=== PATIENT | female | born 1955 | race Caucasian/White ===

== ENCOUNTER 2025-07-14 22:08 | Emergency (ER) | payer MEDICARE, SELFPAY ==
--- OUTSIDE RECORDS SUMMARY | 2025-07-09 07:50 | XMS_ITS | Encounter Summary ---
Author Organization [facility] Address [address] [place] [phone] Phone Care Team Providers Care Oven Loader Name Role Phone Hali Carlin Primary Care Provider [phone] Prashant Gaspar DO Unavailable Sharon Hunter FABRIC COATING SUPERVISOR Unavailable Marilee Kaminski DEPALLETIZER OPERATOR Unavailable Encounter Details Date Type Department Care Team (Latest Contact Info) Description 07/09/2025 7:50 AM EDT - 07/09/2025 11:59 PM EDT Hospital Encounter [facility] [address] [place] [address] Prashant Gaspar, DO [address] [place] [address] [email or web address] Discharge Disposition: Home or Self Care Social History Tobacco Use Types Packs/Day Years Used Date Smoking Tobacco: Former Cigarettes Q uit: 2004 Smokeless Tobacco: Former Alcohol Use Standard Drinks/Week Comments Never 0 (1 standard drink = 0.6 oz pur e alcohol) Education Answer Date Recorded Are you interested in more education? Not on rafael e 04/23/2023 Are you concerned about learning? Not on file 04/23/2023 No 04/23/2023 No 04/23/2023 Food Answer Date Recorded Within the past 6 months we worried whether our food would run out before we got money to buy more. Never True 07/05/2025 Within the past 6 months the food we bought just didn't last and we didn't have enough money to get more. Never True Residential Stability Answer Date Recor ded What is your housing situation today? I have allan vines 07/05/2025 How many times have you move d in the past 12 months? Zero (I did not move) 07/05/2025 Paying for Meds Answer Date Recorded Do you have trouble paying for medicines? No 07/05/2025 Paying Utility Bills Answer Date Record ed Do you have trouble paying your heating or elect ricity bill? No 07/05/2025 Transportation Answer Date Recorded Has the lack of transportati on kept you from medical appointments or from getting medications? No 07/05/2025 Digital Access Answer Date Recorded No 07/05/2025 Yes 07/05/2025 Do you have reliable internet access at home? Ye s 07/05/2025 Do you have a device (e.g., phone, tablet, computer) with a working camera? Yes 07/05/2025 Intimate Partner Violence Answer Date R ecorded Are you denied basic needs s uch as food, clothing, or medical care? No 07/05/2025 In the past 12 months have y ou been in a relationship with a person who hurts, threatens, or tries to control you? No 07/05/2025 Are you denied basic needs s uch as food, clothing, or medical care? No 07/05/2025 In the past 12 months have y ou been in a relationship with a person who hurts, threatens, or tries to control you? No 07/05/2025 Comments Unknown Sex and Gender Information Value Date Recorded Sex Assigned at Female 04/23/2023 3:07 PM EDT Legal Sex Female 9:58 PM EDT Gender Identity Female 04/23/2023 3:07 PM EDT Sexual Orientation Straight 07/22/2023 4: 20 PM EDT documented as of this encounter Medications at Time of Discharge amitriptyline (ELAVIL) 25 MG tablet Take 2 tablets (50 mg total) by mouth nightly at bedtime for 14 days, THEN 1 tablet (25 mg total) nightly at bedtime for 14 days. 42 tablet 06/20/2025 aspirin 81 MG EC tablet Take 81 mg by mouth daily. gabapentin (NEURONTIN) 300 MG capsule Take 600 mg by mouth nightly at bedtime. 03/25/2023 lisinopril (PRINIVIL,ZESTRIL) 10 MG tablet Take 10 mg by mouth daily. 03/25/2023 ondansetron (ZOFRAN-ODT) 4 MG disintegrating tablet (To-Go) Take 1-2 tablet(s) by mouth every 8 hours as needed for nausea/vomitin g 6 tablet 05/31/2025 oxyCODONE 5 MG immediate release tablet Take 1 tablet (5 mg total) by mouth every 6 (six) hours as needed for pain (specific location in comments). Partial fill OK. 42 tablet 05/25/2025 vitamins with ferrous fumarate- folic acid 28 mg iron- 800 mcg Tab Take 1 tablet by mouth daily. 30 tablet 2 06/20/2025 prochlorperazine (COMPAZINE) 10 MG tablet Take 1 tablet (10 mg total) by mouth every 6 (six) hours as needed (chemotherapy induced nausea and/or vomiting). 30 tablet 2 06/21/2025 SYNTHROID 75 mcg tablet Take 75 mcg by mouth every morning. 03/25/2023 thiamine (VITAMIN B-1) 100 mg Tab tablet Take 1 tablet (100 mg total) by mouth daily. 30 tablet 06/21/2025 lidocaine (LIDODERM) 5 % Place 1 patch onto the skin daily for 5 days. Remove & Discard patch within 12 hours or as directed by 5 patch 07/05/2025 nitrofurantoin (MACROBID) 100 MG capsule Take 1 capsule (100 mg total) by mouth 2 (two) times a day for 5 days. 10 capsule 07/05/2025 5 documented as of this encounter Plan of Treatment Upcoming Encounters Date Type Department Care Team (Latest Contact Info) Description 07/20/2025 Procedure Pass [facility] Cardiovascular And Interventional Radiology [address] [place] [address] 07/20/2025 1:00 PM EDT Hospital Encounter [facility] Cardiovascular And Interventional Radiology [address] [place] [address] Galen Contreras MD [address] [place] [address] [email or web address] 07/20/2025 1:00 PM EDT - 07/20/2025 2:25 PM EDT Surgery [facility] Cardiovascular And Interventional Radiology [address] [place] [address] Galen Contreras MD [address] [place] [address] [email or web address] PORT A CATH INSERTION (IR) 07/31/2025 7:40 AM EDT Appointment [facility] [address] [place] [address] Prashant Gaspar, DO [address] [place] [phone] [email or web address] 07/31/2025 8:30 AM EDT Office Visit [facility] at [address] [address] Marilee Kaminski FNP [address] [place] [address] [email or web address] 07/31/2025 9:20 AM EDT Infusion [facility] at [address] [address] Prashant Gaspar, DO [address] [place] [address] [email or web address] Kaushal Feliz, RICHARDSON [address] [place] [address] [email or web address] 08/01/2025 2:40 PM EDT Infusion [facility] at [address] [address] Prashant Gaspar, DO [address] [place] [address] [email or web address] Celine Peralta, RICHARDSON [address] [place] [address] [email or web address] 08/02/2025 2:40 PM EDT Infusion [facility] at [address] [address] Prashant Gaspar, DO [address] [place] [address] [email or web address] Kimberly Nunes RN [address] [place] [phone] [email or web address] 08/03/2025 4:00 PM EDT Infusion [facility] at [address] [address] Prashant Gaspar, [address] [address] [email or web address] Salima Harris RN [address] [place] [phone] 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 documented in this encounter Results * (ABNORMAL) CBC and differential (07/09/2025 11:59 AM EDT) WBC 16.55(H) 4.00 - 11.00 K/uL [facility] RBC 3.52(L) 4.00 - 5.20 M/uL [facility] HGB 10.5(L) 12.0 - 16.0 g/dL [facility] HCT 32.8(L) 36.0 - 46.0 % [facility] PLT 521(H) 150 - 450 K/uL [facility] MCV 93.2 80.0 - 100.0 fL [facility] MCH 29.8 27.0 - 31.0 pg [facility] MCHC 32.0 32.0 - 36.0 g/dL [facility] RDW 15.9(H) 11.5 - 14.5 % [facility] MPV 10.5 8.4 - 12.0 fL [facility] NRBC 0.20(H) 0.00 /100 WBCs [facility] ABSOLUTE NRBC 0.03(H) 0.00 K/uL [facility] DIFF METHOD Manual [facility] TOTAL CELLS COUNTED 100 [facility] NEUTS 74.0 48.0 - 76.0 % [facility] LYMPHS 10.0(L) 18.0 - 41.0 % [facility] MONOS 2.0(L) 4.0 - 11.0 % [facility] MYELOS 14.0(H) 0 % [facility] ABSOLUTE NEUTS 12.25(H) 1.92 - 7.60 K/uL [facility] ABSOLUTE LYMPHS 1.66 0.72 - 4.10 K/uL [facility] ABSOLUTE MONOS 0.33 0.16 - 1.10 K/uL [facility] ABSOLUTE MYELOS 2.32 K/uL [facility] TOXIC GRANULATION PRESENT(A) None [facility] Blood 07/09/2025 11:5 9 AM EDT 07/09/2025 12:17 PM EDT us Prashant Gaspar DO LAB BLOOD ORDERABLES Final Result [facility] [address] [place] [address] * (ABNORMAL) Comprehensive metabolic panel (07/09/2025 11:59 AM EDT) SODIUM 142 133 - 146 mmol/L [facility] POTASSIUM 3.4 3.3 - 5.1 mmol/L [facility] CHLORIDE 105 96 - 108 mmol/L [facility] CO2 26 21 - 35 mmol/L [facility] BUN 11 6 - 19 mg/dL [facility] CREATININE 1.00 0.5 - 1.5 mg/dL [facility] GLUCOSE 125(H) 70 - 99 mg/dL [facility] ALBUMIN 3.3(L) 3.9 - 4.8 g/dL [facility] TOTAL PROTEIN 7.4 6.5 - 8.0 g/dL [facility] CALCIUM 9.1 8.4 - 10.3 mg/dL [facility] ALKALINE PHOSPHATASE 595(H) 39 - 117 U/L [facility] TOTAL BILIRUBIN 0.4 0.0 - 1.2 mg/dL [facility] AST 74(H) 0 - 37 U/L [facility] ALT 36 0 - 40 U/L [facility] GLOBULIN 4.1 1 - 4.8 g/dL [facility] EGFR 60 >59 mL/min/1.7 3m2 [facility] Comment:Estimated glomerular filtration rate calculated using the CKD-EPI refit equation. 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 Nurse Practitioner Medical Oncology 06/26/25 Marilee Kaminski FNP [address] [place] [address] [email or web address] Nurse Practitioner Medical Oncology 06/28/25 documented as of this encounter Additional Source Comments The information contained in this document represents components of the legal health record. It is not the complete legal health record.[facility]
--- NOTE | 2025-07-14 | ECG_ITS ---
Test Reason : CHEST PAIN Blood Pressure : */* mmHG Vent. Rate : 80 BPM Atrial Rate : 80 BPM P-R Int : 136 ms QRS Dur : 94 ms QT Int : 384 ms P-R-T Axes : 66 5 27 degrees QTcB Int : 442 ms Normal sinus rhythm Possible Inferior infarct , age undetermined Abnormal ECG No previous ECGs available Referred By: Generic ED Physician Electronically Signed By: VICTORINO HERNANDEZ MD
--- NOTE | ~2025-07-14 | XR_ITS ---
CLINICAL HISTORY: pain 3 view right ankle Comparison: None provided Findings: No acute fractures. Ankle mortise intact. Bones appear demineralized. No ankle effusion. Moderate ankle soft tissue swelling. No radiopaque foreign body. IMPRESSION: 1. No acute fracture. This document has been electronically signed by: Lucila Harris MD on 07/14/2025 22:58:30
--- NOTE | ~2025-07-14 | CT_ITS ---
CLINICAL HISTORY: activa CA, elevated d-dimer(372), CP CT angiography chest with contrast. 3D Postprocessing. Comparison: None provided Findings: There is no pulmonary embolism. Heart size is within normal limits. There is no pericardial effusion. There is coronary artery calcification. Thoracic aorta is normal in diameter without dissection. There are no enlarged lymph nodes. There is mucus plugging within a subsegmental left lower lobe bronchus with associated subsegmental atelectasis. There is minimal bilateral dependent atelectasis. There is no consolidation or effusion. There are mild inferior endplate compression fractures of T3 and T12. There is a faintly visible fracture line in the inferior endplate of T12. There is no retropulsion. Alignment of the thoracic spine is normal. There is no suspicious lytic or sclerotic lesion. Limited images of the upper abdomen demonstrate numerous hypodense lesions throughout the liver. IMPRESSION: 1. No pulmonary embolism. 2. Mild T12 compression fracture which may be acute or subacute. Age-indeterminate mild T3 compression fracture. Comparison with prior imaging would be helpful. 3. Numerous hypodense lesions throughout the liver suggestive of metastases. Correlate with oncologic history and prior imaging. This document has been electronically signed by: Franco Watts MD on 07/15/2025 04:07:40
--- NOTE | ~2025-07-14 | XR_ITS ---
CLINICAL HISTORY: pain 3 view right foot Comparison: None provided Findings: No fractures or dislocations. Bones appear demineralized. Mild degenerative changes of the 1st metatarsophalangeal joint. No ankle effusion. No radiopaque foreign body. IMPRESSION: 1. No acute fracture. This document has been electronically signed by: Lucila Harris MD on 07/14/2025 22:58:21
[2025-07-14 22:15] VITALS: BP 163/80; PULSE 91; RESP 18; TEMP 36.1; O2SAT 96; BMI 24.4
--- OUTSIDE RECORDS SUMMARY | 2025-07-14 23:03 | XMS_ITS | Encounter Summary ---
Author Organization [facility] Address [address] [place] [phone] Phone Care Team Providers Care Equipment Superintendent Name Role Phone Hali Carlin Primary Care Provider [phone]- [phone] Prashant Gaspar DO Unavailable [phone] Sharon Hunter COAT OPERATOR Unavailable [phone] Marilee Kaminski SENIOR SQL DATABASE DEVELOPER Unavailable [phone] Encounter Details Date Type Department Care Team (Late st Contact Info) Description 06/24/2025 Procedure Pass [facility], Ct Scan - [facility] [address] [place] [address] Social History Tobacco Use Types Packs/Day Years Used Date Smoking Tobacco: Former Cigarettes Q uit: 2003 Smokeless Tobacco: Former Alcohol Use Standard Drinks/Week [...] got money to buy more. Never True 06/25/2025 Within the past 6 months the food we bought just didn't last and we didn't have enough money to get more. Never True Residential Stability Answer Date Recor ded What is your housing situation today? I have allan sing 06/25/2025 How many times have you move d in the past 12 months? Zero (I did not move) 06/25/2025 Paying for Meds Answer Date Recorded Do you have trouble paying for medicines? No 06/25/2025 Paying Utility Bills Answer Date Record ed Do you have trouble paying your heating or elect ricity bill? No 06/25/2025 Transportation Answer Date Recorded Has the lack of transportati on kept you from medical appointments or from getting medications? No 06/25/2025 Digital Access Answer Date Recorded No 06/25/2025 Yes 06/25/2025 Do you have reliable internet access at home? Ye s 06/25/2025 Do you have a device (e.g., phone, tablet, computer) with a working camera? Yes 06/25/2025 Intimate Partner Violence Answer Date R ecorded Are you denied basic needs s uch as food, clothing, or medical care? No 06/24/2025 In the past 12 months have y ou been in a relationship with a person who hurts, threatens, or tries to control you? No 06/24/2025 Are you denied basic needs s uch as food, clothing, or medical care? No 06/24/2025 In the past 12 months have y ou been in a relationship with a person who hurts, threatens, or tries to control you? No 06/24/2025 Comments Unknown Sex and Gender Information Value Date Recorded Sex Assigned at Female 04/23/2023 3:07 PM EDT Legal Sex Female 9:58 PM EDT Gender Identity Female 04/23/2023 3:07 PM EDT Sexual Orientation Straight 07/22/2023 4: 20 PM EDT documented as of this encounter Functional Status * Calculated C-SSRS Risk Score (Lifetime/Recent) Answer Date of Assessment Author No Risk Indicated 06/24/2025 9:32 PM EDT Helen Stauffer RN * [place] Suicide Severity Rating Scale (Screener/Recent Self-Report) Question Answer Date of Assessment Author 1. Wish to be (Past 1 Month) No 06/24/2025 9:32 PM EDT Helen Stauffer RN 2. Non-Specific Active Suici raymond Thoughts (Past 1 Month) No 06/24/2025 9:32 PM EDT Patrick Stauffer RN 6. Suicidal Behavior (Lifetime) No 9:32 PM EDT Helen Stauffer RN documented as of this encounter Plan of Treatment Upcoming Encounters Date Type Department Care Team (Latest Contact Info) Description 07/20/2025 Procedure Pass [facility] Cardiovascular And Interventional Radiology [address] [place] [address] 07/20/2025 1:00 PM EDT Hospital Encounter [facility] Cardiovascular And Interventional Radiology [address] [place] [address] Galen Contreras MD [address] [place] [address] [email or web address] 07/20/2025 1:00 PM EDT - 07/20/2025 2:25 PM EDT Surgery [facility] Cardiovascular And Interventional Radiology [address] [place] [address] Galen Contreras MD [address] [place] [address] [email or web address] PORT A CATH INSERTION (IR) 07/31/2025 7:40 AM EDT Appointment [facility] Laboratory [address] [place] [address] Prashant Gaspar, DO [address] [place] [address] [email or web address] 07/31/2025 8:30 AM EDT Office Visit [facility] at [address] [address] Marilee Kaminski FNP [address] [place] [address] 07/31/2025 9:20 AM EDT Infusion [facility] [place] at [address] [address] Prashant Gaspar, DO [address] [place] [address] [email or web address] Kaushal Feliz RN [address] [place] [address] [email or web address] 08/01/2025 2:40 PM EDT Infusion [facility] at [address] [address] Prashant Gaspar, [address] [address] [email or web address] Celine Peralta RN [address] [place] [phone] [email or web address] 08/02/2025 2:40 PM EDT Infusion [facility] at [address] [address] Prashant Gaspar [address] [address] [email or web address] Kimberly Nunes RN [address] [place] [address] [email or web address] 08/03/2025 4:00 PM EDT Infusion [facility] at [address] [address] Prashant Gaspar DO [address] [place] [address] [email or web address] Salima Harris RN [address] [place] [address] [email or web address] documented as of this encounter Visit Diagnoses Not on filedocumented in this encounter Care Teams Equipment Superintendent Relationship Specialty Start Date End Date Hali Carlin PA [address] [place] [phone] PCP - General Physician Forest Law And Policy Professor 05/03/25 Prashant Gaspar DO [address] [place] [address] [email or web address] Primary Oncologist Hematology and Oncology 06/01/25 Sharon Hunter NP [address] [place] [phone] Nurse Practitioner Medical Oncology 06/26/25 Marilee Kaminski FNP [address] [place] [address] Nurse Practitioner Medical Oncology 06/28/25 documented as of this encounter Additional Source Comments The information contained in this document represents components of the legal health record. It is not the complete legal health record.[facility]
--- OUTSIDE RECORDS SUMMARY | 2025-07-14 23:03 | XMS_ITS | Encounter Summary ---
Author Organization [facility] Address [address] [place] [address] [place] [address] Phone Care Team Providers Care Unleavened Dough Mixer Name Role Phone Celine Farley MD Primary Care Provider Unavailable Hali Carlin Primary Care Provider [phone] Prashant Gaspar DO Unavailable [phone] Sharon Hunter PLANT CARE WORKER Unavailable Marilee KaminskiP Unavailable Encounter Details Date Type Department Care Team (Late st Contact Info) Description 04/23/2023 Procedure Pass [facility], Ct Scan - [facility] [address] [place] [address] Social History Tobacco Use Types Packs/Day Years Used Date Smoking Tobacco: Never Assessed Education Answer Date Recorded Are you interested in more education? Not on rafael e 04/23/2023 Are you concerned about learning? Not on file 04/23/2023 No 04/23/2023 No 04/23/2023 Digital Access Answer Date Recorded No 04/23/2023 No 04/23/2023 Reliable internet access at home? Not on file 04/23/2023 Device with a working camera? Not on file Intimate Partner Violence Answer Date R ecorded Are you denied basic needs s uch as food, clothing, or medical care? No 04/23/2023 In the past 12 months have y ou been in a relationship with a person who hurts, threatens, or tries to control you? No 04/23/2023 Are you denied basic needs s uch as food, clothing, or medical care? No 04/23/2023 In the past 12 months have y ou been in a relationship with a person who hurts, threatens, or tries to control you? No 04/23/2023 Comments Unknown Sex and Gender Information Value Date Recorded Sex Assigned at Female 04/23/2023 3:07 PM EDT Legal Sex Female 9:58 PM EDT Gender Identity Female 04/23/2023 3:07 PM EDT Sexual Orientation Straight 07/22/2023 4: 20 PM EDT documented as of this encounter Functional Status * Calculated C-SSRS Risk Score (Lifetime/Recent) Answer Date of Assessment Author No Risk Indicated 04/26/2023 8:34 AM EDT Celena Hinton RN * Semmes Suicide Severity Rating Scale (Screener/Recent Self-Report) Question Answer Date of Assessment Author 1. Wish to be (Past 1 Month) No 023 8:34 AM EDT Celena Hinton RN 2. Non-Specific Active Suici raymond Thoughts (Past 1 Month) No 04/26/2023 8:34 AM EDT Sherine Hinton RN 6. Suicidal Behavior (Lifetime) No 8:34 AM EDT Celena Hinton RN documented as of this encounter Plan of Treatment Upcoming Encounters Date Type Department Care Team (Latest Contact Info) Description 07/20/2025 Procedure Pass [facility] Cardiovascular And Interventional Radiology [address] [place] [address] 07/20/2025 1:00 PM EDT Hospital Encounter [facility] Cardiovascular And Interventional Radiology [address] [place] [address] Galen Contreras MD [address] [place] [address] [email or web address] 07/20/2025 1:00 PM EDT - 07/20/2025 2:25 PM EDT Surgery [facility] Cardiovascular And Interventional Radiology [address] [place] [address] Galen Contreras MD [address] [place] [address] [email or web address] PORT A CATH INSERTION (IR) 07/31/2025 7:40 AM EDT Appointment [facility] Laboratory [address] [place] [address] Prashant Gaspar, DO [address] [place] [address] [email or web address] 07/31/2025 8:30 AM EDT Office Visit [facility] at [address] [address] Marilee Kaminski FNP [address] [place] [address] [email or web address] 07/31/2025 9:20 AM EDT Infusion [facility] at [address] [address] Prashant Gaspar, DO [address] [place] [address] [email or web address] Kaushal Feliz, RICHARDSON [address] [place] [address] [email or web address] 08/01/2025 2:40 PM EDT Infusion [facility] at [address] [address] Prashant Gaspar, DO [address] [place] [address] [email or web address]@[email or web address] Celine Peralta, RICHARDSON [address] [place] [address] [email or web address] 08/02/2025 2:40 PM EDT Infusion [facility] at [address] [address] Prashant Gaspar DO [address] [place] [address] [email or web address]@[email or web address] Kimberly Nunes, RICHARDSON [address] [place] [address] [email or web address] 08/03/2025 4:00 PM EDT Infusion [facility] at [address] [address] Prashant Gaspar DO [address] [place] [address] [email or web address]@[email or web address] Salima Harris RN [address] [place] [address] [email or web address] documented as of this encounter Visit Diagnoses Not on filedocumented in this encounter Additional Health Concerns Infection Onset Date Last Indicated Resolved Time CoV-Risk Comment:Per note documentation 04/24/2023 04/24/2023 10:25 AM EDT CoV-Risk 05/31/2025 05/31/2025 06/11/2025 1:21 AM EDT documented as of this encounter Care Teams Unleavened Dough Mixer Relationship Specialty Start Date End Date Celine Farley MD PCP - General 07/20/17 05/02/25 Hali Carlin PA [address] [place] [phone] PCP - General Physician Sales Support Coordinator 05/03/25 Prashant Gaspar DO [address] [place] [address] [email or web address] Primary Oncologist Hematology and Oncology 06/01/25 Sharon Hunter NP [address] [place] [address] [email or web address] Nurse Practitioner Medical Oncology 06/26/25 Marilee Kaminski FNP [address] [place] [address] [email or web address] Nurse Practitioner Medical Oncology 06/28/25 documented as of this encounter Additional Source Comments The information contained in this document represents components of the legal health record. It is not the complete legal health record.[facility]
--- OUTSIDE RECORDS SUMMARY | 2025-07-14 23:04 | XMS_ITS | Encounter Summary ---
Author Organization [facility] Address [address] [place] [address] Phone Care Team Providers Care Ferryboat Operator Helper Name Role Phone Hali Carlin Primary Care Provider [phone]- [phone] Prashant Gaspar DO Unavailable [phone] Sharon Hunter CHEMICAL PROJECT ENGINEER Unavailable [phone] Marilee Kaminski PORCELAIN ENAMEL LABORER Unavailable [phone] Encounter Details Date Type Department Care Team (Late st Contact Info) Description 06/24/2025 Procedure Pass [facility], Ct Scan - [facility] [address] [place] [address] Social History Tobacco Use Types Packs/Day Years [...] 9:32 PM EDT Helen Stauffer RN * Alexander Suicide Severity Rating Scale (Screener/Recent Self-Report) Question [...] (Latest Contact Info) Description 07/20/2025 Procedure Pass [facility] Cardiovascular And Interventional Radiology [address] [place] [address] 07/20/2025 1:00 PM EDT Hospital Encounter [facility] Cardiovascular And Interventional Radiology [address] [place] [address] Galen Contreras MD [address] [place] [address] [email or web address] 07/20/2025 1:00 PM EDT - 07/20/2025 2:25 PM EDT Surgery [facility] Cardiovascular And Interventional Radiology [address] [place] [address] Galen Contreras MD [address] [place] [address] [email or web address] PORT A CATH INSERTION (IR) 07/31/2025 7:40 AM EDT Appointment [facility] Laboratory [address] [place] [address] Prashant Gaspar, DO [address] [place] [address] [email or web address] 07/31/2025 8:30 AM EDT Office Visit [facility] at [address] [address] Marilee Kaminski FNP [address] [place] [address] 07/31/2025 9:[address] [facility] at [address] [address] Prashant Gaspar, DO [address] [place] [address] [email or web address] [email or web address] Kaushal Feliz RN [address] [place] [address] [email or web address] 08/01/2025 2:40 PM EDT Infusion [facility] at [address] [address] Prashant Gaspar, [address] [address] [email or web address] Celine Peralta RN [address] [place] [address] [email or web address] 08/02/2025 2:40 PM EDT Infusion [facility] at [address] [address] Prashant Gaspar [address] [address] [email or web address] Kimberly Nunes RN [address] [place] [address] [email or web address] 08/03/2025 4:00 PM EDT Infusion [facility] at [address] [address] Prashant Gaspar DO [address] [place] [address] [email or web address]@[email or web address] Salima Harris RN [address] [place] [address] [email or web address] documented as of this encounter Visit Diagnoses Not on filedocumented in this encounter Care Teams Ferryboat Operator Helper Relationship Specialty Start Date End Date Hali Carlin PA [address] [place] [phone] PCP - General Physician Steeping Press Tender 05/03/25 Prashant Gaspar DO [address] [place] [address] [email or web address] Primary Oncologist Hematology and Oncology 06/01/25 Sharon Hunter NP [address] [place] [address] Nurse Practitioner Medical Oncology 06/26/25 Marilee Kaminski FNP [address] [place] [address] Nurse Practitioner Medical Oncology 06/28/25 documented as of this encounter Additional Source Comments The information contained in this document represents components of the legal health record. It is not the complete legal health record.[facility]
--- OUTSIDE RECORDS SUMMARY | 2025-07-14 23:04 | XMS_ITS | Encounter Summary ---
Author Organization [facility] Address [address] [place] [address] [place] [address] Phone Care Team Providers Care Rubber Compounder Formulator Name Role Phone Hali Carlin Primary Care Provider [phone] Prashant Gaspar DO Unavailable Sharon Hunter PROGRAM DIRECTOR Unavailable Marilee Kaminski GLASS BULB MACHINE ADJUSTER Unavailable Encounter Details Date Type Department Care Team (Late st Contact Info) Description 06/20/2025 Telephone [facility] at [address] [address] Prashant Gaspar DO [address] [place] [address] [email or web address] Social History Tobacco Use Types Packs/Day Years [...] got money to buy more. Never True 06/14/2025 Within the past 6 months the food we bought just didn't last and we didn't have enough money to get more. Never True Residential Stability Answer Date Recor ded What is your housing situation today? I have allan vines 06/14/2025 How many times have you move d in the past 12 months? Zero (I did not move) 06/14/2025 Paying for Meds Answer Date Recorded Do you have trouble paying for medicines? No 06/14/2025 Paying Utility Bills Answer Date Record ed Do you have trouble paying your heating or elect ricity bill? No 06/14/2025 Transportation Answer Date Recorded Has the lack of transportati on kept you from medical appointments or from getting medications? No 06/14/2025 Digital Access Answer Date Recorded No 06/14/2025 Yes 06/14/2025 Do you have reliable internet access at home? Ye s 06/14/2025 Do you have a device (e.g., phone, tablet, computer) with a working camera? Yes 06/14/2025 Intimate Partner Violence Answer Date R ecorded [...] PM EDT documented as of this encounter Plan of Treatment Upcoming Encounters Date Type Department Care Team (Latest Contact Info) Description 07/20/2025 Procedure Pass [facility] Cardiovascular And Interventional Radiology [address] [place] [address] 07/20/2025 1:00 PM EDT Hospital Encounter [facility] [address] [place] [address] Galen Contreras MD [address] [place] [address] [email or web address] 07/20/2025 1:00 PM EDT - 07/20/2025 2:25 PM EDT Surgery [facility] Cardiovascular And Interventional Radiology [address] [place] [address] Galen Contreras MD [address] [place] [address] [email or web address] PORT A CATH INSERTION (IR) 07/31/2025 7:40 AM EDT Appointment [facility] Laboratory [address] [place] [address] Prashant Gaspar, DO [address] [place] [address] [email or web address] 07/31/2025 8:30 AM EDT Office Visit [facility] at [address] [address] Marilee Kaminski FNP [address] [place] [address] [email or web address] 07/31/2025 9:20 AM EDT Infusion [facility] at [address] [address] Prashant Gaspar, DO [address] [place] [address] [email or web address] Kaushal Feliz, RICHARDSON [address] [place] [address] [email or web address] 08/01/2025 2:40 PM EDT Infusion [facility] at [address] [address] Prashant Gaspar, DO [address] [place] [address] [email or web address] Celine Peralta, RICHARDSON [address] [place] [address] [email or web address] g 08/02/2025 2:40 PM EDT Infusion [facility] at [address] [address] Prashant Gaspar, DO [address] [place] [address] [email or web address] Kimberly Nunes RN [address] [place] [address] [email or web address] 08/03/2025 4:00 PM EDT Infusion [facility] at [address] [address] Prashant Gaspar DO [address] [place] [address] [email or web address] Salima Harris RN [address] [place] [address] [email or web address] documented as of this encounter Visit Diagnoses Not on filedocumented in this encounter Care Teams Rubber Compounder Formulator Relationship Specialty Start Date End Date Hali Carlin PA [address] [place] [phone] PCP - General Physician Wine Pasteurizer 05/03/25 Prashant Gaspar DO [address] [place] [address] [email or web address] Primary Oncologist Hematology and Oncology 06/01/25 Sharon Hunter, EVA [address] [place] [address] [email or web address] Nurse Practitioner Medical Oncology 06/26/25 Marilee Kaminski FNP [address] [place] [address] [email or web address] Nurse Practitioner Medical Oncology 06/28/25 documented as of this encounter Additional Source Comments The information contained in this document represents components of the legal health record. It is not the complete legal health record.[facility]
--- OUTSIDE RECORDS SUMMARY | 2025-07-14 23:04 | XMS_ITS | Encounter Summary ---
Author Organization [facility] Address [address] [place] [address] Phone Care Team Providers Care Cake Former Name Role Phone Hali Carlin Primary Care Provider [phone] Prashant Gaspar DO Unavailable [phone] Sharon Hunter CASH APPLICATIONS COORDINATOR Unavailable [phone] Marilee Kaminski RN SPINE Unavailable Encounter Details Date Type Department Care Team (Late st Contact Info) Description 07/09/2025 Telephone [facility] at [facility] [address] [place] [address] Sharon Hunter, EVA [address] [place] [address] [email or web address] Social History Tobacco Use Types Packs/Day Years [...] your housing situation today? I have allan jasmyn 07/05/2025 How many times have you move [...] PM EDT documented as of this encounter Progress Notes * Akua Gibson RN - 07/09/2025 11:42 AM EDT Called and lmom for carey Martines appts for today/this week for treatment Asked that she call us back to make sure she is ok and to work on a new schedule Called Yonny, they are out front the [place] entrance coming into office. Unaware of clerance appt added in for today * Sharon Hunter NP - 07/09/2025 10:33 AM EDT Bobbi did not come in for her visit this AM. Can someone please call and reschedule her? Thank you! documented in this encounter Plan of Treatment Upcoming Encounters Date Type Department Care Team (Latest Contact Info) Description 07/20/2025 Procedure Pass [facility] Cardiovascular And Interventional Radiology [address] [place] [address] 07/20/2025 1:00 PM EDT Hospital Encounter [facility] Cardiovascular And Interventional Radiology [address] [place] [address] Galen Contreras MD [address] [place] [address] [email or web address] 07/20/2025 1:00 PM EDT - 07/20/2025 2:25 PM EDT Surgery [facility] Cardiovascular And Interventional Radiology [address] [place] [address] Galen Contreras MD [address] [place] [address] [email or web address] PORT A CATH INSERTION (IR) 07/31/2025 7:40 AM EDT Appointment [facility] Laboratory [address] [place] [address] Prashant Gaspar DO [address] [place] [address] [email or web address] 07/31/2025 8:30 AM EDT Office [facility] [address] [place] [address] Marilee Kaminski FNP [address] [place] [address] [email or web address] 07/31/2025 9:20 AM EDT Infusion [facility] at [address] [address] Prashant Gaspar, DO [address] [place] [address] [email or web address] Kaushal Feliz RN [address] [place] [address] [email or web address] 08/01/2025 2:40 PM EDT Infusion [facility] at [address] [address] Prashant Gaspar, DO [address] [place] [address] [email or web address] Celine Peralta RN [address] [place] [address] [email or web address] 08/02/2025 2:40 PM EDT Infusion [facility] at [address] [address] Prashant Gaspar, DO [address] [place] [address] [email or web address] Kimberly Nunes, RICHARDSON [address] [place] [address] 08/03/2025 4:[address] [facility] at [address] [address] Prashant Gaspar, DO [address] [place] [address] [email or web address] Salima Harris, RN [address] [place] [address] [email or web address] documented as of this encounter Visit Diagnoses Not on filedocumented in this encounter Care Teams Cake Former Relationship Specialty Start Date End Date Hali Carlin PA [address] [place] [phone] PCP - General Physician Plastering Supervisor 05/03/25 Prashant Gaspar DO [address] [place] [address] [email or web address] Primary Oncologist Hematology and Oncology 06/01/25 Sharon Hunter NP [address] [place] [address] [email or web address] Nurse Practitioner Medical Oncology 06/26/25 Marilee Kaminski FNP [address] [place] [address] [email or web address] Nurse Practitioner Medical Oncology 06/28/25 documented as of this encounter Additional Source Comments The information contained in this document represents components of the legal health record. It is not the complete legal health record.[facility]
--- OUTSIDE RECORDS SUMMARY | 2025-07-14 23:04 | XMS_ITS | Encounter Summary ---
Author Organization [facility] Address [address] [place] [address] [place] [address] Phone Care Team Providers Care Hand Wrapper Operator Name Role Phone Hali Carlin Primary Care Provider [phone] Prashant Gaspar DO Unavailable Sharon Hunter OUTREACH SPECIALIST Unavailable [phone] Marilee Kaminski SALES AND CATERING COORDINATOR Unavailable Encounter Details Date Type Department Care Team (Late st Contact Info) Description 07/06/2025 Orders Only [facility] [place] [facility] [address] [place] [address] Sharon Hunter, EVA [address] [place] [address] [email or web address] Social History Tobacco Use Types Packs/Day Years [...] Pass [facility] [address] [place] [address] 07/20/2025 1:00 PM EDT Hospital Encounter [facility] [address] [place] [address] Galen Contreras MD [address] [place] [address] [email or web address] 07/20/2025 1:00 PM EDT - 07/20/2025 2:25 PM EDT Surgery [facility] Cardi[facility] And Interventional Radiology [address] [place] [address] Galen Contreras MD [address] [place] [address] [email or web address] PORT A CATH INSERTION (IR) 07/31/2025 7:40 AM EDT Appointment [facility] [address] [place] [address] Prashant Gaspar, DO [address] [place] [address] [email or web address] 07/31/2025 8:30 AM EDT Office Visit [facility] at [address] [address] Marilee Kaminski FNP [address] [place] [address] [email or web address] 07/31/2025 9:20 AM EDT Infusion [facility] at [address] [address] Prashant Gaspar, DO [address] [place] [address] [email or web address] Kaushal Feliz, RICHARDSON [address] [place] [address] [email or web address] 08/01/2025 2:40 PM EDT Infusion [facility] at [address] [address] Prashant Gaspar, DO [address] [place] [address] [email or web address] Celine Peralta, RICHARDSON [address] [place] [address] [email or web address] 08/02/2025 2:40 PM EDT Infusion [facility] at [address] [address] Prashant Gaspar, [address] [place] [address] [email or web address] Kimberly Nunes RN [address] [place] [address] [email or web address] 08/03/2025 4:00 PM EDT Infusion [facility] at [address] [address] Prashant Gaspar DO [address] [place] [address] [email or web address] Salima Harris RN [address] [place] [address] [email or web address] documented as of this encounter Visit Diagnoses Not on filedocumented in this encounter Care Teams Hand Wrapper Operator Relationship Specialty Start Date End Date Hali Carlin PA [address] [place] [phone] PCP - General Physician Steam Trap Man 05/03/25 Prashant Gaspar DO [address] [place] [address] [email or web address] Primary Oncologist Hematology and Oncology 06/01/25 Sharon Hunter, EVA [address] [place] [address] [email or web address] Nurse Practitioner Medical Oncology 06/26/25 Marilee Kaminski FNP [address] [place] [address] [email or web address] Nurse Practitioner Medical Oncology 06/28/25 documented as of this encounter Additional Source Comments The information contained in this document represents components of the legal health record. It is not the complete legal health record.[facility]
--- OUTSIDE RECORDS SUMMARY | 2025-07-14 23:04 | XMS_ITS | Encounter Summary ---
Author Organization [facility] Address [address] [place] [address] Phone Care Team Providers Care General Teller Name Role Phone Hali Carlin Primary Care Provider [phone] Prashant Gaspar DO Unavailable [phone] Sharon Hunter PHYSICIAN OFFICE NURSE Unavailable Marilee Kaminski GARDEN WORKER Unavailable [phone] Encounter Details Date Type Department Care Team (Late st Contact Info) Description 05/25/2025 Procedure Pass [place] Admitting Dept - Virtual Department [address] [place] [address] Social History Tobacco Use Types Packs/Day Years [...] got money to buy more. Never True 05/03/2025 Within the past 6 months the food we bought just didn't last and we didn't have enough money to get more. Never True Residential Stability Answer Date Recor ded What is your housing situation today? I have allan sing 05/03/2025 How many times have you move d in the past 12 months? Zero (I did not move) 05/03/2025 Paying for Meds Answer Date Recorded Do you have trouble paying for medicines? No 05/03/2025 Paying Utility Bills Answer Date Record ed Do you have trouble paying your heating or elect ricity bill? No 05/03/2025 Transportation Answer Date Recorded Has the lack of transportati on kept you from medical appointments or from getting medications? No 05/03/2025 Digital Access Answer Date Recorded No 05/03/2025 Yes 05/03/2025 Do you have reliable internet access at home? Ye s 05/03/2025 Do you have a device (e.g., phone, tablet, computer) with a working camera? Yes 05/03/2025 Intimate Partner Violence Answer Date R ecorded Are you denied basic needs s uch as food, clothing, or medical care? No 05/03/2025 In the past 12 months have y ou been in a relationship with a person who hurts, threatens, or tries to control you? No 05/03/2025 Are you denied basic needs s uch as food, clothing, or medical care? No 05/03/2025 In the past 12 months have y ou been in a relationship with a person who hurts, threatens, or tries to control you? No 05/03/2025 Comments Unknown Sex and Gender Information Value [...] Procedure [facility] [address] [place] [address] 07/20/2025 1:00 PM EDT Hospital Encounter [facility] [address] [place] [address] Galen Contreras MD 30 [place] [address] [email or web address] 07/20/2025 1:00 PM EDT - 07/20/2025 2:25 PM EDT Surgery [facility] Cardiovascular And Interventional Radiology [address] [place] [address] Galen Contreras MD [address] [place] [address] [email or web address] PORT A CATH INSERTION (IR) 07/31/2025 7:40 AM EDT Appointment [facility] [address] [place] [address] Prashant Gaspar, DO [address] [place] [address] [email or web address] 07/31/2025 8:30 AM EDT Office Visit [facility] at [address] [address] Marilee Kaminski FNP [address] [place] [address] 07/31/2025 9:20 AM EDT Infusion [facility] at [address] [address] Prashant Gaspar, DO [address] [place] [address] [email or web address] Kaushal Feliz RN [address] [place] [address] [email or web address] 08/01/2025 2:40 PM EDT Infusion [facility] at [address] [address] Prashant Gaspar, DO [address] [place] [address] [email or web address] Celine Peralta RN [address] [place] [address] [email or web address] 08/02/2025 2:40 PM EDT Infusion [facility] at [address] [address] Prashant Gaspar DO [address] [place] [address] [email or web address] Kimberly Nunes, RICHARDSON [address] [place] [address] [email or web address] 08/03/2025 4:00 PM EDT Infusion [facility] at [address] [address] Prashant Gaspar DO [address] [place] [address] [email or web address] Salima Harris RN [address] [place] [address] [email or web address] documented as of this encounter Visit Diagnoses Not on filedocumented in this encounter Additional Health Concerns Infection Onset Date Last Indicated Resolved Time CoV-Risk 05/31/2025 05/31/2025 06/11/2025 1:21 AM EDT documented as of this encounter Care Teams General Teller Relationship Specialty Start Date End Date Hali Carlin PA [address] [place] [phone] PCP - General Physician District Captain 05/03/25 Prashant Gaspar DO [address] [place] [address] [email or web address] Primary Oncologist Hematology and Oncology 06/01/25 Sharon Hunter NP [address] [place] [address] [email or web address] Nurse Practitioner Medical Oncology 06/26/25 Marilee Kaminski FNP [address] [place] [address] [email or web address] Nurse Practitioner Medical Oncology 06/28/25 documented as of this encounter Additional Source Comments The information contained in this document represents components of the legal health record. It is not the complete legal health record.[facility]
--- OUTSIDE RECORDS SUMMARY | 2025-07-14 23:04 | XMS_ITS | Encounter Summary ---
Author Organization [facility] Address [address] [place] [address] [place] [address] Phone Care Team Providers Care Stranner Name Role Phone Hali Carlin Primary Care Provider [phone] Prashant Gaspar DO Unavailable Sharon Hunter FIRE CONTROL OFFICER Unavailable Marilee Kaminski VP LEGAL AFFAIRS Unavailable Encounter Details Date Type Department Care Team (Late st Contact Info) Description 07/09/2025 Telephone [facility] at [address] [address] Prashant Gaspar DO [address] [place] [address] [email or web address] Social History Tobacco Use Types Packs/Day Years [...] as of this encounter Progress Notes * Linda Parra - 07/13/2025 11:57 AM EDT Pt called and confirmed upcoming appts * Celine Vigil RN - 07/10/2025 9:58 AM EDT Attempted to reach Bobbi to check in as she missed her appointment this morning received answering machine. Reached out to her life partner Dale. Informed Bobbi was in the room with her. Informed that Bobbi did not want to speak to me or anybody. Informed by Dale it is a hour commute for her toget here and they have other responsibilities in the morning and that they need afternoon appointments. Informed by Dale she was not happy about the way she was treated when she had her blood draw as no one explained anything to her and that she is upset. Informed him I will reach out to management and he said she doesn't want to talk to anyone. * Marilee Kaminski FNP - 07/10/2025 9:37 AM EDT Patient was a no show for rescheduled PTT and treatment this morning. RN team - can we please check in and see if she is OK. Scheduling. Can we please re-schedule for early next week. 3 day treat. BN - SALVADOR * Briseida Becerril - 07/09/2025 12:29 PM EDT Pt showed for her 750 lab 9 am PTT and 10 am day 1 treatment at 12 pm I confirmed w/phleb and CC (scheduled to see her at 9) that they would still see the pt I r/s treatment (EC day 1) to 8 am tomorrow, (day 2, 3 and Fulphila also adjusted) I went out and spoke w/pt who states she can not come prior to 12 and am apts are impossible. I explained to her that with the type of treatment she is on Day 1 has to be in the morning and theother 2 days need to be in the afternoon Pt stated at this time 'maybe it isnt worth it' I told her she would need to speak w/BN about any change in treatment but that at this time its what I can do for her. Pt is upset by the fact she needs to come in 'early' Pt agreed to have labs drawn I let the pt know the APC would be squeezing her in once the labs resulted (in about an hour) I was notified by EP (front end developer javascript html css) that the pt had left and not said if she would be back. documented in this encounter Plan of Treatment Upcoming Encounters Date Type Department Care Team (Latest Contact Info) Description 07/20/2025 Procedure Pass [facility] Cardiovascular And Interventional Radiology [address] [place] [address] 07/20/2025 1:00 PM EDT Hospital Encounter [facility] Cardiovascular And Interventional Radiology [address] [place] [address] Galen Contreras MD [address] [place] [address] [email or web address] 07/20/2025 1:00 PM EDT - 07/20/2025 2:25 PM EDT Surgery [facility] Cardiovascular And Interventional Radiology [address] [place] [address] Galen Contreras MD [address] [place] [address] [email or web address] PORT A CATH INSERTION (IR) 07/31/2025 7:40 AM EDT Appointment [facility] Laboratory [address] [place] [address] Prashant Gaspar, [address] [place] [address] [email or web address] 07/31/2025 8:30 AM EDT Office Visit [facility] [place] [address] [place] [address] Marilee Kaminski FNP [address] [place] [address] 07/31/2025 9:20 AM EDT Infusion [facility] at [address] [address] Prashant Gaspar, DO [address] [place] [address] [email or web address] Kaushal Feliz RN [address] [place] [address] [email or web address] 08/01/2025 2:40 PM EDT Infusion [facility] at [address] [address] Prashant Gaspar, [address] [address] [email or web address] Celine Peralta RN [address] [place] [address] [email or web address] 08/02/2025 2:40 PM EDT Infusion [facility] at [address] [address] Prashant Gaspar, DO [address] [place] [address] [email or web address] Kimberly Nunes RN [address] [place] [address] 08/03/2025 4:00 PM EDT Infusion [facility] at [address] [address] Prashant Gaspar, DO [address] [place] [address] [email or web address] Salima Harris RN [address] [place] [address] documented as of this encounter Visit Diagnoses Not on filedocumented in this encounter Care Teams Stranner Relationship Specialty Start Date End Date Hali Carlin PA [address] [place] [phone] PCP - General Physician Solid Waste Landfill Technician 05/03/25 Prashant Gaspar DO [address] [place] [address] [email or web address] Primary Oncologist Hematology and Oncology 06/01/25 Sharon Hunter NP [address] [place] [address] [email or web address] Nurse Practitioner Medical Oncology 06/26/25 Marilee Kaminski FNP [address] [place] [address] [email or web address] Nurse Practitioner Medical Oncology 06/28/25 documented as of this encounter Additional Source Comments The information contained in this document represents components of the legal health record. It is not the complete legal health record.[facility]
--- OUTSIDE RECORDS SUMMARY | 2025-07-14 23:04 | XMS_ITS | Encounter Summary ---
Author Organization 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 Name Role Phone Hali Carlin Primary Care Provider [phone] Prashant Gaspar DO Unavailable Sharon Hunter FISHERIES TECHNICAL OFFICER Unavailable [phone] Marilee Kaminski DIAGNOSTIC RADIOLOGIST Unavailable Encounter Details Date Type Department Care Team (Late st Contact Info) Description 06/27/2025 Orders Only [facility] [address] [facility] 2nd Floor [place], [place] [id number] Claudia Andrews [address] [place] [address] [email or web address] Need for hepatitis B screening test; 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 I have allan vines 06/25/2025 How many times have you move [...] Procedure Pass [facility] [address] [place] [phone] 07/20/2025 1:00 PM EDT Hospital Encounter [facility] [address] [place] [address] Galen Contreras MD [address] [place] [address] [email or web address] 07/20/2025 1:00 PM EDT - 07/20/2025 2:25 PM EDT Surgery [facility] Cardiovascular And Interventional Radiology [address] [place] [address] Galen Contreras MD [address] [place] [address] [email or web address] PORT A CATH INSERTION (IR) 07/31/2025 7:40 AM EDT Appointment [facility] [address] [place] [address] Prashant Gaspar, DO [address] [place] [address] [email or web address] 07/31/2025 8:30 AM EDT Office Visit [facility] at [address] [address] Marilee Kaminski FNP [address] [place] [address] [email or web address] 07/31/2025 9:20 AM EDT Infusion [facility] at [address] [address] Prashant Gaspar, DO [address] [place] [address] [email or web address] Kaushal Feliz, RICHARDSON [address] [place] [address] [email or web address] 08/01/2025 2:40 PM EDT Infusion [facility] at [address] [address] Prashant Gaspar, DO [address] [place] [address] [email or web address] Celine Peralta, RICHARDSON [address] [place] [address] [email or web address] 08/02/2025 2:40 PM EDT Infusion [facility] at [address] [address] Prashant Gaspar, DO [address] [place] [address] [email or web address] Kimberly Nunes RN [address] [place] [phone] 08/03/2025 4:00 PM EDT Infusion [facility] at [address] [address] Prashant Gaspar, [address] [address] [email or web address] Salima Harris RN [address] [place] [phone] documented as of this encounter Procedures Procedure Name Priority Date/Time Associated Diagnosis Comments COMPREHENSIVE METABOLIC PANEL Routine 06/27/2025 1:33 PM EDT Need for hepatitis B screening test 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 HEPATITIS B CORE ANTIBODY, TOTAL Routine 06/27/2025 1:33 PM EDT Need for hepatitis B screening test HEPATITIS B SURFACE ANTIGEN Routine 06/27/2025 1:33 PM EDT Need for hepatitis B screening test CBC AND DIFFERENTIAL Routine 06/27/2025 1:33 PM EDT Need for hepatitis B screening test 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 URIC ACID Routine 06/27/2025 1:33 PM EDT Need for hepatitis B screening test 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 documented in this encounter Results * (ABNORMAL) CBC and differential (06/27/2025 1:33 PM EDT) WBC 1.63(L) 4.00 - 11.00 K/uL [facility] RBC 4.13 4.00 - 5.20 M/uL [facility] HGB 12.4 12.0 - 16.0 g/dL [facility] HCT 37.6 36.0 - 46.0 % [facility] PLT 207 150 - 450 K/uL [facility] MCV 91.0 80.0 - 100.0 fL [facility] MCH 30.0 27.0 - 31.0 pg [facility] MCHC 33.0 32.0 - 36.0 g/dL [facility] RDW 15.9(H) 11.5 - 14.5 % [facility] MPV 10.3 8.4 - 12.0 fL [facility] NRBC 0.00 0.00 /100 WBCs [facility] ABSOLUTE NRBC 0.00 0.00 K/uL [facility] DIFF METHOD Auto [facility] NEUTS 41.2(L) 48.0 - 76.0 % [facility] Comment: Toxic granulation present Dohle Bodies Present LYMPHS 48.5(H) 18.0 - 41.0 % [facility] Comment: Rare Atypical Lymphs MONOS 6.1 4.0 - 11.0 % [facility] EOS 1.2 0.0 - 5.0 % [facility] BASOS 1.8(H) 0.0 - 1.5 % [facility] Granulocytes, immature (%) 1.2(H) 0.0 - 0.9 % [facility] ABSOLUTE NEUTS 0.67(L) 1.92 - 7.60 K/uL [facility] ABSOLUTE LYMPHS 0.79 0.72 - 4.10 K/uL [facility] ABSOLUTE MONOS 0.10(L) 0.16 - 1.10 K/uL [facility] ABSOLUTE EOS 0.02 0.00 - 0.50 K/uL [facility] ABSOLUTE BASOS 0.03 0.00 - 0.15 K/uL [facility] Granulocytes, immature 0.02 0.00 - 0.09 K/uL [facility] Blood 06/27/2025 1:33 PM EDT 06/27/2025 1:47 PM EDT us Prashant Gaspar DO LAB BLOOD ORDERABLES Edited Result - Final [facility] [address] [place] [address] * (ABNORMAL) Comprehensive metabolic panel (06/27/2025 1:33 PM EDT) SODIUM 137 133 - 146 mmol/L [facility] POTASSIUM 3.9 3.3 - 5.1 mmol/L [facility] CHLORIDE 103 96 - 108 mmol/L [facility] CO2 21 21 - 35 mmol/L [facility] BUN 14 6 - 19 mg/dL [facility] CREATININE 0.70 0.5 - 1.5 mg/dL [facility] GLUCOSE 110(H) 70 - 99 mg/dL [facility] ALBUMIN 3.2(L) 3.9 - 4.8 g/dL [facility] TOTAL PROTEIN 7.5 6.5 - 8.0 g/dL [facility] CALCIUM 9.0 8.4 - 10.3 mg/dL [facility] ALKALINE PHOSPHATASE 686(H) 39 - 117 U/L [facility] TOTAL BILIRUBIN 0.7 0.0 - 1.2 mg/dL [facility] AST 147(H) 0 - 37 U/L [facility] ALT 55(H) 0 - 40 U/L [facility] GLOBULIN 4.3 1 - 4.8 g/dL [facility] EGFR 92 >59 mL/min/1.7 3m2 [facility] Comment:Estimated glomerular filtration rate calculated using the CKD-EPI refit equation. ANION GAP 17 10 - 20 mmol/L [facility] Blood 06/27/2025 1:33 PM EDT 06/27/2025 1:47 PM EDT us Prashant Meyers Chasity DO LAB BLOOD ORDERABLES Final Result Performing Organization Address City/[facility]/ZIP Co de Phone Number [address] [address] * Hepatitis B core antibody, total (06/27/2025 1:33 PM EDT) HEP B CORE AB, TOT NON-REACTI VE NON-REACTI VE [facility] Blood 06/27/2025 1:33 PM EDT 06/27/2025 1:47 PM EDT us Prashant Meyers Chasity DO LAB BLOOD ORDERABLES Final Result Performing Organization Address [facility] Co de Phone Number [address] [address] * Hepatitis B surface antigen (06/27/2025 1:33 PM EDT) HBV SURFACE ANTIGEN NON-REACTI VE NON-REACTI VE [facility] Blood 06/27/2025 1:33 PM EDT 06/27/2025 1:47 PM EDT us Prashant Meyers Chasity DO LAB BLOOD ORDERABLES Final Result Performing Organization Address City/[facility]/ZIP Co de Phone Number [address] [address] * Uric acid (06/27/2025 1:33 PM EDT) URIC ACID 5.3 2.4 - 7.0 mg/dL [facility] Blood 06/27/2025 1:33 PM EDT 06/27/2025 1:47 PM EDT us Prashant Gaspar DO LAB BLOOD ORDERABLES Final Result Performing Organization Address City/[facility]/ZIP Co de Phone Number [address] [phone] documented in this encounter Visit Diagnoses Diagnosis Need for hepatitis B screening test 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 Need for hepatitis B screening test 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 Need for hepatitis B screening test 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 documented in this encounter Care Teams 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 Machine 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 Relationship Specialty Start Date End Date Hali Carlin PA [address] [place] [phone] PCP - General Physician Gauge Operator 05/03/25 Prashant Gaspar DO [address] [place] [address] [email or web address] Primary Oncologist Hematology and Oncology 06/01/25 Sharon Hunter NP [address] [place] [address] [email or web address] Nurse Practitioner Medical Oncology 06/26/25 Marilee Kaminski FNP [address] [place] [address] [email or web address] Nurse Practitioner Medical Oncology 06/28/25 documented as of this encounter Additional Source Comments The information contained in this document represents components of the legal health record. It is not the complete legal health record.[facility]
--- OUTSIDE RECORDS SUMMARY | 2025-07-14 23:04 | XMS_ITS | Clinical Summary ---
Author Organization [facility] Address [address] [facility] [address] [place] [id number] Phone Care Team Providers Care Keg Varnisher Name Role Phone Hali Carlin Primary Care Provider [phone] Prashant Gaspar DO Unavailable Sharon Hunter HAND SUTURE WINDER Unavailable Marilee Kaminski TECHNOLOGY ADMINISTRATOR Unavailable [phone] Allergies Active Allergy Reactions Criticality Noted Date Comments Adhesive 05/17/2025 Latex 05/17/2025 Medications gabapentin (NEURONTIN) 300 MG capsule Take 600 mg by mouth nightly at bedtime. 03/25/20 Active SYNTHROID 75 mcg tablet Take 75 mcg by mouth every morning. 03/25/20 23 Active lisinopril (PRINIVIL,ZESTRIL ) 10 MG tablet Take 10 mg by mouth daily. 03/25/20 Active aspirin 81 MG EC tablet Take 81 mg by mouth daily. Active oxyCODONE 5 MG immediate release tablet Take 1 tablet (5 mg total) by mouth every 6 (six) hours as needed for pain (specific location in comments). Partial fill OK. 42 tablet 05/25/20 25 Active ondansetron (ZOFRAN-ODT) 4 MG disintegrating tablet (To-Go) Take 1-2 tablet(s) by mouth every 8 hours as needed for nausea/vomi ting 6 tablet 05/31/20 25 Active amitriptyline (ELAVIL) 25 MG tablet Take 2 tablets (50 mg total) by mouth nightly at bedtime for 14 days, THEN 1 tablet (25 mg total) nightly at bedtime for 14 days. 42 tablet 06/20/20 Active vitamins with ferrous fumarate- folic acid 28 mg iron- 800 mcg Tab Take 1 tablet by mouth daily. 30 tablet 2 06/20/20 Active thiamine (VITAMIN B-1) 100 mg Tab tablet Take 1 tablet (100 mg total) by mouth daily. 30 tablet 06/21/20 Active prochlorperazine (COMPAZINE) 10 MG tablet Take 1 tablet (10 mg total) by mouth every 6 (six) hours as needed (chemothera py induced nausea and/or vomiting). 30 tablet 2 06/21/20 Active amitriptyline (ELAVIL) 50 MG tablet Take 100 mg by mouth nightly at bedtime. 04/17/20 Discontinued atorvastatin (LIPITOR) 40 MG tablet Take 40 mg by mouth nightly at bedtime. 03/25/20 Discontinued(S top Taking at Discharge) hydroCHLOROthiazi de (MICROZIDE) 12.5 mg capsule Take 12.5 mg by mouth daily. 03/25/20 Discontinued(S top Taking at Discharge) nitrofurantoin (MACROBID) 100 MG capsule Take 1 capsule (100 mg total) by mouth 2 (two) times a day for 5 days. 10 capsule 07/05/20 lidocaine (LIDODERM) 5 % Place 1 patch onto the skin daily for 5 days. Remove & Discard patch within 12 hours or as directed by 5 patch 07/05/20 Active Problems Problem Noted Date Diagnosed Date Encounter for antineoplastic chemotherapy 2024 Metabolic encephalopathy 06/15/2025 Assessment & Plan (06/19/2025 7:39 PM EDT): Confusion noted on 06/15. Patient is aware of this and thinks it is related to the ativan she was given before her MRI earlier today. MRI without cva. Sx somewhat better but remains, forgetful and has difficulty with maintaining coherent conversation. I think this is chronic and there is a dementia component. -cont rx for DEYSI -delirium precautions -ambulate, maintain day/night cycle -geriatrics consulted and suspect underlying dementia, possibly vascular dementia. Ordered labs for reversible causes of cognitive impairment. Assessment & Plan (06/18/2025 6:42 PM EDT): Confusion noted on 06/15. Patient is aware of this and thinks it is related to the ativan she was given before her MRI earlier today. MRI without cva. Sx somewhat better but remains, forgetful and has difficulty with maintaining coherent conversation. I think this is chronic and there is a dementia component. -cont rx for DEYSI -delirium precautions -ambulate, maintain day/night cycle -geriatrics consulted and suspect underlying dementia, possibly vascular dementia. Ordered labs for reversible causes of cognitive impairment. Assessment & Plan (06/17/2025 12:49 PM EDT): Confusion noted on 06/15. Patient is aware of this and thinks it is related to the ativan she was given before her MRI earlier today. MRI without cva. Sx somewhat better but remains, forgetful and has difficulty with maintaining coherent conversation. I think this is chronic and there is a dementia component. -cont rx for DEYSI -delirium precautions -ambulate, maintain day/night cycle -geriatrics consult Assessment & Plan (06/16/2025 3:27 PM EDT): Subtle confusion noted on 06/15. Patient is aware of this and thinks it is related to the ativan she was given before her MRI earlier today. MRI without cva. Sx slowly clearing/some delirium noted -cont rx for DEYSI -delirium precautions -ambulate, maintain day/night cycle Assessment & Plan (06/15/2025 10:09 PM EDT): Subtle confusion noted on 06/15. Patient is aware of this and thinks it is related to the ativan she was given before her MRI earlier today. MRI without cva. Does have DEYSI, perhaps some dehydration and metabolic disarray. Will treat with IVF, correct electrolytes and monitor for now. 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 Initial CT (05/31/2025) to have left hilar neil mass, intrathoracic and multistation lymphadenopathy, innumerable hepatic lesions, and sacral osseous lesions. On hematology-oncology follow-up 06/14, patient was significantly hypotensive and transferred to ED. Repeat CT showed stable disease burden. 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 Oncology recommends initiation of inpatient chemotherapy, started 06/19. Plan for PET scan 06/21 Will need port placement, outpatient oncology follow-up -nutrition consult Assessment & Plan (06/18/2025 6:42 PM EDT): Patient with recent bronchoscopy and biopsy confirming cancer. Initial CT (05/31/2025) to have left hilar neil mass, intrathoracic and multistation lymphadenopathy, innumerable hepatic lesions, and sacral osseous lesions. On hematology-oncology follow-up 06/14, patient was significantly hypotensive and transferred to ED. Repeat CT showed stable disease burden. 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 Oncology recommends outpatient chemotherapy initiation once hemodynamics improve; will need to be able to maintain nutrition as well. -nutrition consult Assessment & Plan (06/17/2025 12:49 PM EDT): Patient with recent bronchoscopy and biopsy confirming cancer. Initial CT (05/31/2025) to have left hilar neil mass, intrathoracic and multistation lymphadenopathy, innumerable hepatic lesions, and sacral osseous lesions. On hematology-oncology follow-up 06/14, patient was significantly hypotensive and transferred to ED. Repeat CT showed stable disease burden. 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 Oncology recommends outpatient chemotherapy initiation once hemodynamics improve; will need to be able to maintain nutrition as well. -nutrition consult Assessment & Plan (06/16/2025 3:27 PM EDT): Patient with recent bronchoscopy and biopsy confirming cancer. Initial CT (05/31/2025) to have left hilar neil mass, intrathoracic and multistation lymphadenopathy, innumerable hepatic lesions, and sacral osseous lesions. On hematology-oncology follow-up 06/14, patient was significantly hypotensive and transferred to ED. Repeat CT showed stable disease burden. 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 Oncology recommends outpatient chemotherapy initiation once hemodynamics improve. Assessment & Plan (06/15/2025 10:09 PM EDT): Patient with recent bronchoscopy and biopsy confirming cancer. Initial CT (05/31/2025) to have left hilar neil mass, intrathoracic and multistation lymphadenopathy, innumerable hepatic lesions, and sacral osseous lesions. On hematology-oncology follow-up 06/14, patient was significantly hypotensive and transferred to ED. Repeat CT showed stable disease burden. 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 Oncology recommends outpatient chemotherapy initiation once hemodynamics improve. Assessment & Plan (06/14/2025 8:55 PM EDT): - Recently diagnosed with bronchoscopy and biopsy per pulmonology -CT scan of the chest abdomen pelvis was performed Initially on 05/31/2025 which revealed left hilar neil mass with intrathoracic lymphadenopathy, innumerable hepatic lesions, multistation lymphadenopathy as well as osseous lesions in the sacrum. Was following up with Dr. Gaspar today at hematology oncology for further recommendations, found to be significantly hypotensive thus transferred to the ED. - Repeat CT imaging today revealed essentially similar disease, patient did have MRI of the brain ordered which was currently pending Plan: MRI of the brain with and without contrast ordered and pending MR angiogram of the brain ordered to evaluate for small aneurysm seen on the [facility] CT scan of the head Oncology consulted recs appreciated After speaking with oncology, patient would likely require chemotherapy initiation as an outpatient pending improvement in hemodynamics. DEYSI (acute kidney injury) 06/14/2025 Assessment & Plan (06/20/2025 12:33 PM EDT): Assessment & Plan (06/19/2025 7:39 PM EDT): Presented with DEYSI CT without obstructive process in kidney or bladder. Improving with IVF suggestive of prerenal etiology. Suspect poor oral intake at home; continues to report diminished appetite - renal fxn back to baseline - monitor for adequate oral intake Assessment & Plan (06/18/2025 6:42 PM EDT): Presented with DEYSI CT without obstructive process in kidney or bladder. Improving with IVF suggestive of prerenal etiology. Suspect poor oral intake at home; continues to report diminished appetite - renal fxn back to baseline - monitor for adequate oral intake Assessment & Plan (06/17/2025 12:49 PM EDT): Presented with DEYSI CT without obstructive process in kidney or bladder. Improving with IVF suggestive of prerenal etiology. Suspect poor oral intake at home; continues to report diminished appetite - renal fxn back to baseline - stop IVF - monitor for adequate oral intake Assessment & Plan (06/16/2025 3:27 PM EDT): Presented with DEYSI CT without obstructive process in kidney or bladder. Improving with IVF suggestive of prerenal etiology. - continue IVF Assessment & Plan (06/15/2025 10:09 PM EDT): Presented with DEYSI. CT without obstructive process in kidney or bladder. Improved with IVF suggestive of prerenal etiology. - continue IVF Assessment & Plan (06/15/2025 8:57 AM EDT): Assessment & Plan (06/14/2025 8:55 PM EDT): -Unclear etiology at this time, extensive CT imaging did not reveal obstructive uropathy at this time. Estimated Creatinine Clearance: 15 mL/min (A) (based on SCr of 2.9 mg/dL (H)). -Patient is states she had poor p.o. intake, possible consideration for dehydration Plan: Check urinalysis, urine creatinine, urine sodium IVF hydration administered in the ED Recheck BMP Consider nephrology consultation Bladder scan Hold nephrotoxic medications including hydrochlorothiazide and lisinopril Renally dose medications Ataxia 06/14/2025 Assessment & Plan (06/19/2025 7:39 PM EDT): Patient described lightheadedness and difficulty walking. Admitting provider found ataxia on exam and ordered MRI brain to r/o metastases, no lesions suspicious for cancer were identified. 06/15 patient ambulated well with PT, coordination testing reveals heel to cole was inaccurate but appeared to be more due to cognition. - continue to monitor exam Assessment & Plan (06/18/2025 6:42 PM EDT): Patient described lightheadedness and difficulty walking. Admitting provider found ataxia on exam and ordered MRI brain to r/o metastases, no lesions suspicious for cancer were identified. 06/15 patient ambulated well with PT, coordination testing reveals heel to cole was inaccurate but appeared to be more due to cognition. - continue to monitor exam Assessment & Plan (06/17/2025 12:49 PM EDT): Patient described lightheadedness and difficulty walking. Admitting provider found ataxia on exam and ordered MRI brain to r/o metastases, no lesions suspicious for cancer were identified. 06/15 patient ambulated well with PT, coordination testing reveals heel to cole was inaccurate but appeared to be more due to cognition. - continue to monitor exam Assessment & Plan (06/16/2025 3:27 PM EDT): Patient describes lightheadedness and difficulty walking. Admitting provider found ataxia on exam and ordered MRI brain to r/o metastases, no lesions suspicious for cancer were identified. 06/15 patient ambulated well with PT, coordination testing reveals heel to cole was inaccurate but appeared to be more due to cognition. - continue to monitor exam Assessment & Plan (06/15/2025 10:09 PM EDT): Patient describes lightheadedness and difficulty walking. Admitting provider found ataxia on exam and ordered MRI brain to r/o metastases, no lesions suspicious for cancer were identified. 06/15 patient ambulated well with PT, coordination testing reveals heel to cole was inaccurate but appeared to be more due to cognition. - continue to monitor exam Assessment & Plan (06/14/2025 8:55 PM EDT): - Patient has had no symptoms of ataxia, with intermittent dizziness and lightheadedness, this has been ongoing for the last couple weeks, and was suspected secondary to possible intra cranial metastasis from small cell lung cancer. -Has ataxia on exam, no numbness or weakness noted in the upper or lower extremities bilaterally Plan: MRI of the brain with and without contrast ordered and pending Can consider neurology consultation pending findings however this would likely indicate metastatic disease, and thus further recommendations per oncology. Neurochecks every 4 hours Hilar mass 05/16/2025 Assessment & Plan (05/16/2025 2:07 PM EDT): Presented to the ED on 05/03/2025 with symptoms of intermittent shortness of breath and left-sided chest pain, likely pleuritic in nature, worse when laying flat. Found on CTPA chest to have a left hilar soft tissue mass with narrowing and obliteration of the left lower lobe bronchi, small left pleural effusion, and multiple hypodense hepatic lesions concerning for metastatic malignancy. The mass involves the adjacent esophagus without proximal esophageal dilatation. Mediastinal and hilar lymphadenopathy is present. Imaging findings are concerning for metastatic malignancy, likely originating in the chest, possibly lung primary. Differential includes infection, but this would appear much less likely given clinical presentation, nontoxic appearance, significant smoking history, and imaging findings. Further diagnostic testing required to confirm malignancy and determine origin. - Order PET-CT (urgent) - Schedule bronchoscopy with endobronchial ultrasound (EBUS) for diagnostic tissue sampling--can occur prior to PET-CT completion - Hold aspirin 5 days prior to bronchoscopy (will tentatively schedule for 05/25/2025) - Anticipate future coordination with oncology for referral upon confirmation of malignancy Pleural effusion, left 05/16/2025 Assessment & Plan (05/16/2025 2:11 PM EDT): Small left pleural effusion noted on imaging, possibly malignant in this context, or related to inflammation from the hilar mass. Would not perform diagnostic thoracentesis at this time, as it would be unlikely to produce sufficient diagnostic material if the effusion were to be malignant. Could certainly refer to IR for diagnostic/therapeutic thoracentesis in the future if the effusion were to increase in size and/or result in worsened symptoms. Hepatic lesion 05/16/2025 Former smoker 05/16/2025 Assessment & Plan (05/16/2025 2:13 PM EDT): Former smoker, started as a teenager and smoked on average 1.5 packs/day, quit in her early 50s (nearly 20 years prior to initial pulmonary presentation). Pleuritic chest pain 05/16/2025 Diarrhea 04/25/2023 Assessment & Plan (04/25/2023 10:28 AM EDT): Continues. C. Diff negative. Ceftriaxone and azithromycin likely would have been adequate, but giving flagyl for a few days as well. Severe sepsis 04/23/2023 Assessment & Plan (04/25/2023 10:27 AM EDT): Resolved. Met septic criteria with tachycardia, tachypnea and leukocytosis. Severe sepsis in the setting of acute encephalopathy. Possibly also some liver dysfunction and renal dysfunction, but we do not have baseline LFTs/creatinine. Source appears to be aspiration pneumonia. RUQ US not consistent with gall bladder or biliary disease. We will give IV ceftriaxone and azithromycin. Inflammatory markers quite elevated. Will continue to follow blood cultures. Acute encephalopathy 04/23/2023 Assessment & Plan (04/25/2023 10:28 AM EDT): Seems to be improving. I suspect septic encephalopathy, but her behaviors are not particularly indicative of hyperactive or hypoactive delirium. LP was not performed. She almost has a pseudobulbar affect with exaggerated laughing. Unknown if she has any underlying psychiatric diagnoses that may be complicating issues. Has listed her friend/partner, Brandon Orantes, as her emergency contact, but there is no official healthcare proxy. Essential hypertension 04/23/2023 Assessment & Plan (04/23/2023 9:33 PM EDT): We will hold hydrochlorothiazide and lisinopril in the setting of elevated serum creatinine. Elevated serum creatinine 04/23/2023 Assessment & Plan (04/24/2023 11:18 AM EDT): Improving. Unknown if this is acute or chronic. We will monitor as we give IV fluids. We will hold diuretics and MARYAM inhibitor. We will avoid nephrotoxic medications. Transaminitis 04/23/2023 Assessment & Plan (06/19/2025 7:39 PM EDT): Alk phos significant elevated to 900 and, AST elevated 233, ALT 62, albumin 3.0, likely secondary to metastatic disease from small cell lung cancer with innumerable hepatic metastases as well as bony metastasis No evidence of obstructive hepatopathy at this time, T. bili 0.6 Labs stable Assessment & Plan (06/18/2025 6:42 PM EDT): Alk phos significant elevated to 900 and, AST elevated 233, ALT 62, albumin 3.0, likely secondary to metastatic disease from small cell lung cancer with innumerable hepatic metastases as well as bony metastasis No evidence of obstructive hepatopathy at this time, T. bili 0.6 Labs stable Assessment & Plan (06/17/2025 12:49 PM EDT): Alk phos significant elevated to 900 and, AST elevated 233, ALT 62, albumin 3.0, likely secondary to metastatic disease from small cell lung cancer with innumerable hepatic metastases as well as bony metastasis No evidence of obstructive hepatopathy at this time, T. bili 0.6 Labs stable Assessment & Plan (06/16/2025 3:27 PM EDT): Alk phos significant elevated to 900 and, AST elevated 233, ALT 62, albumin 3.0, likely secondary to metastatic disease from small cell lung cancer with innumerable hepatic metastases as well as bony metastasis No evidence of obstructive hepatopathy at this time, T. bili 0.6 Assessment & Plan (06/15/2025 10:09 PM EDT): Alk phos significant elevated to 900 and, AST elevated 233, ALT 62, albumin 3.0, likely secondary to metastatic disease from small cell lung cancer with innumerable hepatic metastases as well as bony metastasis No evidence of obstructive hepatopathy at this time, T. bili 0.6 Continue IVF and supportive care Assessment & Plan (06/14/2025 8:55 PM EDT): - Alk phos significant elevated to 900 and, AST elevated 233, ALT 62, albumin 3.0, likely secondary to metastatic disease from small cell lung cancer with innumerable hepatic metastases as well as bony metastasis -No evidence of obstructive hepatopathy at this time, T. bili 0.6 Plan: Check INR Continue monitoring with LFTs Assessment & Plan (04/24/2023 11:19 AM EDT): Mildly elevated with AST >ALT, but oBbbi is partner states that she does not drink alcohol. Alk phos resolved, RUQ US normal. LFT abnormalities may be secondary to severe sepsis. We will follow transaminase levels and avoid nephrotoxic medications. Hyponatremia 04/23/2023 Assessment & Plan (04/25/2023 10:27 AM EDT): Resolved. Possible ADH response from nausea versus hypovolemic hyponatremia due to 5 days of nausea and vomiting. Aspiration pneumonia of left lower lobe 04/23/20 Assessment & Plan (04/23/2023 9:36 PM EDT): Given IV ceftriaxone and azithromycin in the emergency department. This will be continued. I suspect that this is due to vomiting and not related to dysphagia. Encounters Date Type Department Care Team Description 07/09/2025 7:50 AM EDT - 07/09/2025 11:59 PM EDT Hospital Encounter [facility] [address] [place] [id number] Prashant Gaspar, DO Discharge Disposition: Home or Self Care 07/09/2025 Telephone [facility] at [address] [address] Prashant Gaspar, 07/09/2025 Telephone [facility] at [address] [address] Sharon Hunter, EVA 07/06/2025 Telephone [facility] at [address] [address] Ruby Donnelly RN meds from ED 07/06/2025 Telephone [facility] at [address] [address] Prashant Gaspar W, DO 07/06/2025 Orders Only [facility] at [address] [address] Sharon Hunter, EVA 07/05/2025 7:03 PM EDT - 07/05/2025 11:41 PM EDT Emergency [facility] [address] [place] [phone] Jonathan Hayes MD Discharge Disposition: Home or Self Care 07/05/2025 Procedure Pass [facility] Scan [address] [address] 07/05/2025 Procedure Pass [address] [address] 07/05/2025 Procedure Pass [address] [address] 07/05/2025 Telephone [facility] at [address] [address] Ruby Donnelly, RICHARDSON PORT placement 06/28/2025 10:30 AM EDT Office Visit [facility] at [address] [address] Sharon Hunter, EVA 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); Encounter for antineoplastic chemotherapy 06/27/2025 Orders Only [facility] [address] [place] [id number] Claudia Andrews Need for hepatitis B screening test; 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 06/27/2025 Orders Only [facility] at [address] [address] Sharon Hunter, EVA 06/26/2025 Telephone [facility] at [address] [address] Marilee Kaminski FNP 06/26/2025 Telephone [facility] [address] [place] [address] Garfield Lindo RN Post Discharge Follow Up Call 06/24/2025 11:32 PM EDT - 06/25/2025 12:10 PM EDT Emergency [facility] [address] [place] [id number] Tung Dietrich, Kaushal Kaminski MD Discharge Disposition: Home or Self Care 06/24/2025 [address] [facility] [address] [address] 06/24/2025 Procedure Pass [address] [address] 06/22/2025 4:00 PM EDT Infusion [facility] at [address] [address] Prashant Gaspar, Kimberly Menjivar RN 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) 06/21/2025 2:00 PM EDT Infusion [facility] at [address] [address] Prashant Gaspar, Kaushal Ferris, RICHARDSON 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) 06/21/2025 Orders Only [facility] at [address] [address] Marilee Kaminski FNP 06/20/2025 Telephone [facility] at [address] [address] Prashant Gaspar DO 06/20/2025 Telephone [facility] at [address] [address] Brandy Escobar, RICHARDSON 06/19/2025 Orders Only [facility] at [address] [address] Kaushal Feliz, RICHARDSON 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) 06/18/2025 Orders Only [facility] at [address] [address] Rashad Fox MBBS 06/15/2025 Orders Only [facility] [address] [place] [id number] Homehealth, Marco A Ibrahim MD 06/14/2025 1:20 PM EDT - 06/20/2025 5:45 PM EDT Hospital Encounter [facility] [address] [place] [id number] Pedro Pablo Moulton DO Griffith, Andrew Thomas Liao, MD Miskovsky, Glenn E, MD Russo, Margaret A, MD Altman, Evan K DO, MPH Kaitlynn Whalen DO, MPH Discharge Disposition: Home-Health Care [facility] [place] 06/14/2025 1:00 PM EDT Office Visit [facility] at [address] [address] Prashant Gaspar DO Need for hepatitis B screening test (Primary Dx); 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 06/14/2025 Procedure Pass [facility] [address] [place] [phone] 06/14/2025 Procedure Pass [address] [address] 06/14/2025 Procedure Pass [address] [address] 06/14/2025 Procedure Pass [facility] Scan [address] [address] 06/14/2025 Procedure Pass [facility] Scan [address] [address] 06/14/2025 Procedure Pass [facility] Ct Scan [address] [address] 06/14/2025 Telephone [facility] at [address] [address] Meli Deal 06/14/2025 Telephone [facility] [address] [place] [address] Mervin Lloyd MD Post Surgery Issues 06/13/2025 Telephone [facility] [address] [place] [address] Meredith Malhotra Opioid update form 06/01/2025 Telephone [facility] at [address] [address] Prashant Gaspar W, BN NEW MEDICAL ONCOLOGY APt 05/31/2025 12:27 AM EDT - 05/31/2025 5:33 AM EDT Emergency [facility] [address] [place] [phone] Ron Lara MD, DPSHORTYL Tung Dietrich, Discharge Disposition: Home or Self Care 05/31/2025 Telephone [facility] [address] [place] [address] Mervin Lloyd MD 05/31/2025 Procedure Pass [facility], Ct Scan - [address] [address] 05/31/2025 Procedure [facility] Ct Scan - [address] [address] 05/28/2025 Telephone [facility] [address] [place] [address] Mervin Lloyd MD 05/25/2025 1:00 PM EDT - 05/25/2025 3:13 PM EDT Surgery OR Admitting Dept - Virtual Department [address] [place] [address] Mervin Lloyd MD ENDOBRONCHIAL ULTRASOUND 05/25/2025 12:57 PM EDT Anesthesia Event OR Admitting Dept - Virtual Department [address] [place] [address] Shira Fox MD Gleason Darnobid, Jessica, MD 05/25/2025 11:17 AM EDT - 05/25/2025 5:15 PM EDT Hospital Encounter OR Admitting Dept - Virtual Department [address] [place] [phone] Mervin Lloyd MD Discharge Disposition: Home or Self Care 05/25/2025 Telephone [facility] [address] [place] [address] Mervin Lloyd MD 05/25/2025 Orders Only [facility] [address] [place] [address] Mervin Lloyd MD Hilar mass (Primary Dx); Hepatic lesion; Pleural effusion, left 05/25/2025 Procedure Pass OR Admitting Dept - Virtual Department [address] [place] [phone] 05/24/2025 8:00 AM EDT Pre-Admission Testing Pre Procedure Evaluation [address] [place] [address] Mervin Lloyd MD 05/23/2025 Telephone [facility] [address] [place] [address] Mervin Lloyd MD Outgoing fax-- [facility] PET/CT packet 05/16/2025 1:00 PM EDT Office Visit [facility] [address] [place] [address] Mervin Lloyd MD Hilar mass (Primary Dx); Pleural effusion, left; Hepatic lesion; Pleuritic chest pain; Former smoker 05/07/2025 Transcribe Orders [facility] [address] [place] [address] Hali Carlin PA 05/03/2025 7:34 PM EDT - 05/03/2025 11:30 PM EDT Emergency [facility] [address] [place] [address] Jonathan Hayes MD Discharge Disposition: Home or Self Care 05/03/2025 Procedure Pass [facility], Ct Scan - [address] [address] from Last 3 Months Immunizations Immunization Administration Dates Next Due INFLUENZA, SPLIT VIRUS, TRIVALENT PF 06/14/2013 INFLUENZA, SPLIT VIRUS, TRIV ALENT W/ PRESERVATIVE IM 07/13/2014,07/20/2012,06/26/2010,09/12 Influenza High-Dose Quadriva lent Preservative Free IM 07/08/2023,08/22/2021 Influenza High-Dose Trivalen t Preservative Free IM 06/20/2025(Deferred: Patient Refused),12/26/2024,06/20/2019, 018 Influenza Quadrivalent Prese rvative Free IM 06/11/2017,07/01/2016 Influenza Recombinant Martha valent Preservative Free IM 07/09/2020 Influenza Trivalent Adjuvant ed Preservative free IM 08/24/2024 Influenza, Unspecified Formulation 07/07,07/25/2008,08/09/2007,08/25,07/07/2004,07/17/2003,08/17/2002 ,10/13/2001 Novel [id number], Injectable 10/17/2009 Pneumococcal conjugate PCV13 10/10/2018 Pneumococcal polysaccharide PPSV23 08/14/2021,,08/25/2005 RSV Vaccine (monovalent, adjuvanted) 11/10/2023 Td (adult),2 Lf Tetanus Toxo id, PF, Adsorbed 06/11/2017 Tdap 02/23/2007 Zoster live 03/24/2011 Zoster recombinant 01/11/2021,10/30/2020 Social History Tobacco Use Types Packs/Day Years Used Date Smoking Tobacco: Former Cigarettes Q uit: 2003 Smokeless Tobacco: Former Tobacco Cessation:Counseling Given: Not Answered Alcohol Use Standard Drinks/Week Comments Never 0 [...] housing situation today? I have allan sing 07/05/2025 How many times have you move [...] Orientation Straight 07/22/2023 4: 20 PM EDT Last Filed Vital Signs Vital Sign Reading Time Taken Comments Blood Pressure 140/82 07/05/2025 11:00 PM EDT Pulse 78 07/05/2025 11:00 PM EDT Temperature 36.7 C (98.1 F) 07/05/2025 9:36 PM EDT Respiratory Rate 11 07/05/2025 11:00 PM EDT Oxygen Saturation 100% 07/05/2025 11:00 PM EDT Inhaled Oxygen Concentration - - Weight 60.3 kg (133 lb) 07/05/2025 7:17 PM EDT Height 152.4 cm (5') 07/05/2025 7:17 PM EDT Body Mass Index 25.97 07/05/2025 7:17 PM EDT Plan of Treatment Upcoming Encounters Date Type Department Care Team (Latest Contact Info) Description 07/20/2025 Procedure Pass [facility] Cardiovascular And Interventional Radiology [address] [place] [address] 07/20/2025 1:00 PM EDT Hospital Encounter [facility] Cardiovascular And Interventional Radiology [address] [place] [address] Galen Contreras MD [address] [place] [phone] [email or web address] 07/20/2025 1:00 PM EDT - 07/20/2025 2:25 PM EDT Surgery [facility] Cardiovascular And Interventional Radiology [address] [place] [address] Galen Contreras MD [address] [place] [phone] [email or web address] PORT A CATH INSERTION (IR) 07/31/2025 7:40 AM EDT Appointment [facility] Laboratory [address] [place] [phone] Prashant Gaspar DO [address] [place] [address] [email or web address] [email or web address] 07/31/2025 8:30 AM EDT Office Visit [facility] at [facility] [address] [place] [address] Marilee Kaminski FNP [address] [place] [phone] [email or web address] 07/31/2025 9:20 AM EDT Infusion [facility] at [address] [address] Prashant Gaspar, DO [address] [place] [phone] [email or web address] Kaushal Feliz RN [address] [place] [phone] [email or web address] 08/01/2025 2:40 PM EDT Infusion [facility] at [address] [address] Prashant Gaspar, DO [address] [place] [phone] [email or web address] Celine Peralta RN [address] [place] [phone] [email or web address] 08/02/2025 2:40 PM EDT Infusion [facility] at [address] [address] Prashant Gaspar, DO [address] [place] [phone] [email or web address] Kimberly Nunes, [email or web address] [address] [place] [phone] 08/03/2025 4:00 PM EDT Infusion [facility] at [address] [address] Prashant Gaspar, DO [address] [place] [phone] [email or web address] [email or web address].[facility] Salima Harris, RN [address] [place] [address] [email or web address] Health Maintenance Due Date Last Done Comments LIPID PANEL 1953 DEPRESSION SCREENING 1965 HEPATITIS C SCREENING 1971 HEPATITIS A VACCINES (1 of 2 - Risk 2-dose series) 1972 MAMMOGRAM 1993 COLOGUARD 1998 COLONOSCOPY 1998 COLORECTAL CANCER SCREENING 1998 FIT TEST 1998 FOBT 1998 SIGMOIDOSCOPY 1998 VIRTUAL COLONOSCOPY 1998 OSTEOPOROSIS SCREENING INITIAL (ONE-TIME) 2018 TSH LEVEL 04/23/2024 04/23/2023 INFLUENZA VACCINE (#1) 2025 , 08/24/2024, 07/08/2023, Additional history exists COVID-19 VACCINE ( season) 2025 12/26/2024, 08/24/2024, 01/22/2024, Additional history exists BLOOD PRESSURE 12/26/2025 06/28/2025 SMOKING Hx and SMOKELESS TOBACCO SCREENING 07/05/2026 07/05/2025 CREATININE LEVEL 07/09/2026 07/09/2025, 11/2024, 06/27/2025, Additional history exists POTASSIUM LEVEL 07/09/2026 07/09/2025, 11/2024, 06/27/2025, Additional history exists Adult Td,Tdap Booster 06/11/2027 06/11/2017, 007 ZOSTER VACCINES Completed 01/11/2021, 10/05, 03/24/2011 PNEUMOCOCCAL VACCINES (50+ years) Completed 08/14/2021, 07/23/2020, 10/10/2018, Additional history exists RSV VACCINE Completed 11/10/2023 HIB VACCINES Aged Out No longer eligi ble based on patient's age to complete this topic MENINGOCOCCAL VACCINES (ACWY) Aged Out No longer eligible based on patient's age to complete this topic MENINGOCOCCAL VACCINES (B) Aged Out N o longer eligible based on patient's age to complete this topic Medical Devices Not on file Procedures Procedure Name Priority Date/Time Associated Diagnosis Comments CBC AND DIFFERENTIAL Routine 07/09/2025 11:59 AM EDT Need for hepatitis B screening test 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 COMPREHENSIVE METABOLIC PANEL Routine 07/09/2025 11:59 AM EDT Need for hepatitis B screening test 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 URINE SEDIMENT STAT 07/05/2025 10:19 PM EDT TOXICOLOGY SCREEN, URINE STAT 07/05/2025 10:19 PM EDT URINALYSIS W/REFLEX URINE CULTURE STAT 07/05/2025 10:19 PM EDT URINE CULTURE Routine 07/05/2025 10:19 PM EDT ECG 12-LEAD STAT 07/05/2025 10:05 PM EDT XR CHEST PA AND LATERAL 2 VIEWS Routine 07/05/2025 9:00 PM EDT SALICYLATES STAT 07/05/2025 7:40 PM EDT ACETAMINOPHEN LEVEL STAT 07/05/2025 7 :40 PM EDT ETHANOL, BLOOD STAT 07/05/2025 7:40 PM EDT MAGNESIUM STAT 07/05/2025 7:40 PM EDT LFTS (HEPATIC PANEL) STAT 07/05/2025 7:40 PM EDT BASIC METABOLIC PANEL STAT 07/05/2025 7:40 PM EDT CBC AND DIFFERENTIAL STAT 07/05/2025 7:[address] LUMBAR SPINE WITHOUT CONTRAST Routine 07/05/2025 7:[address] CERVICAL SPINE WITHOUT CONTRAST Routine 07/05/2025 7:[address] HEAD WITHOUT CONTRAST Routine 07/05/2025 7:05 PM EDT CBC AND DIFFERENTIAL Routine 06/27/2025 1:33 PM EDT Need for hepatitis B screening test 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 COMPREHENSIVE METABOLIC PANEL Routine 06/27/2025 1:33 PM [...] EDT Need for hepatitis B screening test CT ABDOMEN/PELVIS WITH CONTRAST Routine 06/25/2025 2:[address] CHEST PULMONARY ANGIOGRAM (ACUTE) Routine 06/25/2025 2:14 AM EDT TROPONIN STAT 06/24/2025 10:50 PM EDT LFTS (HEPATIC PANEL) Routine 06/24/2025 9:59 PM EDT TROPONIN STAT 06/24/2025 9:59 PM EDT NT-PROBNP STAT 06/24/2025 9:59 PM EDT BASIC METABOLIC PANEL STAT 06/24/2025 9:59 PM EDT CBC AND DIFFERENTIAL STAT 06/24/2025 9:59 PM EDT XR CHEST PA AND LATERAL 2 VIEWS STAT 06/24/2025 9:56 PM EDT ECG 12-LEAD STAT 06/24/2025 9:38 PM EDT URIC ACID Routine 06/20/2025 6:41 AM EDT COMPREHENSIVE METABOLIC PANEL Routine 06/20/2025 6:41 AM EDT MAGNESIUM Routine 06/20/2025 6:41 AM EDT PHOSPHORUS Routine 06/20/2025 6:41 AM EDT CBC AND DIFFERENTIAL Routine 06/20/2025 6:41 AM EDT URIC ACID STAT 06/19/2025 9:17 AM EDT COMPREHENSIVE METABOLIC PANEL STAT 06/19/2025 9:17 AM EDT CBC AND DIFFERENTIAL STAT 06/19/2025 9:17 AM EDT HEPATITIS B SURFACE ANTIBODY Routine 06/19/2025 6:06 AM EDT HOMOCYSTEINE Routine 06/19/2025 6:06 AM EDT METHYLMALONIC ACID, SERUM Routine 06/19/2025 6:06 AM EDT VITAMIN B12 Routine 06/19/2025 6:06 AM EDT SYPHILIS ANTIBODY SCREEN ASSAY Routine 06/19/2025 6:06 AM EDT HEPATITIS B CORE ANTIBODY, TOTAL Routine 06/19/2025 6:06 AM EDT HEPATITIS B SURFACE ANTIGEN Routine 06/19/2025 6:06 AM EDT POCT GLUCOSE Routine 06/18/2025 4:29 PM EDT URIC ACID STAT 06/18/2025 9:47 AM EDT PHOSPHORUS STAT 06/18/2025 9:47 AM EDT MAGNESIUM STAT 06/18/2025 9:47 AM EDT COMPREHENSIVE METABOLIC PANEL STAT 06/18/2025 9:47 AM EDT CBC AND DIFFERENTIAL STAT 06/18/2025 9:47 AM EDT CBC AND DIFFERENTIAL Routine 06/17/2025 10:23 AM EDT MAGNESIUM Routine 06/17/2025 5:28 AM EDT BASIC METABOLIC PANEL Routine 06/17/2025 5:28 AM EDT URIC ACID Routine 06/16/2025 7:19 AM EDT PHOSPHORUS Routine 06/16/2025 7:19 AM EDT MAGNESIUM Routine 06/16/2025 7:19 AM EDT COMPREHENSIVE METABOLIC PANEL Routine 06/16/2025 7:19 AM EDT CBC AND DIFFERENTIAL Routine 06/16/2025 7:19 AM EDT TTE COMPREHENSIVE Routine 06/15/2025 9:2 8 AM EDT Chest pain, unspecified type URIC ACID Routine 06/15/2025 5:47 AM EDT PT-INR Routine 06/15/2025 5:47 AM EDT COMPREHENSIVE METABOLIC PANEL Routine 06/15/2025 5:47 AM EDT CBC AND DIFFERENTIAL Routine 06/15/2025 5:47 AM EDT PHOSPHORUS Routine 06/15/2025 5:47 AM EDT MAGNESIUM Routine 06/15/2025 5:47 AM EDT TROPONIN STAT 06/15/2025 3:09 AM EDT TROPONIN STAT 06/15/2025 12:39 AM EDT MRI BRAIN WITHOUT CONTRAST Routine 06/14/2025 11:54 PM EDT MRA HEAD WITHOUT CONTRAST Routine 06/14/2025 11:53 PM EDT ECG 12-LEAD STAT 06/14/2025 9:53 PM EDT LACTIC ACID (LACTATE) Routine 06/14/2025 9:44 PM EDT BASIC METABOLIC PANEL Routine 06/14/2025 9:44 PM EDT PROCALCITONIN STAT 06/14/2025 9:44 PM EDT LAB ADD ON Routine 06/14/2025 9:44 PM EDT URINE SEDIMENT STAT 06/14/2025 9:14 PM EDT URINALYSIS W/REFLEX URINE CULTURE STAT 06/14/2025 9:14 PM EDT SODIUM, RANDOM URINE STAT 06/14/2025 9:14 PM EDT CREATININE (RANDOM URINE) STAT 06/14/2025 9:14 PM EDT URINE CULTURE Routine 06/14/2025 9:14 PM EDT LACTIC ACID (LACTATE) STAT 06/14/2025 5:[address] ANGIO ABDOMEN/PELVIS WITH AND WITHOUT CONTRAST Routine 06/14/2025 3:[address] ANGIO CHEST WITH AND WITHOUT CONTRAST Routine 06/14/2025 3:[address] HEAD WITHOUT CONTRAST Routine 06/14/2025 3:05 PM EDT TROPONIN Routine 06/14/2025 2:29 PM EDT NT-PROBNP Routine 06/14/2025 2:29 PM EDT LACTIC ACID (LACTATE) STAT 06/14/2025 2:29 PM EDT D-DIMER STAT 06/14/2025 2:29 PM EDT LIPASE STAT 06/14/2025 2:29 PM EDT LFTS (HEPATIC PANEL) STAT 06/14/2025 2:29 PM EDT BASIC METABOLIC PANEL STAT 06/14/2025 2:29 PM EDT CBC AND DIFFERENTIAL STAT 06/14/2025 2:29 PM EDT BLOOD CULTURE, ROUTINE STAT 5 2:29 PM EDT BLOOD CULTURE, ROUTINE STAT 2:29 PM EDT TROPONIN STAT 05/31/2025 2:[address] ABDOMEN/PELVIS WITH CONTRAST Routine 05/31/2025 1:[address] CHEST PULMONARY ANGIOGRAM (ACUTE) Routine 05/31/2025 1:53 AM EDT POCT GLUCOSE Routine 05/31/2025 1:15 AM EDT ECG 12-LEAD STAT 05/31/2025 1:06 AM EDT NT-PROBNP STAT 05/31/2025 1:06 AM EDT TROPONIN STAT 05/31/2025 1:06 AM EDT LIPASE STAT 05/31/2025 1:06 AM EDT MAGNESIUM STAT 05/31/2025 1:06 AM EDT LFTS (HEPATIC PANEL) STAT 05/31/2025 1:06 AM EDT BASIC METABOLIC PANEL STAT 05/31/2025 1:06 AM EDT CBC AND DIFFERENTIAL STAT 05/31/2025 1:06 AM EDT COVID PANDEMIC RESPIRATORY VIRAL ORDER (PRO) STAT 05/31/2025 12:57 AM EDT XR CHEST PA AND LATERAL 2 VIEWS Routine 05/30/2025 10:54 PM EDT BRONCH LAVAGE DIFFERENTIAL Routine 05/25/2025 4:02 PM EDT FUNGAL CULTURE Routine 05/25/2025 4:02 PM EDT MYCOBACTERIAL CULTURE/SMEAR Routine 05/25/2025 4:02 PM EDT RESPIRATORY CULTURE/SMEAR Routine 05/25/2025 4:02 PM EDT AIRWAY PLACEMENT Routine 05/25/2025 1:07 PM EDT ENDOBRONCHIAL ULTRASOUND 05/25/2025 12:59 PM EDT lung disease NON-GAS ENGINE 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 ENGINEER CYTOLOGY, NON CSF, NON URINE Routine 05/25/2025 12:[address] CHEST PULMONARY ANGIOGRAM (ACUTE) Routine 05/03/2025 8:59 PM EDT TROPONIN STAT 05/03/2025 7:02 PM EDT TROPONIN STAT 05/03/2025 5:49 PM EDT BASIC METABOLIC PANEL STAT 05/03/2025 5:49 PM EDT CBC AND DIFFERENTIAL STAT 05/03/2025 5:49 PM EDT ECG 12-LEAD STAT 05/03/2025 5:12 PM EDT TSH WITH REFLEX STAT 04/23/2023 6:19 PM EDT from Last 3 Months or Most Recently Relevant to Health Maintenance Results * (ABNORMAL) Comprehensive metabolic panel (07/09/2025 11:59 AM EDT) Only the most recent of7 resultswithin the time period is included. SODIUM 142 133 - 146 mmol/L [facility] POTASSIUM 3.4 3.3 - 5.1 mmol/L [facility] CHLORIDE 105 96 - 108 mmol/L [facility] CO2 26 21 - 35 mmol/L [facility] BUN 11 6 - 19 mg/dL [facility] CREATININE 1.00 0.5 - 1.5 mg/dL [facility] GLUCOSE 125(H) 70 - 99 mg/dL [facility] ALBUMIN 3.3(L) 3.9 - 4.8 g/dL [facility] TOTAL PROTEIN 7.4 6.5 - 8.0 g/dL [facility] CALCIUM 9.1 8.4 - 10.3 mg/dL [facility] ALKALINE PHOSPHATASE 595(H) 39 - 117 U/L [facility] TOTAL BILIRUBIN 0.4 0.0 - 1.2 mg/dL [facility] AST 74(H) 0 - 37 U/L [facility] ALT 36 0 - 40 U/L [facility] GLOBULIN 4.1 1 - 4.8 g/dL [facility] EGFR 60 >59 mL/min/1.7 3m2 [facility] Comment:Estimated glomerular filtration rate calculated using the CKD-EPI refit equation. ANION GAP 14 10 - 20 mmol/L [facility] Blood 07/09/2025 11:5 9 AM EDT 07/09/2025 12:17 PM EDT us Prashant Meyers Chsaity DO LAB BLOOD ORDERABLES Final Result [facility] [address] [place] [address] * (ABNORMAL) CBC and differential (07/09/2025 11:59 AM EDT) Only the most recent of13 resultswithin the time period is included. WBC 16.55(H) 4.00 - 11.00 K/uL [facility] RBC 3.52(L) 4.00 - 5.20 M/uL [facility] HGB 10.5(L) 12.0 - 16.0 g/dL [facility] HCT 32.8(L) 36.0 - 46.0 % [facility] PLT 521(H) 150 - 450 K/uL [facility] MCV 93.2 80.0 - 100.0 fL [facility] MCH 29.8 27.0 - 31.0 pg [facility] MCHC 32.0 32.0 - 36.0 g/dL [facility] RDW 15.9(H) 11.5 - 14.5 % [facility] MPV 10.5 8.4 - 12.0 fL [facility] NRBC 0.20(H) 0.00 /100 WBCs [facility] ABSOLUTE NRBC 0.03(H) 0.00 K/uL [facility] DIFF METHOD Manual [facility] TOTAL CELLS COUNTED 100 [facility] NEUTS 74.0 48.0 - 76.0 % [facility] LYMPHS 10.0(L) 18.0 - 41.0 % [facility] MONOS 2.0(L) 4.0 - 11.0 % [facility] MYELOS 14.0(H) 0 % [facility] ABSOLUTE NEUTS 12.25(H) 1.92 - 7.60 K/uL [facility] ABSOLUTE LYMPHS 1.66 0.72 - 4.10 K/uL [facility] ABSOLUTE MONOS 0.33 0.16 - 1.10 K/uL [facility] ABSOLUTE MYELOS 2.32 K/uL [facility] TOXIC GRANULATION PRESENT(A) None [facility] Blood 07/09/2025 11:5 9 AM EDT 07/09/2025 12:17 PM EDT us Cerda W Chasity DO LAB BLOOD ORDERABLES Final Result Performing Organization Address [facility]/ZIP Co de Phone Number [address] [address] * (ABNORMAL) Urinalysis w/reflex Urine Culture (07/05/2025 10:19 PM EDT) Only the most recent of2 resultswithin the time period is included. COLOR Yellow Yellow [facility] CLARITY Clear [facility] GLUCOSE Negative Negative [facility] BILI 1+(A) Negative [facility] KETONES Trace(A) Negative [facility] SPECIFIC GRAVITY 1.025 1.005 - 1.030 [facility] BLOOD Negative Negative [facility] PH 6.0 5.0 - 8.0 [facility] Protein-UA 1+(A) Negative [facility] NITRITE Positive(A) Negative [facility] Leukocyte esterase, ur Negative Negative [facility] Urine (Urine) 07/05/2025 10: 19 PM EDT 07/05/2025 10:25 PM EDT us Jonathan Hayes MD URINE ORDERABLES Final Re sult Performing Organization Address City/[facility]/ZIP Co de Phone Number [address] [address] * (ABNORMAL) Urine Culture (07/05/2025 10:19 PM EDT) Only the most recent of2 resultswithin the time period is included. Special Requests None Reflexed from [id number] 07/05/2025 10:45 PM EDT [facility] Urine Culture >100,000 colony forming units per mL COAGULASE NEGATIVE STAPHYLOCOCCU S(A) 07/07/2025 12:15 PM EDT [facility] Urine 07/05/2025 10:1 9 PM EDT 07/05/2025 10:25 PM EDT Jonathan Hayes MD MICROBIOLOGY - GENERAL OR DERABLES Final Result Performing Organization Address City/[facility]/ZIP Co de Phone Number [address] [address] * (ABNORMAL) Urine sediment (07/05/2025 10:19 PM EDT) Only the most recent of2 resultswithin the time period is included. WBC 11-20(A) NONE SEEN /hpf [facility] RBC 0-2(A) NONE SEEN /hpf [facility] URINE EPITHELIAL 11-20(A) NONE SEEN [facility] MUCUS 3+(A) NONE SEEN /hpf [facility] BACTERIA Trace(A) NONE SEEN /hpf [facility] CRYSTALS 1+ [facility] Comment: Calcium Oxalate 2+ AMORPHOUS CAST 3-5 [facility] Comment: GRANULAR CAST 6-10 HYALINE CAST 07/05/2025 10:1 9 PM EDT 07/05/2025 10:25 PM EDT Jonathan Hayes MD URINE ORDERABLES Final Re sult Performing Organization Address City/[facility]/ZIP Co de Phone Number [address] [address] * (ABNORMAL) Toxicology screen, urine (07/05/2025 10:19 PM EDT) URINE CANNABINOIDS NONE DETECTED NONE DETECTED [facility] Comment:Cutoff: 50 ng/mL URINE COCAINE METAB NONE DETECTED NONE DETECTED [facility] Comment:Cutoff: 300 ng/mL URINE AMPHETAMINES NONE DETECTED NONE DETECTED [facility] Comment:Cutoff: 1000 ng/mL URINE METHADONE NONE DETECTED NONE DETECTED [facility] Comment:Cutoff: 300 ng/mL URINE OPIATES NONE DETECTED NONE DETECTED [facility] Comment:Cutoff: 300 ng/mL URINE PHENCYCLIDINE NONE DETECTED NONE DETECTED [facility] Comment:Cutoff: 25 ng/mL URINE OXYCODONE Positive(A) NONE DETECTED [facility] Comment:Cutoff: 300 ng/mL URINE BARBITURATES NONE DETECTED NONE DETECTED [facility] Comment:Cutoff: 200 ng/mL URINE BENZODIAZEPINE NONE DETECTED NONE DETECTED [facility] Comment:Cutoff: 200 ng/mL URINE BUPRENORPHINE NONE DETECTED NONE DETECTED [facility] Comment:Cutoff: 5 ng/mL Fentanyl, urine NONE DETECTED NONE DETECTED [facility] Comment: Cutoff: 5 ng/mL INTERPRETATION FOR TOXICOLOGY PANEL: These results are unconfirmed and should be used for Medical Treatment purposes only. Urine (Urine) 07/05/2025 10: 19 PM EDT 07/05/2025 10:25 PM EDT Jonathan Hayes MD URINE ORDERABLES Final Re sult [address] [address] * ECG 12-LEAD (07/05/2025 10:05 PM EDT) Only the most recent of5 resultswithin the time period is included. Ventricular Rate EKG/MIN 82 BPM [facility] Atrial Rate 82 BPM [facility] DC Interval 100 ms [facility] QRS Duration 82 ms [facility] QT Interval 384 ms [facility] QTC Interval 448 ms [facility] P [place] -20 degrees [facility] R Wave [place] 4 degrees [facility] T Wave [place] -44 degrees [facility] 07/05/2025 10:0 5 PM EDT 07/06/2025 9:37 AM EDT Narrative [facility] - 07/06/2025 9:37 AM EDT Sinus rhythm with short DC Possible Inferior infarct (cited on or before 03-May-2025) Abnormal ECG When compared with ECG of 24-Jun-2025 21:38, Nonspecific T wave abnormality now evident in Anterolateral leads Confirmed by Eric Tillman ([id number]) on 07/06/2025 9:37:44 AM Jonathan Hayes MD ECG ORDERABLES Final Res ult [facility] * XR CHEST PA AND LATERAL 2 VIEWS (07/05/2025 9:00 PM EDT) Anatomical Region Laterality Modality Chest Computed Radiogr aphy 07/05/2025 9:36 PM EDT Impressions 07/05/2025 10:19 PM EDT No acute abnormality. ATTESTATION: Hieu Harrison as teaching physician, have reviewed the images for this case and if necessary edited the report originally created by Kirill Muhammad. Narrative 07/05/2025 10:19 PM EDT XR CHEST PA AND LATERAL 2 VIEWS Referring clinician's provided indication for this examination in [facility]: Trauma; r/o sternal fracture COMPARISON: XR CHEST PA AND LATERAL 2 VIEWS FINDINGS: Devices/Tubes/Lines: None. Lungs: No focal consolidation or pulmonary edema. Pleura: No pleural effusion or pneumothorax. Heart/Mediastinum: Unchanged in appearance. Bones/Soft Tissues: No significant abnormality. Procedure Note Hieu Sykes MBBS - 07/05/2025 XR CHEST PA AND LATERAL 2 VIEWS Referring clinician's provided indication for this [facility] [place]:Trauma; r/o sternal fracture COMPARISON: XR CHEST PA AND LATERAL 2 VIEWS FINDINGS: Devices/Tubes/Lines: None. Lungs: No focal consolidation or pulmonary edema. Pleura: No pleural effusion or pneumothorax. Heart/Mediastinum: Unchanged in appearance. Bones/Soft Tissues: No significant abnormality. IMPRESSION: No acute abnormality. ATTESTATION: Hieu Harrison as teaching physician, have reviewed theimages for this case and if necessary edited the report originally createdby Kirill Muhammad. Jonathna Hayes MD IMG XR CHEST Final Res ult * Ethanol, blood (07/05/2025 7:40 PM EDT) ETHANOL <10 <10 mg/dL [facility] Blood 07/05/2025 7:40 PM EDT 07/05/2025 7:51 PM EDT Jonathan Hayes MD LAB BLOOD ORDERABLES Marina l Result Performing Organization Address City/[facility]/ZIP Co de Phone Number [address] [address] * (ABNORMAL) LFTs (hepatic panel) (07/05/2025 7:40 PM EDT) Only the most recent of4 resultswithin the time period is included. ALKALINE PHOSPHATASE 619(H) 39 - 117 U/L [facility] TOTAL BILIRUBIN 0.5 0.0 - 1.2 mg/dL [facility] DIRECT BILIRUBIN 0.2 0.0 - 0.2 mg/dL [facility] Bilirubin (Indirect) 0.3 0 - 1.5 mg/dL [facility] AST 95(H) 0 - 37 U/L [facility] ALT 46(H) 0 - 40 U/L [facility] TOTAL PROTEIN 7.8 6.5 - 8.0 g/dL [facility] ALBUMIN 3.3(L) 3.9 - 4.8 g/dL [facility] GLOBULIN 4.5 1 - 4.8 g/dL [facility] A/G Ratio 0.73(L) 1.00 - 4.80 RATIO [facility] Blood 07/05/2025 7:40 PM EDT 07/05/2025 7:51 PM EDT Jonathan Hayes MD LAB BLOOD ORDERABLES Marina l Result Performing Organization Address City/[facility]/ZIP Co de Phone Number [address] [address] * (ABNORMAL) Magnesium (07/05/2025 7:40 PM EDT) Only the most recent of7 resultswithin the time period is included. MAGNESIUM 1.5(L) 1.6 - 2.6 mg/dL [facility] Blood 07/05/2025 7:40 PM EDT 07/05/2025 7:51 PM EDT us Jonathan Hayes MD LAB BLOOD ORDERABLES Marina l Result Performing Organization Address City/[facility]/ZIP Co de Phone Number [address] [address] * (ABNORMAL) Acetaminophen level (07/05/2025 7:40 PM EDT) ACETAMINOPHEN <5.0(L) 15.0 - 30.0 ug/mL [facility] Blood 07/05/2025 7:40 PM EDT 07/05/2025 7:51 PM EDT Result Dannie Hayes MD LAB BLOOD ORDERABLES Marina l Result Performing Organization Address [facility] Co de Phone Number [address] [address] * (ABNORMAL) Salicylates (07/05/2025 7:40 PM EDT) SALICYLATES 0.5(L) 2.8 - 19.9 mg/dL [facility] Blood 07/05/2025 7:40 PM EDT 07/05/2025 7:51 PM EDT us Jonathan Hayes MD LAB BLOOD ORDERABLES Marina l Result Performing Organization Address [facility] Co de Phone Number [address] [address] * (ABNORMAL) Basic metabolic panel (07/05/2025 7:40 PM EDT) Only the most recent of7 resultswithin the time period is included. SODIUM 143 133 - 146 mmol/L [facility] CHLORIDE 105 96 - 108 mmol/L [facility] POTASSIUM 3.8 3.3 - 5.1 mmol/L [facility] CO2 22 21 - 35 mmol/L [facility] BUN 14 6 - 19 mg/dL [facility] CREATININE 1.20 0.5 - 1.5 mg/dL [facility] GLUCOSE 100(H) 70 - 99 mg/dL [facility] CALCIUM 9.4 8.4 - 10.3 mg/dL [facility] EGFR 48(L) >59 mL/min/1.7 3m2 [facility] Comment:Estimated glomerular filtration rate calculated using the CKD-EPI refit equation. ANION GAP 20 10 - 20 mmol/L [facility] Blood 07/05/2025 7:40 PM EDT 07/05/2025 7:51 PM EDT us Jonathan Hayes MD LAB BLOOD ORDERABLES Marina l Result Performing Organization Address City/State/[facility] Co de Phone Number [address] [address] * CT LUMBAR SPINE WITHOUT CONTRAST (07/05/2025 7:05 PM EDT) Anatomical Region Laterality Modality L-spine Computed Tomogra phy 07/05/2025 7:31 PM EDT Impressions 07/05/2025 7:41 PM EDT 1. No acute fracture or traumatic malalignment of the lumbar spine. 2. Similar 2.9 cm lytic lesion in the right sacral ala with extension into the neural foramen. 3. Partially imaged hepatic metastases. Narrative 07/05/2025 7:[address] LUMBAR SPINE WITHOUT CONTRAST Referring clinician's provided indication for this examination in Epic: * Low back pain, increased fracture risk; syncope and fall TECHNIQUE: Multidetector-row CT of the lumbar spine was performed without intravenous contrast using tailored dose modulation techniques. Images were reconstructed in the axial, coronal, and sagittal planes. COMPARISON: None FINDINGS: LUMBAR SPINE: Alignment and Vertebrae: No traumatic malalignment. Postsurgical changes at L5- S1 level with osseous fusion. No acute fracture. Sclerosis of the S2 vertebral body, which may represent healed insufficiency fractures. Similar 2.9 cm lytic lesion in the right sacral ala with extension into the neural foramen. Discs and Endplates: Multilevel degenerative changes. Soft Tissue: No prevertebral soft tissue thickening. Other Findings: Partially imaged multiple hypodense lesions in the liver. Diffuse atherosclerotic calcifications of the abdominal aorta. Procedure Note RafiaTaylor andres MBBS - 07/05/2025 CT LUMBAR SPINE WITHOUT CONTRAST Referring clinician's provided indication for this examination in Epic: *Low back pain, increased fracture risk; syncope and fall TECHNIQUE: Multidetector-row CT of the lumbar spine was performed withoutintravenous contrast using tailored dose modulation techniques. Imageswere reconstructed in the axial, coronal, and sagittal planes. COMPARISON: None FINDINGS: LUMBAR SPINE: Alignment and Vertebrae: No traumatic malalignment. Postsurgical changesat L5-S1 level with osseous fusion. No acute fracture. Sclerosis of the [id number] body, which may represent healed insufficiency fractures.Similar 2.9 cm lytic lesion in the right sacral ala with extension intothe neural foramen. Discs and Endplates: Multilevel degenerative changes. Soft Tissue: No prevertebral soft tissue thickening. Other Findings: Partially imaged multiple hypodense lesions in the liver.Diffuse atherosclerotic calcifications of the abdominal aorta. IMPRESSION: 1. No acute fracture or traumatic malalignment of the lumbar spine. 2. Similar 2.9 cm lytic lesion in the right sacral ala with extensioninto the neural foramen. 3. Partially imaged hepatic metastases. Jonathan Hayes MD IMG CT XSPECIALTY ORDERAB LES Final Result * CT CERVICAL SPINE WITHOUT CONTRAST (07/05/2025 7:05 PM EDT) Anatomical Region Laterality Modality C-spine Computed Tomogra phy 07/05/2025 7:25 PM EDT Impressions 07/05/2025 7:58 PM EDT 1. No acute intracranial findings. 2. No acute fracture or traumatic malalignment of the cervical spine. 3. 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 ATTESTATION: Hieu Harrison as teaching physician, have reviewed the images for this case and if necessary edited the report originally created by Kirill Muhammad. Narrative 07/05/2025 7:[address] HEAD WITHOUT CONTRAST, CT CERVICAL SPINE WITHOUT CONTRAST Referring clinician's provided indication for this examination in [facility] [place]: * Head trauma, minor (Age >= 65y); syncope and fall TECHNIQUE: CTs of the head and cervical spine were performed without intravenous contrast using tailored dose modulation techniques. Images were reconstructed in the axial, coronal, and sagittal planes. COMPARISON: CT HEAD WITHOUT CONTRAST FINDINGS: HEAD: Brain Parenchyma: No midline shift, mass effect, parenchymal hemorrhage, or evidence of acute territorial infarct. Hypodensities in the periventricular white matter, likely a manifestation of chronic small vessel disease. Ventricular System and Extra-Axial Spaces: No extra-axial fluid collections. Basal cisterns are patent. No hydrocephalus. Stable 6 mm saccular aneurysm at the right MCA bifurcation better characterized prior MRI angiogram of the brain. Osseous and Extracranial Structures: No calvarial fracture or significant soft tissue hematoma. No significant paranasal sinus disease. No orbital abnormality. CERVICAL SPINE: Alignment and Vertebrae: No traumatic malalignment. Vertebral bodies and posterior elements are intact. Discs and Endplates: Multilevel degenerative changes. Ill-defined lytic lesions involving the C6 vertebrae possibly metastasis. Similar mild compression deformity of T3 vertebra. Other Findings: Trace biapical centrilobular paraseptal emphysema. Procedure Note Hieu Sykes MBBS - 07/05/2025 CT HEAD WITHOUT CONTRAST, CT CERVICAL SPINE WITHOUT CONTRAST Referring clinician's provided indication for this examination in [facility] [place]: *Head trauma, minor (Age >= 65y); syncope and fall TECHNIQUE: CTs of the head and cervical spine were performed withoutintravenous contrast using tailored dose modulation techniques. Imageswere reconstructed in the axial, coronal, and sagittal planes. COMPARISON: CT HEAD WITHOUT CONTRAST FINDINGS: HEAD: Brain Parenchyma: No midline shift, mass effect, parenchymal hemorrhage,or evidence of acute territorial infarct. Hypodensities in theperiventricular white matter, likely a manifestation of chronic smallvessel disease. Ventricular System and Extra-Axial Spaces: No extra-axial fluidcollections. Basal cisterns are patent. No hydrocephalus. Stable 6 mmsaccular aneurysm at the right MCA bifurcation better characterized priorMRI angiogram of the brain. Osseous and Extracranial Structures: No calvarial fracture or significantsoft tissue hematoma. No significant paranasal sinus disease. No orbitalabnormality. CERVICAL SPINE: Alignment and Vertebrae: No traumatic malalignment. Vertebral bodies andposterior elements are intact. Discs and Endplates: Multilevel degenerative changes. Ill-defined lyticlesions involving the C6 vertebrae possibly metastasis. Similar mildcompression deformity of T3 vertebra. Other Findings: Trace biapical centrilobular paraseptal emphysema. IMPRESSION: 1. No acute intracranial findings. 2. No acute fracture or traumatic malalignment of the cervical spine. 3. 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 ATTESTATION: Hieu Harrison as teaching physician, have reviewed theimages for this case and if necessary edited the report originally createdby Kirill Muhammad. Jonathan Hayes MD IMG CT XSPECIALTY ORDERAB LES Final Result * CT HEAD WITHOUT CONTRAST (07/05/2025 7:05 PM EDT) Anatomical Region Laterality Modality Head Computed Tomogra phy 07/05/2025 7:25 PM EDT Impressions 07/05/2025 7:58 PM EDT 1. No acute intracranial findings. 2. No acute fracture or traumatic malalignment of the cervical spine. 3. 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 ATTESTATION: Hieu Harrison as teaching physician, have reviewed the images for this case and if necessary edited the report originally created by Kirill Muhammad. Narrative 07/05/2025 7:[address] HEAD WITHOUT CONTRAST, CT CERVICAL SPINE WITHOUT CONTRAST Referring clinician's provided indication for this examination in Epic: * Head trauma, minor (Age >= 65y); syncope and fall TECHNIQUE: CTs of the head and cervical spine were performed without intravenous contrast using tailored dose modulation techniques. Images were reconstructed in the axial, coronal, and sagittal planes. COMPARISON: CT HEAD WITHOUT CONTRAST FINDINGS: HEAD: Brain Parenchyma: No midline shift, mass effect, parenchymal hemorrhage, or evidence of acute territorial infarct. Hypodensities in the periventricular white matter, likely a manifestation of chronic small vessel disease. Ventricular System and Extra-Axial Spaces: No extra-axial fluid collections. Basal cisterns are patent. No hydrocephalus. Stable 6 mm saccular aneurysm at the right MCA bifurcation better characterized prior MRI angiogram of the brain. Osseous and Extracranial Structures: No calvarial fracture or significant soft tissue hematoma. No significant paranasal sinus disease. No orbital abnormality. CERVICAL SPINE: Alignment and Vertebrae: No traumatic malalignment. Vertebral bodies and posterior elements are intact. Discs and Endplates: Multilevel degenerative changes. Ill-defined lytic lesions involving the C6 vertebrae possibly metastasis. Similar mild compression deformity of T3 vertebra. Other Findings: Trace biapical centrilobular paraseptal emphysema. Procedure Note Hieu Sykes MBBS - 07/05/2025 CT HEAD WITHOUT CONTRAST, CT CERVICAL SPINE WITHOUT CONTRAST Referring clinician's provided indication for this examination in Epic: *Head trauma, minor (Age >= 65y); syncope and fall TECHNIQUE: CTs of the head and cervical spine were performed withoutintravenous contrast using tailored dose modulation techniques. Imageswere reconstructed in the axial, coronal, and sagittal planes. COMPARISON: CT HEAD WITHOUT CONTRAST FINDINGS: HEAD: Brain Parenchyma: No midline shift, mass effect, parenchymal hemorrhage,or evidence of acute territorial infarct. Hypodensities in theperiventricular white matter, likely a manifestation of chronic smallvessel disease. Ventricular System and Extra-Axial Spaces: No extra-axial fluidcollections. Basal cisterns are patent. No hydrocephalus. Stable 6 mmsaccular aneurysm at the right MCA bifurcation better characterized priorMRI angiogram of the brain. Osseous and Extracranial Structures: No calvarial fracture or significantsoft tissue hematoma. No significant paranasal sinus disease. No orbitalabnormality. CERVICAL SPINE: Alignment and Vertebrae: No traumatic malalignment. Vertebral bodies andposterior elements are intact. Discs and Endplates: Multilevel degenerative changes. Ill-defined lyticlesions involving the C6 vertebrae possibly metastasis. Similar mildcompression deformity of T3 vertebra. Other Findings: Trace biapical centrilobular paraseptal emphysema. IMPRESSION: 1. No acute intracranial findings. 2. No acute fracture or traumatic malalignment of the cervical spine. 3. 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 ATTESTATION: I, Hieu Sykes as teaching physician, have reviewed theimages for this case and if necessary edited the report originally createdby Kirill Muhammad. us Jonathan Hayes MD IMG CT HEAD/NECK Final Re sult * Hepatitis B core antibody, total (06/27/2025 1:33 PM EDT) Only the most recent of2 resultswithin the time period is included. HEP B CORE AB, TOT NON-REACTI VE NON-REACTI VE [facility] Blood 06/27/2025 1:33 PM EDT 06/27/2025 1:47 PM EDT us Prashant Gaspar DO LAB BLOOD ORDERABLES Final Result Performing Organization Address [facility] Co de Phone Number [address] [address] * Hepatitis B surface antigen (06/27/2025 1:33 PM EDT) Only the most recent of2 resultswithin the time period is included. HBV SURFACE ANTIGEN NON-REACTI VE NON-REACTI VE [facility] Blood 06/27/2025 1:33 PM EDT 06/27/2025 1:47 PM EDT us Prashant Gaspar DO LAB BLOOD ORDERABLES Final Result Performing Organization Address [facility]/ZIP Co de Phone Number [address] [address] * Uric acid (06/27/2025 1:33 PM EDT) Only the most recent of6 resultswithin the time period is included. URIC ACID 5.3 2.4 - 7.0 mg/dL [facility] Blood 06/27/2025 1:33 PM EDT 06/27/2025 1:47 PM EDT us Cerda W Chasity DO LAB BLOOD ORDERABLES Final Result [facility] [address] [place] [address] * CT ABDOMEN/PELVIS WITH CONTRAST (06/25/2025 2:21 AM EDT) Anatomical Region Laterality Modality Abdomen, Pelvis Computed Tomogra phy 06/25/2025 3:21 AM EDT Impressions 06/25/2025 4:05 AM EDT 1. No pulmonary embolism. 2. Similar infiltrative left hilar mass with encasement of the left lower lobe bronchus and associated postobstructive left lower lobe atelectasis/consolidation. 3. No acute abdominopelvic abnormality. 4. Similar diffuse hepatic metastases, upper abdominal lymphadenopathy and lytic sacral lesion. ATTESTATION: I, Calixto Tyson as teaching physician, have reviewed the images for this case and if necessary edited the report originally created by Mike Britton. Narrative 06/25/2025 4:[address] CHEST PULMONARY ANGIOGRAM (ACUTE), CT ABDOMEN/PELVIS WITH CONTRAST Referring clinician's provided indication for this examination in Epic: * PE suspected, high prob TECHNIQUE: * Multidetector-row CT pulmonary angiography was performed after administration of intravenous contrast. 3D angiographic postprocessing techniques were acquired in the form of axial maximum intensity projection images (MIPS). * Multidetector-row CT of the abdomen and pelvis was performed with intravenous contrast using tailored dose modulation techniques. Images were reconstructed in the axial, coronal, and sagittal planes. COMPARISON: CT ANGIO CHEST WITH AND WITHOUT CONTRAST FINDINGS: CHEST: Pulmonary Angiogram: No filling defect. Devices/Tubes/Lines: None. Lungs: Similar infiltrative left hilar mass measuring up to 2.6 cm (4:42) with encasement/narrowing of the left lower lobe bronchus with associated postobstructive left lower lobe atelectasis/consolidation. Pleura: No pleural effusion or pneumothorax. Mediastinum: Coronary artery calcifications. Aortic atherosclerotic calcifications. Similar mass effect on the esophagus possibly posterior mediastinal lymph neil mass (4:39). Lymph Nodes: Similar subcarinal neil mass measuring up to 2.0 x 5.4 cm (4:43) and paratracheal lymph node measuring 1.1 cm in short axis (4:34 is present. Chest Wall: No chest wall mass. Bones: Similar bilateral rib lytic lesions. Multilevel degenerative changes of the spine. ABDOMEN / PELVIS: Liver: Similar diffuse hepatic metastases. Biliary: Normal gallbladder. No biliary ductal dilatation. Spleen: No splenomegaly. Pancreas: No peripancreatic fluid or stranding. Adrenal Glands: No nodule. Kidneys/Ureters: Similar scattered subcentimeter hypodensities, too small to characterize. No hydronephrosis. Bowel: No bowel wall thickening or distention.Normal appendix. Peritoneum/Retroperitoneum: No pneumoperitoneum or ascites. Lymph Nodes: Similar periportal lymph node measuring 1.3 cm in short axis (3:133) and gastrohepatic lymph node measuring 1.1 cm in the short axis (3:67). Pelvic Organs/Bladder: Normal. Vessels: Aortic atherosclerosis. No aortic aneurysm. Bones/Soft Tissues: Similar lytic sacral lesion measuring 2.9 cm (3:269). Multilevel degenerative changes of the visualized spine. Procedure Note Calixto Tyson MD - 06/25/2025 CT CHEST PULMONARY ANGIOGRAM (ACUTE), CT ABDOMEN/PELVIS WITH CONTRAST Referring clinician's provided indication for this examination in Epic: *PE suspected, high prob TECHNIQUE: * Multidetector-row CT pulmonary angiography was performed afteradministration of intravenous contrast. 3D angiographic postprocessingtechniques were acquired in the form of axial maximum intensity projectionimages (MIPS). * Multidetector-row CT of the abdomen and pelvis was performed withintravenous contrast using tailored dose modulation techniques. Imageswere reconstructed in the axial, coronal, and sagittal planes. COMPARISON: CT ANGIO CHEST WITH AND WITHOUT CONTRAST FINDINGS: CHEST: Pulmonary Angiogram: No filling defect. Devices/Tubes/Lines: None. Lungs: Similar infiltrative left hilar mass measuring up to 2.6 cm (4:42)with encasement/narrowing of the left lower lobe bronchus with associatedpostobstructive left lower lobe atelectasis/consolidation. Pleura: No pleural effusion or pneumothorax. Mediastinum: Coronary artery calcifications. Aortic atheroscleroticcalcifications. Similar mass effect on the esophagus possibly posteriormediastinal lymph neil mass (4:39). Lymph Nodes: Similar subcarinal neil mass measuring up to 2.0 x 5.4 cm(4:43) and paratracheal lymph node measuring 1.1 cm in short axis (4:34 ispresent. Chest Wall: No chest wall mass. Bones: Similar bilateral rib lytic lesions. Multilevel degenerativechanges of the spine. ABDOMEN / PELVIS: Liver: Similar diffuse hepatic metastases. Biliary: Normal gallbladder. No biliary ductal dilatation. Spleen: No splenomegaly. Pancreas: No peripancreatic fluid or stranding. Adrenal Glands: No nodule. Kidneys/Ureters: Similar scattered subcentimeter hypodensities, too smallto characterize. No hydronephrosis. Bowel: No bowel wall thickening or distention.Normal appendix. Peritoneum/Retroperitoneum: No pneumoperitoneum or ascites. Lymph Nodes: Similar periportal lymph node measuring 1.3 cm in short axis(3:133) and gastrohepatic lymph node measuring 1.1 cm in the short axis(3:67). Pelvic Organs/Bladder: Normal. Vessels: Aortic atherosclerosis. No aortic aneurysm. Bones/Soft Tissues: Similar lytic sacral lesion measuring 2.9 cm (3:269).Multilevel degenerative changes of the visualized spine. IMPRESSION: 1. No pulmonary embolism. 2. Similar infiltrative left hilar mass with encasement of the left lowerlobe bronchus and associated postobstructive left lower lobeatelectasis/consolidation. 3. No acute abdominopelvic abnormality. 4. Similar diffuse hepatic metastases, upper abdominal lymphadenopathyand lytic sacral lesion. ATTESTATION: I, Calixto Tyson as teaching physician, have reviewed theimages for this case and if necessary edited the report originally createdby Mike Britton. us Tung Dietrich DO IMG CT ABD/PELVIS Final Resul t * CT CHEST PULMONARY ANGIOGRAM (ACUTE) (06/25/2025 2:14 AM EDT) Anatomical Region Laterality Modality Chest, Thoracic Vasculature Comp uted Tomography 06/25/2025 3:21 AM EDT Impressions 06/25/2025 4:05 AM EDT 1. No pulmonary embolism. 2. Similar infiltrative left hilar mass with encasement of the left lower lobe bronchus and associated postobstructive left lower lobe atelectasis/consolidation. 3. No acute abdominopelvic abnormality. 4. Similar diffuse hepatic metastases, upper abdominal lymphadenopathy and lytic sacral lesion. ATTESTATION: I, Calixto Tyson as teaching physician, have reviewed the images for this case and if necessary edited the report originally created by Mike Britton. Narrative 06/25/2025 4:[address] CHEST PULMONARY ANGIOGRAM (ACUTE), CT ABDOMEN/PELVIS WITH CONTRAST Referring clinician's provided indication for this examination in Epic: * PE suspected, high prob TECHNIQUE: * Multidetector-row CT pulmonary angiography was performed after administration of intravenous contrast. 3D angiographic postprocessing techniques were acquired in the form of axial maximum intensity projection images (MIPS). * Multidetector-row CT of the abdomen and pelvis was performed with intravenous contrast using tailored dose modulation techniques. Images were reconstructed in the axial, coronal, and sagittal planes. COMPARISON: CT ANGIO CHEST WITH AND WITHOUT CONTRAST FINDINGS: CHEST: Pulmonary Angiogram: No filling defect. Devices/Tubes/Lines: None. Lungs: Similar infiltrative left hilar mass measuring up to 2.6 cm (4:42) with encasement/narrowing of the left lower lobe bronchus with associated postobstructive left lower lobe atelectasis/consolidation. Pleura: No pleural effusion or pneumothorax. Mediastinum: Coronary artery calcifications. Aortic atherosclerotic calcifications. Similar mass effect on the esophagus possibly posterior mediastinal lymph neil mass (4:39). Lymph Nodes: Similar subcarinal neil mass measuring up to 2.0 x 5.4 cm (4:43) and paratracheal lymph node measuring 1.1 cm in short axis (4:34 is present. Chest Wall: No chest wall mass. Bones: Similar bilateral rib lytic lesions. Multilevel degenerative changes of the spine. ABDOMEN / PELVIS: Liver: Similar diffuse hepatic metastases. Biliary: Normal gallbladder. No biliary ductal dilatation. Spleen: No splenomegaly. Pancreas: No peripancreatic fluid or stranding. Adrenal Glands: No nodule. Kidneys/Ureters: Similar scattered subcentimeter hypodensities, too small to characterize. No hydronephrosis. Bowel: No bowel wall thickening or distention.Normal appendix. Peritoneum/Retroperitoneum: No pneumoperitoneum or ascites. Lymph Nodes: Similar periportal lymph node measuring 1.3 cm in short axis (3:133) and gastrohepatic lymph node measuring 1.1 cm in the short axis (3:67). Pelvic Organs/Bladder: Normal. Vessels: Aortic atherosclerosis. No aortic aneurysm. Bones/Soft Tissues: Similar lytic sacral lesion measuring 2.9 cm (3:269). Multilevel degenerative changes of the visualized spine. Procedure Note Calixto Tyson MD - 06/25/2025 CT CHEST PULMONARY ANGIOGRAM (ACUTE), CT ABDOMEN/PELVIS WITH CONTRAST Referring clinician's provided indication for this examination in Epic: *PE suspected, high prob TECHNIQUE: * Multidetector-row CT pulmonary angiography was performed afteradministration of intravenous contrast. 3D angiographic postprocessingtechniques were acquired in the form of axial maximum intensity projectionimages (MIPS). * Multidetector-row CT of the abdomen and pelvis was performed withintravenous contrast using tailored dose modulation techniques. Imageswere reconstructed in the axial, coronal, and sagittal planes. COMPARISON: CT ANGIO CHEST WITH AND WITHOUT CONTRAST FINDINGS: CHEST: Pulmonary Angiogram: No filling defect. Devices/Tubes/Lines: None. Lungs: Similar infiltrative left hilar mass measuring up to 2.6 cm (4:42)with encasement/narrowing of the left lower lobe bronchus with associatedpostobstructive left lower lobe atelectasis/consolidation. Pleura: No pleural effusion or pneumothorax. Mediastinum: Coronary artery calcifications. Aortic atheroscleroticcalcifications. Similar mass effect on the esophagus possibly posteriormediastinal lymph neil mass (4:39). Lymph Nodes: Similar subcarinal neil mass measuring up to 2.0 x 5.4 cm(4:43) and paratracheal lymph node measuring 1.1 cm in short axis (4:34 ispresent. Chest Wall: No chest wall mass. Bones: Similar bilateral rib lytic lesions. Multilevel degenerativechanges of the spine. ABDOMEN / PELVIS: Liver: Similar diffuse hepatic metastases. Biliary: Normal gallbladder. No biliary ductal dilatation. Spleen: No splenomegaly. Pancreas: No peripancreatic fluid or stranding. Adrenal Glands: No nodule. Kidneys/Ureters: Similar scattered subcentimeter hypodensities, too smallto characterize. No hydronephrosis. Bowel: No bowel wall thickening or distention.Normal appendix. Peritoneum/Retroperitoneum: No pneumoperitoneum or ascites. Lymph Nodes: Similar periportal lymph node measuring 1.3 cm in short axis(3:133) and gastrohepatic lymph node measuring 1.1 cm in the short axis(3:67). Pelvic Organs/Bladder: Normal. Vessels: Aortic atherosclerosis. No aortic aneurysm. Bones/Soft Tissues: Similar lytic sacral lesion measuring 2.9 cm (3:269).Multilevel degenerative changes of the visualized spine. IMPRESSION: 1. No pulmonary embolism. 2. Similar infiltrative left hilar mass with encasement of the left lowerlobe bronchus and associated postobstructive left lower lobeatelectasis/consolidation. 3. No acute abdominopelvic abnormality. 4. Similar diffuse hepatic metastases, upper abdominal lymphadenopathyand lytic sacral lesion. ATTESTATION: I, Calixto Tyson as teaching physician, have reviewed theimages for this case and if necessary edited the report originally createdby Mike Britton. us Tung Dietrich DO IMG CT CHEST Final Result * (ABNORMAL) Troponin (06/24/2025 10:50 PM EDT) Only the most recent of9 resultswithin the time period is included. Troponin-T, HS Gen5 11(H) 0 - 9 ng/L [facility] Blood 06/24/2025 10:5 0 PM EDT 06/24/2025 11:32 PM EDT us Darshan Copeland MD LAB BLOOD ORDERABLES Final Resu lt Performing Organization Address City/[facility]/ZIP Co de Phone Number [address] [address] * (ABNORMAL) NT-proBNP (06/24/2025 9:59 PM EDT) Only the most recent of3 resultswithin the time period is included. NT-PROBNP 1,976(H) 0 - 450 pg/mL [facility] Blood 06/24/2025 9:59 PM EDT 06/24/2025 10:07 PM EDT us Darshan Copeland MD LAB BLOOD ORDERABLES Final Resu lt Performing Organization Address [facility] Co de Phone Number [address] [address] * XR CHEST PA AND LATERAL 2 VIEWS (06/24/2025 9:56 PM EDT) Anatomical Region Laterality Modality Chest Computed Radiogr aphy 06/24/2025 11:1 5 PM EDT Impressions 06/24/2025 11:17 PM EDT 1. Bibasilar hazy opacities, greater on the left, likely related to atelectasis/aspiration in the absence of respiratory infectious symptoms. 2. Left hilar mass better delineated on prior CT. Narrative 06/24/2025 11:17 PM EDT XR CHEST PA AND LATERAL 2 VIEWS Referring clinician's provided indication for this examination in Epic: Dyspnea (Shortness of Breath) COMPARISON: CTA chest from June 14, 2025. Chest x-ray from May 30, 2025. FINDINGS: Devices/Tubes/Lines: None. Lungs: Bibasilar hazy opacities, greater on the left. Left hilar mass better delineated on prior CT. No overt pulmonary edema. Pleura: No pleural effusion or pneumothorax. Heart/Mediastinum: Unchanged in appearance. Bones/Soft Tissues: Degenerative changes of the thoracic spine. Procedure Note Edward Banegas MD - 06/24/2025 XR CHEST PA AND LATERAL 2 VIEWS Referring clinician's provided indication for this examination in [facility]:Dyspnea (Shortness of Breath) COMPARISON: CTA chest from June 14, 2025. Chest x-ray from May. FINDINGS: Devices/Tubes/Lines: None. Lungs: Bibasilar hazy opacities, greater on the left. Left hilar massbetter delineated on prior CT. No overt pulmonary edema. Pleura: No pleural effusion or pneumothorax. Heart/Mediastinum: Unchanged in appearance. Bones/Soft Tissues: Degenerative changes of the thoracic spine. IMPRESSION: 1. Bibasilar hazy opacities, greater on the left, likely related toatelectasis/aspiration in the absence of respiratory infectioussymptoms. 2. Left hilar mass better delineated on prior CT. Darshan Copeland MD IMG XR CHEST Final Result * Phosphorus (06/20/2025 6:41 AM EDT) Only the most recent of4 resultswithin the time period is included. PHOSPHORUS 3.6 2.7 - 4.5 mg/dL [facility] Blood 06/20/2025 6:41 AM EDT 06/20/2025 7:18 AM EDT Kaitlynn Whalen DO, MPH LAB BLOOD ORDER ABRAM Final Result [facility] [address] [place] [address] * Methylmalonic acid, serum (06/19/2025 6:06 AM EDT) METHYLMALONIC ACID 0.25 <=0.40 nmol/mL [facility] DPT OF LAB MED AND PAT+ Comment: (NOTE) ADDITIONAL INFORMATION This test was developed and its performance characteristics determined by [facility] in a manner consistent with CLIA requirements. This test has not been cleared or approved by the U.S. Food and Drug Administration. Blood 06/19/2025 6:06 AM EDT 06/19/2025 6:28 AM EDT Kaitlynn Whalen DO, MPH LAB BLOOD ORDER ABRAM Final Result [facility] DPT OF LAB MED AND PAT+ [address] [place] [address] * Syphilis antibody screen (06/19/2025 6:06 AM EDT) [facility] RPR NON-REACTIV E NON-REACTI [facility] Blood 06/19/2025 6:06 AM EDT 06/19/2025 6:28 AM EDT Kaitlynn Whalen DO, MPH LAB BLOOD ORDER ABRAM Final Result Performing Organization Address [facility] Co de Phone Number [address] [address] * Hepatitis B surface antibody (06/19/2025 6:06 AM EDT) [facility] HBV SURFACE ANTIBODY NON-REACTI [facility] Comment: Unvaccinated: Non Reactive Vaccinated: Reactive 06/19/2025 6:06 AM EDT 06/19/2025 6:28 AM EDT Kaitlynn Whalen DO MPH LAB BLOOD ORDER ABRAM Final Result Performing Organization Address [facility] Co de Phone Number [address] [address] * (ABNORMAL) Homocysteine (06/19/2025 6:06 AM EDT) [facility] HOMOCYSTEINE, TOTAL 25.7(H) 0 - 14.2 umol/L [facility] Blood 06/19/2025 6:06 AM EDT 06/19/2025 6:28 AM EDT us Kaitlynn Whalen DO MPH LAB BLOOD ORDER ABRAM Final Result [address] [address] * Vitamin B12 (06/19/2025 6:06 AM EDT) Pathologist [facility] VITAMIN B12 1,138 232 - 1,245 pg/mL [facility] Blood 06/19/2025 6:06 AM EDT 06/19/2025 6:28 AM EDT us Kaitlynn Whalen DO, MPH LAB BLOOD ORDER ABRAM Final Result Performing Organization Address [facility] Co de Phone Number [address] [address] * POCT Glucose (06/18/2025 4:29 PM EDT) Only the most recent of2 resultswithin the time period is included. Pathologist [facility] Glucose, POCT 94 70 - 100 mg/dL [facility] 06/18/2025 4:29 PM EDT 06/18/2025 4:32 PM EDT us Kaitlynn Whaeln DO MPH POINT OF CARE T EST ORDERABLES Final Result Performing Organization Address [facility] Co de Phone Number [address] [address] * TTE COMPREHENSIVE (06/15/2025 9:28 AM EDT) Body Surface Area 1.63 m2 Height 152 cm Weight 66 kg Systolic BP 103 mmHg Diastolic BP 65 mmHg Left Atrium Dimension Anterior-Posterior 36 15 - 40 mm Aortic Valve Mean Gradient 3 mmHg Aortic Valve Time Velocity Integral 175.0 mm Aortic Valve Peak Velocity 1.3 m/s Aortic Valve Peak Gradient 7 mmHg Aortic Sinus Diameter 28 <40 mm Ascending Aorta Diameter 27 <36 mm Inferior Vena Cava Diameter 13 <21 mm Interventricular Septum Thickness 12 6 - 11 mm Left Ventricle Internal Diameter End Diastole 39 37 - 52 mm Left Ventricle Internal Diameter End Systole 26 <35 mm Left Ventricular Outflow Tract Diameter 19.0 mm LVOT VTI REST 159.0 mm Left Ventricular Outflow Tract Velocity 1.0 m/s Left Ventricular Outflow Tract Gradient at Rest 4 mmHg Left Ventricular Posterior Wall Thickness 10 6 - 11 mm Left Ventricle Ea Lateral Wave Speed 10.3 cm/s Mitral Valve Deceleration Time 246 ms Ejection Fraction 63 50 - 75 Percent Left Ventricle A Wave Speed 98.1 cm/s Left Ventricle E Wave Speed 83.6 cm/s Right Ventricle Basal Diameter 30 25 - 41 mm Tricuspid Valve Peak Velocity 2.7 m/s Raw LV EF% 56 % MV E/E' Tissue Velocity Lateral 8.12 Relative Wall Thickness 0.51 0.22 - 0.42 Left Ventricle indexed to BSA 85.9 g/m2 MV E/A ratio 0.9 Aortic Valve Prosthetic Peak Gradient 7 mmHg Aortic Valve Prosthetic Mean Gradient 3 mmHg Aortic Valve Sinus Index by BSA 17 mm/m2 Aorta Sinus Index by Height 1.84 cm/m Aorta Sinus CSA index by Height 4.05 cm2/m Ascending Aorta Index 17 mm/m2 Asc Aorta CSA Index by Height 3.76 cm2/m Right Ventricle to Right Atrium Pressure Gradient 29 mmHg Right Ventricle Peak Systolic Pressure (Assuming RAP 10) 39 mmHg [facility] CV ECHO TV RVSP (ASSUMING RAP OF 5) 34 mmHg RVSP (Exclusive of RAP) 29 mmHg [facility] CV AV DIMENSIONLESS INDEX (PEAK) - STRESS ECHO DOBUT - REST 0.77 Ascending Aorta Index 17 mm Aortic Sinus Index 17 mm Ascending Aorta Diameter 17 mm Aortic Valve Sinus Index 1 17 19 - 27 mm AO ASC DIAM BSA INDEX 16.56 Right Ventricle Peak Systolic Pressure 32 mmHg Right Ventricle TAPSE 16 >=17 mm Right Ventricle Pulse Doppler S Wave 17.8 >=9.5 cm/s Right Atrium Area 8 cm2 Right Atrium Area index 5 cm2/m2 Right Atrium Pressure Estimated 3 mmHg Anatomical Region Laterality Modality Heart Ultrasound Narrative 06/15/2025 10:57 AM EDT Images from the original result were not included. Mild LVH with normal LV systolic function EF 60 to 65%. Normal PA pressure estimation. Normal RV size and function. Normal left atrial size. Normal diastolic function for age. Left Ventricle The left ventricle is normal in size. There is discrete upper septal hypertrophy. There is normal left ventricular systolic function. The LV ejection fraction is 63%. LV diastolic function appears within normal limits for age. Right Ventricle The right ventricle is normal in size. The RV basal dimension is 30 mm. There is normal right ventricular systolic function. TAPSE is 16 mm. RV S' wave is 17.8 cm/s. Left Atrium The left atrium is normal in size. The left atrial anterior-posterior dimension is 36 mm. There are normal flow patterns in the pulmonary vein. Right Atrium The right atrium is normal in size. The right atrial area is 8 cm2. The IVC is normal in size with normal inspiratory collapse. The IVC diameter is 13 mm. Mitral Valve The mitral valve appears normal. There is no mitral stenosis. There is trace mitral regurgitation. Tricuspid Valve The tricuspid valve appears normal. There is no tricuspid stenosis. There is trace tricuspid regurgitation. The RV systolic pressure was calculated at 32 mmHg (using TR peak velocity of 2.7 m/s and assuming an RA pressure of 3 mmHg). Aortic Valve The aortic valve is tricuspid. There is mild leaflet thickening. There is no aortic stenosis. There is no aortic regurgitation. Pulmonic Valve The pulmonic valve appears normal. There is no pulmonic stenosis. There is trace pulmonic regurgitation. Pericardium There is no pericardial effusion. General Findings Technically adequate echocardiogram. Technique(s) used in the evaluation: Color flow Doppler and Spectral Doppler. The predominant rhythm during the study was sinus. Comparison Findings Compared to prior TTE, IAS/IVS The interatrial septum appears normal. Tavares Deluna DO CV ECHO ORDERABLES Final Resul t * PT-INR (06/15/2025 5:47 AM EDT) PT 12.0 10.2 - 12.9 sec [facility] INR 1.0 0.9 - 1.1 [facility] Comment:Therapeutic range fo r oral Vitamin K antagonists: 2.0-3.5 Blood 06/15/2025 5:47 AM EDT 06/15/2025 6:13 AM EDT us Tavares Deluna DO LAB BLOOD ORDERABLES Final Res ult [address] [address] * MRI BRAIN WITHOUT CONTRAST (06/14/2025 11:54 PM EDT) Anatomical Region Laterality Modality Head Magnetic Resonan ce 06/15/2025 3:15 AM EDT Impressions 06/15/2025 7:31 AM EDT 1. No evidence of acute infarct, intracranial hemorrhage, or mass lesion. 2. 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 Attenuated flow signal within the M2 branches distal to the aneurysm, probably artifactual. 3. No proximal large vessel occlusion. ATTESTATION: I, Anthony Mckeon as teaching physician, have reviewed the images for this case and if necessary edited the report originally created by Dr. Donovan Lujan MD. Narrative 06/15/2025 7:31 AM EDT MRI BRAIN WITHOUT CONTRAST, MRI ANGIO BRAIN WITHOUT CONTRAST Referring clinician's provided indication for this examination in Epic: * Mental status change, unknown cause TECHNIQUE: MRI BRAIN WITHOUT CONTRAST, MRI ANGIO BRAIN WITHOUT CONTRAST Multi-sequence, multi-planar MRI of the brain was performed without intravenous contrast. MRA of the head was performed utilizing [id number] technique (no gadolinium). Maximal intensity projection 3D angiographic reformatted images were performed. COMPARISON: CT HEAD WITHOUT CONTRAST 15:03:29.000 FINDINGS: Brain Parenchyma: No evidence of acute infarct, mass or hemorrhage. There are scattered foci of T2 hyperintensity in the periventricular and subcortical white matter, likely a manifestation of chronic small vessel disease. T2/FLAIR hyperintense focus in the left centrum semiovale with corresponding mildly elevated signal on both DWI and ADC, compatible with T2 shine-through. Ventricular System and Extra-Axial Spaces: The ventricles and cortical sulci are prominent, as commonly seen in patients of this age. No evidence of midline shift or hydrocephalus. Partially empty sella. Extracranial Structures: Expected arterial flow signal is observed at the skull base. MRA HEAD: Anterior Circulation: Laterally-directed saccular aneurysm at the right MCA bifurcation measuring up to 6 x 7 x 8 mm (AP x TRV x CC), with a multilobulated contour. Motion degradation somewhat limits evaluation. There is attenuated flow signal within the middle cerebral artery M2 branches distal to the aneurysm, possibly artifactual. Otherwise normal flow within the intracranial internal carotid arteries, anterior cerebral arteries and the middle cerebral arteries. No proximal occlusion. No arteriovenous malformation. Posterior Circulation: Normal flow within the intracranial vertebral arteries, basilar artery and posterior cerebral arteries. No severe stenosis, occlusion, aneurysm or arteriovenous malformation. Procedure Note Anthony Mckeon MD - 06/15/2025 MRI BRAIN WITHOUT CONTRAST, MRI ANGIO BRAIN WITHOUT CONTRAST Referring clinician's provided indication for this examination in Epic: *Mental status change, unknown cause TECHNIQUE: MRI BRAIN WITHOUT CONTRAST, MRI ANGIO BRAIN WITHOUT CONTRAST Multi-sequence, multi-planar MRI of the brain was performed withoutintravenous contrast. MRA of the head was performed utilizing [id number] technique (Apcerainium). Maximal intensity projection 3D angiographic reformattedimages were performed. COMPARISON: CT HEAD WITHOUT CONTRAST 15:03:29.000 FINDINGS: Brain Parenchyma: No evidence of acute infarct, mass or hemorrhage. Thereare scattered foci of T2 hyperintensity in the periventricular andsubcortical white matter, likely a manifestation of chronic small vesseldisease. T2/FLAIR hyperintense focus in the left centrum semiovale withcorresponding mildly elevated signal on both DWI and ADC, compatible withT2 shine-through. Ventricular System and Extra-Axial Spaces: The ventricles and corticalsulci are prominent, as commonly seen in patients of this age. No evidenceof midline shift or hydrocephalus. Partially empty sella. Extracranial Structures: Expected arterial flow signal is observed at theskull base. MRA HEAD: Anterior Circulation: Laterally-directed saccular aneurysm at the rightMCA bifurcation measuring up to 6 x 7 x 8 mm (AP x TRV x CC), with amultilobulated contour. Motion degradation somewhat limits evaluation.There is attenuated flow signal within the middle cerebral artery [id number] distal to the aneurysm, possibly artifactual. Otherwise normalflow within the intracranial internal carotid arteries, anterior cerebralarteries and the middle cerebral arteries. No proximal occlusion. Noarteriovenous malformation. Posterior Circulation: Normal flow within the intracranial vertebralarteries, basilar artery and posterior cerebral arteries. No severestenosis, occlusion, aneurysm or arteriovenous malformation. IMPRESSION: 1. No evidence of acute infarct, intracranial hemorrhage, or masslesion. 2. 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 3. No proximal large vessel occlusion. ATTESTATION: Anthony Harrison as teaching physician, have reviewed theimages for this case and if necessary edited the report originally createdby Dr. Donovan Lujan MD. us Tavares Deluna DO IMG MR HEAD/NECK Final Result * MRA HEAD WITHOUT CONTRAST (06/14/2025 11:53 PM EDT) Anatomical Region Laterality Modality Head Magnetic Resonan ce 06/15/2025 3:15 AM EDT Impressions 06/15/2025 7:31 AM EDT 1. No evidence of acute infarct, intracranial hemorrhage, or mass lesion. 2. 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 Attenuated flow signal within the M2 branches distal to the aneurysm, probably artifactual. 3. No proximal large vessel occlusion. ATTESTATION: Anthony Harrison as teaching physician, have reviewed the images for this case and if necessary edited the report originally created by Dr. Donovan Lujan MD. Narrative 06/15/2025 7:31 AM EDT MRI BRAIN WITHOUT CONTRAST, MRI ANGIO BRAIN WITHOUT CONTRAST Referring clinician's provided indication for this examination in Epic: * Mental status change, unknown cause TECHNIQUE: MRI BRAIN WITHOUT CONTRAST, MRI ANGIO BRAIN WITHOUT CONTRAST Multi-sequence, multi-planar MRI of the brain was performed without intravenous contrast. MRA of the head was performed utilizing [id number] technique (no gadolinium). Maximal intensity projection 3D angiographic reformatted images were performed. COMPARISON: CT HEAD WITHOUT CONTRAST 15:03:29.000 FINDINGS: Brain Parenchyma: No evidence of acute infarct, mass or hemorrhage. There are scattered foci of T2 hyperintensity in the periventricular and subcortical white matter, likely a manifestation of chronic small vessel disease. T2/FLAIR hyperintense focus in the left centrum semiovale with corresponding mildly elevated signal on both DWI and ADC, compatible with T2 shine-through. Ventricular System and Extra-Axial Spaces: The ventricles and cortical sulci are prominent, as commonly seen in patients of this age. No evidence of midline shift or hydrocephalus. Partially empty sella. Extracranial Structures: Expected arterial flow signal is observed at the skull base. MRA HEAD: Anterior Circulation: Laterally-directed saccular aneurysm at the right MCA bifurcation measuring up to 6 x 7 x 8 mm (AP x TRV x CC), with a multilobulated contour. Motion degradation somewhat limits evaluation. There is attenuated flow signal within the middle cerebral artery M2 branches distal to the aneurysm, possibly artifactual. Otherwise normal flow within the intracranial internal carotid arteries, anterior cerebral arteries and the middle cerebral arteries. No proximal occlusion. No arteriovenous malformation. Posterior Circulation: Normal flow within the intracranial vertebral arteries, basilar artery and posterior cerebral arteries. No severe stenosis, occlusion, aneurysm or arteriovenous malformation. Procedure Note Anthony Mckeon MD - 06/15/2025 MRI BRAIN WITHOUT CONTRAST, MRI ANGIO BRAIN WITHOUT CONTRAST Referring clinician's provided indication for this examination in [facility]: *Mental status change, unknown cause TECHNIQUE: MRI BRAIN WITHOUT CONTRAST, MRI ANGIO BRAIN WITHOUT CONTRAST Multi-sequence, multi-planar MRI of the brain was performed withoutintravenous contrast. MRA of the head was performed utilizing [id number] technique (nogadolinium). Maximal intensity projection 3D angiographic reformattedimages were performed. COMPARISON: CT HEAD WITHOUT CONTRAST 15:03:29.000 FINDINGS: Brain Parenchyma: No evidence of acute infarct, mass or hemorrhage. Thereare scattered foci of T2 hyperintensity in the periventricular andsubcortical white matter, likely a manifestation of chronic small vesseldisease. T2/FLAIR hyperintense focus in the left centrum semiovale withcorresponding mildly elevated signal on both DWI and ADC, compatible withT2 shine-through. Ventricular System and Extra-Axial Spaces: The ventricles and corticalsulci are prominent, as commonly seen in patients of this age. No evidenceof midline shift or hydrocephalus. Partially empty sella. Extracranial Structures: Expected arterial flow signal is observed at theskull base. MRA HEAD: Anterior Circulation: Laterally-directed saccular aneurysm at the rightMCA bifurcation measuring up to 6 x 7 x 8 mm (AP x TRV x CC), with amultilobulated contour. Motion degradation somewhat limits evaluation.There is attenuated flow signal within the middle cerebral artery [id number] distal to the aneurysm, possibly artifactual. Otherwise normalflow within the intracranial internal carotid arteries, anterior cerebralarteries and the middle cerebral arteries. No proximal occlusion. Noarteriovenous malformation. Posterior Circulation: Normal flow within the intracranial vertebralarteries, basilar artery and posterior cerebral arteries. No severestenosis, occlusion, aneurysm or arteriovenous malformation. IMPRESSION: 1. No evidence of acute infarct, intracranial hemorrhage, or masslesion. 2. 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 3. No proximal large vessel occlusion. ATTESTATION: I, Anthony Mckeon as teaching physician, have reviewed theimages for this case and if necessary edited the report originally createdby Dr. Donovan Lujan MD. Tavares Deluna DO [facility] [place] MR HEAD/NECK Final Result * (ABNORMAL) Procalcitonin (06/14/2025 9:44 PM EDT) Procalcitonin 1.72(H) 0.00 - 0.25 ng/mL [facility] Comment: <=0.25 ng/mL: Bacterial pneumonia is unlikely. <0.5 ng/mL: Low likelihood of systemic bacterial infection / sepsis. Localized infection is possible. 0.5-2.0 ng/mL: Systemic bacterial infection / sepsis is possible, but other conditions can induce PCT levels in this range as well (e.g., pancreatitis,severe trauma, circulatory shock, surgery, [place], inhalation injury.) >2.0 ng/mL: Systemic bacterial infection / sepsis is likely. Additional information can be found in the [facility] Procalcitonin Guidelines, available at [email or web address] Blood 06/14/2025 9:44 PM EDT 06/14/2025 9:47 PM EDT us Tavares Grachev DO LAB BLOOD ORDERABLES Final Res ult [address] [address] * Lab Add On: Troponin (06/14/2025 9:44 PM EDT) TEST REQUESTED TROPONIN [facility] Comments (Chemistry) Add on order being processed. Floor or provider will be notified if testing cannot be performed [facility] 06/14/2025 9:44 PM EDT 06/14/2025 9:47 PM EDT us Tavares Grachev DO LAB BLOOD ORDERABLES Final Res ult Performing Organization Address [facility]/ZIP Co de Phone Number [address] [address] * Lactate (06/14/2025 9:44 PM EDT) Only the most recent of3 resultswithin the time period is included. LACTATE 2.09 0.50 - 2.20 mmol/L [facility] Blood 06/14/2025 9:44 PM EDT 06/14/2025 9:47 PM EDT us Tavares Grachev DO LAB BLOOD ORDERABLES Final Res ult Performing Organization Address [facility]/ZIP Co de Phone Number [address] [address] * Sodium, random urine (06/14/2025 9:14 PM EDT) URINE SODIUM 58 mmol/L [facility] Urine (Urine) 06/14/2025 9:1 4 PM EDT 06/14/2025 10:06 PM EDT us Tavares Grachev DO URINE ORDERABLES Final Result [address] [address] * Creatinine, random urine (06/14/2025 9:14 PM EDT) URINE CREATININE 109 mg/dL [facility] Urine (Urine) 06/14/2025 9:1 4 PM EDT 06/14/2025 10:06 PM EDT Tavares Deluna DO URINE ORDERABLES Final Result Performing Organization Address [facility] Co de Phone Number [address] [address] * CT ANGIO ABDOMEN/PELVIS WITH AND WITHOUT CONTRAST (06/14/2025 3:05 PM EDT) Anatomical Region Laterality Modality Abdomen, Abdominal Vasculature C omputed Tomography 06/14/2025 3:53 PM EDT Impressions 06/14/2025 5:05 PM EDT 1. No aortic dissection. 2. No substantial change in the infiltrative left hilar mass, multistation thoracic and upper abdominal lymphadenopathy, hepatic metastases, and right sacral osseous metastasis. ATTESTATION: I, Hernan Joshi as teaching physician, have reviewed the images for this case and if necessary edited the report originally created by Kait Lozano. 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 Multidetector-row CTA of the chest was performed before and after administration of intravenous contrast using tailored dose modulation techniques. Images were reconstructed in the axial, coronal, and sagittal planes, including angiographic image post-processing. 2. Multidetector-row CTA of the abdomen and pelvis was performed with intravenous contrast using tailored dose modulation techniques. Images were reconstructed in the axial, coronal, and sagittal planes, including angiographic image post- processing. COMPARISON: CT CHEST PULMONARY ANGIOGRAM (ACUTE) ; CT CHEST WITH CONTRAST ; CT ABDOMEN/PELVIS WITH CONTRAST FINDINGS: VASCULAR: Aorta: There is no aortic dissection, aneurysm, intramural hematoma, or occlusion. Diffuse mixed aortoiliac atherosclerosis with involvement of the branches. Contrast Extravasation: None. Pulmonary Arteries: Well opacified without pulmonary embolus. Branch Arteries: Common origin of the brachiocephalic trunk and left common carotid artery, anatomic variant. No high-grade stenosis , occlusion, or dissection involving the arch vessel origins. The celiac axis, SMA and HOLLY are patent. Renal arteries are patent bilaterally. Aorto-iliac system is patent without significant stenosis bilaterally. NON-VASCULAR: CHEST: Devices/Tubes/Lines: None. Lungs: Similar ill-defined infiltrative left hilar mass measuring 2.6 x 2.6 cm (8:274), with encasement and narrowing of the left lower lobe bronchus with obliteration of the multiple distal bronchi and similar postobstructive left lower lobe atelectasis. Medially the left hilar mass is inseparable from the subcarinal neil mass. Upper lobe predominant mild centrilobular emphysema. Mild bibasilar atelectasis. No new focal consolidation. Central airways are patent. Pleura: No pleural effusion or pneumothorax. Mediastinum: Heart normal in size. No pericardial effusion. Moderate amount of coronary calcifications. The esophagus is encased by posterior mediastinal lymph neil mass (8: 264). Lymph Nodes: No substantial change in the multistation thoracic lymphadenopathy including mediastinal and hilar nodes premium representative examples with short axis measurement includes 1.2 cm left paratracheal node (9:34), and 2.3 cm subcarinal node (9:46). Chest Wall: No chest wall mass. Bones/Soft Tissues: Subacute/chronic fracture of the lateral right sixth rib (8:255), and left lateral fourth rib (8:160). Multilevel degenerative changes of the spine. ABDOMEN/PELVIS: Liver: No substantial change in the bilobar hepatic metastases premium representative examples includes 3.4 x 2.9 cm segment 3 metastasis. Biliary: No radiodense gallstones. No biliary ductal dilatation. Spleen: No splenomegaly or focal lesions. Pancreas: No masses or ductal dilatation. Adrenal Glands: No nodules. Kidneys/Ureters: Unchanged few scattered subcentimeter hypodensities, too small to fully characterize.No solid masses, stones, or hydronephrosis. Bowel: Normal appendix. Scattered colonic diverticulosis without definite diverticulitis. No bowel wall thickening or dilatation. Peritoneum/Retroperitoneum: No masses, pneumoperitoneum, or fluid. Lymph Nodes: Redemonstration of enlarged upper abdominal lymph nodes.The gastrohepatic lymph node measures 1.2 cm, previously measured 1.1 cm. The periportal/portocaval lymph node measures 1.7 cm, previously measured 1.5 cm. Pelvic Organs/Bladder: Under distended urinary bladder. Retroflexed uterus. No mass. Bones/Soft Tissues: No substantial change in the lytic destructive lesion of the right sacrum measuring up to 2.8 cm (5:816). Multilevel degenerative changes of the visualized spine. Solid osseous fusion of the L5-S1. Procedure Note Hernan Joshi MBBS - 06/14/2025 CT ANGIO CHEST WITH AND WITHOUT CONTRAST, CT ANGIO ABDOMEN/PELVIS WITH ANDWITHOUT CONTRAST Referring clinician's provided indication for this examination in Epic: *Chest pain or back pain, aortic dissection suspected; chest pain radiatingto back and abdomen, hypotensive Review of the Electronic Medical Record reveals an additional history of:metastatic small cell carcinoma TECHNIQUE: 1. Multidetector-row CTA of the chest was performed before and afteradministration of intravenous contrast using tailored dose modulationtechniques. Images were reconstructed in the axial, coronal, and sagittalplanes, including angiographic image post-processing. 2. Multidetector-row CTA of the abdomen and pelvis was performed withintravenous contrast using tailored dose modulation techniques. Imageswere reconstructed in the axial, coronal, and sagittal planes, includingangiographic image post- processing. COMPARISON: CT CHEST PULMONARY ANGIOGRAM (ACUTE) ; CT CHESTWITH CONTRAST ; CT ABDOMEN/PELVIS WITH CONTRAST FINDINGS: VASCULAR: Aorta: There is no aortic dissection, aneurysm, intramural hematoma, orocclusion. Diffuse mixed aortoiliac atherosclerosis with involvement ofthe branches. Contrast Extravasation: None. Pulmonary Arteries: Well opacified without pulmonary embolus. Branch Arteries: Common origin of the brachiocephalic trunk and leftcommon carotid artery, anatomic variant. No high-grade stenosis ,occlusion, or dissection involving the arch vessel origins. The celiacaxis, SMA and HOLLY are patent. Renal arteries are patent bilaterally.Aorto-iliac system is patent without significant stenosis bilaterally. NON-VASCULAR: CHEST: Devices/Tubes/Lines: None. Lungs: Similar ill-defined infiltrative left hilar mass measuring 2.6 x2.6 cm (8:274), with encasement and narrowing of the left lower lobebronchus with obliteration of the multiple distal bronchi and similarpostobstructive left lower lobe atelectasis. Medially the left hilar massis inseparable from the subcarinal neil mass. Upper lobe predominant mildcentrilobular emphysema. Mild bibasilar atelectasis. No new focalconsolidation. Central airways are patent. Pleura: No pleural effusion or pneumothorax. Mediastinum: Heart normal in size. No pericardial effusion. Moderateamount of coronary calcifications. The esophagus is encased by posteriormediastinal lymph neil mass (8: 264). Lymph Nodes: No substantial change in the multistation thoraciclymphadenopathy including mediastinal and hilar nodes representativeexamples with short axis measurement includes 1.2 cm left paratrachealnode (9:34), and 2.3 cm subcarinal node (9:46). Chest Wall: No chest wall mass. Bones/Soft Tissues: Subacute/chronic fracture of the lateral right sixthrib (8:255), and left lateral fourth rib (8:160). Multilevel degenerativechanges of the spine. ABDOMEN/PELVIS: Liver: No substantial change in the bilobar hepatic metastasesrepresentative examples includes 3.4 x 2.9 cm segment 3 metastasis. Biliary: No radiodense gallstones. No biliary ductal dilatation. Spleen: No splenomegaly or focal lesions. Pancreas: No masses or ductal dilatation. Adrenal Glands: No nodules. Kidneys/Ureters: Unchanged few scattered subcentimeter hypodensities, toosmall to fully characterize.No solid masses, stones, or hydronephrosis. Bowel: Normal appendix. Scattered colonic diverticulosis without definitediverticulitis. No bowel wall thickening or dilatation. Peritoneum/Retroperitoneum: No masses, pneumoperitoneum, or fluid. Lymph Nodes: Redemonstration of enlarged upper abdominal lymph nodes.Thegastrohepatic lymph node measures 1.2 cm, previously measured 1.1 cm. Theperiportal/portocaval lymph node measures 1.7 cm, previously measured 1.5cm. Pelvic Organs/Bladder: Under distended urinary bladder. Retroflexeduterus. No mass. Bones/Soft Tissues: No substantial change in the lytic destructive lesionof the right sacrum measuring up to 2.8 cm (5:816). Multileveldegenerative changes of the visualized spine. Solid osseous fusion of theL5-S1. IMPRESSION: 1. No aortic dissection. 2. No substantial change in the infiltrative left hilar mass,multistation thoracic and upper abdominal lymphadenopathy, hepaticmetastases, and right sacral osseous metastasis. ATTESTATION: Hernan Harrison as teaching physician, have reviewed theimages for this case and if necessary edited the report originally createdby Kait Lozano. us Pedro Pablo Moulton DO IMG CT ABD/PELVIS Final Result * CT ANGIO CHEST WITH AND WITHOUT CONTRAST (06/14/2025 3:05 PM EDT) Anatomical Region Laterality Modality Chest, Thoracic Vasculature Comp uted Tomography 06/14/2025 3:53 PM EDT Impressions 06/14/2025 5:05 PM EDT 1. No aortic dissection. 2. No substantial change in the infiltrative left hilar mass, multistation thoracic and upper abdominal lymphadenopathy, hepatic metastases, and right sacral osseous metastasis. ATTESTATION: Hernan Harrison as teaching physician, have reviewed the images for this case and if necessary edited the report originally created by Kait Lozano. 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 Multidetector-row CTA of the chest was performed before and after administration of intravenous contrast using tailored dose modulation techniques. Images were reconstructed in the axial, coronal, and sagittal planes, including angiographic image post-processing. 2. Multidetector-row CTA of the abdomen and pelvis was performed with intravenous contrast using tailored dose modulation techniques. Images were reconstructed in the axial, coronal, and sagittal planes, including angiographic image post- processing. COMPARISON: CT CHEST PULMONARY ANGIOGRAM (ACUTE) ; CT CHEST WITH CONTRAST ; CT ABDOMEN/PELVIS WITH CONTRAST FINDINGS: VASCULAR: Aorta: There is no aortic dissection, aneurysm, intramural hematoma, or occlusion. Diffuse mixed aortoiliac atherosclerosis with involvement of the branches. Contrast Extravasation: None. Pulmonary Arteries: Well opacified without pulmonary embolus. Branch Arteries: Common origin of the brachiocephalic trunk and left common carotid artery, anatomic variant. No high-grade stenosis , occlusion, or dissection involving the arch vessel origins. The celiac axis, SMA and HOLLY are patent. Renal arteries are patent bilaterally. Aorto-iliac system is patent without significant stenosis bilaterally. NON-VASCULAR: CHEST: Devices/Tubes/Lines: None. Lungs: Similar ill-defined infiltrative left hilar mass measuring 2.6 x 2.6 cm (8:274), with encasement and narrowing of the left lower lobe bronchus with obliteration of the multiple distal bronchi and similar postobstructive left lower lobe atelectasis. Medially the left hilar mass is inseparable from the subcarinal neil mass. Upper lobe predominant mild centrilobular emphysema. Mild bibasilar atelectasis. No new focal consolidation. Central airways are patent. Pleura: No pleural effusion or pneumothorax. Mediastinum: Heart normal in size. No pericardial effusion. Moderate amount of coronary calcifications. The esophagus is encased by posterior mediastinal lymph neil mass (8: 264). Lymph Nodes: No substantial change in the multistation thoracic lymphadenopathy including mediastinal and hilar nodes premium representative examples with short axis measurement includes 1.2 cm left paratracheal node (9:34), and 2.3 cm subcarinal node (9:46). Chest Wall: No chest wall mass. Bones/Soft Tissues: Subacute/chronic fracture of the lateral right sixth rib (8:255), and left lateral fourth rib (8:160). Multilevel degenerative changes of the spine. ABDOMEN/PELVIS: Liver: No substantial change in the bilobar hepatic metastases premium representative examples includes 3.4 x 2.9 cm segment 3 metastasis. Biliary: No radiodense gallstones. No biliary ductal dilatation. Spleen: No splenomegaly or focal lesions. Pancreas: No masses or ductal dilatation. Adrenal Glands: No nodules. Kidneys/Ureters: Unchanged few scattered subcentimeter hypodensities, too small to fully characterize.No solid masses, stones, or hydronephrosis. Bowel: Normal appendix. Scattered colonic diverticulosis without definite diverticulitis. No bowel wall thickening or dilatation. Peritoneum/Retroperitoneum: No masses, pneumoperitoneum, or fluid. Lymph Nodes: Redemonstration of enlarged upper abdominal lymph nodes.The gastrohepatic lymph node measures 1.2 cm, previously measured 1.1 cm. The periportal/portocaval lymph node measures 1.7 cm, previously measured 1.5 cm. Pelvic Organs/Bladder: Under distended urinary bladder. Retroflexed uterus. No mass. Bones/Soft Tissues: No substantial change in the lytic destructive lesion of the right sacrum measuring up to 2.8 cm (5:816). Multilevel degenerative changes of the visualized spine. Solid osseous fusion of the L5-S1. Procedure Note Hernan Joshi, TERRELL - 06/14/2025 CT ANGIO CHEST WITH AND WITHOUT CONTRAST, CT ANGIO ABDOMEN/PELVIS WITH ANDWITHOUT CONTRAST Referring clinician's provided indication for this examination in Epic: *Chest pain or back pain, aortic dissection suspected; chest pain radiatingto back and abdomen, hypotensive Review of the Electronic Medical Record reveals an additional history of:metastatic small cell carcinoma TECHNIQUE: 1. Multidetector-row CTA of the chest was performed before and afteradministration of intravenous contrast using tailored dose modulationtechniques. Images were reconstructed in the axial, coronal, and sagittalplanes, including angiographic image post-processing. 2. Multidetector-row CTA of the abdomen and pelvis was performed withintravenous contrast using tailored dose modulation techniques. Imageswere reconstructed in the axial, coronal, and sagittal planes, includingangiographic image post- processing. COMPARISON: CT CHEST PULMONARY ANGIOGRAM (ACUTE) ; CT CHESTWITH CONTRAST ; CT ABDOMEN/PELVIS WITH CONTRAST FINDINGS: VASCULAR: Aorta: There is no aortic dissection, aneurysm, intramural hematoma, orocclusion. Diffuse mixed aortoiliac atherosclerosis with involvement ofthe branches. Contrast Extravasation: None. Pulmonary Arteries: Well opacified without pulmonary embolus. Branch Arteries: Common origin of the brachiocephalic trunk and leftcommon carotid artery, anatomic variant. No high-grade stenosis ,occlusion, or dissection involving the arch vessel origins. The celiacaxis, SMA and HOLLY are patent. Renal arteries are patent bilaterally.Aorto-iliac system is patent without significant stenosis bilaterally. NON-VASCULAR: CHEST: Devices/Tubes/Lines: None. Lungs: Similar ill-defined infiltrative left hilar mass measuring 2.6 x2.6 cm (8:274), with encasement and narrowing of the left lower lobebronchus with obliteration of the multiple distal bronchi and similarpostobstructive left lower lobe atelectasis. Medially the left hilar massis inseparable from the subcarinal neil mass. Upper lobe predominant mildcentrilobular emphysema. Mild bibasilar atelectasis. No new focalconsolidation. Central airways are patent. Pleura: No pleural effusion or pneumothorax. Mediastinum: Heart normal in size. No pericardial effusion. Moderateamount of coronary calcifications. The esophagus is encased by posteriormediastinal lymph neil mass (8: 264). Lymph Nodes: No substantial change in the multistation thoraciclymphadenopathy including mediastinal and hilar nodes representativeexamples with short axis measurement includes 1.2 cm left paratrachealnode (9:34), and 2.3 cm subcarinal node (9:46). Chest Wall: No chest wall mass. Bones/Soft Tissues: Subacute/chronic fracture of the lateral right sixthrib (8:255), and left lateral fourth rib (8:160). Multilevel degenerativechanges of the spine. ABDOMEN/PELVIS: Liver: No substantial change in the bilobar hepatic metastasesrepresentative examples includes 3.4 x 2.9 cm segment 3 metastasis. Biliary: No radiodense gallstones. No biliary ductal dilatation. Spleen: No splenomegaly or focal lesions. Pancreas: No masses or ductal dilatation. Adrenal Glands: No nodules. Kidneys/Ureters: Unchanged few scattered subcentimeter hypodensities, toosmall to fully characterize.No solid masses, stones, or hydronephrosis. Bowel: Normal appendix. Scattered colonic diverticulosis without definitediverticulitis. No bowel wall thickening or dilatation. Peritoneum/Retroperitoneum: No masses, pneumoperitoneum, or fluid. Lymph Nodes: Redemonstration of enlarged upper abdominal lymph nodes.Thegastrohepatic lymph node measures 1.2 cm, previously measured 1.1 cm. Theperiportal/portocaval lymph node measures 1.7 cm, previously measured 1.5cm. Pelvic Organs/Bladder: Under distended urinary bladder. Retroflexeduterus. No mass. Bones/Soft Tissues: No substantial change in the lytic destructive lesionof the right sacrum measuring up to 2.8 cm (5:816). Multileveldegenerative changes of the visualized spine. Solid osseous fusion of theL5-S1. IMPRESSION: 1. No aortic dissection. 2. No substantial change in the infiltrative left hilar mass,multistation thoracic and upper abdominal lymphadenopathy, hepaticmetastases, and right sacral osseous metastasis. ATTESTATION: Hernan Harrison as teaching physician, have reviewed theimages for this case and if necessary edited the report originally createdby Kait Lozano. Pedro Pablo Villanueva Caffyn DO IMG CT CHEST Final Result * CT HEAD WITHOUT CONTRAST (06/14/2025 3:05 PM EDT) Anatomical Region Laterality Modality Head Computed Tomogra phy 06/14/2025 3:52 PM EDT Impressions 06/14/2025 4:02 PM EDT 1. No acute intracranial findings. 2. Suspicion for a 6 mm right MCA bifurcation aneurysm. Follow-up MR angiogram or CT angiogram is recommended for further assessment. Narrative 06/14/2025 4:[address] HEAD WITHOUT CONTRAST Referring clinician's provided indication for this examination in [facility]: * Headache, chronic, new features or increased frequency; new LYN, balance changes, + mets CA TECHNIQUE: CT of the head was performed without intravenous contrast using tailored dose modulation techniques. Images were reconstructed in the axial, coronal, and sagittal planes. COMPARISON: CT head April 23, 2023 FINDINGS: Brain Parenchyma: No midline shift, mass effect, parenchymal hemorrhage, or evidence of acute territorial infarct. Hypodensities in the periventricular white matter, likely a manifestation of chronic small vessel disease. Ventricular System and Extra-Axial Spaces: There is a 6 mm focus of attenuation near the right MCA bifurcation possibly an aneurysm. No extra-axial fluid collections. Basal cisterns are patent. No hydrocephalus. Osseous and Extracranial Structures: No calvarial fracture or significant soft tissue hematoma. No significant paranasal sinus disease. No orbital abnormality. Procedure Note João Shi DO - 06/14/2025 CT HEAD WITHOUT CONTRAST Referring clinician's provided indication for this examination in [facility]: *Headache, chronic, new features or increased frequency; new LYN, balancechanges, + mets CA TECHNIQUE: CT of the head was performed without intravenous contrast usingtailored dose modulation techniques. Images were reconstructed in theaxial, coronal, and sagittal planes. COMPARISON: CT head April 23, 2023 FINDINGS: Brain Parenchyma: No midline shift, mass effect, parenchymal hemorrhage,or evidence of acute territorial infarct. Hypodensities in theperiventricular white matter, likely a manifestation of chronic smallvessel disease. Ventricular System and Extra-Axial Spaces: There is a 6 mm focus ofattenuation near the right MCA bifurcation possibly an aneurysm. Noextra-axial fluid collections. Basal cisterns are patent. Nohydrocephalus. Osseous and Extracranial Structures: No calvarial fracture or significantsoft tissue hematoma. No significant paranasal sinus disease. No orbitalabnormality. IMPRESSION: 1. No acute intracranial findings. 2. Suspicion for a 6 mm right MCA bifurcation aneurysm. Follow-up MRangiogram or CT angiogram is recommended for further assessment. Pedro Pablo Antony Saige DO IMG CT HEAD/NECK Final Result * Blood Culture, Routine (06/14/2025 2:29 PM EDT) Only the most recent of2 resultswithin the time period is included. Special Requests None 06/14/2025 1:51 PM EDT [facility] BLOOD CULTURE NO GROWTH 5 DAYS 06/19/2025 3:11 PM EDT [facility] Blood (Blood) 06/14/2025 2:2 9 PM EDT 06/14/2025 2:57 PM EDT Pedro Pablo Saige DO MICROBIOLOGY - GENERAL ORDERABL ES Final Result Performing Organization Address [facility] Co de Phone Number [address] [address] * (ABNORMAL) D-dimer (06/14/2025 2:29 PM EDT) [facility] D-DIMER 1,469(H) <500 ng/mL FEU [facility] Comment:In patients with low to moderate pre-test probability scores for VTE (PE or DVT), a D-Dimer cut-off less than 500 ng/mL (FEU) has a negative predictive value (NPV) of 97 to 100%. Blood 06/14/2025 2:29 PM EDT 06/14/2025 2:56 PM EDT Pedro Pablomaggi Moulton DO LAB BLOOD ORDERABLES Final Resu lt Performing Organization Address City/[facility]/ZIP Co de Phone Number [address] [address] * Lipase (06/14/2025 2:29 PM EDT) Only the most recent of2 resultswithin the time period is included. Pathologist [facility] LIPASE 30 16 - 63 U/L [facility] Blood 06/14/2025 2:29 PM EDT 06/14/2025 2:56 PM EDT us Pedro Pablo Villanueva Caffyn DO LAB BLOOD ORDERABLES Final Resu lt [facility] [address] [place] [address] * CT ABDOMEN/PELVIS WITH CONTRAST (05/31/2025 1:54 AM EDT) Anatomical Region Laterality Modality Abdomen, Pelvis Computed Tomogra phy 05/31/2025 4:27 AM EDT Impressions 05/31/2025 4:47 AM EDT 1. No pulmonary embolism. 2. Similar ill-defined left hilar neil mass, with marginally increased intrathoracic lymphadenopathy. 3. Innumerable hepatic lesions, multistation lymphadenopathy and osseous lesions, likely metastatic. Narrative 05/31/2025 4:[address] CHEST PULMONARY ANGIOGRAM (ACUTE), CT ABDOMEN/PELVIS WITH CONTRAST Referring clinician's provided indication for this examination in Epic: * PE suspected, high prob; LLQ abdominal pain TECHNIQUE: * Multidetector-row CT pulmonary angiography was performed after administration of intravenous contrast. 3D angiographic postprocessing techniques were acquired in the form of axial maximum intensity projection images (MIPS). * Multidetector-row CT of the abdomen and pelvis was performed with intravenous contrast using tailored dose modulation techniques. Images were reconstructed in the axial, coronal, and sagittal planes. COMPARISON: CT CHEST PULMONARY ANGIOGRAM (ACUTE) FINDINGS: CHEST: Pulmonary Angiogram: There is adequate opacification of the pulmonary arteries. There is no filling defect to suggest pulmonary embolism. The main pulmonary artery is normal in caliber. Devices/Tubes/Lines: None. Lungs: The central airways are clear. Postobstructive subsegmental left lower lobe atelectasis. Similar narrowing of left lower lobe bronchus with obliteration of multiple distal bronchi. Pleura: No pneumothorax, or pleural effusion. Mediastinum: Similar ill-defined left hilar neil mass, poorly delineated from the mid esophagus, with associated mass-effect on regional bronchi mild attenuation of the pulmonary vasculature.. No pericardial effusion. Severe amount of coronary calcifications. No pneumomediastinum or fluid collection. Lymph Nodes: Marginally increased increased mediastinal and hilar lymphadenopathy such as a 12 mm paratracheal node (6; 219) 13 mm subcarinal node (6; 255).. Chest Wall and Thoracic Spine: No destructive osseus lesion. No chest wall mass. ABDOMEN / PELVIS: Liver: Innumerable hypoattenuating lesions throughout the liver, reference lesion in the left hepatic lobe measures 3.1 x 2.3 cm (4; 260. - Biliary: No biliary ductal dilatation. Noninflamed gallbladder. Spleen: No splenomegaly or focal lesion. Pancreas: No main ductal dilatation or peripancreatic inflammation. Adrenal Glands: No mass. Kidneys and Collecting System: No suspicious lesion. No hydroureteronephrosis or nephrolithiasis. - Bowel: No abnormal bowel dilatation or inflamed segments. Noninflamed appendix. Colonic diverticulosis. Peritoneum/Retroperitoneum: No extraluminal air. Trace pelvic free fluid. Lymph Nodes: Multistation upper abdominal lymphadenopathy including a 11 mm gastrohepatic node (4; 148) and 15 mm portacaval node (4; 258). Pelvic Organs: No mass. Vessels: Atherosclerosis. No abdominal aortic aneurysm. Bones and Abdominal Wall: 2.6 cm lytic lesion within the right sacrum and subtle and millimeters lesion within the proximal right femur (900; 48). Status post L4-L5 interbody fusion. Multilevel degenerative changes of the spine. Procedure Note João Sheppard, DO - 05/31/2025 CT CHEST PULMONARY ANGIOGRAM (ACUTE), CT ABDOMEN/PELVIS WITH CONTRAST Referring clinician's provided indication for this examination in Epic: *PE suspected, high prob; LLQ abdominal pain TECHNIQUE: * Multidetector-row CT pulmonary angiography was performed afteradministration of intravenous contrast. 3D angiographic postprocessingtechniques were acquired in the form of axial maximum intensity projectionimages (MIPS). * Multidetector-row CT of the abdomen and pelvis was performed withintravenous contrast using tailored dose modulation techniques. Imageswere reconstructed in the axial, coronal, and sagittal planes. COMPARISON: CT CHEST PULMONARY ANGIOGRAM (ACUTE) FINDINGS: CHEST: Pulmonary Angiogram: There is adequate opacification of the pulmonaryarteries. There is no filling defect to suggest pulmonary embolism. Themain pulmonary artery is normal in caliber. Devices/Tubes/Lines: None. Lungs: The central airways are clear. Postobstructive subsegmental leftlower lobe atelectasis. Similar narrowing of left lower lobe bronchus withobliteration of multiple distal bronchi. Pleura: No pneumothorax, or pleural effusion. Mediastinum: Similar ill-defined left hilar neil mass, poorly delineatedfrom the mid esophagus, with associated mass-effect on regional bronchimild attenuation of the pulmonary vasculature.. No pericardial effusion.Severe amount of coronary calcifications. No pneumomediastinum or fluidcollection. Lymph Nodes: Marginally increased increased mediastinal and hilarlymphadenopathy such as a 12 mm paratracheal node (6; 219) 13 mmsubcarinal node (6; 255).. Chest Wall and Thoracic Spine: No destructive osseus lesion. No chest wallmass. ABDOMEN / PELVIS: Liver: Innumerable hypoattenuating lesions throughout the liver, referencelesion in the left hepatic lobe measures 3.1 x 2.3 cm (4; 260. - Biliary: No biliary ductal dilatation. Noninflamed gallbladder. Spleen: No splenomegaly or focal lesion. Pancreas: No main ductal dilatation or peripancreatic inflammation. Adrenal Glands: No mass. Kidneys and Collecting System: No suspicious lesion. Nohydroureteronephrosis or nephrolithiasis. - Bowel: No abnormal bowel dilatation or inflamed segments. Noninflamedappendix. Colonic diverticulosis. Peritoneum/Retroperitoneum: No extraluminal air. Trace pelvic free fluid. Lymph Nodes: Multistation upper abdominal lymphadenopathy including a 11mm gastrohepatic node (4; 148) and 15 mm portacaval node (4; 258). Pelvic Organs: No mass. Vessels: Atherosclerosis. No abdominal aortic aneurysm. Bones and Abdominal Wall: 2.6 cm lytic lesion within the right sacrum andsubtle and millimeters lesion within the proximal right femur (900; 48).Status post L4-L5 interbody fusion. Multilevel degenerative changes of thespine. IMPRESSION: 1. No pulmonary embolism. 2. Similar ill-defined left hilar neil mass, with marginally increasedintrathoracic lymphadenopathy. 3. Innumerable hepatic lesions, multistation lymphadenopathy and osseouslesions, likely metastatic. us Ron Lara MD, DPHIL IMG CT ABD/PELVIS Final Result * CT CHEST PULMONARY ANGIOGRAM (ACUTE) (05/31/2025 1:53 AM EDT) Anatomical Region Laterality Modality Chest, Thoracic Vasculature Comp uted Tomography 05/31/2025 4:27 AM EDT Impressions 05/31/2025 4:47 AM EDT 1. No pulmonary embolism. 2. Similar ill-defined left hilar neil mass, with marginally increased intrathoracic lymphadenopathy. 3. Innumerable hepatic lesions, multistation lymphadenopathy and osseous lesions, likely metastatic. Narrative 05/31/2025 4:[address] CHEST PULMONARY ANGIOGRAM (ACUTE), CT ABDOMEN/PELVIS WITH CONTRAST Referring clinician's provided indication for this examination in Epic: * PE suspected, high prob; LLQ abdominal pain TECHNIQUE: * Multidetector-row CT pulmonary angiography was performed after administration of intravenous contrast. 3D angiographic postprocessing techniques were acquired in the form of axial maximum intensity projection images (MIPS). * Multidetector-row CT of the abdomen and pelvis was performed with intravenous contrast using tailored dose modulation techniques. Images were reconstructed in the axial, coronal, and sagittal planes. COMPARISON: CT CHEST PULMONARY ANGIOGRAM (ACUTE) FINDINGS: CHEST: Pulmonary Angiogram: There is adequate opacification of the pulmonary arteries. There is no filling defect to suggest pulmonary embolism. The main pulmonary artery is normal in caliber. Devices/Tubes/Lines: None. Lungs: The central airways are clear. Postobstructive subsegmental left lower lobe atelectasis. Similar narrowing of left lower lobe bronchus with obliteration of multiple distal bronchi. Pleura: No pneumothorax, or pleural effusion. Mediastinum: Similar ill-defined left hilar neil mass, poorly delineated from the mid esophagus, with associated mass-effect on regional bronchi mild attenuation of the pulmonary vasculature.. No pericardial effusion. Severe amount of coronary calcifications. No pneumomediastinum or fluid collection. Lymph Nodes: Marginally increased increased mediastinal and hilar lymphadenopathy such as a 12 mm paratracheal node (6; 219) 13 mm subcarinal node (6; 255).. Chest Wall and Thoracic Spine: No destructive osseus lesion. No chest wall mass. ABDOMEN / PELVIS: Liver: Innumerable hypoattenuating lesions throughout the liver, reference lesion in the left hepatic lobe measures 3.1 x 2.3 cm (4; 260. - Biliary: No biliary ductal dilatation. Noninflamed gallbladder. Spleen: No splenomegaly or focal lesion. Pancreas: No main ductal dilatation or peripancreatic inflammation. Adrenal Glands: No mass. Kidneys and Collecting System: No suspicious lesion. No hydroureteronephrosis or nephrolithiasis. - Bowel: No abnormal bowel dilatation or inflamed segments. Noninflamed appendix. Colonic diverticulosis. Peritoneum/Retroperitoneum: No extraluminal air. Trace pelvic free fluid. Lymph Nodes: Multistation upper abdominal lymphadenopathy including a 11 mm gastrohepatic node (4; 148) and 15 mm portacaval node (4; 258). Pelvic Organs: No mass. Vessels: Atherosclerosis. No abdominal aortic aneurysm. Bones and Abdominal Wall: 2.6 cm lytic lesion within the right sacrum and subtle and millimeters lesion within the proximal right femur (900; 48). Status post L4-L5 interbody fusion. Multilevel degenerative changes of the spine. Procedure Note João Sheppard, DO - 05/31/2025 CT CHEST PULMONARY ANGIOGRAM (ACUTE), CT ABDOMEN/PELVIS WITH CONTRAST Referring clinician's provided indication for this examination in Epic: *PE suspected, high prob; LLQ abdominal pain TECHNIQUE: * Multidetector-row CT pulmonary angiography was performed afteradministration of intravenous contrast. 3D angiographic postprocessingtechniques were acquired in the form of axial maximum intensity projectionimages (MIPS). * Multidetector-row CT of the abdomen and pelvis was performed withintravenous contrast using tailored dose modulation techniques. Imageswere reconstructed in the axial, coronal, and sagittal planes. COMPARISON: CT CHEST PULMONARY ANGIOGRAM (ACUTE) FINDINGS: CHEST: Pulmonary Angiogram: There is adequate opacification of the pulmonaryarteries. There is no filling defect to suggest pulmonary embolism. Themain pulmonary artery is normal in caliber. Devices/Tubes/Lines: None. Lungs: The central airways are clear. Postobstructive subsegmental leftlower lobe atelectasis. Similar narrowing of left lower lobe bronchus withobliteration of multiple distal bronchi. Pleura: No pneumothorax, or pleural effusion. Mediastinum: Similar ill-defined left hilar neil mass, poorly delineatedfrom the mid esophagus, with associated mass-effect on regional bronchimild attenuation of the pulmonary vasculature.. No pericardial effusion.Severe amount of coronary calcifications. No pneumomediastinum or fluidcollection. Lymph Nodes: Marginally increased increased mediastinal and hilarlymphadenopathy such as a 12 mm paratracheal node (6; 219) 13 mmsubcarinal node (6; 255).. Chest Wall and Thoracic Spine: No destructive osseus lesion. No chest wallmass. ABDOMEN / PELVIS: Liver: Innumerable hypoattenuating lesions throughout the liver, referencelesion in the left hepatic lobe measures 3.1 x 2.3 cm (4; 260. - Biliary: No biliary ductal dilatation. Noninflamed gallbladder. Spleen: No splenomegaly or focal lesion. Pancreas: No main ductal dilatation or peripancreatic inflammation. Adrenal Glands: No mass. Kidneys and Collecting System: No suspicious lesion. Nohydroureteronephrosis or nephrolithiasis. - Bowel: No abnormal bowel dilatation or inflamed segments. Noninflamedappendix. Colonic diverticulosis. Peritoneum/Retroperitoneum: No extraluminal air. Trace pelvic free fluid. Lymph Nodes: Multistation upper abdominal lymphadenopathy including a 11mm gastrohepatic node (4; 148) and 15 mm portacaval node (4; 258). Pelvic Organs: No mass. Vessels: Atherosclerosis. No abdominal aortic aneurysm. Bones and Abdominal Wall: 2.6 cm lytic lesion within the right sacrum andsubtle and millimeters lesion within the proximal right femur (900; 48).Status post L4-L5 interbody fusion. Multilevel degenerative changes of thespine. IMPRESSION: 1. No pulmonary embolism. 2. Similar ill-defined left hilar neil mass, with marginally increasedintrathoracic lymphadenopathy. 3. Innumerable hepatic lesions, multistation lymphadenopathy and osseouslesions, likely metastatic. Ron Lara MD, DPHIL IMG CT CHEST F inal Result * COVID Pandemic Respiratory Viral Order (PRO) (05/31/2025 12:57 AM EDT) Test Ordered Rapid COVID has been ordered [facility] Specimen Source/Description NASAL [facility] SARS-CoV 2 (COVID-19) PCR Not Detected Not Detected [facility] Comment: SARS-CoV-2 not detected Negative results do not preclude SARS-CoV-2 infection and should not be used as the sole basis for patient management decisions. Negative results must be combined with clinical observations, patient history, and epidemiological information. Other (Nasopharyngeal swab) 05/31/2025 12:57 AM EDT 05/31/2025 1:18 AM EDT us Ron Lara MD, DPHIL BODY FLUIDS AND S TOOLS ORDERABLES Final Result [facility] [address] [place] [address] * XR CHEST PA AND LATERAL 2 VIEWS (05/30/2025 10:54 PM EDT) Anatomical Region Laterality Modality Chest Computed Radiogr aphy 05/31/2025 1:45 AM EDT Impressions 05/31/2025 1:59 AM EDT 1. Small left pleural effusion. 2. Left hilar mass as described on recent CT. ATTESTATION: I, João Sheppard as teaching physician, have reviewed the images for this case and if necessary edited the report originally created by Nicky Rooney. Narrative 05/31/2025 1:59 AM EDT XR CHEST PA AND LATERAL 2 VIEWS Referring clinician's provided indication for this examination in [facility]: Dyspnea (Shortness of Breath) COMPARISON: CT CHEST PULMONARY ANGIOGRAM (ACUTE) FINDINGS: Devices/Tubes/Lines: None. Lungs: Left basilar atelectasis. No pulmonary edema. Left hilar mass as described on recent CT. Pleura: Small left pleural effusion. Heart/Mediastinum: Normal heart size. Bones/Soft Tissues: Degenerative changes of the thoracic spine. Levoscoliosis. Procedure Note João Sheppard, DO - 08/28/2025 XR CHEST PA AND LATERAL 2 VIEWS Referring clinician's provided indication for this examination in Epic:Dyspnea (Shortness of Breath) COMPARISON: CT CHEST PULMONARY ANGIOGRAM (ACUTE) FINDINGS: Devices/Tubes/Lines: None. Lungs: Left basilar atelectasis. No pulmonary edema. Left hilar mass asdescribed on recent CT. Pleura: Small left pleural effusion. Heart/Mediastinum: Normal heart size. Bones/Soft Tissues: Degenerative changes of the thoracic spine.Levoscoliosis. IMPRESSION: 1. Small left pleural effusion. 2. Left hilar mass as described on recent CT. ATTESTATION: I, João Sheppard as teaching physician, have reviewed theimages for this case and if necessary edited the report originally createdby Nicky Rooney. us Tung Dietrich DO IMG XR CHEST Final Result * (ABNORMAL) Bronch Lavage Differential (05/25/2025 4:02 PM EDT) PATH REVIEW FINAL [facility] Comment: The other cells are alveolar macrophages and bronchial cells. Reviewed by Mickey Whitmore MD FLUID LYMPHS 11(H) 0 % [facility] FLUID OTHER CELLS 89(H) 0 % [facility] Other (Bronchial alveolar lavage) 05/25/2025 4:02 PM EDT 05/25/2025 5:12 PM EDT us Mervin Lloyd MD BODY FLUIDS AND STOOLS ORDERABLES Final Result [facility] [address] [place] [address] * Respiratory Culture/Gram Stain (05/25/2025 4:02 PM EDT) Special Requests None 05/25/2025 4:02 PM EDT [facility] GRAM STAIN Rare WBC'S , NO ORGANISMS SEEN 2025 12:18 PM EDT [facility] Respiratory Cult/Smear NO GROWTH 48HRS 05/27/2025 9:36 AM EDT [facility] Other (Bronchial alveolar lavage) 05/25/2025 4:02 PM EDT 05/25/2025 5:12 PM EDT Comment:LLL BAL Mervin Lloyd MD MICROBIOLOGY - GENERAL ORDERABLES Final Result Performing Organization Address [facility] Co de Phone Number [address] [address] * Fungal culture (05/25/2025 4:02 PM EDT) Special Requests None 05/25/2025 4:02 PM EDT [facility] GRAM STAIN No Yeast or Fungal elements seen 05/27/2025 11:28 AM EDT [facility] Fungal Culture Only NO FUNGUS OR YEAST ISOLATED AFTER 27 DAYS 06/22/2025 11:17 AM EDT [facility] Other (Bronchial alveolar lavage) 05/25/2025 4:02 PM EDT 05/25/2025 5:12 PM EDT Comment:LLL BAL Mervin Lloyd MD MICROBIOLOGY - GENERAL ORDERABLES Final Result Performing Organization Address [facility] de Phone Number [address] [address] * ANES ETT DOUBLE LUMEN - AIRWAY LDA (05/25/2025 1:07 PM EDT) Narrative Shira Fox MD - 05/25/2025 1:07 PM EDT Shira Fox MD 05/25/2025 1:19 PM Airway Placement Procedure Note: Procedure performed by: anesthesiologist Anesthesiologist: Shira Fox MD Airway procedure initiated at:05/25/2025 1:07 PM and ended at. Mask Ventilation: Quality: easy Airway Placement: Technique: LMA LMA Insertion: LMA size: 5 LMA placement attempts: 1. Outcomes: Evidence of dental injury? no Complications observed? no us Shira Fox MD DC ANESTHESIA Final Result * Non-Blood Donor Unit Assistant Cytology (05/25/2025 12:00 AM EDT) Report [address] [address] [employer] Drill Operator: Mickey Whitmore MD Non Blood Donor Unit Assistant Cytology Report FINAL DIAGNOSIS A. LYMPH NODE 10R, EBUS GUIDED FINE NEEDLE ASPIRATION: SPECIMEN ADEQUACY: Satisfactory for evaluation. INTERPRETATION: NO MALIGNANT CELLS IDENTIFIED. DIAGNOSIS: Benign lymphoid material. B. LYMPH NODE 4R, EBUS GUIDED FINE NEEDLE ASPIRATION: SPECIMEN ADEQUACY: Satisfactory for evaluation. INTERPRETATION: NO MALIGNANT CELLS IDENTIFIED. DIAGNOSIS: Benign lymphoid material. C. LYMPH NODE 7, EBUS GUIDED FINE NEEDLE ASPIRATION: SPECIMEN ADEQUACY: Satisfactory for evaluation. INTERPRETATION: MALIGNANT. DIAGNOSIS: Small cell carcinoma. D. LYMPH NODE 4L, EBUS GUIDED FINE NEEDLE ASPIRATION: SPECIMEN ADEQUACY: Satisfactory for evaluation. INTERPRETATION: MALIGNANT. DIAGNOSIS: Small cell carcinoma. E. LYMPH NODE 10L, EBUS GUIDED FINE NEEDLE ASPIRATION: SPECIMEN ADEQUACY: Satisfactory for evaluation. INTERPRETATION: MALIGNANT. DIAGNOSIS: Small cell carcinoma. F. LYMPH NODE 11L, EBUS GUIDED FINE NEEDLE ASPIRATION: SPECIMEN ADEQUACY: Satisfactory for evaluation. INTERPRETATION: MALIGNANT. DIAGNOSIS: Small cell carcinoma. G. LUNG, LEFT HILAR MASS, EBUS GUIDED FINE NEEDLE ASPIRATION: SPECIMEN ADEQUACY: Satisfactory for evaluation. INTERPRETATION: MALIGNANT. DIAGNOSIS: Small cell carcinoma. H. LUNG, LEFT LOWER LOBE, BRONCHOALVEOLAR LAVAGE: SPECIMEN ADEQUACY: Unsatisfactory for evaluation. Specimen not processed or examined, see comment. INTERPRETATION: Specimen QNS after microbiology processed order. I. LUNG, LEFT LOWER LOBE, BRONCHIAL BRUSH: SPECIMEN ADEQUACY: Satisfactory for evaluation. INTERPRETATION: NO MALIGNANT CELLS IDENTIFIED. DIAGNOSIS: Bronchial columnar cells. Note: Immunostains on part C show that the malignant cells are positive for cytokeratin, focally for chromogranin and are negative for synaptophysin and p-63. They have a very high proliferation index as demonstrated by Ki-67 stain. Flow cytometry (see addendum) shows a non hematopoietic CD56 positive population of cells, contributing to the above diagnosis. Electronically Signed Out By: MD Nicky Bhakta CT([facility]) By his/her signature above, the pathologist listed as making the Final Diagnosis certifies that he/she has personally reviewed this case and confirmed or corrected the diagnosis. PROCEDURES/ADDENDA Rapid Interpretation Ordered Date: 05/28/2025 Specimen Adequacy Evaluation A. LYMPH NODE 10R, EBUS GUIDED FINE NEEDLE ASPIRATION: Pass 1: Into CytoLyt. Pass 2: Rare bronchial cells. Pass 3: Blood. B. LYMPH NODE 4R, EBUS GUIDED FINE NEEDLE ASPIRATION: Pass 1: Into CytoLyt. Pass 2: Into CytoLyt. Pass 3: Blood. C. LYMPH NODE 7, EBUS GUIDED FINE NEEDLE ASPIRATION: Pass 1: Blood. Pass 2: Into CytoLyt. Pass 3: Into CytoLyt. Pass 4: Discohesive cells present. Pass 5: Blood. Pass 6: Into RPMI. Pass 7: Into CytoLyt. D. LYMPH NODE 4L, EBUS GUIDED FINE NEEDLE ASPIRATION: Pass 1: Blood. Pass 2: Blood. ADDENDUM Ordered Date: 05/28/2025 FLOW CYTOMETRY PERFORMED AT [facility] [place], CASE# [id number] LYMPH NODE, #7 (cell suspension): - Presence of a non-hematopoietic population (7% of cells) without immunophenotypic evidence of a lymphoproliferative disorder, see Comment and Phenotype. Comment The [id number] cells show variable expression of CD56. Recommend correlation with morphologic examination of tissue sections. Phenotype Based on light scatter characteristics and 7AAD negativity approximately 77% of the total cells in the specimen are viable. Of the viable cells approximately 7% are negative for CD45 and all other hematopoietic markers tested. The are variable for CD56. Approximately 12% are T-cells and 1% are B-cells. The B-cells are polyclonal with no atypical antigen expression. The T-cells express all saunders-T-cell antigens tested with CD4 > CD8 (ratio = 3.5:1). Approximately 79% of the cells express CD13/CD33, consistent with myeloid/monocytic cells. Morphology pollution control engineer slides were not available for microscopic review at time of case sign out. Gross Description A Station 7 is received fresh in RPMI media and consists of soft tissue measuring 0.1 x 0.1 x 0.1 cm. Reviewing Pathologist João Wong M.D. [phone] Viability & Abnormal Cells Viability 77 % Abnormal Cells See above Cell Distribution Total Gated Cells 77 % Small Cells 46 % Large Cells 31 % The above estimated percentages are based on the scattergram of Forward Light Scatter (FSC) vs Viability Dye 7-AAD. B-Lymphoid Associated sKappa B cells+ sLambda B cells+ CD10 Subset B cells+ CD19 B cells+ CD20 B cells+ CD22 B cells+ CD23 B cells+ T-Lymphoid Associated CD2 T cells+ CD3 T cells+ CD4 T cells+ CD5 T cells+ CD7 T cells+ CD8 T cells+ CD56 T cells+ Miscellaneous Markers CD13+CD33 Myeloid+ CD38 Myeloid/Plasma cells/Activated cells+ CD45 Leukocytes+ CD71 Proliferative cells/Activated Cells+ CD11c Myeloid/B-cell subset+ Electronically Signed by João Wong M.D. Reported Date 2025 CLINICAL HISTORY Patient presents with left hilar mass. SPECIMEN SOURCE A: LYMPH NODE 10R, EBUS GUIDED FINE NEEDLE ASPIRATION B: LYMPH NODE 4R, EBUS GUIDED FINE NEEDLE ASPIRATION C: LYMPH NODE 7, EBUS GUIDED FINE NEEDLE ASPIRATION D: LYMPH NODE 4L, EBUS GUIDED FINE NEEDLE ASPIRATION E: LYMPH NODE 10L, EBUS GUIDED FINE NEEDLE ASPIRATION F: LYMPH NODE 11L, EBUS GUIDED FINE NEEDLE ASPIRATION G: LUNG, LEFT HILAR MASS, EBUS GUIDED FINE NEEDLE ASPIRATION H: LUNG, LEFT LOWER LOBE, BRONCHOALVEOLAR LAVAGE I: LUNG, LEFT LOWER LOBE, BRONCHIAL BRUSH GROSS DESCRIPTION A. LYMPH NODE 10R, EBUS GUIDED FINE NEEDLE ASPIRATION: Received are four (4) direct smears in 95% alcohol and a needle rinse in 30ml CytoLyt preservative labeled with patient name and date of . One (1) cell block is prepared. B. LYMPH NODE 4R, EBUS GUIDED FINE NEEDLE ASPIRATION: Received are two (2) direct smears in 95% alcohol and a needle rinse in 30ml CytoLyt preservative labeled with patient name and date of . One (1) cell block is prepared. C. LYMPH NODE 7, EBUS GUIDED FINE NEEDLE ASPIRATION: Received are six (6) direct smears in 95% alcohol and a needle rinse in 30ml CytoLyt preservative labeled with patient name and date of . One (1) cell block is prepared. D. LYMPH NODE 4L, EBUS GUIDED FINE NEEDLE ASPIRATION: Received are four (4) direct smears in 95% alcohol and a needle rinse in 30ml CytoLyt preservative labeled with patient name and date of . One (1) cell block is prepared. E. LYMPH NODE 10L, EBUS GUIDED FINE NEEDLE ASPIRATION: Received is a needle rinse in 30ml CytoLyt preservative labeled with patient name and date of . One (1) ThinPrep slide and one (1) cell block are prepared. F. LYMPH NODE 11L, EBUS GUIDED FINE NEEDLE ASPIRATION: Received is a needle rinse in 30ml CytoLyt preservative labeled with patient name and date of . One (1) ThinPrep slide and one (1) cell block are prepared. G. LUNG, LEFT HILAR MASS, EBUS GUIDED FINE NEEDLE ASPIRATION: Received is a needle rinse in 30ml CytoLyt preservative labeled with patient name and date of . One (1) ThinPrep slide and one (1) cell block are prepared. H. LUNG, LEFT LOWER LOBE, BRONCHOALVEOLAR LAVAGE: Quantity not sufficient for processing. I. LUNG, LEFT LOWER LOBE, BRONCHIAL BRUSH: Received are a brush tip in CytoLyt preservative and two (2) spray fixed direct smears labeled with patient name and date of . One (1) ThinPrep slide is prepared. One or more of the reagents used in immunohistochemical testing in this case may not have been cleared or approved by the U.S. Food and Drug Administration (FDA). The FDA has determined that such clearance or approval is not necessary. These tests are used for clinical purposes. This should not be regarded as investigational or for research. These reagents' performance characteristics have been determined by the [facility]. This laboratory is certified under the Clinical Laboratory Improvement Amendments of 1988 (CLIA-88) as qualified to perform high complexity clinical laboratory testing. Immunohistochemistry is performed on formalin-fixed paraffin-embedded sections (unless otherwise specified) and on a Benchmark Ultra immunostainer which utilizes a proprietary polymer detection system. Positive, negative and internal controls, when present, stain appropriately. Patient Name: BOBBI PANTOJA : 1955 (Age: 70) Sex: F Institution: [facility] Location: [facility] Date of Collection: 05/25/2025 Date of Reported: 05/29/2025 14:49 Results to: Mervin ASHFORD [facility] Addendum FLOW CYTOMETRY PERFORMED AT [facility], CASE# [id number] LYMPH NODE, #7 (cell suspension): - Presence of a non-hematopoietic population (7% of cells) without immunophenotypic evidence of a lymphoproliferative disorder, see Comment and Phenotype. Comment The AA32-yjriarhm cells show variable expression of CD56. Recommend correlation with morphologic examination of tissue sections. Phenotype Based on light scatter characteristics and 7AAD negativity approximately 77% of the total cells in the specimen are viable. Of the viable cells approximately 7% are negative for CD45 and all other hematopoietic markers tested. The are variable for CD56. Approximately 12% are T-cells and 1% are B-cells. The B-cells are polyclonal with no atypical antigen expression. The T-cells express all saunders-T-cell antigens tested with CD4 > CD8 (ratio = 3.5:1). Approximately 79% of the cells express CD13/CD33, consistent with myeloid/monocytic cells. Morphology pollution control engineer slides were not available for microscopic review at time of case sign out. Gross Description A Station 7 is received fresh in RPMI media and consists of soft tissue measuring 0.1 x 0.1 x 0.1 cm. Reviewing Pathologist João Wong M.D. [phone] Viability & Abnormal Cells Viability 77 % Abnormal Cells See above Cell Distribution Total Gated Cells 77 % Small Cells 46 % Large Cells 31 % The above estimated percentages are based on the scattergram of Forward Light Scatter (FSC) vs Viability Dye 7-AAD. B-Lymphoid Associated sKappa B cells+ sLambda B cells+ CD10 Subset B cells+ CD19 B cells+ CD20 B cells+ CD22 B cells+ CD23 B cells+ T-Lymphoid Associated CD2 T cells+ CD3 T cells+ CD4 T cells+ CD5 T cells+ CD7 T cells+ CD8 T cells+ CD56 T cells+ Miscellaneous Markers CD13+CD33 Myeloid+ CD38 Myeloid/Plasma cells/Activated cells+ CD45 Leukocytes+ CD71 Proliferative cells/Activated Cells+ CD11c Myeloid/B-cell subset+ Electronically Signed by João Wong M.D. Reported Date [id number] [facility] Clinical History Patient presents with left hilar mass. [facility] Final Diagnosis A. LYMPH NODE 10R, EBUS GUIDED FINE NEEDLE ASPIRATION: SPECIMEN ADEQUACY: Satisfactory for evaluation. INTERPRETATION: NO MALIGNANT CELLS IDENTIFIED. DIAGNOSIS: Benign lymphoid material. B. LYMPH NODE 4R, EBUS GUIDED FINE NEEDLE ASPIRATION: SPECIMEN ADEQUACY: Satisfactory for evaluation. INTERPRETATION: NO MALIGNANT CELLS IDENTIFIED. DIAGNOSIS: Benign lymphoid material. C. LYMPH NODE 7, EBUS GUIDED FINE NEEDLE ASPIRATION: SPECIMEN ADEQUACY: Satisfactory for evaluation. INTERPRETATION: MALIGNANT. DIAGNOSIS: Small cell carcinoma. D. LYMPH NODE 4L, EBUS GUIDED FINE NEEDLE ASPIRATION: SPECIMEN ADEQUACY: Satisfactory for evaluation. INTERPRETATION: MALIGNANT. DIAGNOSIS: Small cell carcinoma. E. LYMPH NODE 10L, EBUS GUIDED FINE NEEDLE ASPIRATION: SPECIMEN ADEQUACY: Satisfactory for evaluation. INTERPRETATION: MALIGNANT. DIAGNOSIS: Small cell carcinoma. F. LYMPH NODE 11L, EBUS GUIDED FINE NEEDLE ASPIRATION: SPECIMEN ADEQUACY: Satisfactory for evaluation. INTERPRETATION: MALIGNANT. DIAGNOSIS: Small cell carcinoma. G. LUNG, LEFT HILAR MASS, EBUS GUIDED FINE NEEDLE ASPIRATION: SPECIMEN ADEQUACY: Satisfactory for evaluation. INTERPRETATION: MALIGNANT. DIAGNOSIS: Small cell carcinoma. H. LUNG, LEFT LOWER LOBE, BRONCHOALVEOLAR LAVAGE: SPECIMEN ADEQUACY: Unsatisfactory for evaluation. Specimen not processed or examined, see comment. INTERPRETATION: Specimen QNS after microbiology processed order. I. LUNG, LEFT LOWER LOBE, BRONCHIAL BRUSH: SPECIMEN ADEQUACY: Satisfactory for evaluation. INTERPRETATION: NO MALIGNANT CELLS IDENTIFIED. DIAGNOSIS: Bronchial columnar cells. Note: Immunostains on part C show that the malignant cells are positive for cytokeratin, focally for chromogranin and are negative for synaptophysin and p-63. They have a very high proliferation index as demonstrated by Ki-67 stain. Flow cytometry (see addendum) shows a non hematopoietic CD56 positive population of cells, contributing to the above diagnosis. [facility] Gross Description A. LYMPH NODE 10R, EBUS GUIDED FINE NEEDLE ASPIRATION: Received are four (4) direct smears in 95% alcohol and a needle rinse in 30ml CytoLyt preservative labeled with patient name and date of . One (1) cell block is prepared. B. LYMPH NODE 4R, EBUS GUIDED FINE NEEDLE ASPIRATION: Received are two (2) direct smears in 95% alcohol and a needle rinse in 30ml CytoLyt preservative labeled with patient name and date of . One (1) cell block is prepared. C. LYMPH NODE 7, EBUS GUIDED FINE NEEDLE ASPIRATION: Received are six (6) direct smears in 95% alcohol and a needle rinse in 30ml CytoLyt preservative labeled with patient name and date of . One (1) cell block is prepared. D. LYMPH NODE 4L, EBUS GUIDED FINE NEEDLE ASPIRATION: Received are four (4) direct smears in 95% alcohol and a needle rinse in 30ml CytoLyt preservative labeled with patient name and date of . One (1) cell block is prepared. E. LYMPH NODE 10L, EBUS GUIDED FINE NEEDLE ASPIRATION: Received is a needle rinse in 30ml CytoLyt preservative labeled with patient name and date of . One (1) ThinPrep slide and one (1) cell block are prepared. F. LYMPH NODE 11L, EBUS GUIDED FINE NEEDLE ASPIRATION: Received is a needle rinse in 30ml CytoLyt preservative labeled with patient name and date of . One (1) ThinPrep slide and one (1) cell block are prepared. G. LUNG, LEFT HILAR MASS, EBUS GUIDED FINE NEEDLE ASPIRATION: Received is a needle rinse in 30ml CytoLyt preservative labeled with patient name and date of . One (1) ThinPrep slide and one (1) cell block are prepared. H. LUNG, LEFT LOWER LOBE, BRONCHOALVEOLAR LAVAGE: Quantity not sufficient for processing. I. LUNG, LEFT LOWER LOBE, BRONCHIAL BRUSH: Received are a brush tip in CytoLyt preservative and two (2) spray fixed direct smears labeled with patient name and date of . One (1) ThinPrep slide is prepared. [facility] Results\Interp retation Specimen Adequacy Evaluation A. LYMPH NODE 10R, EBUS GUIDED FINE NEEDLE ASPIRATION: Pass 1: Into CytoLyt. Pass 2: Rare bronchial cells. Pass 3: Blood. B. LYMPH NODE 4R, EBUS GUIDED FINE NEEDLE ASPIRATION: Pass 1: Into CytoLyt. Pass 2: Into CytoLyt. Pass 3: Blood. C. LYMPH NODE 7, EBUS GUIDED FINE NEEDLE ASPIRATION: Pass 1: Blood. Pass 2: Into CytoLyt. Pass 3: Into CytoLyt. Pass 4: Discohesive cells present. Pass 5: Blood. Pass 6: Into RPMI. Pass 7: Into CytoLyt. D. LYMPH NODE 4L, EBUS GUIDED FINE NEEDLE ASPIRATION: Pass 1: Blood. Pass 2: Blood. [facility] Conversion Type 05/25/2025 11:04 AM EDT us Mervin Lloyd MD CYTOLOGY ORDERABLES Ed ited Result - Final [facility] [address] [place] [address] * CT CHEST PULMONARY ANGIOGRAM (ACUTE) (05/03/2025 8:59 PM EDT) MGB IMG CAR RECORD CLERK COMMENT 1. No pulmonary embolism. 2. Left hilar mass resulting in narrowing and obliteration of the left lower lobe bronchi. Small left pleural effusion. 3. Multiple hypodense hepatic lesions are concerning f [facility] Anatomical Region Laterality Modality Chest, Thoracic Vasculature Comp uted Tomography 05/03/2025 10:2 1 PM EDT Impressions 05/03/2025 10:46 PM EDT 1. No pulmonary embolism. 2. Left hilar mass resulting in narrowing and obliteration of the left lower lobe bronchi. Small left pleural effusion. 3. Multiple hypodense hepatic lesions are concerning for metastases. A clinically significant result was initiated on 05/03/2025 10:46 PM, Message ID [id number]. Narrative 05/03/2025 10:[address] CHEST PULMONARY ANGIOGRAM (ACUTE) Referring clinician's provided indication for this examination in Epic: * Chest pain, nonspecific; prior history of pericarditis, r/o pericarditis, PE TECHNIQUE: Multidetector CT pulmonary angiography was performed after administration of intravenous contrast using tailored dose modulation techniques. 3D angiographic postprocessing techniques were acquired in the form of axial maximum intensity projection images (MIPS). COMPARISON: CT CHEST PULMONARY ANGIOGRAM (ACUTE) ; CT ABDOMEN/PELVIS WITH CONTRAST FINDINGS: Pulmonary Angiogram: The pulmonary arteries are well opacified. There is no pulmonary embolus. Devices/Tubes/Lines: None. Lungs: Right lower lobe calcified granuloma. Atelectasis in the lingula and left lower lobe. No pulmonary nodules. The airways are clear. Pleura: Left hilar soft tissue mass, difficult to accurately measure, causing narrowing and obliteration of the left lower lobe bronchi. The mass involves the adjacent esophagus with no proximal esophageal dilatation. Small left pleural effusion. No right pleural effusion. No pneumothorax. Mediastinum: No thyroid nodules. Atherosclerotic calcifications in the thoracic aorta including the origins of the great vessels. Coronary artery calcifications Lymph Nodes: Mediastinal and hilar lymphadenopathy, for example, 12 mm subcarinal node (4:44). Upper Abdomen: Multiple ill-defined hypodensities are seen in the liver including a 15 mm segment 2 lesion (4:75) and ill-defined hypodensities causing capsular nodularity in the left hepatic lobe (4:89). Chest Wall: Normal. No chest wall mass. Bones: Degenerative changes of the spine. Procedure Note Lissa Richardson MD - 05/03/2025 CT CHEST PULMONARY ANGIOGRAM (ACUTE) Referring clinician's provided indication for this examination in Epic: *Chest pain, nonspecific; prior history of pericarditis, r/o pericarditis,PE TECHNIQUE: Multidetector CT pulmonary angiography was performed afteradministration of intravenous contrast using tailored dose modulationtechniques. 3D angiographic postprocessing techniques were acquired in theform of axial maximum intensity projection images (MIPS). COMPARISON: CT CHEST PULMONARY ANGIOGRAM (ACUTE) ; CTABDOMEN/PELVIS WITH CONTRAST FINDINGS: Pulmonary Angiogram: The pulmonary arteries are well opacified. There is no pulmonaryembolus. Devices/Tubes/Lines: None. Lungs: Right lower lobe calcified granuloma. Atelectasis in the lingulaand left lower lobe. No pulmonary nodules. The airways are clear. Pleura: Left hilar soft tissue mass, difficult to accurately measure,causing narrowing and obliteration of the left lower lobe bronchi. Themass involves the adjacent esophagus with no proximal esophagealdilatation. Small left pleural effusion. No right pleural effusion. Nopneumothorax. Mediastinum: No thyroid nodules. Atherosclerotic calcifications in thethoracic aorta including the origins of the great vessels. Coronary arterycalcifications Lymph Nodes: Mediastinal and hilar lymphadenopathy, for example, 12 mmsubcarinal node (4:44). Upper Abdomen: Multiple ill-defined hypodensities are seen in the liverincluding a 15 mm segment 2 lesion (4:75) and ill-defined hypodensitiescausing capsular nodularity in the left hepatic lobe (4:89). Chest Wall: Normal. No chest wall mass. Bones: Degenerative changes of the spine. IMPRESSION: 1. No pulmonary embolism. 2. Left hilar mass resulting in narrowing and obliteration of the leftlower lobe bronchi. Small left pleural effusion. 3. Multiple hypodense hepatic lesions are concerning for metastases. A clinically significant result was initiated on 05/03/2025 10:46 PM,Message ID [id number]. us Jonathan Hayes MD IMG CT CHEST Final Res ult * TSH with reflex (04/23/2023 6:19 PM EDT) TSH 1.09 0.27 - 4.20 uIU/mL [facility] Blood 04/23/2023 6:19 PM EDT 04/23/2023 6:23 PM EDT us Benjamin López MD LAB BLOOD ORDERABLES Final Result [address] [address] from Last 3 Months or Most Recently Relevant to Health Maintenance Insurance MEDICARE PART A & B Member Subscriber Plan / Payer (Ef fective 2018-Present) Name:Bobbi Pantoja Member ID:[id number] Relation to Subscriber:Self Name:Zay Pantojaa Subscriber ID:[id number] Payer ID:[id number] Group ID:Not on file Type:Medicare Address: [facility]ox [facility]. [address] [facility] [address] [facility]ICARE [facility] & [facility] RE[facility] MEDICARE PART A & [facility] MED[facility] REPLAC[facility] MEDICARE PART A & [facility] MEDIC[facility] REPLACEMENT MEDICARE PART A & [place] [address] [place] [address] MEDICARE REPLACEMENT MEDICARE PART A & B MEDICARE REPLACEMENT Advance Directives For more information, please contact: [phone] (9AM - 5PM [facility], Wednesday-Wednesday) Documents on File Type Date Recorded Patient Court Liaison Expl anation MOLST 06/21/2025 3:13 PM POLST 06/14/2025 POLST * DNR/DNI (No CPR/No Intubation) (Latest Code Status on File) Date Activated Date Inactivated Comments 06/14/2025 8:52 PM Question Answer Comments Code Status Confirmed With: Patient Code Status Communicated To: Inpatient Attending * Full Code Date Activated Date Inactivated Comments 04/23/2023 9:45 PM 06/14/2025 8:52 PM Question Answer Comments Code Status Confirmed With: Other (specify below ) Code Discussion Comments: Presumed Care Teams Keg Varnisher Relationship Specialty Start Date End Date Hali Carlin PA [address] [place] [phone] PCP - General Physician Job Change Crew Member 05/03/25 Prashant Gaspar DO [address] [place] [address] [email or web address] Primary Oncologist Hematology and Oncology 06/01/25 Sharon Hunter NP [address] [place] [address] [email or web address] Nurse Practitioner Medical Oncology 06/26/25 Marilee Kaminski FNP [address] [place] [address] Nurse Practitioner Medical Oncology 06/28/25 Additional Source Comments The information contained in this document represents components of the legal health record. It is not the complete legal health record.[facility]
--- OUTSIDE RECORDS SUMMARY | 2025-07-14 23:04 | XMS_ITS ---
Author Organization [facility] Address [address] [place] [address] Phone Care Team Providers Care Welfare Specialist Name Role Phone Hali Carlin Primary Care Provider [phone] Prashant Gaspar DO Unavailable [phone] Sharon Hunter WHITTLING ROOM OPERATOR Unavailable Marilee Kaminski LABORATORY SUPERVISOR Unavailable Active Problems Problem Noted Date Diagnosed Date [...] Oncology recommends initiation of inpatient chemotherapy, started 9/16. Plan for PET scan 06/21 Will need [...] evaluate for small aneurysm seen on the [facility] CT scan of the head Oncology [...] recommendations per oncology. Neurochecks every 4 hours [facility] 05/16/2025 Assessment & Plan (05/16/2025 2:07 PM [...] EDT): Mildly elevated with AST >ALT, but Bobbi is partner states that she does not [...] to vomiting and not related to dysphagia. Current Treatment and Therapy Plans EC - ETOPOSIDE/CARBOPLATIN* Plan Start Date:06/18/2025 Plan Provider:Prashant Gaspar, Linked Problems Small cell carcinoma of over lapping sites of left lung Treatment Medications Current Day (Day 1 , Cycle 2 - Planned for 07/10/2025) Next Day (Day 2, Cycle 2 - Planned for 07/11/2025) CARBOplatin (PARAPLATIN)CARBOplatin (PARAPLATIN) IVPB (by AUC) 270 mLetoposide (VEPESID, TOPOSAR)etoposide (VEPESID, TOPOSAR) infusion (500 mL)etoposide (VEPESID, TOPOSAR) infusion QS 700 mL NS {doses 216 - 280 mg} Bag CARBOplatin (PARAPLATIN) 402 mg in D5W 310.2 mL IVPBetoposide (TOPOSAR) 160 mg in sodium chloride 0.9% 548 mL infusion etoposide (TOPOSAR) 160 mg in sodium chloride 0.9% 548 mL infusion Past Treatment and Therapy Plans No past plan information found.
--- OUTSIDE RECORDS SUMMARY | 2025-07-14 23:04 | XMS_ITS | Encounter Summary ---
Author Organization [facility] Address [address] [place] [address] Phone Care Team Providers Care Director Of Rehabilitative Services Name Role Phone Celine Farley MD Primary Care Provider Unavailable Hali Carlin Primary Care Provider [phone] Prashant Gaspar DO Unavailable [phone] Sharon Hunter ENGLISH LANGUAGE ARTS TEACHER Unavailable [phone] Marilee KaminskiP Unavailable [phone] Encounter Details Date Type Department Care Team (Late st Contact Info) Description 04/23/2023 Procedure Pass [facility], Ct Scan - [facility] [address] [place] [address] Social History Tobacco Use Types Packs/Day Years [...] 8:34 AM EDT Celena Hinton RN * [place] Suicide Severity Rating Scale (Screener/Recent Self-Report) Question [...] Info) Description 07/20/2025 Procedure Pass [facility] Cardiovascular And Interventional Radiology [address] [place] [id number] 07/20/2025 1:00 PM EDT Hospital Encounter [facility] Cardiovascular And Interventional Radiology [address] [place] [address] Galen Contreras MD [address] [place] [phone] [email or web address] 07/20/2025 1:00 PM EDT - 07/20/2025 2:25 PM EDT Surgery [facility] Cardiovascular And Interventional Radiology [address] [place] [address] Galen Contreras MD [address] [place] [phone] [email or web address] PORT A CATH INSERTION (IR) 07/31/2025 7:40 AM EDT Appointment [facility] Laboratory [address] [place] [phone] Prashant Gaspar, DO [address] [place] [phone] [email or web address] 07/31/2025 8:30 AM EDT Office Visit [facility] at [address] [address] Marilee Kaminski FNP [address] [place] [phone] [email or web address] 07/31/2025 9:20 AM EDT Infusion [facility] at [address] [address] Prashant Gaspar, DO [address] [place] [address] [email or web address] Kaushal Feliz, RICHARDSON [address] [place] [address] [email or web address] 08/01/2025 2:40 PM EDT Infusion [facility] at [address] [address] Prashant Gaspar, DO [address] [place] [id number] [email or web address] Celine Peralta, RICHARDSON [address] [place] [phone] [email or web address] 08/02/2025 2:40 PM EDT Infusion [facility] at [address] [address] Prashant Gaspar DO [address] [place] [address] [email or web address] Kimberly Nunes, RICHARDSON [address] [place] [phone] [email or web address] 08/03/2025 4:00 PM EDT Infusion [facility] at [address] [address] Prashant Gaspar DO [address] [place] [address] [email or web address] Salima Harris RN [address] [place] [address] [email or web address] documented as of this encounter Visit Diagnoses Not on filedocumented in this encounter Additional Health Concerns Infection Onset Date Last Indicated Resolved Time CoV-Risk Comment:Per note documentation 04/24/2023 04/24/2023 10:25 AM EDT CoV-Risk 05/31/2025 05/31/2025 06/11/2025 1:21 AM EDT documented as of this encounter Care Teams Director Of Rehabilitative Services Relationship Specialty Start Date End Date Celine Farley MD PCP - General 07/20/17 05/02/25 Hali Carlin PA [address] [place] [phone] PCP - General Physician Mine Manager 05/03/25 Prashant Gaspar DO [address] [place] [phone] [email or web address] Primary Oncologist Hematology and Oncology 06/01/25 Sharon Hunter NP [address] [place] [phone] [email or web address] Nurse Practitioner Medical Oncology 06/26/25 Marilee Kaminski FNP [address] [place] [phone] [email or web address] Nurse Practitioner Medical Oncology 06/28/25 documented as of this encounter Additional Source Comments The information contained in this document represents components of the legal health record. It is not the complete legal health record.[facility]
--- OUTSIDE RECORDS SUMMARY | 2025-07-14 23:04 | XMS_ITS | Encounter Summary ---
Author Organization [facility] Address [address] [place] [address] [place] [address] Phone Care Team Providers Care Assisted Living Executive Director Name Role Phone Hali Carlin Primary Care Provider [phone] Prashant Gaspar DO Unavailable [phone] Sharon Hunter DIRECTOR OF PATIENT FINANCIAL SERVICES Unavailable Marilee Kaminski CROP NUTRITION SCIENTIST Unavailable [phone] Encounter Details Date Type Department Care Team (Late st Contact Info) Description 06/27/2025 Orders Only [facility] at [facility] 30 [place] [address] Sharon Hunter, EVA 30 [place] [address] [email or web address] Social History Tobacco Use Types Packs/Day Years [...] Pass [facility] 30 [place] [address] 07/20/2025 1:00 PM EDT Hospital Encounter [facility] [address] [place] [address] Galen Contreras MD [address] [place] [address] [email or web address] 07/20/2025 1:00 PM EDT - 07/20/2025 2:25 PM EDT Surgery [facility] Cardiovascular And Interventional Radiology [address] [place] [address] Galen Contreras MD [address] [place] [address] [email or web address] PORT A CATH INSERTION (IR) 07/31/2025 7:40 AM EDT Appointment [facility] [address] [place] [address] Prashant Gaspar, DO [address] [place] [address] [email or web address] 07/31/2025 8:30 AM EDT Office Visit [facility] Center at [address] [address] Marilee Kaminski FNP [address] [place] [address] [email or web address] 07/31/2025 9:20 AM EDT Infusion [facility] at [address] [address] Prashant Gaspar, DO [address] [place] [address] [email or web address] Kaushal Feliz, RICHARDSON [address] [place] [address] [email or web address] 08/01/2025 2:40 PM EDT Infusion [facility] at [address] [address] Prashant Gaspar, DO 30 [place] [address] [email or web address] Celine Peralta, RICHARDSON [address] [place] [address] [email or web address] 08/02/2025 2:40 PM EDT Infusion [facility] at [address] [address] Prashant Gaspar, [address] [place] [address] [email or web address] Kimberly Nunes RN [address] [place] [address] [email or web address] 08/03/2025 4:00 PM EDT Infusion [facility] at [address] [address] Prashant Gaspar DO [address] [place] [address] [email or web address] Salima Harris RN [address] [place] [address] [email or web address] documented as of this encounter Visit Diagnoses Not on filedocumented in this encounter Care Teams Assisted Living Executive Director Relationship Specialty Start Date End Date Hali Carlin PA [address] [place] [phone] PCP - General Physician Ship Worker 05/03/25 Prashant Gaspar DO [address] [place] [address] [email or web address] Primary Oncologist Hematology and Oncology 06/01/25 Sharon Hunter, EVA [address] [place] [address] [email or web address] Nurse Practitioner Medical Oncology 06/26/25 Marilee Kaminski FNP [address] [place] [address] [email or web address] Nurse Practitioner Medical Oncology 06/28/25 documented as of this encounter Additional Source Comments The information contained in this document represents components of the legal health record. It is not the complete legal health record.[facility]
--- OUTSIDE RECORDS SUMMARY | 2025-07-14 23:04 | XMS_ITS | Encounter Summary ---
Author Organization [facility] Address [address] [place] [address] Phone Care Team Providers Care Motor Vehicle License Clerk Name Role Phone Hali Carlin Primary Care Provider [phone] Prashant Gaspar DO Unavailable [phone] Sharon Hunter SIENE MAKER Unavailable Marilee Kaminski PROCESSING TECHNICIAN Unavailable [phone] Encounter Details Date Type Department Care Team (Late st Contact Info) Description 05/03/2025 Procedure Pass [facility], Ct Scan - [facility] [address] [place] [address] Social History Tobacco Use Types Packs/Day Years Used Date Smoking Tobacco: Former Cigarettes Q uit: 2003 Education Answer Date Recorded Are you interested [...] Date of Assessment Author No Risk Indicated 05/03/2025 5:16 PM EDT Vangie Kraus RN * [place] Suicide Severity Rating Scale (Screener/Recent Self-Report) Question Answer Date of Assessment Author 1. Wish to be (Past 1 Month) No 025 5:16 PM EDT Vangie Kraus, RICHARDSON 2. Non-Specific Active Suici raymond Thoughts (Past 1 Month) No 05/03/2025 5:16 PM EDT Vangie Kraus, RN 6. Suicidal Behavior (Lifetime) No 5:16 PM EDT Vangie Kraus, RN documented as of this encounter Plan of Treatment Upcoming Encounters Date Type Department Care Team (Latest Contact Info) Description 07/20/2025 Procedure Pass [facility] Cardiovascular And Interventional Radiology [address] [place] [address] 07/20/2025 1:00 PM EDT Hospital Encounter [facility] Cardiovascular And Interventional Radiology 30 [place] [address] Galen Contreras MD [address] [place] [address] [email or web address] 07/20/2025 1:00 PM EDT - 07/20/2025 2:25 PM EDT Surgery [facility] Cardiovascular And Interventional Radiology [address] [place] [address] Galen Contreras MD [address] [place] [address] [email or web address] PORT A CATH INSERTION (IR) 07/31/2025 7:40 AM EDT Appointment [facility] Laboratory [address] [place] [address] Prashant Gaspar, DO [address] [place] [address] [email or web address] 07/31/2025 8:30 AM EDT Office Visit [facility] at [address] [address] Marilee Kaminski FNP [address] [place] [address] 07/31/2025 9:20 AM EDT Infusion [facility] at [address] [address] Prashant Gaspar, [address] [place] [address] [email or web address] Kaushal Feliz RN [address] [place] [address] [email or web address] 08/01/2025 2:40 PM EDT Infusion [facility] at [address] [address] Prashant Gaspar, DO [address] [place] [address] [email or web address] Celine Peralta, RICHARDSON [address] [place] [address] [email or web address] 08/02/2025 2:40 PM EDT Infusion [facility] at [address] [address] Prashant Gaspar, DO [address] [place] [address] [email or web address] Kimberly Nunes RN [address] [place] [address] 08/03/2025 4:00 PM EDT Infusion [facility] at [address] [address] Prashant Gaspar, DO [address] [place] [address] [email or web address] Salima Harris RN [address] [place] [address] documented as of this encounter Visit Diagnoses Not on filedocumented in this encounter Additional Health Concerns Infection Onset Date Last Indicated Resolved Time CoV-Risk 05/31/2025 05/31/2025 06/11/2025 1:21 AM EDT documented as of this encounter Care Teams Motor Vehicle License Clerk Relationship Specialty Start Date End Date Hali Carlin PA [address] [place] [phone] PCP - General Physician Test Center Administrator 05/03/25 Prashant Gaspar DO [address] [place] [address] [email or web address] Primary Oncologist Hematology and Oncology 06/01/25 Sharon Hunter NP [address] [place] [address] [email or web address] Nurse Practitioner Medical Oncology 06/26/25 Marilee Kaminski FNP 30 [place] [address] Nurse Practitioner Medical Oncology 06/28/25 documented as of this encounter Additional Source Comments The information contained in this document represents components of the legal health record. It is not the complete legal health record.[facility]
--- OUTSIDE RECORDS SUMMARY | 2025-07-14 23:05 | XMS_ITS | Encounter Summary ---
Author Organization [facility] Address [address] [place] [address] Phone Care Team Providers Care Dance Director Name Role Phone Hali Carlin Primary Care Provider [phone]- [phone] Prashant Gaspar DO Unavailable [phone] Sharon Hunter DOCUMENT CONTROL SUPERVISOR Unavailable [phone] Marilee Kaminski NEWBORN HEARING SCREENER Unavailable [phone] Encounter Details Date Type Department Care Team (Late st Contact Info) Description 07/05/2025 Procedure Pass [facility], Ct Scan - [facility] 30 [place] [address] Social History Tobacco Use Types Packs/Day Years [...] Date of Assessment Author No Risk Indicated 07/05/2025 7:07 PM EDT Vangie Villa, RN * [place] Suicide Severity Rating Scale (Screener/Recent Self-Report) Question Answer Date of Assessment Author 1. Wish to be (Past 1 Month) No 025 7:07 PM EDT Vangie Braun, RN 2. Non-Specific Active Suici raymond Thoughts (Past 1 Month) No 07/05/2025 7:07 PM EDT Vangie Braun, RN 6. Suicidal Behavior (Lifetime) No 7:07 PM EDT Vangie Braun RN documented as of this encounter Plan of Treatment Upcoming Encounters Date Type Department Care Team (Latest Contact Info) Description 07/20/2025 Procedure Pass [facility] Cardiovascular And Interventional Radiology [address] [place] [address] 07/20/2025 1:00 PM EDT Hospital Encounter [facility] Cardiovascular And Interventional Radiology [address] [place] [address] Galen Contreras MD [address] [place] [address] [email or web address] 07/20/2025 1:00 PM EDT - 07/20/2025 2:25 PM EDT Surgery [facility] Cardiovascular And Interventional Radiology [address] [place] [address] Galen Contreras MD [address] [place] [address] [email or web address] PORT A CATH INSERTION (IR) 07/31/2025 7:40 AM EDT Appointment [facility] Laboratory [address] [place] [address] Prashant Gaspar, DO [address] [place] [address] [email or web address] 07/31/2025 8:30 AM EDT Office Visit [facility] Cancer Center at [address] [address] Marilee Kaminski FNP [address] [place] [address] 07/31/2025 9:20 AM EDT Infusion [facility] [place] at [address] [address] Prashant Gaspar, DO 30 [place] [address] [email or web address] [email or web address] Kaushal Feliz RN [address] [place] [address] [email or web address] 08/01/2025 2:40 PM EDT Infusion [facility] at [address] [address] Prashant Gaspar, [address] [address] [email or web address] Celine Peralta RN [address] [place] [address] [email or web address] 08/02/2025 2:40 PM EDT Infusion [facility] at [address] [address] Prashant Gaspar [address] [address] [email or web address] Kimberly Nunes RN [address] [place] [address] [email or web address] 08/03/2025 4:00 PM EDT Infusion [facility] at [address] [address] Prashant Gaspar [address] [address] [email or web address]@[email or web address] Salima Harris RN [address] [place] [address] [email or web address] documented as of this encounter Visit Diagnoses Not on filedocumented in this encounter Care Teams Dance Director Relationship Specialty Start Date End Date Hali Carlin PA [address] [place] [phone] PCP - General Physician Purchasing Manager/Sales 05/03/25 Prashant Gaspar DO [address] [place] [address] [email or web address] Primary Oncologist Hematology and Oncology 06/01/25 Sharon Hunter NP [address] [place] [address] [email or web address] Nurse Practitioner Medical Oncology 06/26/25 Marilee Kaminski FNP [address] [place] [address] Nurse Practitioner Medical Oncology 06/28/25 documented as of this encounter Additional Source Comments The information contained in this document represents components of the legal health record. It is not the complete legal health record.[facility]
--- OUTSIDE RECORDS SUMMARY | 2025-07-14 23:05 | XMS_ITS | Encounter Summary ---
Author Organization [facility] Address [address] [place] [address] Phone Care Team Providers Care Ammunition Storage Superintendent Name Role Phone Celine Farley MD Primary Care Provider Unavailable Hali Carlin Primary Care Provider [phone] Prashant Gaspar DO Unavailable [phone] Sharon Hunter FOUNTAIN SERVER Unavailable Marilee KaminskiP Unavailable [phone] Encounter Details Date Type Department Care Team (Late st Contact Info) Description 04/23/2023 Procedure Pass [facility], Ct Scan - [facility] 30 [place] [address] Social History Tobacco Use Types Packs/Day Years [...] 8:34 AM EDT Celena Hinton RN * [place] Suicide Severity Rating Scale (Screener/Recent Self-Report) Question [...] (Latest Contact Info) Description 07/20/2025 Procedure Pass [facility] Cardiovascular And Interventional Radiology [address] [place] [address] 07/20/2025 1:00 PM EDT Hospital Encounter [facility] Cardiovascular And Interventional Radiology [address] [place] [address] Galen Contreras MD [address] [place] [address] [email or web address] 07/20/2025 1:00 PM EDT - 07/20/2025 2:25 PM EDT Surgery [facility] Cardiovascular And Interventional Radiology [address] [place] [address] Galen Contreras MD [address] [place] [address] [email or web address] PORT A CATH INSERTION (IR) 07/31/2025 7:40 AM EDT Appointment [facility] Laboratory [address] [place] [address] Prashant Gaspar, DO [address] [place] [address] [email or web address] 07/31/2025 8:30 AM EDT Office Visit [facility] at [address] [address] Marilee Kaminski FNP [address] [place] [address] [email or web address] 07/31/2025 9:20 AM EDT Infusion [facility] at [address] [address] Prashant Gaspar, DO [address] [place] [address] [email or web address]@[email or web address] Kaushal Feliz, RICHARDSON [address] [place] [address] [email or web address] 08/01/2025 2:40 PM EDT Infusion [facility] at [address] [address] Prashant Gaspar, DO [address] [place] [address] [email or web address]@[email or web address] Celine Peralta, RICHARDSON [address] [place] [address] [email or web address] 08/02/2025 2:40 PM EDT Infusion [facility] at [address] [address] Prashant Gaspar DO 30 [place] [address] [email or web address] Kimberly Nunes, RICHARDSON [address] [place] [address] [email or web address] 08/03/2025 4:00 PM EDT Infusion [facility] at [address] [address] Prashant Gaspar DO 30 [place] [address] [email or web address]@[email or web address] Salima Harris RN [address] [place] [address] [email or web address] documented as of this encounter Visit Diagnoses Not on filedocumented in this encounter Additional Health Concerns Infection Onset Date Last Indicated Resolved Time CoV-Risk Comment:Per note documentation 04/24/2023 04/24/2023 10:25 AM EDT CoV-Risk 05/31/2025 05/31/2025 06/11/2025 1:21 AM EDT documented as of this encounter Care Teams Ammunition Storage Superintendent Relationship Specialty Start Date End Date Celine Farley MD PCP - General 07/20/17 05/02/25 Hali Carlin PA [address] [place] [phone] PCP - General Physician Bar Captain 05/03/25 Prashant Gaspar DO [address] [place] [address] [email or web address] Primary Oncologist Hematology and Oncology 06/01/25 Sharon Hunter NP [address] [place] [address] [email or web address] Nurse Practitioner Medical Oncology 06/26/25 Marilee Kaminski FNP [address] [place] [address] [email or web address] Nurse Practitioner Medical Oncology 06/28/25 documented as of this encounter Additional Source Comments The information contained in this document represents components of the legal health record. It is not the complete legal health record.[facility]
--- OUTSIDE RECORDS SUMMARY | 2025-07-14 23:05 | XMS_ITS | Encounter Summary ---
Author Organization [facility] Address [address] [place] [address] Phone Care Team Providers Care Outsole Handler Name Role Phone Celnie Farley MD Primary Care Provider Unavailable Hali Carlin Primary Care Provider [phone] Prashant Gaspar DO Unavailable Sharon Hunter SUPERVISING ARCHITECT Unavailable [phone] Marilee KaminskiP Unavailable Encounter Details Date Type Department Care Team (Late st Contact Info) Description 04/23/2023 Procedure Pass [facility], Ct Scan - [facility] 30 [place] [address] Social History Tobacco Use Types Packs/Day Years [...] 8:34 AM EDT Celena Hinton RN * [place] Suicide Severity Rating Scale (Screener/Recent Self-Report) Question Answer Date of Assessment Author 1. Wish to be (Past 1 Month) No 023 8:34 AM EDT Celena Hinton RN 2. Non-Specific Active Suici raymond Thoughts (Past 1 Month) No 04/26/2023 8:34 AM EDT Sherine Hinton RN 6. Suicidal Behavior (Lifetime) No 8:34 AM EDT Celena Hinotn RN documented as of this encounter Plan of Treatment Upcoming Encounters Date Type Department Care Team (Latest Contact Info) Description 07/20/2025 Procedure Pass [facility] Cardiovascular And Interventional Radiology [address] [place] [address] 07/20/2025 1:00 PM EDT Hospital Encounter [facility] Cardiovascular And Interventional Radiology [address] [place] [address] Galen Contreras MD [address] [place] [address] [email or web address] 07/20/2025 1:00 PM EDT - 07/20/2025 2:25 PM EDT Surgery [facility] Cardiovascular And Interventional Radiology [address] [place] [address] Galen Contreras MD [address] [place] [address] [email or web address] PORT A CATH INSERTION (IR) 07/31/2025 7:40 AM EDT Appointment [facility] Laboratory [address] [place] [address] Prashant Gaspar, DO [address] [place] [address] [email or web address] 07/31/2025 8:30 AM EDT Office Visit [facility] at [address] [address] Marilee Kaminski FNP [address] [place] [address] [email or web address] 07/31/2025 9:[address] [facility] at [address] [address] Prashant Gaspar, DO [address] [place] [address] JAMI@[email or web address] Kaushal Feliz, RICHARDSON [address] [place] [address] [email or web address] 08/01/2025 2:[address] [facility] at [address] [address] Prashant Gaspar, DO [address] [place] [address] JAMI@[email or web address] Celine Peralta, RICHARDSON [address] [place] [address] [email or web address] 08/02/2025 2:[address] [facility] at [address] [address] Prashant Gaspar DO 30 [place] [address] [email or web address] Kimberly Nunes, RICHARDSON [address] [place] [address] [email or web address] 08/03/2025 4:00 PM EDT Infusion [facility] at [address] [address] Prashant Gaspar DO 30 [place] [address] [email or web address]@[email or web address] Salima Harris RN [address] [place] [address] [email or web address] documented as of this encounter Visit Diagnoses Not on filedocumented in this encounter Additional Health Concerns Infection Onset Date Last Indicated Resolved Time CoV-Risk Comment:Per note documentation 04/24/2023 04/24/2023 10:25 AM EDT CoV-Risk 05/31/2025 05/31/2025 06/11/2025 1:21 AM EDT documented as of this encounter Care Teams Outsole Handler Relationship Specialty Start Date End Date Celine Farley MD PCP - General 07/20/17 05/02/25 Hali Carlin PA [address] [place] [phone] PCP - General Physician Gusset Ripper 05/03/25 Prashant Gaspar DO [address] [place] [address] [email or web address] Primary Oncologist Hematology and Oncology 06/01/25 Sharon Hunter NP [address] [place] [address] [email or web address] Nurse Practitioner Medical Oncology 06/26/25 Marilee Kaminski FNP [address] [place] [address] [email or web address] Nurse Practitioner Medical Oncology 06/28/25 documented as of this encounter Additional Source Comments The information contained in this document represents components of the legal health record. It is not the complete legal health record.[facility]
--- OUTSIDE RECORDS SUMMARY | 2025-07-14 23:05 | XMS_ITS | Encounter Summary ---
Author Organization [facility] Address [address] [place] [address] Phone Care Team Providers Care Customer Order Clerk Name Role Phone Hali Carlin Primary Care Provider [phone] Prashant Gaspar DO Unavailable [phone] Sharon Hunter GOLD MINER BLASTING Unavailable [phone] Marilee Kaminski MATERIAL CHASER Unavailable [phone] Encounter Details Date Type Department Care Team (Late st Contact Info) Description 06/14/2025 Procedure Pass [facility], Ct Scan - [facility] [address] [place] [address] Social History Tobacco Use Types Packs/Day Years [...] housing situation today? I have allan sing 06/14/2025 How many times have you move [...] as food, clothing, or medical care? No 06/14/2025 In the past 12 months have y ou been in a relationship with a person who hurts, threatens, or tries to control you? No 06/14/2025 Are you denied basic needs s uch as food, clothing, or medical care? No 06/14/2025 In the past 12 months have y ou been in a relationship with a person who hurts, threatens, or tries to control you? No 06/14/2025 Comments Unknown Sex and Gender Information Value Date Recorded Sex Assigned at Female 04/23/2023 3:07 PM EDT Legal Sex Female 9:58 PM EDT Gender Identity Female 04/23/2023 3:07 PM EDT Sexual Orientation Straight 07/22/2023 4: 20 PM EDT documented as of this encounter Functional Status * Calculated C-SSRS Risk Score (Lifetime/Recent) Answer Date of Assessment Author No Risk Indicated 06/14/2025 1:18 PM EDT Astrid Tejeda, RN * [place] Suicide Severity Rating Scale (Screener/Recent Self-Report) Question Answer Date of Assessment Author 1. Wish to be (Past 1 Month) No 025 1:18 PM EDT Astrid Tejeda, RN 2. Non-Specific Active Suici raymond Thoughts (Past 1 Month) No 06/14/2025 1:18 PM EDT Astrid Tejeda, RN 6. Suicidal Behavior (Lifetime) No 1:18 PM EDT Astrid Tejeda RN documented as of this encounter Plan of Treatment Upcoming Encounters Date Type Department Care Team (Latest Contact Info) Description 07/20/2025 Procedure Pass [facility] Cardiovascular And Interventional Radiology [address] [place] [address] 07/20/2025 1:00 PM EDT Hospital Encounter [facility] Cardiovascular And Interventional Radiology [address] [place] [address] Galen Contreras MD [address] [place] [address] [email or web address] 07/20/2025 1:00 PM EDT - 07/20/2025 2:25 PM EDT Surgery [facility] Cardiovascular And Interventional Radiology [address] [place] [address] Galen Contreras MD [address] [place] [address] [email or web address] PORT A CATH INSERTION (IR) 07/31/2025 7:40 AM EDT Appointment [facility] Laboratory [address] [place] [address] Prashant Gaspar, DO [address] [place] [address] [email or web address] [place].[facility] 07/31/2025 8:30 AM EDT Office Visit [facility] at [address] [address] Marilee Kaminski FNP [address] [place] [address] 07/31/2025 9:[address] [facility] [place] at [address] [address] Prashant Gaspar, DO [address] [place] [address] LINDAMARIA R@[email or web address] Kaushal Feliz RN [address] [place] [address] [email or web address] 08/01/2025 2:40 PM EDT Infusion [facility] at [address] [address] Prashant Gaspar, [address] [address] [email or web address] Celine Peralta RN [address] [place] [address] [email or web address] 08/02/2025 2:40 PM EDT Infusion [facility] at [address] [address] Prashant Gaspar [address] [address] [email or web address] Kimberly Nunes RN [address] [place] [address] [email or web address] 08/03/2025 4:00 PM EDT Infusion [facility] at [address] [address] Prashant Gaspar [address] [address] [email or web address] Salima Harris RN [address] [place] [address] [email or web address] documented as of this encounter Visit Diagnoses Not on filedocumented in this encounter Care Teams Customer Order Clerk Relationship Specialty Start Date End Date Hali Carlin PA [address] [place] [phone] PCP - General Physician Asbestos Siding Installer 05/03/25 Prashant Gaspar DO [address] [place] [address] [email or web address] [email or web address] NOLAN Primary Oncologist Hematology and Oncology 06/01/25 Sharon Hunter NP [address] [place] [address] [email or web address] Nurse Practitioner Medical Oncology 06/26/25 Marilee Kaminski FNP [address] [place] [address] Nurse Practitioner Medical Oncology 06/28/25 documented as of this encounter Additional Source Comments The information contained in this document represents components of the legal health record. It is not the complete legal health record.[facility]
--- OUTSIDE RECORDS SUMMARY | 2025-07-14 23:05 | XMS_ITS | Encounter Summary ---
Author Organization [facility] Address [address] [place] [address] Phone Care Team Providers Care Vice President Digital Strategist Name Role Phone Hali Carlin Primary Care Provider [phone] Prashant Gaspar DO Unavailable [phone] Sharon Hunter TELEPHONE CLEANER Unavailable Marilee Kaminski GRINDING ROOM INSPECTOR Unavailable [phone] Encounter Details Date Type Department Care Team (Late st Contact Info) Description 06/14/2025 Procedure Pass [facility] [address] [place] [address] Social History Tobacco Use Types Packs/Day Years [...] 1:18 PM EDT Astrid Tejeda, RN * [place] Suicide Severity Rating Scale (Screener/Recent Self-Report) Question [...] (Latest Contact Info) Description 07/20/2025 Procedure Pass [facility] Cardiovascular And Interventional Radiology [address] [place] [address] 07/20/2025 1:00 PM EDT Hospital Encounter [facility] Cardiovascular And Interventional Radiology [address] [place] [address] Galen Contreras MD [address] [place] [address] [email or web address] 07/20/2025 1:00 PM EDT - 07/20/2025 2:25 PM EDT Surgery [facility] Cardiovascular And Interventional Radiology [address] [place] [address] Galen Contreras MD [address] [place] [address] [email or web address] PORT A CATH INSERTION (IR) 07/31/2025 7:40 AM EDT Appointment [facility] Laboratory [address] [place] [address] Prashant Gaspar, DO [address] [place] [address] [email or web address] 07/31/2025 8:30 AM EDT Office Visit [facility] at [address] [address] Marilee Kaminski FNP [address] [place] [address] 07/31/2025 9:20 AM EDT Infusion [facility] at [address] [address] Prashant Gaspar, DO [address] [place] [address] LINDAMARIA R@[email or web address] Kaushal Feliz RN [address] [place] [address] [email or web address] 08/01/2025 2:40 PM EDT Infusion [facility] [place] at [address] [address] Prashant Gaspar, [address] [address] [email or web address]@[email or web address] Celine Peralta RN [address] [place] [address] [email or web address] 08/02/2025 2:40 PM EDT Infusion [facility] at [address] [address] Prashant Gaspar [address] [address] [email or web address] Kimberly Nunes RN [address] [place] [address] [email or web address] 08/03/2025 4:00 PM EDT Infusion [facility] at [address] [address] Prashant Gaspar [address] [address] [email or web address]@[email or web address] Salima Harris RN [address] [place] [address] [email or web address] documented as of this encounter Visit Diagnoses Not on filedocumented in this encounter Care Teams Vice President Digital Strategist Relationship Specialty Start Date End Date Hali Carlin PA [address] [place] [phone] PCP - General Physician Latin Professor 05/03/25 Prashant Gaspar DO [address] [place] [address] [email or web address] Primary Oncologist Hematology and Oncology 06/01/25 Sharon Hunter NP [address] [place] [address] [email or web address] Nurse Practitioner Medical Oncology 06/26/25 Marilee Kaminski FNP [address] [place] [address] Nurse Practitioner Medical Oncology 06/28/25 documented as of this encounter Additional Source Comments The information contained in this document represents components of the legal health record. It is not the complete legal health record.[facility]
--- OUTSIDE RECORDS SUMMARY | 2025-07-14 23:05 | XMS_ITS | Encounter Summary ---
Author Organization [facility] Address [address] [place] [address] Phone Care Team Providers Care Seaman Officer Name Role Phone Hali Carlin Primary Care Provider [phone] Prashant Gaspar DO Unavailable [phone] Sharon Hunter UNDER WATER ASSISTANT Unavailable [phone] Marilee Kaminski RATING OFFICER Unavailable [phone] Encounter Details Date Type Department Care Team (Late st Contact Info) Description 06/14/2025 Procedure Pass [facility], Ct Scan - [facility] [address] [place] [address] Social History Tobacco Use Types Packs/Day Years [...] 1:18 PM EDT Astrid Tejeda, RN * [place] Suicide Severity Rating Scale (Screener/Recent Self-Report) Question [...] (Latest Contact Info) Description 07/20/2025 Procedure Pass [facility] Cardiovascular And Interventional Radiology [address] [place] [address] 07/20/2025 1:00 PM EDT Hospital Encounter [facility] Cardiovascular And Interventional Radiology [address] [place] [address] Galen Contreras MD [address] [place] [address] [email or web address] 07/20/2025 1:00 PM EDT - 07/20/2025 2:25 PM EDT Surgery [facility] Cardiovascular And Interventional Radiology [address] [place] [address] Galen Contreras MD [address] [place] [address] [email or web address] PORT A CATH INSERTION (IR) 07/31/2025 7:40 AM EDT Appointment [facility] Laboratory [address] [place] [address] Prashant Gaspar, DO [address] [place] [address] [email or web address] 07/31/2025 8:30 AM EDT Office Visit [facility] at [address] [address] Marilee Kaminski FNP [address] [place] [address] 07/31/2025 9:20 AM EDT Infusion [facility] [place] at [address] [address] Prashant Gaspar, DO 30 [place] [address] LINDAMARIA R@[email or web address] Kaushal Feliz RN [address] [place] [address] [email or web address] 08/01/2025 2:40 PM EDT Infusion [facility] at [address] [address] Prashant Gaspar, [address] [address] [email or web address]@[email or web address] Celine Peralta RN [address] [place] [address] [email or web address] 08/02/2025 2:40 PM EDT Infusion [facility] at [address] [address] Prashant Gaspar [address] [address] LINDAOME@[email or web address] Kimberly Nunes RN [address] [place] [address] [email or web address] 08/03/2025 4:00 PM EDT Infusion [facility] at [address] [address] Prashant Gaspar [address] [address] JAMI@[email or web address] Salima Harris RN [address] [place] [address] [email or web address] documented as of this encounter Visit Diagnoses Not on filedocumented in this encounter Care Teams Seaman Officer Relationship Specialty Start Date End Date Hali Carlin PA [address] [place] [phone] PCP - General Physician Communications Instructor 05/03/25 Prashant Gaspar DO [address] [place] [address] [email or web address]@[email or web address] Primary Oncologist Hematology and Oncology 06/01/25 Sharon Hunter NP [address] [place] [address] [email or web address] Nurse Practitioner Medical Oncology 06/26/25 Marilee Kaminski FNP [address] [place] [address] Nurse Practitioner Medical Oncology 06/28/25 documented as of this encounter Additional Source Comments The information contained in this document represents components of the legal health record. It is not the complete legal health record.[facility]
--- OUTSIDE RECORDS SUMMARY | 2025-07-14 23:05 | XMS_ITS | Encounter Summary ---
Author Organization [facility] Address [address] [place] [address] Phone Care Team Providers Care Call Center Coordinator Name Role Phone Hali Carlin Primary Care Provider [phone] Prashant Gaspar DO Unavailable [phone] Sharon Hunter WET ROASTER Unavailable [phone] Marilee Kaminski TEST ENGINE EVALUATOR Unavailable [phone] Encounter Details Date Type Department Care Team (Late st Contact Info) Description 06/14/2025 Procedure Pass [facility] [address] [place] [address] Social History Tobacco Use Types Packs/Day Years [...] 1:18 PM EDT Astrid Tejeda, RN * [place] Suicide Severity Rating Scale (Screener/Recent Self-Report) Question [...] Info) Description 07/20/2025 Procedure Pass [facility] Cardiovascular And Interventional Radiology [address] [place] [address] 07/20/2025 1:00 PM EDT Hospital Encounter [facility] Cardiovascular And Interventional Radiology [address] [place] [address] Galen Contreras MD [address] [place] [address] [email or web address] 07/20/2025 1:00 PM EDT - 07/20/2025 2:25 PM EDT Surgery [facility] Cardiovascular And Interventional Radiology [address] [place] [address] Galen Contreras MD [address] [place] [address] [email or web address] PORT A CATH INSERTION (IR) 07/31/2025 7:40 AM EDT Appointment [facility] Laboratory [address] [place] [address] Prashant Gaspar, DO [address] [place] [address] [email or web address] 07/31/2025 8:30 AM EDT Office Visit [facility] at [address] [address] Marilee Kaminski FNP [address] [place] [address] 07/31/2025 9:20 AM EDT Infusion [facility] at [address] [address] Prashant Gaspar, DO 30 [place] [address] JAMI@[email or web address] Kaushal Feliz RN [address] [place] [address] [email or web address] 08/01/2025 2:40 PM EDT Infusion [facility] at [address] [address] Prashant Gaspar, DO [address] [place] [address] LINDAOME@[email or web address] Celine Peralta RN [address] [place] [address] [email or web address] 08/02/2025 2:40 PM EDT Infusion [facility] at [address] [address] Prashant Gaspar, DO [address] [place] [address] JAMI@[facility] Kimberly Nunes RN [address] [place] [address] [email or web address] 08/03/2025 4:00 PM EDT Infusion [facility] at [address] [address] Prashant Gaspar, DO [address] [place] [address] JAMI@[facility] Salima Harris RN [address] [place] [address] [email or web address] documented as of this encounter Visit Diagnoses Not on filedocumented in this encounter Care Teams Call Center Coordinator Relationship Specialty Start Date End Date Hali Carlin PA [address] [place] [phone] PCP - General Physician Critical Care Registered Nurse 05/03/25 Prashant Gaspar DO [address] [place] [address] [email or web address] Primary Oncologist Hematology and Oncology 06/01/25 Sharon Hunter NP [address] [place] [address] [email or web address] Nurse Practitioner Medical Oncology 06/26/25 Marilee Kaminski FNP [address] [place] [address] [email or web address] Nurse Practitioner Medical Oncology 06/28/25 documented as of this encounter Additional Source Comments The information contained in this document represents components of the legal health record. It is not the complete legal health record.[facility]
--- OUTSIDE RECORDS SUMMARY | 2025-07-14 23:05 | XMS_ITS | Encounter Summary ---
Author Organization [facility] Address [address] [place] [address] Phone Care Team Providers Care Apple Picking Supervisor Name Role Phone Hali Carlin Primary Care Provider [phone] Prashant Gaspar DO Unavailable [phone] Sharon Hunter DATA SYSTEMS ANALYST Unavailable [phone] Marilee Kaminski DIGITAL MANAGER Unavailable [phone] Encounter Details Date Type Department Care Team (Late st Contact Info) Description 07/05/2025 Procedure Pass [facility], Ct Scan - [facility] [address] [place] [address] Social History Tobacco Use Types Packs/Day Years [...] 7:07 PM EDT Vangie Villa, RN * [place] Suicide Severity Rating Scale (Screener/Recent Self-Report) Question [...] Procedure Pass [facility] Cardiovascular And Interventional Radiology [address] [place] [address] 07/20/2025 1:00 PM EDT Hospital Encounter [facility] Cardiovascular And Interventional Radiology [address] [place] [address] Galen Contreras MD [address] [place] [address] [email or web address] 07/20/2025 1:00 PM EDT - 07/20/2025 2:25 PM EDT Surgery [facility] Cardiovascular And Interventional Radiology [address] [place] [address] Galen Contreras MD [address] [place] [address] [email or web address] PORT A CATH INSERTION (IR) 07/31/2025 7:40 AM EDT Appointment [facility] Laboratory [address] [place] [address] Prashant Gaspar, DO [address] [place] [address] [email or web address] [place] 07/31/2025 8:30 AM EDT Office Visit [facility] at [address] [address] Marilee Kaminski FNP [address] [place] [address] 07/31/2025 9:20 AM EDT Infusion [facility] [place] at [address] [address] Prashant Gaspar, DO [address] [place] [address] LINDAMARIA R@[email or web address] Kaushal Feliz RN [address] [place] [address] [email or web address] [email or web address] 08/01/2025 2:40 PM EDT Infusion [facility] at [address] [address] Prashant Gaspar, [address] [address] LINDAOME@[facility] Celine Peralta RN [address] [place] [address] [email or web address] [email or web address] 08/02/2025 2:40 PM EDT Infusion [facility] at [address] [address] Prashant Gaspar [address] [address] LINDAOME@[facility] Kimberly Nunes RN [address] [place] [address] [email or web address] [email or web address] 08/03/2025 4:00 PM EDT Infusion [facility] at [address] [address] Prashant Gaspar [address] [address] JAMI@[facility] Salima Harris RN [address] [place] [address] [email or web address] [email or web address] documented as of this encounter Visit Diagnoses Not on filedocumented in this encounter Care Teams Apple Picking Supervisor Relationship Specialty Start Date End Date Hali Carlin PA [address] [place] [phone] PCP - General Physician Medical Equipment Repair Technician 05/03/25 Prashant Gaspar DO [address] [place] [address] [email or web address]@[email or web address] [email or web address].E NOLAN Primary Oncologist Hematology and Oncology 06/01/25 Sharon Hunter NP [address] [place] [address] [email or web address] [email or web address] Nurse Practitioner Medical Oncology 06/26/25 Marilee Kaminski FNP [address] [place] [address] Nurse Practitioner Medical Oncology 06/28/25 documented as of this encounter Additional Source Comments The information contained in this document represents components of the legal health record. It is not the complete legal health record.[facility]
--- OUTSIDE RECORDS SUMMARY | 2025-07-14 23:05 | XMS_ITS | Encounter Summary ---
Author Organization [facility] Address [address] [place] [address] Phone Care Team Providers Care Grain Sacker Name Role Phone Celine Farley MD Primary Care Provider Unavailable Hali Carlin Primary Care Provider [phone] Prashant Gaspar DO Unavailable [phone] Sharon Hunter CANDLE MOLDER HAND Unavailable [phone] Marilee KaminskiP Unavailable Encounter Details Date Type Department Care Team (Late st Contact Info) Description 07/22/2023 Procedure Pass [facility], Ct Scan - [facility] [address] [place] [address] Social History Tobacco Use Types Packs/Day Years [...] Date of Assessment Author No Risk Indicated 07/22/2023 4:20 PM EDT Helen Stauffer RN * [place] Suicide Severity Rating Scale (Screener/Recent Self-Report) Question Answer Date of Assessment Author 1. Wish to be (Past 1 Month) No 07/22/2023 4:20 PM EDT Helen Stauffer RN 2. Non-Specific Active Suici raymond Thoughts (Past 1 Month) No 07/22/2023 4:20 PM EDT Patrick Stauffer RN documented as of this encounter Plan of Treatment Upcoming Encounters Date Type Department Care Team (Latest Contact Info) Description 07/20/2025 Procedure Pass [facility] Cardiovascular And Interventional Radiology [address] [place] [address] 07/20/2025 1:00 PM EDT Hospital Encounter [facility] Cardiovascular And Interventional Radiology [address] [place] [address] Galen Contreras MD [address] [place] [address] [email or web address] 07/20/2025 1:00 PM EDT - 07/20/2025 2:25 PM EDT Surgery [facility] Cardiovascular And Interventional Radiology [address] [place] [address] Galen Contreras MD [address] [place] [address] [email or web address] PORT A CATH INSERTION (IR) 07/31/2025 7:40 AM EDT Appointment [facility] [address] [place] [address] Prashant Gaspar, DO [address] [place] [address] [email or web address] 07/31/2025 8:30 AM EDT Office Visit [facility] at [address] [address] Marilee Kaminski FNP [address] [place] [address] [email or web address] 07/31/2025 9:20 AM EDT Infusion [facility] at [address] [address] Prashant Gaspar, DO [address] [place] [address] [email or web address] Kaushal Feliz, RICHARDSON [address] [place] [address] [email or web address] 08/01/2025 2:40 PM EDT Infusion [facility] at [address] [address] Prashant Gaspar, DO [address] [place] [address] [email or web address] Celine Peralta, RN [address] [place] [address] [email or web address] 08/02/2025 2:40 PM EDT Infusion [facility] at [address] [address] Prashant Gaspar, DO [address] [place] [address] [email or web address] Kimberly Nunes, RICHARDSON [address] [place] [address] 08/03/2025 4:00 PM EDT Infusion [facility] [address] [place] [address] Prashant Gaspar DO [address] [place] [address] [email or web address] Salima Harris RN [address] [place] [address] [email or web address] documented as of this encounter Visit Diagnoses Not on filedocumented in this encounter Additional Health Concerns Infection Onset Date Last Indicated Resolved Time CoV-Risk 05/31/2025 05/31/2025 06/11/2025 1:21 AM EDT documented as of this encounter Care Teams Grain Sacker Relationship Specialty Start Date End Date Celine Farley MD PCP - General 07/20/17 05/02/25 Hali Carlin PA [address] [place] [phone] PCP - General Physician Disk Operator 05/03/25 Prashant Gaspar DO [address] [place] [address] [email or web address] Primary Oncologist Hematology and Oncology 06/01/25 Sharon Hunter NP [address] [place] [address] [email or web address] Nurse Practitioner Medical Oncology 06/26/25 Marilee Kaminski FNP [address] [place] [address] [email or web address] Nurse Practitioner Medical Oncology 06/28/25 documented as of this encounter Additional Source Comments The information contained in this document represents components of the legal health record. It is not the complete legal health record.[facility]
--- OUTSIDE RECORDS SUMMARY | 2025-07-14 23:05 | XMS_ITS | Encounter Summary ---
Author Organization [facility] Address [address] [place] [address] Phone Care Team Providers Care Alarm Security Or Surveillance Monitor Name Role Phone Hali Carlin Primary Care Provider [phone] Prashant Gaspar DO Unavailable [phone] hSaron Hunter CHARGE AUTHORIZER Unavailable [phone] Marilee Kaminski DIGITAL TECH Unavailable [phone] Encounter Details Date Type Department Care Team (Late st Contact Info) Description 07/05/2025 Procedure Pass [facility], Ct Scan - [facility] [address] [place] [address] Social History Tobacco Use Types Packs/Day Years [...] 7:07 PM EDT Vangie Villa, RN * [place] Suicide Severity Rating Scale (Screener/Recent Self-Report) Question [...] (Latest Contact Info) Description 07/20/2025 Procedure Pass [facility] Cardiovascular And Interventional Radiology [address] [place] [address] 07/20/2025 1:00 PM EDT Hospital Encounter [facility] Cardiovascular And Interventional Radiology [address] [place] [address] Galen Contreras MD [address] [place] [address] [email or web address] 07/20/2025 1:00 PM EDT - 07/20/2025 2:25 PM EDT Surgery [facility] Cardiovascular And Interventional Radiology [address] [place] [address] Galen Contreras MD [address] [place] [address] [email or web address] PORT A CATH INSERTION (IR) 07/31/2025 7:40 AM EDT Appointment [facility] Laboratory [address] [place] [address] Prashant Gaspar, DO [address] [place] [address] [email or web address] 07/31/2025 8:30 AM EDT Office Visit [facility] at [address] [address] Marilee Kaminski FNP [address] [place] [address] 07/31/2025 9:20 AM EDT Infusion [facility] [place] at [address] [address] Prashant Gaspar, DO [address] [place] [address] LINDAMARIA [email or web address] Kaushal Feliz RN [address] [place] [address] [email or web address] 08/01/2025 2:40 PM EDT Infusion [facility] at [address] [address] Prashant Gaspar, [address] [address] [email or web address] Celine Peralta RN [address] [place] [address] [email or web address] 08/02/2025 2:40 PM EDT Infusion [facility] at [address] [address] Prashant Gaspar [address] [address] [email or web address] Kimberly Nunes RN [address] [place] [address] [email or web address] 08/03/2025 4:00 PM EDT Infusion [facility] at [address] [address] Prashant Gaspar [address] [address] [email or web address]@[email or web address] Salima Harris RN [address] [place] [address] [email or web address] documented as of this encounter Visit Diagnoses Not on filedocumented in this encounter Care Teams Alarm Security Or Surveillance Monitor Relationship Specialty Start Date End Date Hali Carlni PA [address] [place] [phone] PCP - General Physician Machine Greaser 05/03/25 Prashant Gaspar DO [address] [place] [address] [email or web address] Primary Oncologist Hematology and Oncology 06/01/25 Sharon Hunter NP [address] [place] [address] [email or web address] Nurse Practitioner Medical Oncology 06/26/25 Marilee Kaminski FNP [address] [place] [address] Nurse Practitioner Medical Oncology 06/28/25 documented as of this encounter Additional Source Comments The information contained in this document represents components of the legal health record. It is not the complete legal health record.[facility]
--- OUTSIDE RECORDS SUMMARY | 2025-07-14 23:05 | XMS_ITS | Encounter Summary ---
Author Organization [facility] Address [address] [place] [address] Phone Care Team Providers Care Plaster Maker Name Role Phone Hali Carlin Primary Care Provider [phone] Prashant Gaspar DO Unavailable [phone] Sharon Hunter DUMPER BAILER OPERATOR Unavailable [phone] Marilee Kaminski LAUNCH ENGINEER Unavailable [phone] Encounter Details Date Type Department Care Team (Late st Contact Info) Description 05/31/2025 Procedure Pass [facility], Ct Scan - [facility] [address] [place] [address] Social History Tobacco Use Types Packs/Day Years [...] as food, clothing, or medical care? No 05/30/2025 In the past 12 months have y ou been in a relationship with a person who hurts, threatens, or tries to control you? No 05/30/2025 Are you denied basic needs s uch as food, clothing, or medical care? No 05/30/2025 In the past 12 months have y ou been in a relationship with a person who hurts, threatens, or tries to control you? No 05/30/2025 Comments Unknown Sex and Gender Information Value [...] Procedure Pass [facility] [address] [place] [address] 07/20/2025 1:00 PM EDT Hospital Encounter [facility] [address] [place] [address] Galen Contreras MD [address] [place] [address] [email or web address] 07/20/2025 1:00 PM EDT - 07/20/2025 2:25 PM EDT Surgery [facility] Cardiovascular And Interventional Radiology [address] [place] [address] Galen Contreras MD [address] [place] [address] [email or web address] PORT A CATH INSERTION (IR) 07/31/2025 7:40 AM EDT Appointment [facility] [address] [place] [address] Prashant Gaspar, DO [address] [place] [address] [email or web address] 07/31/2025 8:30 AM EDT Office Visit [facility] at [address] [address] Marilee Kaminski FNP [address] [place] [address] 07/31/2025 9:20 AM EDT Infusion [facility] at [address] [address] Prashant Gaspar, DO [address] [place] [address] [email or web address] Kaushal Feliz, RICHARDSON [address] [place] [address] [email or web address] 08/01/2025 2:40 PM EDT Infusion [facility] at [address] [address] Prashant Gaspar, DO [address] [place] [address] [email or web address] Celine Peralta, RN [address] [place] [address] [email or web address] 08/02/2025 2:40 PM EDT Infusion [facility] at [address] [address] Prashant Gaspar DO [address] [place] [address] [email or web address]@[email or web address] Kimberly Nunes, RICHARDSON [address] [place] [address] [email or web address] 08/03/2025 4:00 PM EDT Infusion [facility] at [address] [address] Prashant Gaspar DO [address] [place] [address] [email or web address]@[email or web address] Salima Harris RN [address] [place] [address] [email or web address] documented as of this encounter Visit Diagnoses Not on filedocumented in this encounter Additional Health Concerns Infection Onset Date Last Indicated Resolved Time CoV-Risk 05/31/2025 05/31/2025 06/11/2025 1:21 AM EDT documented as of this encounter Care Teams Plaster Maker Relationship Specialty Start Date End Date Hali Carlin PA [address] [place] [address] [phone] PCP - General Physician Employment Evaluator/Case Manager 05/03/25 Prashant Gaspar DO [address] [place] [address] [email or web address] Primary Oncologist Hematology and Oncology 06/01/25 Sharon Hunter, EVA [address] [place] [address] [email or web address] Nurse Practitioner Medical Oncology 06/26/25 Marilee Kaminski FNP [address] [place] [address] [email or web address] Nurse Practitioner Medical Oncology 06/28/25 documented as of this encounter Additional Source Comments The information contained in this document represents components of the legal health record. It is not the complete legal health record.[facility]
--- OUTSIDE RECORDS SUMMARY | 2025-07-14 23:05 | XMS_ITS | Encounter Summary ---
Author Organization [facility] Address [address] [place] [address] Phone Care Team Providers Care Iron Installer Name Role Phone Hali Carlin Primary Care Provider [phone] Prashant Gaspar DO Unavailable [phone] Sharon Hunter LUNCHROOM WORKER Unavailable [phone] Marilee Kaminski MELTING SUPERVISOR Unavailable [phone] Encounter Details Date Type Department Care Team (Late st Contact Info) Description 06/14/2025 Procedure Pass [facility], Ct Scan - [facility] [address] [place] [address] Social History Tobacco Use Types Packs/Day Years [...] 1:18 PM EDT Astrid Tejeda, RN * [place] Suicide Severity Rating Scale (Screener/Recent Self-Report) Question [...] (Latest Contact Info) Description 07/20/2025 Procedure Pass [facility] Cardiovascular And Interventional Radiology [address] [place] [address] 07/20/2025 1:00 PM EDT Hospital Encounter [facility] Cardiovascular And Interventional Radiology [address] [place] [address] Galen Contreras MD [address] [place] [address] [email or web address] 07/20/2025 1:00 PM EDT - 07/20/2025 2:25 PM EDT Surgery [facility] Cardiovascular And Interventional Radiology [address] [place] [address] Galen Contreras MD [address] [place] [address] [email or web address] PORT A CATH INSERTION (IR) 07/31/2025 7:40 AM EDT Appointment [facility] Laboratory [address] [place] [address] Prashant Gaspar, DO [address] [place] [address] [email or web address] 07/31/2025 8:30 AM EDT Office Visit [facility] at [address] [address] Marilee Kaminski FNP [address] [place] [address] 07/31/2025 9:20 AM EDT Infusion [facility] [place] at [address] [address] Prashant Gaspar, DO [address] [place] [address] LINDAMARIA [email or web address] Kaushal Feliz RN [address] [place] [address] [email or web address] 08/01/2025 2:40 PM EDT Infusion [facility] at [address] [address] Prashant Gaspar, [address] [address] [email or web address] Celine Peralta RN [address] [place] [address] [email or web address] 08/02/2025 2:40 PM EDT Infusion [facility] at [address] [address] Prashant Gaspar [address] [address] [email or web address] Kimberly Nunes RN [address] [place] [address] [email or web address] 08/03/2025 4:00 PM EDT Infusion [facility] at [address] [address] Prashant Gaspar [address] [address] [email or web address] Salima Harris RN [address] [place] [address] [email or web address] documented as of this encounter Visit Diagnoses Not on filedocumented in this encounter Care Teams Iron Installer Relationship Specialty Start Date End Date Hali Carlin PA [address] [place] [phone] PCP - General Physician Cheese Tester 05/03/25 Prashant Gaspar DO [address] [place] [address] [email or web address] Primary Oncologist Hematology and Oncology 06/01/25 Sharon Hunter NP [address] [place] [address] [email or web address] Nurse Practitioner Medical Oncology 06/26/25 Marilee Kaminski FNP [address] [place] [address] Nurse Practitioner Medical Oncology 06/28/25 documented as of this encounter Additional Source Comments The information contained in this document represents components of the legal health record. It is not the complete legal health record.[facility]
[2025-07-14 23:06] LABS: MANUAL DIFF FLAG NO
[2025-07-14 23:07] LABS: Hematocrit 30.5 % (37.0-47.0); Hemoglobin 9.9 g/dl (12.0-16.0); Imm Gran Abs Auto 0.25 X10*3/uL (0.00-0.03); Imm Gran Pct Auto 2.0 % (0.0-0.4); Lymphocytes Absolute Auto 2.0 X10*3/uL (1.2-4.9); Mean Corpuscular HGB Conc 32.5 g/dl (31.0-35.0); Mean Corpuscular Hemoglobin 29.7 pg (27.0-33.0); Mean Corpuscular Volume 91.6 fL (80.0-98.0); NRBC Abs Auto 0.030 X10*3/uL (0.0-0.012); NRBC Pct Auto 0.2 /100WBC (0.0-0.2); Platelet Count 663 X10*3/uL (160-400); Red Blood Count 3.33 X10*6/uL (4.20-5.50); White Blood Count 12.5 X10*3/uL (4.8-10.8)
--- NOTE | 2025-07-14 23:11 | PC.NURSE ---
took over for RICHARDSON Page, pt awaiting to be seen.
[2025-07-14 23:20] LABS: Alanine Aminotransferase 27 U/L (0-31); Albumin Level 3.1 g/dL (3.5-5.0); Alkaline Phosphatase 433 U/L (39-117); Anion Gap 11 (12-20); Aspartate Amino Transferase 59 U/L (5-31); Blood Urea Nitrogen 9 mg/dL (9-16); Calcium 8.4 mg/dL (8.4-10.2); Carbon Dioxide 27 mmol/L (22-29); Chloride 109 mmol/L (96-108); Creatinine Clr Calc Pharmacy 46.4; Estimated Glomerular Filt Rate > 60; Magnesium 1.5 mg/dL (1.6-2.6); Potassium 3.2 mmol/L (3.3-5.1); Sodium 144 mmol/L (135-145); Total Protein 6.6 g/dL (6.5-8.0)
--- NOTE | 2025-07-14 23:23 | PC.NURSE ---
pt a&o, no sign of distress at this time, warm blanket given.
[2025-07-14 23:27] LABS: Troponin-I High Sensitivity 35.0 ng/L (<3.5-17.0)
[2025-07-15 00:16] VITALS: BP 149/86; PULSE 74; RESP 17; TEMP 36.8; O2SAT 95
--- NOTE | 2025-07-15 00:38 | ED.GENADULT ---
HPI - General Adult General Chief complaint: General Medical Stated complaint: right ankle pain,fell today Time Seen by Provider: 07/15/25 00:38 Source: patient Mode of arrival: ambulatory Limitations: no limitations History of Present Illness ED Provider: Dr. Kati Harrington HPI narrative: 70-year-old female with history of metastatic lung cancer to the liver, presenting with multiple complaints. Patient reports that she has been feeling dizzy lately and has fallen multiple times over the last couple of weeks. She has been having chest pain ever since she had an endoscopy with biopsy on 07/07/2025 at [facility]. States that she has been calling her doctors about this pain but no one seems to be paying attention to her. She feels lightheaded and dizzy and feels as though she is losing a ton of weight due to chemotherapy. Describes nausea and vomiting which is also poorly controlled. Today she fell and twisted her right ankle. She hit the corner of her ankle on a cabinet and feels as though that her biggest issue right now. She did not hit her head or lose consciousness. She has been having intermittent chest discomfort associated with the biopsy but is unable to tell me what type of biopsy she had. She thinks it might have been in her stomach. No hematochezia, hematemesis, hemoptysis or other bleeding. Denies fever. Very tearful and anxious about her diagnosis and not being able to care for her pets. Related Data Previous Rx's ?Medication ?Instructions ?Recorded oxycodone 5 mg capsule 5 mg PO Q6H PRN pain #12 caps 07/15/25 polyethylene glycol 3350 17 17 g PO DAILY #238 grams 07/17/25 gram/dose oral powder (Miralax) Allergies Allergy/AdvReac Type Severity Reaction Status Date / Time Penicillins Allergy Unknown Verified 07/17/25 17:35 Sulfa (Sulfonamide Allergy Unknown Verified 07/17/25 17:35 Antibiotics) Review of Systems Review of Systems: as per HPI, full review of systems performed and negative but for the above mentioned pertinent positives and negatives. Physical Exam ED Exam Exam: GENERAL: Anxious, tearful, chronically ill appearing. SKIN: Normal skin color for ethnicity, warm, dry, intact, no rashes noted. HEENT: Normocephalic, atraumatic, no stridor, posterior oropharynx nonerythematous, dentition intact, EOMI. NECK: Soft, supple, full ROM, midline structures nontender, no step-offs, no deformities, no lymphadenopathy. CHEST: Heart regular tachycardia, no murmurs, symmetric chest rise and fall, no crepitus. PULMONARY: Clear to auscultation bilaterally, no labored breathing, no wheezes/rhales/ rhonchi. ABDOMINAL: Soft, nondistended, nontender, positive bowel sounds in all quadrants. : Deferred. MUSCULOSKELETAL: Normal tone, full range of motion, no deformities, no peripheral edema. NEURO: Alert and oriented x3, CN II through XII intact, equal strength and sensation bilateral upper and lower extremities, no focal neurologic deficits. PSYCHIATRIC: Anxious affect, tearful, fluid speech, good eye contact and appropriate demeanor. Vital Signs: Vital Signs - 24 hr 07/14/25 22:15 07/15/25 00:16 07/15/25 04:55 Temperature 97 F 98.3 F 97.5 F Pulse Rate 91 74 91 Respiratory Rate 18 17 16 Blood Pressure 163/80 H 149/86 H 139/65 Pulse Oximetry 96 95 96 Oxygen Delivery Method Room Air Room Air Room Air BMI result Body Mass Index 24.4 Medications Administered Discontinued Medications Generic Name Dose Route Start Last Admin Trade Name Freq PRN Reason Stop Dose Admin Hydromorphone HCl 0.5 mg 07/15/25 01:08 07/15/25 01:46 Hydromorphone Hcl 0.5 Mg/0.5 Ml Syringe IVPUSH 07/15/25 01:09 0.5 mg ONCE ONE Administration Protocol Iohexol 65 ml 07/15/25 02:55 07/15/25 02:59 Iohexol 350 Mg/Ml 100 Ml Infus..Btl IV 07/15/25 02:56 65 ml ONCE ONE Administration Ondansetron HCl 4 mg 07/15/25 01:08 07/15/25 01:44 Ondansetron Hcl 4 Mg/2 Ml Vial IVPUSH 07/15/25 01:09 4 mg ONCE ONE Administration Medical Decision Making Medical Decision Making MDM Narrative: Patient presents today with a chief complaint of chest pain, among other things. Differential diagnosis includes, but is not limited to, acute coronary syndrome, musculoskeletal pain, pneumothorax, GERD, pleurisy, pulmonary embolism, dissection, among others. I will order EKG, chest x-ray, laboratory workup including cardiac enzymes to further evaluate for etiology. Workup has been rather reassuring. Somewhat low potassium but otherwise she is actually doing ok given her current cancer treatments. She is very depleted and her morale is low. XR does not show any fractures. PE study is negative. She is ambulatory to the restroom without assistance. Very steady on her feet. After an extensive discussion regarding goals of care, patient is wanting to go home to follow-up with her doctors and continue treatment as discussed. I encouraged her to use pain medication as needed. She is very hesitant to take medications because she does not want to get sicker but she is very uncomfortable with this metastatic cancer and her prognosis seems to be very poor. Using shared decision making, plan for discharge home to follow-up with primary care and/or specialist. Patient understands and agrees with plan for discharge. Discharged home in stable condition. Differential Diagnosis Differential Diagnoses: The differential diagnosis associated with the presentation includes (as above) Admission/Observation Consideration of admission/observation: Escalation of care including admission/observation considered Lab Data MDM Lab Attestation statement: I reviewed the patient's lab results. 07/14/25 23:02 07/14/25 23:02 Labs: Lab Results 07/14/25 07/15/25 Range/Units 23:02 01:21 WBC 12.5 H (4.8-10.8) X10*3/uL RBC 3.33 L (4.20-5.50) X10*6/uL Hgb 9.9 L (12.0-16.0) g/dl Hct 30.5 L (37.0-47.0) % MCV 91.6 (80.0-98.0) fL MCH 29.7 (27.0-33.0) pg MCHC 32.5 (31.0-35.0) g/dl RDW 17.0 H (11.0-16.0) % Plt Count 663 H (160-400) X10*3/uL MPV 9.9 (9.4-12.3) fL Immature Gran % (Auto) 2.0 H (0.0-0.4) % Neut % (Auto) 69.7 (45-73) % Lymph % (Auto) 15.7 L (20-40) % Mccone % (Auto) 11.9 H (2-11) % Eos % (Auto) 0.0 (0-4) % Baso % (Auto) 0.7 (0-2) % Lymph # (Auto) 2.0 (1.2-4.9) X10*3/uL Mccone # (Auto) 1.5 H (0.1-1.2) X10*3/uL Eos # (Auto) 0.0 (0.0-0.4) X10*3/uL Baso # (Auto) 0.1 (0.0-0.2) X10*3/uL Abs Immat Gran (auto) 0.25 H (0.00-0.03) X10*3/uL Absolute Neuts (auto) 8.7 H (2.0-8.3) x10*3/uL Absolute Nucleated RBC 0.030 H (0.0-0.012) X10*3/uL Nucleated RBC % (auto) 0.2 (0.0-0.2) /100WBC D-Dimer High Sensitivty 372 NG/ML Sodium 144 (135-145) mmol/L Potassium 3.2 L (3.3-5.1) mmol/L Chloride 109 H (96-108) mmol/L Carbon Dioxide 27 (22-29) mmol/L Anion Gap 11 L (12-20) BUN 9 (9-16) mg/dL Creatinine 0.90 (0.5-1.4) mg/dL Estim Creat Clear Calc 46.4 Estimated GFR > 60 Random Glucose 108 (60-115) mg/dL Calcium 8.4 (8.4-10.2) mg/dL Magnesium 1.5 L (1.6-2.6) mg/dL Total Bilirubin 0.3 (0.0-1.0) mg/dL AST 59 H (5-31) U/L ALT 27 (0-31) U/L Alkaline Phosphatase 433 H (39-117) U/L Troponin I High Sens 35.0 H 9.6 D (<3.5-17.0) ng/L NT-Pro-B Natriuret Pep 974.8 H (<300) pg/mL Total Protein 6.6 (6.5-8.0) g/dL Albumin 3.1 L (3.5-5.0) g/dL Independent Interpretation I performed an independent interpretation of an: EKG Radiology Impression Discussion of test interpretation with radiology: I have reviewed the radiologist's reading. Radiologist Impression: CT angiography chest with contrast. 3D Postprocessing. Comparison: None provided Findings: There is no pulmonary embolism. Heart size is within normal limits. There is no pericardial effusion. There is coronary artery calcification. Thoracic aorta is normal in diameter without dissection. There are no enlarged lymph nodes. There is mucus plugging within a subsegmental left lower lobe bronchus with associated subsegmental atelectasis. There is minimal bilateral dependent atelectasis. There is no consolidation or effusion. There are mild inferior endplate compression fractures of T3 and T12. There is a faintly visible fracture line in the inferior endplate of T12. There is no retropulsion. Alignment of the thoracic spine is normal. There is no suspicious lytic or sclerotic lesion. Limited images of the upper abdomen demonstrate numerous hypodense lesions throughout the liver. IMPRESSION: 1. No pulmonary embolism. 2. Mild T12 compression fracture which may be acute or subacute. Age-indeterminate mild T3 compression fracture. Comparison with prior imaging would be helpful. 3. Numerous hypodense lesions throughout the liver suggestive of metastases. Correlate with oncologic history and prior imaging. Independent Historian Clinical information obtained from an independent historian. History obtained from or confirmed by: Spouse Prescription Management I considered prescription management with: Pain Medication Chronic Conditions Patient?s care impacted by: Cancer Discharge Plan Discharge Clinical Impression: Status post biopsy, Acute chest pain, Metastatic cancer Patient Disposition: Home, Self-Care Instructions: Chest Pain (ED) Additional Instructions: DIAGNOSIS & TREATMENT: You were seen in the Emergency Department for your chest discomfort. We performed an EKG, laboratory work and chest CT which did not reveal any acute abnormalities that would explain your symptoms. FURTHER CARE: We have not found any emergent physical exam or lab abnormalities that would require admission to the hospital today. Many people who come to the ER with chest discomfort do not leave with a specific diagnosis at the end of their visit. In the Emergency Department we try to make sure that there is no emergent problem that needs admission to the hospital or antibiotics right now. This does not mean that your evaluation is complete--please be sure to follow up with your regular doctor and your cancer doctor as scheduled since additional testing as an outpatient may be indicated. Please be certain to drink plenty of fluids over the next several days. WHEN YOU SHOULD BE SEEN NEXT: Please follow-up with your primary care provider within the next 2-3 days for reevaluation of your symptoms. WHEN TO RETURN TO THE ED: Monitor your symptoms closely and return to the emergency department immediately for any new/worsening symptoms including: Worsening chest pain, difficulty breathing, fevers greater than 100 degrees, passing out, any new symptom that concerns you. Call 911 with any medical emergency. Prescriptions: New oxycodone 5 mg capsule 5 mg PO Q6H PRN (Reason: pain) Qty: 12 0RF Rx Instructions: Partial Fill upon patient request. No Action polyethylene glycol 3350 [Miralax] 17 gram/dose powder 17 g PO DAILY Qty: 238 0RF Interventions: ED Discharge Assessment Last Done: 07/15/25 05:30 Discharge Date/Time: 07/15/25 06:37 Print Language: Turkmen
[2025-07-15 01:42] LABS: D Dimer High Sensitivity 372 NG/ML
[2025-07-15 01:46] LABS: NT Pro B Type Natriuretic Pept 974.8 pg/mL (<300); Troponin-I High Sensitivity 9.6 ng/L (<3.5-17.0)
[2025-07-15] MEDS: iohexoL 350 MG/ML 100 ML INFUS..BTL 65 ML IV (02:59)
--- NOTE | 2025-07-15 03:01 | PC.NURSE ---
pt back from CT Scan, awaiting results and disposition.
--- NOTE | 2025-07-15 04:07 | PC.NURSE ---
no sign of distress, resting at this time.
[2025-07-15 04:55] VITALS: BP 139/65; PULSE 91; RESP 16; TEMP 36.4; O2SAT 96
[2025-07-15 05:30] VITALS: BP 139/65; PULSE 91; RESP 16; TEMP 36.4; O2SAT 96
--- NOTE | 2025-07-15 06:35 | PC.NURSE ---
Iv removed, reviewed discharge instruction with pt. pt verbalized understanding, no sign of distress upon discharge, pt wheeled out by this RN.
== END 2025-07-15 06:37 | disposition home or self-care (01) ==
PROVIDERS: Emergency Provider Emergency Medicine
DX: R07.89 Other chest pain (principal); M25.571 Pain in right ankle and joints of right foot; F41.9 Anxiety disorder, unspecified; R42 Dizziness and giddiness; R00.0 Tachycardia, unspecified; M79.671 Pain in right foot; R06.02 Shortness of breath; R11.2 Nausea with vomiting, unspecified; Z79.899 Other long term (current) drug therapy
CPT/HCPCS: 36415; 71275; 73610; 73630; 80053; 83735; 83880; 84484; 85025; 85379; 93005; 96374; 96375; 99284; 99285; J1171; J2405; Q9967

== ENCOUNTER → 2025-07-14 22:35 | Outpatient (BNV) | payer MEDICARE, SELFPAY | PROVIDERS: Visit Provider Student in an Organized Health Care Education/Training Program | DX: M25.571 Pain in right ankle and joints of right foot (principal); M79.671 Pain in right foot | CPT/HCPCS: 73610; 73630 ==

== ENCOUNTER → 2025-07-14 22:40 | Outpatient (BNV) | payer MEDICARE, SELFPAY | PROVIDERS: Emergency Provider Emergency Medicine; Visit Provider Internal Medicine Cardiovascular Disease | DX: R94.31 Abnormal electrocardiogram [ECG] [EKG] (principal); R07.9 Chest pain, unspecified | CPT/HCPCS: 93010 ==

== ENCOUNTER → 2025-07-15 02:19 | Outpatient (BNV) | payer MEDICARE, SELFPAY | PROVIDERS: Emergency Provider Emergency Medicine; Visit Provider Radiology Diagnostic Radiology | DX: R07.9 Chest pain, unspecified (principal) | CPT/HCPCS: 71275 ==

== ENCOUNTER 2025-07-17 17:07 | Emergency (ER) | payer MEDICARE, SELFPAY ==
--- NOTE | ~2025-07-17 | CT_ITS ---
CLINICAL HISTORY: Abdominal pain, no good bowel movement for [address] abdomen and pelvis with contrast Comparison: None provided Findings: No consolidation or effusion. The left and right liver lobes demonstrates multiple heterogeneous low-attenuation lesions without enhancement. The gallbladder is within normal limits. The spleen is homogeneous in attenuation. The left and right kidney demonstrate symmetric medullary enhancement. The pancreas is homogeneous in attenuation. There is diffuse fecal material seen throughout the colon. Right posterior diaphragmatic Bochdalek hernia with mesenteric fat in lumen, 3.5 cm. Left basilar linear density, 3.3 x 10 cm, axial image number 12 of 20 series 6; probable scarring. Moderate calcified atherosclerotic disease of the abdominal aorta. Calcified coronary atherosclerotic disease. The appendix is within normal limits. The uterus is moderately atrophic. Trace amount of free fluid in the cul-de-sac. Moderate osteopenia. Lumbar dextroscoliosis. L5-S1: Prior intervertebral fusion. IMPRESSION: 1. Innumerable hepatic lesions without enhancement; metastatic disease and/or hepatic cysts. Clinical correlation suggested. 2. Right posterior diaphragmatic Bochdalek hernia with mesenteric fat, measuring 3.5 cm. 3. Left basilar linear density, 3.3 x 10 cm, likely scarring. 4. Moderate calcified atherosclerotic disease of the abdominal aorta. 5. Calcified coronary atherosclerotic disease. 6. Moderate osteopenia. This document has been electronically signed by: Yazan Napier MD on 07/17/2025 23:02:05
--- NOTE | ~2025-07-17 | XR_ITS ---
CLINICAL HISTORY: cp 1 view chest x-ray Comparison: None provided Findings: The lungs are clear. Normal size heart. No acute fracture. IMPRESSION: 1. No acute findings. This document has been electronically signed by: Yazan Napier MD on 07/17/2025 23:08:58
--- NOTE | 2025-07-17 17:16 | ECG_ITS ---
Test Reason : CP Blood Pressure : */* mmHG Vent. Rate : 80 BPM Atrial Rate : 80 BPM P-R Int : 138 ms QRS Dur : 88 ms QT Int : 380 ms P-R-T Axes : 67 -7 2 degrees QTcB Int : 438 ms Sinus rhythm with occasional Premature ventricular complexes Inferior infarct (cited on or before 14-Jul-2025) Abnormal ECG When compared with ECG of 14-Jul-2025 22:40, Premature ventricular complexes are now Present Referred By: Generic ED Physician Electronically Signed By: Robb Whyte
[2025-07-17 17:29] VITALS: BP 192/94; PULSE 79; RESP 18; TEMP 36.6; O2SAT 98; BMI 26.2
--- NOTE | 2025-07-17 17:29 | ED.GENADULT ---
HPI - General Adult General Chief complaint: Chest Pain Stated complaint: Chest pain Time Seen by Provider: 07/17/25 20:23 Related Data Previous Rx's ?Medication ?Instructions ?Recorded oxycodone 5 mg capsule 5 mg PO Q6H PRN pain #12 caps 07/15/25 polyethylene glycol 3350 17 17 g PO DAILY #238 grams 07/17/25 gram/dose oral powder (Miralax) Allergies Allergy/AdvReac Type Severity Reaction Status Date / Time Penicillins Allergy Unknown Verified 07/17/25 17:35 Sulfa (Sulfonamide Allergy Unknown Verified 07/17/25 17:35 Antibiotics) [facility] Social History Social History Smoked in Last 30 Days: No Use of substances other than those prescribed or required for medical reasons: No Advance Directives: No Advance Directives Information Provided: No Do you have a plan to hurt others: No Plan Physical Exam ED Vital Signs: Vital Signs - 24 hr 07/17/25 17:29 07/17/25 20:04 07/17/25 23:08 Temperature 98 F 98.2 F 97.8 F Pulse Rate 79 75 81 Respiratory Rate 18 18 17 Blood Pressure 192/94 H 174/96 H 176/92 H Pulse Oximetry 98 98 98 Oxygen Delivery Method Room Air Room Air Room Air BMI result Body Mass Index 26.2 Course Course Course Narrative: This is a rapid medical exam performed by Michael Ford NP: Additional HPI, ROS, PE not included below will be deferred to primary provider. Patient is a 70y/o F with liver and left lung CA, currently being treated for this at [facility] presenting to the ED with complaint of chest pain for weeks. Decreased appetite. Vomiting all night last night. Plan: EKG, labs Medications Administered Discontinued Medications Generic Name Dose Route Start Last Admin Trade Name Freq PRN Reason Stop Dose Admin Sodium Chloride 1,000 mls @ 999 mls/hr 07/17/25 21:45 07/17/25 21:47 Ns IV 07/17/25 22:45 999 mls/hr .Q1H1M KAR Administration Iohexol 85 ml 07/17/25 21:57 07/17/25 22:01 Iohexol 350 Mg/Ml 100 Ml Infus..Btl IV 07/17/25 21:58 85 ml ONCE ONE Administration Mineral Oil 133 ml 07/17/25 21:38 07/17/25 21:45 Mineral Oil Enema 133 Ml Enema VT 07/17/25 21:39 133 ml ONCE ONE Administration Medical Decision Making Lab Data 07/17/25 17:57 07/17/25 17:57 Labs: Lab Results 07/17/25 07/17/25 07/17/25 Range/Units 17:50 17:57 21:44 WBC 11.2 H (4.8-10.8) X10*3/uL RBC 3.55 L (4.20-5.50) X10*6/uL Hgb 10.7 L (12.0-16.0) g/dl Hct 32.6 L (37.0-47.0) % MCV 91.8 (80.0-98.0) fL MCH 30.1 (27.0-33.0) pg MCHC 32.8 (31.0-35.0) g/dl RDW 17.1 H (11.0-16.0) % Plt Count 716 H (160-400) X10*3/uL MPV 9.9 (9.4-12.3) fL Immature Gran % (Auto) 0.9 H (0.0-0.4) % Neut % (Auto) 70.3 (45-73) % Lymph % (Auto) 16.4 L (20-40) % Motley % (Auto) 11.4 H (2-11) % Eos % (Auto) 0.1 (0-4) % Baso % (Auto) 0.9 (0-2) % Lymph # (Auto) 1.8 (1.2-4.9) X10*3/uL Motley # (Auto) 1.3 H (0.1-1.2) X10*3/uL Eos # (Auto) 0.0 (0.0-0.4) X10*3/uL Baso # (Auto) 0.1 (0.0-0.2) X10*3/uL Abs Immat Gran (auto) 0.10 H (0.00-0.03) X10*3/uL Absolute Neuts (auto) 7.9 (2.0-8.3) x10*3/uL Absolute Nucleated RBC 0.000 (0.0-0.012) X10*3/uL Nucleated RBC % (auto) 0.0 (0.0-0.2) /100WBC PT 11.6 (10.9-12.4) SEC INR 1.0 (0.9-1.1) Sodium 145 (135-145) mmol/L Potassium 3.8 (3.3-5.1) mmol/L Chloride 109 H (96-108) mmol/L Carbon Dioxide 28 (22-29) mmol/L Anion Gap 12 (12-20) BUN 10 (9-16) mg/dL Creatinine 0.80 (0.5-1.4) mg/dL Estim Creat Clear Calc 51.8 Estimated GFR > 60 Random Glucose 120 H (60-115) mg/dL Calcium 8.7 (8.4-10.2) mg/dL Magnesium 1.6 (1.6-2.6) mg/dL Total Bilirubin 0.4 (0.0-1.0) mg/dL AST 61 H (5-31) U/L ALT 27 (0-31) U/L Alkaline Phosphatase 424 H (39-117) U/L Troponin I High Sens 4.7 D 4.9 (<3.5-17.0) ng/L Total Protein 7.3 (6.5-8.0) g/dL Albumin 3.4 L (3.5-5.0) g/dL Lipase 28 (8-78) U/L COVID-19 (SWAPNA) Negative (Negative) COVID-19 Clin Com See Note Influenza Type A (ALTHEA) Negative (Negative) Influenza Type B (ALTHEA) Negative (Negative) Influenza A & B Note See Note Discharge Plan Discharge Clinical Impression: Abdominal pain, Constipation, Chest pain, Lung cancer Patient Disposition: Home, Self-Care Instructions: Constipation (DC), Lung Cancer (DC), Abdominal Pain (ED) Prescriptions: New polyethylene glycol 3350 [Miralax] 17 gram/dose powder 17 g PO DAILY Qty: 238 0RF No Action oxycodone 5 mg capsule 5 mg PO Q6H PRN (Reason: pain) Qty: 12 0RF Rx Instructions: Partial Fill upon patient request. Referrals: Physician,Unknown J [Primary Care Provider, Medical] - 07/19/25 Print Language: Solomon Islander
[2025-07-17 18:01] LABS: MANUAL DIFF FLAG NO
[2025-07-17 18:04] LABS: Hematocrit 32.6 % (37.0-47.0); Hemoglobin 10.7 g/dl (12.0-16.0); Imm Gran Abs Auto 0.10 X10*3/uL (0.00-0.03); Imm Gran Pct Auto 0.9 % (0.0-0.4); Lymphocytes Absolute Auto 1.8 X10*3/uL (1.2-4.9); Mean Corpuscular HGB Conc 32.8 g/dl (31.0-35.0); Mean Corpuscular Hemoglobin 30.1 pg (27.0-33.0); Mean Corpuscular Volume 91.8 fL (80.0-98.0); NRBC Abs Auto 0.000 X10*3/uL (0.0-0.012); NRBC Pct Auto 0.0 /100WBC (0.0-0.2); Platelet Count 716 X10*3/uL (160-400); Red Blood Count 3.55 X10*6/uL (4.20-5.50); White Blood Count 11.2 X10*3/uL (4.8-10.8)
[2025-07-17 18:15] LABS: INTERNATIONAL NORM RATIO 1.0 (0.9-1.1); Prothrombin Time 11.6 SEC (10.9-12.4)
[2025-07-17 18:21] LABS: Alanine Aminotransferase 27 U/L (0-31); Albumin Level 3.4 g/dL (3.5-5.0); Alkaline Phosphatase 424 U/L (39-117); Anion Gap 12 (12-20); Aspartate Amino Transferase 61 U/L (5-31); Blood Urea Nitrogen 10 mg/dL (9-16); Calcium 8.7 mg/dL (8.4-10.2); Carbon Dioxide 28 mmol/L (22-29); Chloride 109 mmol/L (96-108); Creatinine Clr Calc Pharmacy 51.8; Estimated Glomerular Filt Rate > 60; Lipase 28 U/L (8-78); Magnesium 1.6 mg/dL (1.6-2.6); Potassium 3.8 mmol/L (3.3-5.1); Sodium 145 mmol/L (135-145); Total Protein 7.3 g/dL (6.5-8.0)
[2025-07-17 18:23] LABS: COVID-19 Test Negative (Negative); IDNOW Serial# 55D5AD1C; IDNOW Serial# 58CA691E; Influenza B2 Negative (Negative)
[2025-07-17 18:28] LABS: Troponin-I High Sensitivity 4.7 ng/L (<3.5-17.0)
[2025-07-17 20:04] VITALS: BP 174/96; PULSE 75; RESP 18; TEMP 36.8; O2SAT 98
--- OUTSIDE RECORDS SUMMARY | 2025-07-17 20:20 | XMS_ITS | Encounter Summary ---
Author Organization [facility] Address [address] [place] [address] [place] [address] Phone Care Team Providers Care Textile Examiner Name Role Phone Hali Carlin Primary Care Provider [phone] Prashant Gaspar DO Unavailable [phone] Sharon Hunter FIBRE CEMENT MOULDER Unavailable Marilee Kaminski WINDOW DISPLAY DESIGNER Unavailable Encounter Details Date Type Department Care Team (Late st Contact Info) Description 07/06/2025 Orders Only [facility] [address] [place] [address] Sharon Hunter, EVA [address] [place] [address] [email or web address] Social History Tobacco Use Types Packs/Day Years [...] Pass [facility] [address] [place] [address] 07/20/2025 1:00 PM EDT Hospital Encounter [facility] [address] [place] [address] Galen Contreras MD [address] [place] [phone] [email or web address] 07/20/2025 1:00 PM EDT - 07/20/2025 2:25 PM EDT Surgery [facility] Cardiovascular And Interventional Radiology [address] [place] [address] Galen Contreras MD [address] [place] [phone] [email or web address] PORT A CATH INSERTION (IR) 07/31/2025 7:40 AM EDT Appointment [facility] [address] [place] [phone] Prashant Gaspar, DO [address] [place] [phone] [email or web address] 07/31/2025 8:30 AM EDT Office Visit [facility] at [address] [address] Marilee Kaminski FNP [address] [place] [phone] [email or web address] 07/31/2025 9:20 AM EDT Infusion [facility] at [address] [address] Prashant Gaspar, DO [address] [place] [phone] [email or web address] Kaushal Feliz, RICHARDSON [address] [place] [address] [email or web address] 08/01/2025 2:40 PM EDT Infusion [facility] at [address] [address] Prashant Gaspar, DO [address] [place] [address] [email or web address] Celine Peralta, RICHARDSON [address] [place] [address] [email or web address] 08/02/2025 2:40 PM EDT Infusion [facility] at [address] [address] Prashant Gaspar, [address] [place] [phone] [email or web address] Kimberly Nunes RN [address] [place] [phone] [email or web address] 08/03/2025 4:00 PM EDT Infusion [facility] at [address] [address] Prashant Gaspar DO [address] [place] [phone] [email or web address] Salima Harris RN [address] [place] [phone] [email or web address] documented as of this encounter Visit Diagnoses Not on filedocumented in this encounter Care Teams Textile Examiner Relationship Specialty Start Date End Date Hali Carlin PA [address] [place] [phone] PCP - General Physician Head Of Biology 05/03/25 Prashant Gaspar DO [address] [place] [phone] [email or web address] Primary Oncologist Hematology and Oncology 06/01/25 Sharon Hunter, EVA [address] [place] [phone] [email or web address] Nurse Practitioner Medical Oncology 06/26/25 Marilee Kaminski FNP [address] [place] [phone] [email or web address] Nurse Practitioner Medical Oncology 06/28/25 documented as of this encounter Additional Source Comments The information contained in this document represents components of the legal health record. It is not the complete legal health record.[facility]
--- OUTSIDE RECORDS SUMMARY | 2025-07-17 20:20 | XMS_ITS | Clinical Summary ---
Author Organization [facility] Address [address] [place] [address] Phone Care Team Providers Care Oracle Distribution Consultant Name Role Phone Hali Carlin Primary Care Provider [phone] Prashant Gaspar DO Unavailable Sharon Hunter BUTTONHOLE MACHINE OPERATOR Unavailable Marilee Kaminski TAKER OFF DRYING KILN Unavailable Allergies Active Allergy Reactions Criticality Noted Date [...] evaluate for small aneurysm seen on the [facility] CT scan of the head Oncology [...] 11:59 PM EDT Hospital Encounter [facility] [address] [place] [address] Prashant Gaspar, DO Discharge Disposition: Home or Self Care 07/09/2025 Telephone [facility] at [address] [address] Prashant Gaspar, 07/09/2025 Telephone [facility] at [address] [address] Sharon Hunter, EVA 07/06/2025 Telephone [facility] at [address] [address] Ruby Donnelly RN meds from ED 07/06/2025 Telephone [facility] at [address] [address] Prashant Gaspar W, DO 07/06/2025 Orders Only [facility] at [address] [address] Sharon Hunter, EVA 07/05/2025 7:03 PM EDT - 07/05/2025 11:41 PM EDT Emergency [facility] [address] [place] [address] Jonathan Hayes MD Discharge Disposition: Home or Self Care 07/05/2025 Procedure Pass [facility] Ct Scan [address] [address] 07/05/2025 Procedure Pass [address] [address] 07/05/2025 Procedure Pass [address] [address] 07/05/2025 Telephone [facility] at [address] [address] Ruby Donnelly, RICHARDSON PORT placement 06/28/2025 10:30 AM EDT Office Visit [facility] at [address] [address] Sharon Hunter, EVA 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); Encounter for antineoplastic chemotherapy 06/27/2025 Orders Only [facility] Laboratory [address] [place] [address] Claudia Andrews Need for hepatitis B screening test; 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 06/27/2025 Orders Only [facility] at [address] [address] Sharon Hunter, EVA 06/26/2025 Telephone [facility] at [address] [address] Marilee Kaminski FNP 06/26/2025 Telephone [facility] [address] [place] [address] Garfield Lindo RN Post Discharge Follow Up Call 06/24/2025 11:32 PM EDT - 06/25/2025 12:10 PM EDT Emergency [facility] [address] [place] [address] Tung Dietrich, Kaushal Kaminski MD Discharge Disposition: Home or Self Care 06/24/2025 Procedure Pass [facility] Ct [address] [address] 06/24/2025 Procedure Pass [address] [address] 06/22/2025 4:00 PM EDT Infusion [facility] at [address] [address] Prashant Gaspar, Kimberly Menjivar RN 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) 06/21/2025 2:00 PM EDT Infusion [facility] at [address] [address] Prashant Gaspar, Kaushal Ferris, RICHARDSON 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) 06/21/2025 Orders Only [facility] at [address] [address] Marilee Kaminski FNP 06/20/2025 Telephone [facility] at [address] [address] Prashant Gaspar DO 06/20/2025 Telephone [facility] at [address] [address] Brandy Escobar, RICHARDSON 06/19/2025 Orders Only [facility] at [address] [address] Kaushal Feliz, RICHARDSON 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) 06/18/2025 Orders Only [facility] at [address] [address] Rashad Fox MBBS 06/15/2025 Orders Only [facility] [address] [place] [phone] Homehealth, Marco A Ibrahim MD 06/14/2025 1:20 PM EDT - 06/20/2025 5:45 PM EDT Hospital Encounter [facility] [address] [place] [address] Pedro Pablo Moulton DO Griffith, Andrew Thomas Liao, MD Miskovsky, Glenn E, MD Russo, Margaret A, MD Altman, Evan K DO, MPH Kaitlynn Whalen DO, MPH Discharge Disposition: Home-Health Care [facility] 06/14/2025 1:00 PM EDT Office Visit [facility] at [address] [address] Prashant Gaspar DO Need for hepatitis B screening test (Primary Dx); 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 06/14/2025 Procedure Pass [facility] [address] [place] [address] 06/14/2025 Procedure Pass [address] [address] 06/14/2025 Procedure Pass [address] [address] 06/14/2025 Procedure Pass [facility] Ct Scan [address] [address] 06/14/2025 Procedure Pass [facility] Ct Scan [address] [address] 06/14/2025 Procedure Pass [facility] Ct Scan [address] [address] 06/14/2025 Telephone [facility] at [address] [address] Meli Deal 06/14/2025 Telephone [facility] [address] [place] [address] Mervin Lloyd MD Post Surgery Issues 06/13/2025 Telephone [facility] [address] [place] [address] Meredith Malhotra Opioid update form 06/01/2025 Telephone [facility] at [address] [address] Prashant Gaspar W, BN NEW MEDICAL ONCOLOGY APt 05/31/2025 12:27 AM EDT - 05/31/2025 5:33 AM EDT Emergency [facility] [address] [place] [address] Ron Lara MD, DPSHORTYL Tung Dietrich, Discharge Disposition: Home or Self Care 05/31/2025 Telephone [facility] [address] [place] [address] Mervin Lloyd MD 05/31/2025 Procedure Pass [facility], Ct Scan - [address] [address] 05/31/2025 Procedure [facility] Ct Scan - [address] [address] 05/28/2025 Telephone [facility] [address] [place] [address] Mervin Lloyd MD 05/25/2025 1:00 PM EDT - 05/25/2025 3:13 PM EDT Surgery OR Admitting Dept - Virtual Department [address] [place] [address] Mervin Lloyd MD ENDOBRONCHIAL ULTRASOUND 05/25/2025 12:57 PM EDT Anesthesia Event OR Admitting Dept - Virtual Department [address] [place] [address] Shira Fox MD Gleason Darnobid, Jessica, MD 05/25/2025 11:17 AM EDT - 05/25/2025 5:15 PM EDT Hospital Encounter OR Admitting Dept - Virtual Department [address] [place] [address] Mervin Lloyd MD Discharge Disposition: Home or Self Care 05/25/2025 Telephone [facility] [address] [place] [address] Mervin Lloyd MD 05/25/2025 Orders Only [facility] [address] [place] [address] Mervin Lloyd MD Hilar mass (Primary Dx); Hepatic lesion; Pleural effusion, left 05/25/2025 Procedure Pass OR Admitting Dept - Virtual Department [address] [place] [address] 05/24/2025 8:00 AM EDT Pre-Admission Testing Pre Procedure Evaluation [address] [place] [address] Mervin Lloyd MD 05/23/2025 Telephone [facility] [address] [place] [address] Mervin Lloyd MD Outgoing fax-- [facility] PET/CT packet 05/16/2025 1:00 PM EDT Office Visit [facility] [address] [place] [address] Mervin Lloyd MD Hilar mass (Primary Dx); Pleural effusion, left; Hepatic lesion; Pleuritic chest pain; Former smoker 05/07/2025 Transcribe Orders [facility] [address] [place] [address] Hali Carlin PA 05/03/2025 7:34 PM EDT - 05/03/2025 11:30 PM EDT Emergency [facility] [address] [place] [address] Jonathan Hayes MD Discharge Disposition: Home or Self Care 05/03/2025 Procedure Pass [facility], Ct Scan - [address] [address] from Last 3 Months Immunizations Immunization Administration [...] 08/24/2024 Influenza, Unspecified Formulation 07/07,07/25/2008,08/09/2007,08/25,07/07/2004,07/17/2003,08/17/2002 ,10/13/2001 Novel [id number], Injectable 10/17/2009 Pneumococcal conjugate PCV13 10/10/2018 Pneumococcal [...] Procedure Pass [facility] Cardiovascular And Interventional Radiology [address] [place] [address] 07/20/2025 1:00 PM EDT Hospital Encounter [facility] Cardiovascular And Interventional Radiology [address] [place] [address] Galen Contreras MD [address] [place] [address] [email or web address] 07/20/2025 1:00 PM EDT - 07/20/2025 2:25 PM EDT Surgery [facility] Cardiovascular And Interventional Radiology [address] [place] [address] Galen Contreras MD [address] [place] [address] [email or web address] PORT A CATH INSERTION (IR) 07/31/2025 7:40 AM EDT Appointment [facility] Laboratory [address] [place] [address] Prashant Gaspar DO [address] [place] [address] [email or web address] 07/31/2025 8:30 AM EDT Office Visit [facility] [address] [place] [address] Marilee Kaminski FNP [address] [place] [address] [email or web address] 07/31/2025 9:20 AM EDT Infusion [facility] at [address] [address] Prashant Gaspar, DO [address] [place] [address] [email or web address] Kaushal Feliz RN [address] [place] [address] [email or web address] 08/01/2025 2:40 PM EDT Infusion [facility] at [address] [address] Prashant Gaspar, DO [address] [place] [address] [email or web address] Celine Peralta RN [address] [place] [phone] [email or web address] 08/02/2025 2:40 PM EDT Infusion [facility] at [address] [address] Prashant Gaspar, DO [address] [place] [address] [email or web address] Nunes, [email or web address] [address] [place] [address] 08/03/2025 4:00 PM EDT Infusion [facility] at [address] [address] Prashant Gaspar, DO [address] [place] [address] [email or web address] Salima Harris, RN [address] [place] [address] [email or web address] Health Maintenance Due Date Last Done Comments [...] ULTRASOUND 05/25/2025 12:59 PM EDT lung disease NON-SHIPPING AND RECEIVING CYTOLOGY, NON CSF, NON URINE Routine 05/25/2025 [...] included. SODIUM 142 133 - 146 mmol/L [facility] POTASSIUM 3.4 3.3 - 5.1 mmol/L [facility] CHLORIDE 105 96 - 108 mmol/L [facility] CO2 26 21 - 35 mmol/L [facility] BUN 11 6 - 19 mg/dL [facility] CREATININE 1.00 0.5 - 1.5 mg/dL [facility] GLUCOSE 125(H) 70 - 99 mg/dL [facility] ALBUMIN 3.3(L) 3.9 - 4.8 g/dL [facility] TOTAL PROTEIN 7.4 6.5 - 8.0 g/dL [facility] CALCIUM 9.1 8.4 - 10.3 mg/dL [facility] ALKALINE PHOSPHATASE 595(H) 39 - 117 U/L [facility] TOTAL BILIRUBIN 0.4 0.0 - 1.2 mg/dL [facility] AST 74(H) 0 - 37 U/L [facility] ALT 36 0 - 40 U/L [facility] GLOBULIN 4.1 1 - 4.8 g/dL [facility] EGFR 60 >59 mL/min/1.7 3m2 [facility] Comment:Estimated glomerular filtration rate calculated using the CKD-EPI refit equation. ANION GAP 14 10 - 20 mmol/L [facility] Blood 07/09/2025 11:5 9 AM EDT 07/09/2025 12:17 PM EDT us Prashant Meyers Chasity DO LAB BLOOD ORDERABLES Final Result [facility] [address] [place] [address] * (ABNORMAL) CBC and differential (07/09/2025 11:59 AM EDT) Only the most recent of13 resultswithin the time period is included. WBC 16.55(H) 4.00 - 11.00 K/uL [facility] RBC 3.52(L) 4.00 - 5.20 M/uL [facility] HGB 10.5(L) 12.0 - 16.0 g/dL [facility] HCT 32.8(L) 36.0 - 46.0 % [facility] PLT 521(H) 150 - 450 K/uL [facility] MCV 93.2 80.0 - 100.0 fL [facility] MCH 29.8 27.0 - 31.0 pg [facility] MCHC 32.0 32.0 - 36.0 g/dL [facility] RDW 15.9(H) 11.5 - 14.5 % [facility] MPV 10.5 8.4 - 12.0 fL [facility] NRBC 0.20(H) 0.00 /100 WBCs [facility] ABSOLUTE NRBC 0.03(H) 0.00 K/uL [facility] DIFF METHOD Manual [facility] TOTAL CELLS COUNTED 100 [facility] NEUTS 74.0 48.0 - 76.0 % [facility] LYMPHS 10.0(L) 18.0 - 41.0 % [facility] MONOS 2.0(L) 4.0 - 11.0 % [facility] MYELOS 14.0(H) 0 % [facility] ABSOLUTE NEUTS 12.25(H) 1.92 - 7.60 K/uL [facility] ABSOLUTE LYMPHS 1.66 0.72 - 4.10 K/uL [facility] ABSOLUTE MONOS 0.33 0.16 - 1.10 K/uL [facility] ABSOLUTE MYELOS 2.32 K/uL [facility] TOXIC GRANULATION PRESENT(A) None [facility] Blood 07/09/2025 11:5 9 AM EDT 07/09/2025 12:17 PM EDT us Cerda W Chasity DO LAB BLOOD ORDERABLES Final Result Performing Organization Address [facility]/ZIP Co de Phone Number [address] [address] * (ABNORMAL) Urinalysis w/reflex Urine Culture (07/05/2025 10:19 PM EDT) Only the most recent of2 resultswithin the time period is included. COLOR Yellow Yellow [facility] CLARITY Clear [facility] GLUCOSE Negative Negative [facility] BILI 1+(A) Negative [facility] KETONES Trace(A) Negative [facility] SPECIFIC GRAVITY 1.025 1.005 - 1.030 [facility] BLOOD Negative Negative [facility] PH 6.0 5.0 - 8.0 [facility] Protein-UA 1+(A) Negative [facility] NITRITE Positive(A) Negative [facility] Leukocyte esterase, ur Negative Negative [facility] Urine (Urine) 07/05/2025 10: 19 PM EDT 07/05/2025 10:25 PM EDT us Jonathan Hayes MD URINE ORDERABLES Final Re sult Performing Organization Address City/[facility]/ZIP Co de Phone Number [address] [address] * (ABNORMAL) Urine Culture (07/05/2025 10:19 PM EDT) Only the most recent of2 resultswithin the time period is included. Special Requests None Reflexed from [id number] 07/05/2025 10:45 PM EDT [facility] Urine Culture >100,000 colony forming units per mL COAGULASE NEGATIVE STAPHYLOCOCCU S(A) 07/07/2025 12:15 PM EDT [facility] Urine 07/05/2025 10:1 9 PM EDT 07/05/2025 10:25 PM EDT Jonathan Hayes MD MICROBIOLOGY - GENERAL OR DERABLES Final Result Performing Organization Address City/[facility]/ZIP Co de Phone Number [address] [address] * (ABNORMAL) Urine sediment (07/05/2025 10:19 PM EDT) Only the most recent of2 resultswithin the time period is included. WBC 11-20(A) NONE SEEN /hpf [facility] RBC 0-2(A) NONE SEEN /hpf [facility] URINE EPITHELIAL 11-20(A) NONE SEEN [facility] MUCUS 3+(A) NONE SEEN /hpf [facility] BACTERIA Trace(A) NONE SEEN /hpf [facility] CRYSTALS 1+ [facility] Comment: Calcium Oxalate 2+ AMORPHOUS CAST 3-5 [facility] Comment: GRANULAR CAST 6-10 HYALINE CAST 07/05/2025 10:1 9 PM EDT 07/05/2025 10:25 PM EDT Jonathan Hayes MD URINE ORDERABLES Final Re sult Performing Organization Address City/[facility]/ZIP Co de Phone Number [address] [address] * (ABNORMAL) Toxicology screen, urine (07/05/2025 10:19 PM EDT) URINE CANNABINOIDS NONE DETECTED NONE DETECTED [facility] Comment:Cutoff: 50 ng/mL URINE COCAINE METAB NONE DETECTED NONE DETECTED [facility] Comment:Cutoff: 300 ng/mL URINE AMPHETAMINES NONE DETECTED NONE DETECTED [facility] Comment:Cutoff: 1000 ng/mL URINE METHADONE NONE DETECTED NONE DETECTED [facility] Comment:Cutoff: 300 ng/mL URINE OPIATES NONE DETECTED NONE DETECTED [facility] Comment:Cutoff: 300 ng/mL URINE PHENCYCLIDINE NONE DETECTED NONE DETECTED [facility] Comment:Cutoff: 25 ng/mL URINE OXYCODONE Positive(A) NONE DETECTED [facility] Comment:Cutoff: 300 ng/mL URINE BARBITURATES NONE DETECTED NONE DETECTED [facility] Comment:Cutoff: 200 ng/mL URINE BENZODIAZEPINE NONE DETECTED NONE DETECTED [facility] Comment:Cutoff: 200 ng/mL URINE BUPRENORPHINE NONE DETECTED NONE DETECTED [facility] Comment:Cutoff: 5 ng/mL Fentanyl, urine NONE DETECTED NONE DETECTED [facility] Comment: Cutoff: 5 ng/mL INTERPRETATION FOR TOXICOLOGY PANEL: These results are unconfirmed and should be used for Medical Treatment purposes only. Urine (Urine) 07/05/2025 10: 19 PM EDT 07/05/2025 10:25 PM EDT Jonathan Hayes MD URINE ORDERABLES Final Re sult [address] [address] * ECG 12-LEAD (07/05/2025 10:05 PM EDT) Only the most recent of5 resultswithin the time period is included. Ventricular Rate EKG/MIN 82 BPM [facility] Atrial Rate 82 BPM [facility] IN Interval 100 ms [facility] QRS Duration 82 ms [facility] QT Interval 384 ms [facility] QTC Interval 448 ms [facility] P [place] -20 degrees [facility] R Wave [place] 4 degrees [facility] T Wave [place] -44 degrees [facility] 07/05/2025 10:0 5 PM EDT 07/06/2025 9:37 AM EDT Narrative [facility] - 07/06/2025 9:37 AM EDT Sinus rhythm with short IN Possible Inferior infarct (cited on or before [...] clinician's provided indication for this examination in [facility]: Trauma; r/o sternal fracture COMPARISON: XR CHEST PA AND LATERAL 2 VIEWS FINDINGS: Devices/Tubes/Lines: None. Lungs: No focal consolidation or pulmonary edema. Pleura: No pleural effusion or pneumothorax. Heart/Mediastinum: Unchanged in appearance. Bones/Soft Tissues: No significant abnormality. Procedure Note Hieu Sykes MBBS - 07/05/2025 XR CHEST PA AND LATERAL 2 VIEWS Referring clinician's provided indication for this examination in [facility]:Trauma; r/o sternal fracture COMPARISON: XR CHEST PA [...] createdby Kirill Muhammad. Jonathan Hayes MD IMG XR CHEST Final Res ult * Ethanol, blood (07/05/2025 7:40 PM EDT) ETHANOL <10 <10 mg/dL [facility] Blood 07/05/2025 7:40 PM EDT 07/05/2025 7:51 PM EDT Jonathan Hayes MD LAB BLOOD ORDERABLES Marina l Result Performing Organization Address City/[facility]/ZIP Co de Phone Number [address] [address] * (ABNORMAL) LFTs (hepatic panel) (07/05/2025 7:40 PM EDT) Only the most recent of4 resultswithin the time period is included. ALKALINE PHOSPHATASE 619(H) 39 - 117 U/L [facility] TOTAL BILIRUBIN 0.5 0.0 - 1.2 mg/dL [facility] DIRECT BILIRUBIN 0.2 0.0 - 0.2 mg/dL [facility] Bilirubin (Indirect) 0.3 0 - 1.5 mg/dL [facility] AST 95(H) 0 - 37 U/L [facility] ALT 46(H) 0 - 40 U/L [facility] TOTAL PROTEIN 7.8 6.5 - 8.0 g/dL [facility] ALBUMIN 3.3(L) 3.9 - 4.8 g/dL [facility] GLOBULIN 4.5 1 - 4.8 g/dL [facility] A/G Ratio 0.73(L) 1.00 - 4.80 RATIO [facility] Blood 07/05/2025 7:40 PM EDT 07/05/2025 7:51 PM EDT Jonathan Hayes MD LAB BLOOD ORDERABLES Marina l Result Performing Organization Address City/[facility]/ZIP Co de Phone Number [address] [address] * (ABNORMAL) Magnesium (07/05/2025 7:40 PM EDT) Only the most recent of7 resultswithin the time period is included. MAGNESIUM 1.5(L) 1.6 - 2.6 mg/dL [facility] Blood 07/05/2025 7:40 PM EDT 07/05/2025 7:51 PM EDT us Jonathan Hayes MD LAB BLOOD ORDERABLES Marina l Result Performing Organization Address City/[facility]/ZIP Co de Phone Number [address] [address] * (ABNORMAL) Acetaminophen level (07/05/2025 7:40 PM EDT) ACETAMINOPHEN <5.0(L) 15.0 - 30.0 ug/mL [facility] Blood 07/05/2025 7:40 PM EDT 07/05/2025 7:51 PM EDT Result Dannie Hayes MD LAB BLOOD ORDERABLES Marina l Result Performing Organization Address [facility] Co de Phone Number [address] [address] * (ABNORMAL) Salicylates (07/05/2025 7:40 PM EDT) SALICYLATES 0.5(L) 2.8 - 19.9 mg/dL [facility] Blood 07/05/2025 7:40 PM EDT 07/05/2025 7:51 PM EDT us Jonathan Hayes MD LAB BLOOD ORDERABLES Marina l Result Performing Organization Address [facility] Co de Phone Number [address] [address] * (ABNORMAL) Basic metabolic panel (07/05/2025 7:40 PM EDT) Only the most recent of7 resultswithin the time period is included. SODIUM 143 133 - 146 mmol/L [facility] CHLORIDE 105 96 - 108 mmol/L [facility] POTASSIUM 3.8 3.3 - 5.1 mmol/L [facility] CO2 22 21 - 35 mmol/L [facility] BUN 14 6 - 19 mg/dL [facility] CREATININE 1.20 0.5 - 1.5 mg/dL [facility] GLUCOSE 100(H) 70 - 99 mg/dL [facility] CALCIUM 9.4 8.4 - 10.3 mg/dL [facility] EGFR 48(L) >59 mL/min/1.7 3m2 [facility] Comment:Estimated glomerular filtration rate calculated using the CKD-EPI refit equation. ANION GAP 20 10 - 20 mmol/L [facility] Blood 07/05/2025 7:40 PM EDT 07/05/2025 7:51 PM EDT us Jonathan Hayes MD LAB BLOOD ORDERABLES Marina l Result Performing Organization Address City/State/[facility] Co de Phone Number [address] [address] * CT LUMBAR SPINE WITHOUT CONTRAST (07/05/2025 [...] fusion. No acute fracture. Sclerosis of the N4olxncazja body, which may represent healed insufficiency fractures.Similar [...] clinician's provided indication for this examination in [facility]: * Head trauma, minor (Age >= 65y); [...] clinician's provided indication for this examination in [facility]: *Head trauma, minor (Age >= 65y); syncope [...] CORE AB, TOT NON-REACTI VE NON-REACTI VE [facility] Blood 06/27/2025 1:33 PM EDT 06/27/2025 1:47 PM EDT us Prashant Gaspar DO LAB BLOOD ORDERABLES Final Result Performing Organization Address [facility] Co de Phone Number [address] [address] * Hepatitis B surface antigen (06/27/2025 1:33 PM EDT) Only the most recent of2 resultswithin the time period is included. HBV SURFACE ANTIGEN NON-REACTI VE NON-REACTI VE [facility] Blood 06/27/2025 1:33 PM EDT 06/27/2025 1:47 PM EDT us Prashant Gaspar DO LAB BLOOD ORDERABLES Final Result Performing Organization Address [facility]/ZIP Co de Phone Number [address] [address] * Uric acid (06/27/2025 1:33 PM EDT) Only the most recent of6 resultswithin the time period is included. URIC ACID 5.3 2.4 - 7.0 mg/dL [facility] Blood 06/27/2025 1:33 PM EDT 06/27/2025 1:47 PM EDT us Cerda W Chasity DO LAB BLOOD ORDERABLES Final Result [facility] [address] [place] [address] * CT ABDOMEN/PELVIS WITH CONTRAST (06/25/2025 2:21 [...] HS Gen5 11(H) 0 - 9 ng/L [facility] Blood 06/24/2025 10:5 0 PM EDT 06/24/2025 11:32 PM EDT us Darshan Copeland MD LAB BLOOD ORDERABLES Final Resu lt Performing Organization Address City/[facility]/ZIP Co de Phone Number [address] [address] * (ABNORMAL) NT-proBNP (06/24/2025 9:59 PM EDT) Only the most recent of3 resultswithin the time period is included. NT-PROBNP 1,976(H) 0 - 450 pg/mL [facility] Blood 06/24/2025 9:59 PM EDT 06/24/2025 10:07 PM EDT us Darshan Copeland MD LAB BLOOD ORDERABLES Final Resu lt Performing Organization Address [facility] Co de Phone Number [address] [address] * XR CHEST PA AND LATERAL 2 [...] clinician's provided indication for this examination in [facility]:Dyspnea (Shortness of Breath) COMPARISON: CTA chest from [...] included. PHOSPHORUS 3.6 2.7 - 4.5 mg/dL [facility] Blood 06/20/2025 6:41 AM EDT 06/20/2025 7:18 AM EDT Kaitlynn Whalen DO, MPH LAB BLOOD ORDER ABRAM Final Result [facility] [address] [place] [address] * Methylmalonic acid, serum (06/19/2025 6:06 AM EDT) METHYLMALONIC ACID 0.25 <=0.40 nmol/mL [facility] DPT OF LAB MED AND PAT+ Comment: (NOTE) ADDITIONAL INFORMATION This test was developed and its performance characteristics determined by [facility] in a manner consistent with CLIA requirements. This test has not been cleared or approved by the U.S. Food and Drug Administration. Blood 06/19/2025 6:06 AM EDT 06/19/2025 6:28 AM EDT Kaitlynn Whalen DO, MPH LAB BLOOD ORDER ABRAM Final Result [facility] DPT OF LAB MED AND PAT+ [address] [place] [address] * Syphilis antibody screen (06/19/2025 6:06 AM EDT) [facility] RPR NON-REACTIV E NON-REACTI [facility] Blood 06/19/2025 6:06 AM EDT 06/19/2025 6:28 AM EDT Kaitlynn Whalen DO, MPH LAB BLOOD ORDER ABRAM Final Result Performing Organization Address [facility] Co de Phone Number [address] [address] * Hepatitis B surface antibody (06/19/2025 6:06 AM EDT) [facility] HBV SURFACE ANTIBODY NON-REACTI [facility] Comment: Unvaccinated: Non Reactive Vaccinated: Reactive 06/19/2025 6:06 AM EDT 06/19/2025 6:28 AM EDT Kaitlynn Whalen DO MPH LAB BLOOD ORDER ABRAM Final Result Performing Organization Address [facility] Co de Phone Number [address] [address] * (ABNORMAL) Homocysteine (06/19/2025 6:06 AM EDT) [facility] HOMOCYSTEINE, TOTAL 25.7(H) 0 - 14.2 umol/L [facility] Blood 06/19/2025 6:06 AM EDT 06/19/2025 6:28 AM EDT us Kaitlynn Whalen DO MPH LAB BLOOD ORDER ABRAM Final Result [address] [address] * Vitamin B12 (06/19/2025 6:06 AM EDT) Pathologist [facility] VITAMIN B12 1,138 232 - 1,245 pg/mL [facility] Blood 06/19/2025 6:06 AM EDT 06/19/2025 6:28 AM EDT us Kaitlynn Whalen DO, MPH LAB BLOOD ORDER ABRAM Final Result Performing Organization Address [facility] Co de Phone Number [address] [address] * POCT Glucose (06/18/2025 4:29 PM EDT) Only the most recent of2 resultswithin the time period is included. Pathologist [facility] Glucose, POCT 94 70 - 100 mg/dL [facility] 06/18/2025 4:29 PM EDT 06/18/2025 4:32 PM EDT us Kaitlynn Whalen DO MPH POINT OF CARE T EST ORDERABLES Final Result Performing Organization Address [facility] Co de Phone Number [address] [address] * TTE COMPREHENSIVE (06/15/2025 9:28 AM EDT) [...] EDT) PT 12.0 10.2 - 12.9 sec [facility] INR 1.0 0.9 - 1.1 [facility] Comment:Therapeutic range fo r oral Vitamin K antagonists: 2.0-3.5 Blood 06/15/2025 5:47 AM EDT 06/15/2025 6:13 AM EDT us Tavares Deluna DO LAB BLOOD ORDERABLES Final Res ult [address] [address] * MRI BRAIN WITHOUT CONTRAST (06/14/2025 11:54 [...] MRA of the head was performed utilizing okhc-wv-nnpjjz technique (no gadolinium). Maximal intensity projection 3D [...] MRA of the head was performed utilizing suma-dc-vwcopi technique (SparkBaseinium). Maximal intensity projection 3D angiographic reformattedimages were [...] flow signal within the middle cerebral artery S2nivffilb distal to the aneurysm, possibly artifactual. Otherwise [...] MRA of the head was performed utilizing tvkh-la-gjbkqt technique (no gadolinium). Maximal intensity projection 3D [...] clinician's provided indication for this examination in [facility]: *Mental status change, unknown cause TECHNIQUE: MRI BRAIN WITHOUT CONTRAST, MRI ANGIO BRAIN WITHOUT CONTRAST Multi-sequence, multi-planar MRI of the brain was performed withoutintravenous contrast. MRA of the head was performed utilizing yibw-zh-smnofv technique (nogadolinium). Maximal intensity projection 3D angiographic [...] flow signal within the middle cerebral artery G2sypzmfqu distal to the aneurysm, possibly artifactual. Otherwise [...] originally createdby Dr. Donovan Lujan MD. Tavares Delnua DO [facility] MR HEAD/NECK Final Result * (ABNORMAL) Procalcitonin (06/14/2025 9:44 PM EDT) Procalcitonin 1.72(H) 0.00 - 0.25 ng/mL [facility] Comment: <=0.25 ng/mL: Bacterial pneumonia is unlikely. [...] DO LAB BLOOD ORDERABLES Final Res ult [address] [address] * Lab Add On: Troponin (06/14/2025 9:44 PM EDT) TEST REQUESTED TROPONIN [facility] Comments (Chemistry) Add on order being processed. Floor or provider will be notified if testing cannot be performed [facility] 06/14/2025 9:44 PM EDT 06/14/2025 9:47 PM EDT us Tavares Grachev DO LAB BLOOD ORDERABLES Final Res ult Performing Organization Address [facility]/ZIP Co de Phone Number [address] [address] * Lactate (06/14/2025 9:44 PM EDT) Only the most recent of3 resultswithin the time period is included. LACTATE 2.09 0.50 - 2.20 mmol/L [facility] Blood 06/14/2025 9:44 PM EDT 06/14/2025 9:47 PM EDT us Tavares Grachev DO LAB BLOOD ORDERABLES Final Res ult Performing Organization Address [facility]/ZIP Co de Phone Number [address] [address] * Sodium, random urine (06/14/2025 9:14 PM EDT) URINE SODIUM 58 mmol/L [facility] Urine (Urine) 06/14/2025 9:1 4 PM EDT 06/14/2025 10:06 PM EDT us Tavares Grachev DO URINE ORDERABLES Final Result [address] [address] * Creatinine, random urine (06/14/2025 9:14 PM EDT) URINE CREATININE 109 mg/dL [facility] Urine (Urine) 06/14/2025 9:1 4 PM EDT 06/14/2025 10:06 PM EDT Tavares Deluna DO URINE ORDERABLES Final Result Performing Organization Address [facility] Co de Phone Number [address] [address] * CT ANGIO ABDOMEN/PELVIS WITH AND WITHOUT [...] thoracic lymphadenopathy including mediastinal and hilar nodes ambulatory services representative examples with short axis measurement includes 1.2 cm left paratracheal node (9:34), and 2.3 cm subcarinal node (9:46). Chest Wall: No chest wall mass. Bones/Soft Tissues: Subacute/chronic fracture of the lateral right sixth rib (8:255), and left lateral fourth rib (8:160). Multilevel degenerative changes of the spine. ABDOMEN/PELVIS: Liver: No substantial change in the bilobar hepatic metastases ambulatory services representative examples includes 3.4 x 2.9 cm [...] thoracic lymphadenopathy including mediastinal and hilar nodes ambulatory services representative examples with short axis measurement includes 1.2 cm left paratracheal node (9:34), and 2.3 cm subcarinal node (9:46). Chest Wall: No chest wall mass. Bones/Soft Tissues: Subacute/chronic fracture of the lateral right sixth rib (8:255), and left lateral fourth rib (8:160). Multilevel degenerative changes of the spine. ABDOMEN/PELVIS: Liver: No substantial change in the bilobar hepatic metastases ambulatory services representative examples includes 3.4 x 2.9 cm [...] clinician's provided indication for this examination in [facility]: * Headache, chronic, new features or increased [...] clinician's provided indication for this examination in [facility]: *Headache, chronic, new features or increased frequency; [...] Special Requests None 06/14/2025 1:51 PM EDT [facility] BLOOD CULTURE NO GROWTH 5 DAYS 06/19/2025 3:11 PM EDT [facility] Blood (Blood) 06/14/2025 2:2 9 PM EDT 06/14/2025 2:57 PM EDT Pedro Pablo Saige DO MICROBIOLOGY - GENERAL ORDERABL ES Final Result Performing Organization Address [facility] Co de Phone Number [address] [address] * (ABNORMAL) D-dimer (06/14/2025 2:29 PM EDT) [facility] D-DIMER 1,469(H) <500 ng/mL FEU [facility] Comment:In patients with low to moderate pre-test probability scores for VTE (PE or DVT), a D-Dimer cut-off less than 500 ng/mL (FEU) has a negative predictive value (NPV) of 97 to 100%. Blood 06/14/2025 2:29 PM EDT 06/14/2025 2:56 PM EDT Pedro Pablomaggi Moulton DO LAB BLOOD ORDERABLES Final Resu lt Performing Organization Address City/[facility]/ZIP Co de Phone Number [address] [address] * Lipase (06/14/2025 2:29 PM EDT) Only the most recent of2 resultswithin the time period is included. Pathologist [facility] LIPASE 30 16 - 63 U/L [facility] Blood 06/14/2025 2:29 PM EDT 06/14/2025 2:56 PM EDT us Pedro Pablo Villanueva Caffyn DO LAB BLOOD ORDERABLES Final Resu lt [facility] [address] [place] [address] * CT ABDOMEN/PELVIS WITH CONTRAST (05/31/2025 1:54 [...] Test Ordered Rapid COVID has been ordered [facility] Specimen Source/Description NASAL [facility] SARS-CoV 2 (COVID-19) PCR Not Detected Not Detected [facility] Comment: SARS-CoV-2 not detected Negative results do not preclude SARS-CoV-2 infection and should not be used as the sole basis for patient management decisions. Negative results must be combined with clinical observations, patient history, and epidemiological information. Other (Nasopharyngeal swab) 05/31/2025 12:57 AM EDT 05/31/2025 1:18 AM EDT us Ron Lara MD, DPHIL BODY FLUIDS AND S TOOLS ORDERABLES Final Result [facility] [address] [place] [address] * XR CHEST PA AND LATERAL 2 [...] clinician's provided indication for this examination in [facility]: Dyspnea (Shortness of Breath) COMPARISON: CT CHEST [...] described on recent CT. ATTESTATION: I, João Shepaprd as teaching physician, have reviewed theimages for this case and if necessary edited the report originally createdby Nicky Rooney. us Tung Dietrich DO IMG XR CHEST Final Result * (ABNORMAL) Bronch Lavage Differential (05/25/2025 4:02 PM EDT) PATH REVIEW FINAL [facility] Comment: The other cells are alveolar macrophages and bronchial cells. Reviewed by Mickey Whitmore MD FLUID LYMPHS 11(H) 0 % [facility] FLUID OTHER CELLS 89(H) 0 % [facility] Other (Bronchial alveolar lavage) 05/25/2025 4:02 PM EDT 05/25/2025 5:12 PM EDT us Mervin Lloyd MD BODY FLUIDS AND STOOLS ORDERABLES Final Result [facility] [address] [place] [address] * Respiratory Culture/Gram Stain (05/25/2025 4:02 PM EDT) Special Requests None 05/25/2025 4:02 PM EDT [facility] GRAM STAIN Rare WBC'S , NO ORGANISMS SEEN 2025 12:18 PM EDT [facility] Respiratory Cult/Smear NO GROWTH 48HRS 05/27/2025 9:36 AM EDT [facility] Other (Bronchial alveolar lavage) 05/25/2025 4:02 PM EDT 05/25/2025 5:12 PM EDT Comment:LLL BAL Mervin Lloyd MD MICROBIOLOGY - GENERAL ORDERABLES Final Result Performing Organization Address [facility] Co de Phone Number [address] [address] * Fungal culture (05/25/2025 4:02 PM EDT) Special Requests None 05/25/2025 4:02 PM EDT [facility] GRAM STAIN No Yeast or Fungal elements seen 05/27/2025 11:28 AM EDT [facility] Fungal Culture Only NO FUNGUS OR YEAST ISOLATED AFTER 27 DAYS 06/22/2025 11:17 AM EDT [facility] Other (Bronchial alveolar lavage) 05/25/2025 4:02 PM EDT 05/25/2025 5:12 PM EDT Comment:LLL BAL Mervin Lloyd MD MICROBIOLOGY - GENERAL ORDERABLES Final Result Performing Organization Address [facility] de Phone Number [address] [address] * ANES ETT DOUBLE LUMEN - AIRWAY [...] Complications observed? no us Shira Fox MD IN ANESTHESIA Final Result * Non-Asset Protection Specialist Cytology (05/25/2025 12:00 AM EDT) Report [address] [address] Hospice Volunteer Coordinator: Mickey Whitmore MD Non Asset Protection Specialist Cytology Report FINAL DIAGNOSIS A. LYMPH NODE [...] Electronically Signed Out By: MD Nicky Bhakta CT([facility]) By his/her signature above, the pathologist listed [...] Ordered Date: 05/28/2025 FLOW CYTOMETRY PERFORMED AT [facility], CASE# [id number] LYMPH NODE, #7 (cell suspension): - Presence of a non-hematopoietic population (7% of cells) without immunophenotypic evidence of a lymphoproliferative disorder, see Comment and Phenotype. Comment The OX98-sjujasod cells show variable expression of CD56. Recommend [...] express CD13/CD33, consistent with myeloid/monocytic cells. Morphology construction controller slides were not available for microscopic review at time of case sign out. Gross Description A Station 7 is received fresh in RPMI media and consists of soft tissue measuring 0.1 x 0.1 x 0.1 cm. Reviewing Pathologist João Wong M.D. [phone] Viability & Abnormal Cells Viability 77 % [...] performance characteristics have been determined by the [facility]. This laboratory is certified under the [...] : 1955 (Age: 70) Sex: F Institution: [facility] Location: [facility] Date of Collection: 05/25/2025 Date of Reported: 05/29/2025 14:49 Results to: Mervin [facility] Addendum FLOW CYTOMETRY PERFORMED AT [facility], CASE# [id number] LYMPH NODE, #7 (cell suspension): - Presence of a non-hematopoietic population (7% of cells) without immunophenotypic evidence of a lymphoproliferative disorder, see Comment and Phenotype. Comment The UN18-barriscu cells show variable expression of CD56. Recommend [...] express CD13/CD33, consistent with myeloid/monocytic cells. Morphology construction controller slides were not available for microscopic review at time of case sign out. Gross Description A Station 7 is received fresh in RPMI media and consists of soft tissue measuring 0.1 x 0.1 x 0.1 cm. Reviewing Pathologist João Wong M.D. [phone] Viability & Abnormal Cells Viability 77 % [...] Signed by João Wong M.D. Reported Date [id number] [facility] Clinical History Patient presents with left hilar mass. [facility] Final Diagnosis A. LYMPH NODE 10R, EBUS [...] of cells, contributing to the above diagnosis. [facility] Gross Description A. LYMPH NODE 10R, EBUS [...] . One (1) ThinPrep slide is prepared. [facility] Results\Interp retation Specimen Adequacy Evaluation A. LYMPH [...] ASPIRATION: Pass 1: Blood. Pass 2: Blood. [facility] Conversion Type 05/25/2025 11:04 AM EDT us Mervin Lloyd MD CYTOLOGY ORDERABLES Ed ited Result - Final [facility] [address] [place] [address] * CT CHEST PULMONARY ANGIOGRAM (ACUTE) (05/03/2025 8:59 PM EDT) MGB IMG FAN RUNNER COMMENT 1. No pulmonary embolism. 2. Left hilar mass resulting in narrowing and obliteration of the left lower lobe bronchi. Small left pleural effusion. 3. Multiple hypodense hepatic lesions are concerning f [facility] Anatomical Region Laterality Modality Chest, Thoracic Vasculature [...] initiated on 05/03/2025 10:46 PM, Message ID [id number]. Narrative 05/03/2025 10:[address] CHEST [...] was initiated on 05/03/2025 10:46 PM,Message ID [id number]. us Jonathan Hayes MD IMG CT CHEST Final Res ult * TSH with reflex (04/23/2023 6:19 PM EDT) TSH 1.09 0.27 - 4.20 uIU/mL [facility] Blood 04/23/2023 6:19 PM EDT 04/23/2023 6:23 PM EDT us Benjamin López MD LAB BLOOD ORDERABLES Final Result [address] [address] from Last 3 Months or Most Recently Relevant to Health Maintenance Insurance MEDICARE PART A & B Member Subscriber Plan / Payer (Ef fective 2018-Present) Name:Bobbi Pantoja Member ID:[id number] Relation to Subscriber:Self Name:Zay Pantojaa Subscriber ID:[id number] Payer ID:[id number] Group ID:Not on file Type:Medicare Address: [facility] [employer] [facility] [facility] [place] [address] [facility] MED[facility] REPLAC[facility] MEDICARE PART A & B [facility] MEDICARE REPLACEMENT MEDICARE PART A & B [facility] MEDICARE REPLACEMENT MEDICARE PART A & B [facility] MEDICARE REPLACEMENT MEDICARE PART A & [place] [address] [address] MEDICARE REPLACEMENT MEDICARE PART A & B MEDICARE REPLACEMENT Advance Directives For more information, please contact: [phone] (9AM - 5PM [facility], Wednesday-Wednesday) Documents on File Type Date Recorded Patient Floor Inspector Expl anation MOLST 06/21/2025 3:13 PM POLST [...] ) Code Discussion Comments: Presumed Care Teams Oracle Distribution Consultant Relationship Specialty Start Date End Date Hali Carlin PA [address] [place] [phone] PCP - General Physician Supervisor Metal Cans 05/03/25 Prashant Gaspar DO [address] [place] [address] [email or web address] Primary Oncologist Hematology and Oncology 06/01/25 Sharon Hunter NP [address] [place] [address] [email or web address] Nurse Practitioner Medical Oncology 06/26/25 Marilee Kaminski FNP [address] [place] [address] Nurse Practitioner Medical Oncology 06/28/25 Additional Source Comments The information contained in this document represents components of the legal health record. It is not the complete legal health record.[facility]
--- OUTSIDE RECORDS SUMMARY | 2025-07-17 20:20 | XMS_ITS | Encounter Summary ---
Author Organization [facility] Address [address] [place] [address] Phone Care Team Providers Care Telecom Field Technician Name Role Phone Celine Farley MD Primary Care Provider Unavailable Hali Carlin Primary Care Provider [phone] Prashant Gaspar DO Unavailable [phone] Sahron Hunter SELF PAY SPECIALIST Unavailable [phone] Marilee KaminskiP Unavailable Encounter Details Date Type Department Care Team (Late st Contact Info) Description 04/23/2023 Procedure Pass [facility], Ct Scan - [facility] [address] [place] [address] Social History Tobacco Use Types Packs/Day Years [...] 8:34 AM EDT Celena Hinton RN * [place] Suicide Severity Rating Scale (Screener/Recent Self-Report) Question [...] Info) Description 07/20/2025 Procedure Pass [facility] Cardiovascular And Interventional Radiology [address] [place] [phone] 07/20/2025 1:00 PM EDT Hospital Encounter [facility] Cardiovascular And Interventional Radiology [address] [place] [phone] Galen Contreras MD [address] [place] [phone] [email or web address] 07/20/2025 1:00 PM EDT - 07/20/2025 2:25 PM EDT Surgery [facility] Cardiovascular And Interventional Radiology [address] [place] [phone] Galen Contreras MD [address] [place] [phone] [email or web address] PORT A CATH INSERTION (IR) 07/31/2025 7:40 AM EDT Appointment [facility] Laboratory [address] [place] [phone] Prashant Gaspar, DO [address] [place] [phone] [email or web address] 07/31/2025 8:30 AM EDT Office Visit [facility] at [address] [address] Marilee Kaminski FNP [address] [place] [phone] [email or web address] 07/31/2025 9:20 AM EDT Infusion [facility] at [address] [address] Prashant Gaspar, DO [address] [place] [phone] [email or web address] Kaushal Feliz, RICHARDSON [address] [place] [phone] [email or web address] 08/01/2025 2:40 PM EDT Infusion [facility] at [address] [address] Prashant Gaspar, DO [address] [place] [phone] [email or web address] Celine Peralta, RICHARDSON [address] [place] [phone] [email or web address] 08/02/2025 2:40 PM EDT Infusion [facility] at [address] [address] Prashant Gaspar DO [address] [place] [address] [email or web address] Kimberly Nunes, RICHARDSON [address] [place] [phone] [email or web address] 08/03/2025 4:00 PM EDT Infusion [facility] at [address] [address] Prashant Gaspar DO [address] [place] [address] [email or web address] Salima Harris RN [address] [place] [phone] [email or web address] documented as of this encounter Visit Diagnoses Not on filedocumented in this encounter Additional Health Concerns Infection Onset Date Last Indicated Resolved Time CoV-Risk Comment:Per note documentation 04/24/2023 04/24/2023 10:25 AM EDT CoV-Risk 05/31/2025 05/31/2025 06/11/2025 1:21 AM EDT documented as of this encounter Care Teams Telecom Field Technician Relationship Specialty Start Date End Date Celine Farley MD PCP - General 07/20/17 05/02/25 Hali Carlin PA [address] [place] [phone] PCP - General Physician Audograph Operator 05/03/25 Prashant Gaspar DO [address] [place] [phone] [email or web address] Primary Oncologist Hematology and Oncology 06/01/25 Sharon Hunter NP [address] [place] [phone] [email or web address] Nurse Practitioner Medical Oncology 06/26/25 Marilee Kaminski FNP [address] [place] [phone] [email or web address] Nurse Practitioner Medical Oncology 06/28/25 documented as of this encounter Additional Source Comments The information contained in this document represents components of the legal health record. It is not the complete legal health record.[facility]
--- OUTSIDE RECORDS SUMMARY | 2025-07-17 20:20 | XMS_ITS | Encounter Summary ---
Author Organization [facility] Address [address] [place] [address] Phone Care Team Providers Care Bank Note Designer Name Role Phone Hali Carlin Primary Care Provider [phone] Prashant Gaspar DO Unavailable [phone] Sharon Hunter COAL SAMPLE TESTER Unavailable [phone] Marilee Kaminski THERMOSTAT REPAIRER Unavailable [phone] Encounter Details Date Type Department Care Team (Late st Contact Info) Description 05/25/2025 Procedure Pass OR Admitting Dept - Virtual Department [address] [place] [address] Social History Tobacco Use Types Packs/Day Years [...] Procedure Pass [facility] [address] [place] [address] 07/20/2025 1:00 PM EDT Hospital Encounter [facility] [address] [place] [address] Galen Contreras MD [address] [place] [address] [email or web address] 07/20/2025 1:00 PM EDT - 07/20/2025 2:25 PM EDT Surgery [facility] Cardiovascular And Interventional Radiology [address] [place] [address] Galen Contreras MD [address] [place] [address] [email or web address] PORT A CATH INSERTION (IR) 07/31/2025 7:40 AM EDT Appointment [facility] [address] [place] [address] Prashant Gaspar, DO [address] [place] [address] [email or web address] 07/31/2025 8:30 AM EDT Office Visit [facility] at [address] [address] Marilee Kaminski FNP [address] [place] [address] 07/31/2025 9:20 AM EDT Infusion [facility] at [address] [address] Prashant Gaspar, DO [address] [place] [address] [email or web address] Kaushal Feliz RN [address] [place] [address] [email or web address] 08/01/2025 2:40 PM EDT Infusion [facility] at [address] [address] Prashant Gaspar, DO [address] [place] [address] [email or web address] Celine Peralta RN [address] [place] [address] [email or web address] 08/02/2025 2:40 PM EDT Infusion [facility] at [address] [address] Prashant Gaspar DO [address] [place] [address] JAMI@[facility] Kimberly Nunes, RICHARDSON [address] [place] [address] [email or web address] 08/03/2025 4:00 PM EDT Infusion [facility] at [address] [address] Prashant Gaspar DO [address] [place] [address] JAMI@[facility] Salima Harris RN [address] [place] [address] [email or web address] documented as of this encounter Visit Diagnoses Not on filedocumented in this encounter Additional Health Concerns Infection Onset Date Last Indicated Resolved Time CoV-Risk 05/31/2025 05/31/2025 06/11/2025 1:21 AM EDT documented as of this encounter Care Teams Bank Note Designer Relationship Specialty Start Date End Date Hali Carlin PA [address] [place] [phone] PCP - General Physician Sleeve Setter 05/03/25 Prashant Gaspar DO [address] [place] [address] [email or web address] Primary Oncologist Hematology and Oncology 06/01/25 Sharon Hunter NP [address] [place] [address] [email or web address] Nurse Practitioner Medical Oncology 06/26/25 Marilee Kaminski FNP [address] [place] [address] [email or web address] Nurse Practitioner Medical Oncology 06/28/25 documented as of this encounter Additional Source Comments The information contained in this document represents components of the legal health record. It is not the complete legal health record.[facility]
--- OUTSIDE RECORDS SUMMARY | 2025-07-17 20:20 | XMS_ITS | Encounter Summary ---
Author Organization [facility] Address [address] [place] [address] [place] [address] Phone Care Team Providers Care Engineer Technical Staff Name Role Phone Hali Carlin Primary Care Provider [phone] Prashant Gaspar DO Unavailable Sharon Hunter VENEER STOCK GRADER Unavailable Marilee Kaminski CUSTOMER CONTACT SALES ASSOCIATE Unavailable Encounter Details Date Type Department Care Team (Late st Contact Info) Description 06/20/2025 Telephone [facility] at [address] [address] Prashant Gaspar DO [address] [place] [address] [email or web address] Social History Tobacco Use Types Packs/Day Years [...] Pass [facility] [address] [place] [address] 07/20/2025 1:00 PM EDT Hospital Encounter [facility] [address] [place] [address] Galen Contreras MD [address] [place] [address] [email or web address] 07/20/2025 1:00 PM EDT - 07/20/2025 2:25 PM EDT Surgery [facility] Cardiovascular And Interventional Radiology [address] [place] [address] Galen Contreras MD 30 [place] [address] [email or web address] PORT A CATH INSERTION (IR) 07/31/2025 7:40 AM EDT Appointment [facility] [address] [place] [address] Prashant Gaspar, DO [address] [place] [address] [email or web address] 07/31/2025 8:30 AM EDT Office Visit [facility] at [address] [address] Marilee Kaminski FNP [address] [place] [address] [email or web address] 07/31/2025 9:20 AM EDT Infusion [facility] at [address] [address] Prashant Gaspar, DO [address] [place] [address] [email or web address] Kaushal Feliz, RICHARDSON [address] [place] [address] [email or web address] [email or web address] 08/01/2025 2:40 PM EDT Infusion [facility] at [address] [address] Prashant Gaspar, DO [address] [place] [address] JAMI@[email or web address] Celine Peralta, RICHARDSON [address] [place] [address] [email or web address] g 08/02/2025 2:40 PM EDT Infusion [facility] at [address] [address] Prashant Gaspar, DO [address] [place] [address] JAMI@[facility] Kimberly Nunes RN [address] [place] [address] [email or web address] 08/03/2025 4:00 PM EDT Infusion [facility] at [address] [address] Prashant Gaspar DO [address] [place] [address] JAMI@[facility] Salima Harris RN [address] [place] [address] [email or web address] documented as of this encounter Visit Diagnoses Not on filedocumented in this encounter Care Teams Engineer Technical Staff Relationship Specialty Start Date End Date Hali Carlin PA [address] [place] [phone] PCP - General Physician Steam Frame Operator 05/03/25 Prashant Gaspar DO [address] [place] [address] [email or web address] Primary Oncologist Hematology and Oncology 06/01/25 Sharon Hunter, EVA [address] [place] [address] [email or web address] Nurse Practitioner Medical Oncology 06/26/25 Marilee Kaminski FNP [address] [place] [address] [email or web address] Nurse Practitioner Medical Oncology 06/28/25 documented as of this encounter Additional Source Comments The information contained in this document represents components of the legal health record. It is not the complete legal health record.[facility]
--- OUTSIDE RECORDS SUMMARY | 2025-07-17 20:20 | XMS_ITS | Encounter Summary ---
Author Organization [facility] Address [address] [place] [address] Phone Care Team Providers Care Stock Clipper Name Role Phone Hali Carlin Primary Care Provider [phone]- [phone] Prashant Gaspar DO Unavailable [phone] Sharon Hunter LABORER BITUMINOUS PAVING Unavailable [phone] Marilee Kaminski CASINO CONTROLLER Unavailable [phone] Encounter Details Date Type Department Care Team (Late st Contact Info) Description 06/24/2025 Procedure Pass [facility], Ct Scan - [facility] [address] [place] [address] Social History Tobacco Use Types Packs/Day Years [...] 9:32 PM EDT Helen Stauffer RN * [place] Suicide Severity Rating Scale (Screener/Recent Self-Report) Question [...] (Latest Contact Info) Description 07/20/2025 Procedure Pass [facility] Cardiovascular And Interventional Radiology [address] [place] [address] 07/20/2025 1:00 PM EDT Hospital Encounter [facility] Cardiovascular And Interventional Radiology [address] [place] [address] Galen Contreras MD [address] [place] [address] [email or web address] 07/20/2025 1:00 PM EDT - 07/20/2025 2:25 PM EDT Surgery [facility] Cardiovascular And Interventional Radiology [address] [place] [address] Galen Contreras MD [address] [place] [address] [email or web address] PORT A CATH INSERTION (IR) 07/31/2025 7:40 AM EDT Appointment [facility] Laboratory [address] [place] [address] Prashant Gaspar, DO [address] [place] [address] [email or web address] 07/31/2025 8:30 AM EDT Office Visit [facility] at [address] [address] Marilee Kaminski FNP [address] [place] [address] 07/31/2025 9:20 AM EDT Infusion [facility] [place] at [address] [address] Prashant Gaspar, DO [address] [place] [address] LINDAMARIA [email or web address] Kaushal Feliz RN [address] [place] [address] [email or web address] 08/01/2025 2:40 PM EDT Infusion [facility] at [address] [address] Prashant Gaspar, [address] [address] [email or web address]@[email or web address] Celine Peralta RN [address] [place] [address] [email or web address] 08/02/2025 2:40 PM EDT Infusion [facility] at [address] [address] Prashant Gaspar [address] [address] [email or web address]@[email or web address] Kimberly Nunes RN [address] [place] [address] [email or web address] 08/03/2025 4:00 PM EDT Infusion [facility] at [address] [address] Prashant Gaspar DO [address] [place] [address] JAMI@[facility] Salima Harris RN [address] [place] [address] [email or web address] documented as of this encounter Visit Diagnoses Not on filedocumented in this encounter Care Teams Stock Clipper Relationship Specialty Start Date End Date Hali Carlin PA [address] [place] [phone] PCP - General Physician Water Chaser 05/03/25 Prashant Gaspar DO [address] [place] [address] [email or web address] Primary Oncologist Hematology and Oncology 06/01/25 Sharon Hunter NP [address] [place] [address] Nurse Practitioner Medical Oncology 06/26/25 Marilee Kaminski FNP [address] [place] [address] Nurse Practitioner Medical Oncology 06/28/25 documented as of this encounter Additional Source Comments The information contained in this document represents components of the legal health record. It is not the complete legal health record.[facility]
--- OUTSIDE RECORDS SUMMARY | 2025-07-17 20:20 | XMS_ITS | Encounter Summary ---
Author Organization [facility] Address [address] [place] [address] [place] [address] Phone Care Team Providers Care Cook Chili Name Role Phone Hali Carlin Primary Care Provider [phone]- [phone] Prashant Gaspar DO Unavailable Sharon Hunter MUD MILL TENDER Unavailable Marilee Kaminski HADOOP CONSULTANT Unavailable Encounter Details Date Type Department Care Team (Late st Contact Info) Description 06/27/2025 Orders Only [facility] [address] [place] [address] Sharon Hunter, EVA [address] [place] [address] [email or web address] Social History Tobacco Use Types Packs/Day Years [...] Pass [facility] [address] [place] [address] 07/20/2025 1:00 PM EDT Hospital Encounter [facility] [address] [place] [address] Galen Contreras MD [address] [place] [address] [email or web address] 07/20/2025 1:00 PM EDT - 07/20/2025 2:25 PM EDT Surgery [facility] Cardiovascular And Interventional Radiology [address] [place] [address] Galen Contreras MD [address] [place] [address] [email or web address] PORT A CATH INSERTION (IR) 07/31/2025 7:40 AM EDT Appointment [facility] [address] [place] [address] Prashant Gaspar, DO [address] [place] [address] [email or web address] 07/31/2025 8:30 AM EDT Office Visit [facility] at [address] [address] Marilee Kaminski FNP [address] [place] [address] [email or web address] 07/31/2025 9:[address] [facility] at [address] [address] Prashant Gaspar, DO [address] [place] [address] [email or web address]@[email or web address] Kaushal Feliz, RICHARDSON [address] [place] [address] [email or web address] 08/01/2025 2:[address] [facility] at [address] [address] Prashant Gaspar, DO [address] [place] [address] [email or web address]@[email or web address] Celine Peralta, RICHARDSON [address] [place] [address] [email or web address] g 08/02/2025 2:[address] [facility] at [address] [address] Prashant Gaspar, [address] [place] [address] JAMI@[email or web address] Kimberly Nunes RN [address] [place] [address] [email or web address] 08/03/2025 4:[address] [facility] at [address] [address] Prashant Gaspar DO [address] [place] [address] JAMI@[facility] Salima Harris RN [address] [place] [address] [email or web address] documented as of this encounter Visit Diagnoses Not on filedocumented in this encounter Care Teams Cook Chili Relationship Specialty Start Date End Date Hali Carlin PA [address] [place] [phone] PCP - General Physician Dance Master 05/03/25 Prashant Gaspar DO [address] [place] [address] [email or web address] [email or web address] Primary Oncologist Hematology and Oncology 06/01/25 Sharon Hunter, EVA [address] [place] [address] [email or web address] Nurse Practitioner Medical Oncology 06/26/25 Marilee Kaminski FNP [address] [place] [address] [email or web address] Nurse Practitioner Medical Oncology 06/28/25 documented as of this encounter Additional Source Comments The information contained in this document represents components of the legal health record. It is not the complete legal health record.[facility]
--- OUTSIDE RECORDS SUMMARY | 2025-07-17 20:20 | XMS_ITS | Encounter Summary ---
Author Organization [facility] Address [address] [place] [address] Phone Care Team Providers Care Core Placer Name Role Phone Hali Carlin Primary Care Provider [phone]- [phone] Prashant Gaspar DO Unavailable [phone] Sharon Hunter DIRECTOR OF RESTAURANT OPERATIONS Unavailable [phone] Marilee Kaminski MIDDLE SCHOOL DIRECTOR Unavailable [phone] Encounter Details Date Type Department Care Team (Late st Contact Info) Description 06/24/2025 Procedure Pass [facility], Ct Scan - [facility] 30 [place] [address] Social History Tobacco Use Types Packs/Day Years [...] 9:32 PM EDT Helen Stauffer RN * [place] Suicide Severity Rating Scale (Screener/Recent Self-Report) Question [...] (Latest Contact Info) Description 07/20/2025 Procedure Pass [facility] Cardiovascular And Interventional Radiology [address] [place] [address] 07/20/2025 1:00 PM EDT Hospital Encounter [facility] Cardiovascular And Interventional Radiology [address] [place] [address] Galen Contreras MD [address] [place] [address] [email or web address] 07/20/2025 1:00 PM EDT - 07/20/2025 2:25 PM EDT Surgery [facility] Cardiovascular And Interventional Radiology [address] [place] [address] Galen Contreras MD [address] [place] [address] [email or web address] PORT A CATH INSERTION (IR) 07/31/2025 7:40 AM EDT Appointment [facility] Laboratory [address] [place] [address] Prashant Gaspar, DO [address] [place] [address] [email or web address] 07/31/2025 8:30 AM EDT Office Visit [facility] at [address] [address] Marilee Kaminski FNP [address] [place] [address] 07/31/2025 9:20 AM EDT Infusion [facility] at [address] [address] Prashant Gaspar, DO 30 [place] [address] LINDAMARIA [email or web address] Kaushal Feliz RN [address] [place] [address] [email or web address] 08/01/2025 2:40 PM EDT Infusion [facility] at [address] [address] Prashant Gaspar, [address] [address] [email or web address] Celine Peralta RN [address] [place] [address] [email or web address] 08/02/2025 2:40 PM EDT Infusion [facility] at [address] [address] Prashant Gaspar [address] [address] [email or web address]@[facility] Kimberly Nunes RN [address] [place] [address] [email or web address] 08/03/2025 4:00 PM EDT Infusion [facility] at [address] [address] Prashant Gaspar DO [address] [place] [address] JAMI@[facility] Salima Harris RN [address] [place] [address] [email or web address] documented as of this encounter Visit Diagnoses Not on filedocumented in this encounter Care Teams Core Placer Relationship Specialty Start Date End Date Hali Carlin PA [address] [place] [phone] PCP - General Physician Metal Miner 05/03/25 Prashant Gaspar DO [address] [place] [address] [email or web address] Primary Oncologist Hematology and Oncology 06/01/25 Sharon Hunter NP [address] [place] [address] Nurse Practitioner Medical Oncology 06/26/25 Marilee Kaminski FNP [address] [place] [address] Nurse Practitioner Medical Oncology 06/28/25 documented as of this encounter Additional Source Comments The information contained in this document represents components of the legal health record. It is not the complete legal health record.[facility]
--- OUTSIDE RECORDS SUMMARY | 2025-07-17 20:20 | XMS_ITS | Encounter Summary ---
Author Organization [facility] Address [address] [place] [address] [place] [phone] Phone Care Team Providers Care Design Architect Name Role Phone Hali Carlin Primary Care Provider [phone] Prashant Gaspar DO Unavailable [phone] Sharon Hunter MAINTENANCE CHIEF Unavailable [phone] Marilee Kaminski PERMIT AGENT Unavailable Encounter Details Date Type Department Care Team (Late st Contact Info) Description 07/09/2025 Telephone [facility] at [address] [address] Prashant Gaspar DO [address] [place] [address] [email or web address] Social History Tobacco Use Types Packs/Day Years [...] I was notified by EP (front end software developer) that the pt had left and not said if she would be back. documented in this encounter Plan of Treatment Upcoming Encounters Date Type Department Care Team (Latest Contact Info) Description 07/20/2025 Procedure Pass [facility]ovascular And Interventional Radiology [address] [place] [address] 07/20/2025 1:00 PM EDT Hospital Encounter [facility] [address] [place] [address] Galen Contreras MD [address] [place] [address] [email or web address] 07/20/2025 1:00 PM EDT - 07/20/2025 2:25 PM EDT Surgery [facility] Cardi[facility]ventional Radiology [address] [place] [address] Galen Contreras MD [address] [place] [address] [email or web address] PORT A CATH INSERTION (IR) 07/31/2025 7:40 AM EDT Appointment [facility] Laboratory [address] [place] [address] Prashant Gaspar, [address] [place] [address] [email or web address] 07/31/2025 8:30 AM EDT Office Visit [facility] [place] [address] [place] [address] Marilee Kaminski FNP [address] [place] [address] 07/31/2025 9:20 AM EDT Infusion [facility] at [address] [address] Prashant Gaspar, DO [address] [place] [address] [email or web address] Kaushal Feliz RN [address] [place] [address] [email or web address] 08/01/2025 2:40 PM EDT Infusion [facility] at [address] [address] Prashant Gaspar, [address] [address] [email or web address] Celine Peralta RN [address] [place] [address] [email or web address] 08/02/2025 2:40 PM EDT Infusion [facility] at [address] [address] Prashant Gaspar, DO [address] [place] [address] [email or web address] Kimberly Nunes RN [address] [place] [address] 08/03/2025 4:00 PM EDT Infusion [facility] at [address] [address] Prashant Gaspar, DO [address] [place] [address] [email or web address] Salima Harris RN [address] [place] [address] documented as of this encounter Visit Diagnoses Not on filedocumented in this encounter Care Teams Design Architect Relationship Specialty Start Date End Date Hali Carlin PA [address] [place] [phone] PCP - General Physician Nicu Rn 05/03/25 Prashant Gaspar DO [address] [place] [address] [email or web address] Primary Oncologist Hematology and Oncology 06/01/25 Sharon Hunter NP [address] [place] [address] [email or web address] Nurse Practitioner Medical Oncology 06/26/25 Marilee Kaminski FNP [address] [place] [address] [email or web address] Nurse Practitioner Medical Oncology 06/28/25 documented as of this encounter Additional Source Comments The information contained in this document represents components of the legal health record. It is not the complete legal health record.[facility]
--- OUTSIDE RECORDS SUMMARY | 2025-07-17 20:20 | XMS_ITS | Encounter Summary ---
Author Organization [facility] Address [address] [place] [address] Phone Care Team Providers Care Liner Man Name Role Phone Celine Farley MD Primary Care Provider Unavailable Hali Carlin Primary Care Provider [phone] Prashant Gaspar DO Unavailable [phone] Sharon Hunter TRADE RECRUITER Unavailable Marilee KaminskiP Unavailable [phone] Encounter Details Date Type Department Care Team (Late st Contact Info) Description 04/23/2023 Procedure Pass [facility], [facility] Scan - [facility] [address] [place] [address] Social History Tobacco Use Types Packs/Day Years [...] 8:34 AM EDT Celena Hinton RN * [place] Suicide Severity Rating Scale (Screener/Recent Self-Report) Question [...] (Latest Contact Info) Description 07/20/2025 Procedure Pass [facility] Cardiovascular And Interventional Radiology [address] [place] [address] 07/20/2025 1:00 PM EDT Hospital Encounter [facility] Cardiovascular And Interventional Radiology [address] [place] [address] Galen Contreras MD [address] [place] [address] [email or web address] 07/20/2025 1:00 PM EDT - 07/20/2025 2:25 PM EDT Surgery [facility] Cardiovascular And Interventional Radiology [address] [place] [address] Galen Contreras MD [address] [place] [address] [email or web address] PORT A CATH INSERTION (IR) 07/31/2025 7:40 AM EDT Appointment [facility] Laboratory [address] [place] [address] Prashant Gaspar, DO [address] [place] [address] [email or web address] 07/31/2025 8:30 AM EDT Office Visit [facility] at [address] [address] Marilee Kaminski FNP [address] [place] [address] [email or web address] 07/31/2025 9:20 AM EDT Infusion [facility] at [address] [address] Prashant Gaspar, DO [address] [place] [address] [email or web address] Kaushal Feliz, RICHARDSON [address] [place] [address] [email or web address] 08/01/2025 2:40 PM EDT Infusion [facility] at [address] [address] Prashant Gaspar, DO [address] [place] [address] [email or web address]@[email or web address] Celine Peralta, RICHARDSON [address] [place] [address] [email or web address] 08/02/2025 2:40 PM EDT Infusion [facility] at [address] [address] Prashant Gaspar DO [address] [place] [address] [email or web address] Kimberly Nunes, RICHARDSON [address] [place] [address] [email or web address] 08/03/2025 4:00 PM EDT Infusion [facility] at [address] [address] Prashant Gaspar DO [address] [place] [address] [email or web address] Salima Harris RN [address] [place] [address] [email or web address] documented as of this encounter Visit Diagnoses Not on filedocumented in this encounter Additional Health Concerns Infection Onset Date Last Indicated Resolved Time CoV-Risk Comment:Per note documentation 04/24/2023 04/24/2023 10:25 AM EDT CoV-Risk 05/31/2025 05/31/2025 06/11/2025 1:21 AM EDT documented as of this encounter Care Teams Liner Man Relationship Specialty Start Date End Date Celine Farley MD PCP - General 07/20/17 05/02/25 Hali Carlin PA [address] [place] [phone] PCP - General Physician Sociology Professor 05/03/25 Prashant Gaspar DO [address] [place] [address] [email or web address] Primary Oncologist Hematology and Oncology 06/01/25 Sharon Hunter NP [address] [place] [address] [email or web address] Nurse Practitioner Medical Oncology 06/26/25 Marilee Kaminski FNP [address] [place] [address] [email or web address] Nurse Practitioner Medical Oncology 06/28/25 documented as of this encounter Additional Source Comments The information contained in this document represents components of the legal health record. It is not the complete legal health record.[facility]
--- OUTSIDE RECORDS SUMMARY | 2025-07-17 20:20 | XMS_ITS | Encounter Summary ---
Author Organization [facility] Address [address] [place] [address] Phone Care Team Providers Care Line Up Examiner Name Role Phone Hali Carlin Primary Care Provider [phone] Prashant Gaspar DO Unavailable [phone] Sharon Hunter AREA DEVELOPMENT MANAGER Unavailable [phone] Marilee Kaminski COMMISSIONING ENGINEER Unavailable [phone] Encounter Details Date Type Department Care Team (Late st Contact Info) Description 05/03/2025 Procedure Pass [facility], Ct Scan - [facility] [address] [place] [address] Social History Tobacco Use Types Packs/Day Years [...] 5:16 PM EDT Vangie Kraus RN * [place] Suicide Severity Rating Scale (Screener/Recent Self-Report) Question [...] Contact Info) Description 07/20/2025 Procedure Pass [facility] Cardiovascular And Interventional Radiology [address] [place] [address] 07/20/2025 1:00 PM EDT Hospital Encounter [facility] Cardiovascular And Interventional Radiology [address] [place] [address] Galen Contreras MD [address] [place] [address] [email or web address] 07/20/2025 1:00 PM EDT - 07/20/2025 2:25 PM EDT Surgery [facility] Cardiovascular And Interventional Radiology [address] [place] [address] Galen Contreras MD [address] [place] [address] [email or web address] PORT A CATH INSERTION (IR) 07/31/2025 7:40 AM EDT Appointment [facility] Laboratory [address] [place] [address] Prashant Gaspar, DO [address] [place] [address] [email or web address] 07/31/2025 8:30 AM EDT Office Visit [facility] at [address] [address] Marilee Kaminski FNP [address] [place] [address] 07/31/2025 9:20 AM EDT Infusion [facility] at [address] [address] Prashant Gaspar, [address] [place] [address] [email or web address] Kaushal Feliz RN [address] [place] [address] [email or web address] 08/01/2025 2:40 PM EDT Infusion [facility] at [address] [address] Prashant Gaspar, DO [address] [place] [address] [email or web address] Celine Peralta, RICHARDSON [address] [place] [address] [email or web address] 08/02/2025 2:40 PM EDT Infusion [facility] at [address] [address] Prashant Gaspar, DO [address] [place] [address] [email or web address] Kimberly Nunes RN [address] [place] [address] 08/03/2025 4:00 PM EDT Infusion [facility] at [address] [address] Prashant Gaspar, DO [address] [place] [address] [email or web address] Salima [place] RN [address] [place] [address] documented as of this encounter Visit Diagnoses Not on filedocumented in this encounter Additional Health Concerns Infection Onset Date Last Indicated Resolved Time CoV-Risk 05/31/2025 05/31/2025 06/11/2025 1:21 AM EDT documented as of this encounter Care Teams Line Up Examiner Relationship Specialty Start Date End Date Hali Carlin PA [address] [place] [phone] PCP - General Physician Barrel Brander 05/03/25 Prashant Gaspar DO [address] [place] [address] [email or web address] Primary Oncologist Hematology and Oncology 06/01/25 Sharon Hunter NP [address] [place] [address] [email or web address] Nurse Practitioner Medical Oncology 06/26/25 Marilee Kaminski FNP [address] [place] [address] Nurse Practitioner Medical Oncology 06/28/25 documented as of this encounter Additional Source Comments The information contained in this document represents components of the legal health record. It is not the complete legal health record.[facility]
--- OUTSIDE RECORDS SUMMARY | 2025-07-17 20:20 | XMS_ITS | Encounter Summary ---
Author Organization [facility] Address [address] [place] [address] Phone Care Team Providers Care Barnworker Groom Name Role Phone Hali Carlin Primary Care Provider [phone] Prashant Gaspar DO Unavailable Sharon Hunter STRATEGIC MARKETING SPECIALIST Unavailable Marilee Kaminski SERVOMECHANISM ASSEMBLER Unavailable Encounter Details Date Type Department Care Team (Late st Contact Info) Description 06/27/2025 Orders Only [facility] [address] [place], [place] [phone] Claudia Andrews [address] [place] [address] [email or web address] Need for hepatitis B screening test; Small [...] Procedure Pass [facility] Cardiovascular And Interventional Radiology [address] [place] [address] 07/20/2025 1:00 PM EDT Hospital Encounter [facility]ventional Radiology [address] [place] [address] Galen Contreras MD [address] [place] [address] [email or web address] 07/20/2025 1:00 PM EDT - 07/20/2025 2:25 PM EDT Surgery [facility] Cardiovascular And Interventional Radiology [address] [place] [address] Galen Contreras MD [address] [place] [address] [email or web address] PORT A CATH INSERTION (IR) 07/31/2025 7:40 AM EDT Appointment [facility] [address] [place] [address] Prashant Gaspar, DO [address] [place] [address] [email or web address] 07/31/2025 8:30 AM EDT Office Visit [facility] at [address] [address] Marilee Kaminski FNP [address] [place] [address] [email or web address] 07/31/2025 9:20 AM EDT Infusion [facility] at [address] [address] Prashant Gaspar, DO [address] [place] [address] [email or web address] Kaushal Feliz, RICHARDSON [address] [place] [address] [email or web address] 08/01/2025 2:40 PM EDT Infusion [facility] at [address] [address] Prashant Gaspar, DO [address] [place] [address] LINDAMARIA [email or web address] Celine Peralta, RICHARDSON [address] [place] [address] [email or web address] 08/02/2025 2:40 PM EDT Infusion [facility] at [address] [address] Prashant Gaspar, DO [address] [place] [address] [email or web address] Kimberly Nunes RN [address] [place] [address] 08/03/2025 4:00 PM EDT Infusion [facility] at [address] [address] Prashant Gaspar, [address] [address] [email or web address] Salima Harris RN [address] [place] [address] documented as of this encounter Procedures Procedure [...] EDT) WBC 1.63(L) 4.00 - 11.00 K/uL [facility] RBC 4.13 4.00 - 5.20 M/uL [facility] HGB 12.4 12.0 - 16.0 g/dL [facility] HCT 37.6 36.0 - 46.0 % [facility] PLT 207 150 - 450 K/uL [facility] MCV 91.0 80.0 - 100.0 fL [facility] MCH 30.0 27.0 - 31.0 pg [facility] MCHC 33.0 32.0 - 36.0 g/dL [facility] RDW 15.9(H) 11.5 - 14.5 % [facility] MPV 10.3 8.4 - 12.0 fL [facility] NRBC 0.00 0.00 /100 WBCs [facility] ABSOLUTE NRBC 0.00 0.00 K/uL [facility] DIFF METHOD Auto [facility] NEUTS 41.2(L) 48.0 - 76.0 % [facility] Comment: Toxic granulation present Dohle Bodies Present LYMPHS 48.5(H) 18.0 - 41.0 % [facility] Comment: Rare Atypical Lymphs MONOS 6.1 4.0 - 11.0 % [facility] EOS 1.2 0.0 - 5.0 % [facility] BASOS 1.8(H) 0.0 - 1.5 % [facility] Granulocytes, immature (%) 1.2(H) 0.0 - 0.9 % [facility] ABSOLUTE NEUTS 0.67(L) 1.92 - 7.60 K/uL [facility] ABSOLUTE LYMPHS 0.79 0.72 - 4.10 K/uL [facility] ABSOLUTE MONOS 0.10(L) 0.16 - 1.10 K/uL [facility] ABSOLUTE EOS 0.02 0.00 - 0.50 K/uL [facility] ABSOLUTE BASOS 0.03 0.00 - 0.15 K/uL [facility] Granulocytes, immature 0.02 0.00 - 0.09 K/uL [facility] Blood 06/27/2025 1:33 PM EDT 06/27/2025 1:47 PM EDT us Prashant Gaspar DO LAB BLOOD ORDERABLES Edited Result - Final [facility] [address] [place] [address] * (ABNORMAL) Comprehensive metabolic panel (06/27/2025 1:33 PM EDT) SODIUM 137 133 - 146 mmol/L [facility] POTASSIUM 3.9 3.3 - 5.1 mmol/L [facility] CHLORIDE 103 96 - 108 mmol/L [facility] CO2 21 21 - 35 mmol/L [facility] BUN 14 6 - 19 mg/dL [facility] CREATININE 0.70 0.5 - 1.5 mg/dL [facility] GLUCOSE 110(H) 70 - 99 mg/dL [facility] ALBUMIN 3.2(L) 3.9 - 4.8 g/dL [facility] TOTAL PROTEIN 7.5 6.5 - 8.0 g/dL [facility] CALCIUM 9.0 8.4 - 10.3 mg/dL [facility] ALKALINE PHOSPHATASE 686(H) 39 - 117 U/L [facility] TOTAL BILIRUBIN 0.7 0.0 - 1.2 mg/dL [facility] AST 147(H) 0 - 37 U/L [facility] ALT 55(H) 0 - 40 U/L [facility] GLOBULIN 4.3 1 - 4.8 g/dL [facility] EGFR 92 >59 mL/min/1.7 3m2 [facility] Comment:Estimated glomerular filtration rate calculated using the CKD-EPI refit equation. ANION GAP 17 10 - 20 mmol/L [facility] Blood 06/27/2025 1:33 PM EDT 06/27/2025 1:47 PM EDT us Prashant Meyers Chasity DO LAB BLOOD ORDERABLES Final Result Performing Organization Address City/[facility]/ZIP Co de Phone Number [address] [address] * Hepatitis B core antibody, total (06/27/2025 1:33 PM EDT) HEP B CORE AB, TOT NON-REACTI VE NON-REACTI VE [facility] Blood 06/27/2025 1:33 PM EDT 06/27/2025 1:47 PM EDT us Prashant Meyers Chasity DO LAB BLOOD ORDERABLES Final Result Performing Organization Address [facility] Co de Phone Number [address] [address] * Hepatitis B surface antigen (06/27/2025 1:33 PM EDT) HBV SURFACE ANTIGEN NON-REACTI VE NON-REACTI VE [facility] Blood 06/27/2025 1:33 PM EDT 06/27/2025 1:47 PM EDT us Prashant Meyers Chasity DO LAB BLOOD ORDERABLES Final Result Performing Organization Address City/[facility]/ZIP Co de Phone Number [address] [address] * Uric acid (06/27/2025 1:33 PM EDT) URIC ACID 5.3 2.4 - 7.0 mg/dL [facility] Blood 06/27/2025 1:33 PM EDT 06/27/2025 1:47 PM EDT us Prashant Gaspar DO LAB BLOOD ORDERABLES Final Result Performing Organization Address City/[facility]/ZIP Co de Phone Number [address] [phone] documented in this encounter Visit Diagnoses Diagnosis Need for hepatitis B screening test 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 Need for hepatitis B screening test 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 Need for hepatitis B screening test 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 documented in this encounter Care Teams Barnworker Groom Relationship Specialty Start Date End Date Hali Carlin PA [address] [place] [phone] PCP - General Physician Media Production Operator 05/03/25 Prashant Gaspar DO [address] [place] [address] [email or web address] Primary Oncologist Hematology and Oncology 06/01/25 Sharon Hunter NP [address] [place] [address] [email or web address] Nurse Practitioner Medical Oncology 06/26/25 Marilee Kaminski FNP [address] [place] [address] [email or web address] Nurse Practitioner Medical Oncology 06/28/25 documented as of this encounter Additional Source Comments The information contained in this document represents components of the legal health record. It is not the complete legal health record.[facility]
--- OUTSIDE RECORDS SUMMARY | 2025-07-17 20:21 | XMS_ITS | Encounter Summary ---
Author Organization [facility] Address [address] [place] [address] Phone Care Team Providers Care Plate Grainer Apprentice Name Role Phone Celine Farley MD Primary Care Provider Unavailable Hali Carlin Primary Care Provider [phone] Prashant Gaspar DO Unavailable [phone] Sharon Hunter ACUTE CARE OCCUPATIONAL THERAPIST Unavailable Marilee KaminskiP Unavailable [phone] Encounter Details Date Type Department Care Team (Late st Contact Info) Description 04/23/2023 Procedure Pass [facility], Ct Scan - [facility] [address] [place] [address] Social History Tobacco Use Types Packs/Day Years [...] 8:34 AM EDT Celena Hinton RN * Palmer Suicide Severity Rating Scale (Screener/Recent Self-Report) Question Answer Date of Assessment Author 1. Wish to be (Past 1 Month) No 023 8:34 AM EDT Celena Hinton RN 2. Non-Specific Active Suici raymond Thoughts (Past 1 Month) No 04/26/2023 8:34 AM EDT Sherine Hinton RN 6. Suicidal Behavior (Lifetime) No 8:34 AM EDT Celena Hitnon RN documented as of this encounter Plan of Treatment Upcoming Encounters Date Type Department Care Team (Latest Contact Info) Description 07/20/2025 Procedure Pass [facility] Cardiovascular And Interventional Radiology [address] [place] [address] 07/20/2025 1:00 PM EDT Hospital Encounter [facility] Cardiovascular And Interventional Radiology [address] [place] [address] Galen Contreras MD [address] [place] [address] [email or web address] 07/20/2025 1:00 PM EDT - 07/20/2025 2:25 PM EDT Surgery [facility] Cardiovascular And Interventional Radiology [address] [place] [address]289 Galen Contreras MD [address] [place] [address] [email or web address] PORT A CATH INSERTION (IR) 07/31/2025 7:40 AM EDT Appointment [facility] Laboratory [address] [place] [address] Prashant Gaspar, DO [address] [place] [address] [email or web address] 07/31/2025 8:30 AM EDT Office Visit [facility] at [address] [address] Marilee Kaminski FNP [address] [place] [address] [email or web address] 07/31/2025 9:20 AM EDT Infusion [facility] at [address] [address] Prashant Gaspar, DO [address] [place] [address] [email or web address] Kaushal Feliz, RICHARDSON [address] [place] [address] [email or web address] 08/01/2025 2:40 PM EDT Infusion [facility] at [address] [address] Prashant Gaspar, DO [address] [place] [address] [email or web address]@[email or web address] Celine Peralta, RICHARDSON [address] [place] [address] [email or web address] 08/02/2025 2:40 PM EDT Infusion [facility] at [address] [address] Prashant Gaspar DO [address] [place] [address] [email or web address] Kimberly Nunes, RICHARDSON [address] [place] [address] [email or web address] 08/03/2025 4:00 PM EDT Infusion [facility] at [address] [address] Prashant Gaspar DO [address] [place] [address] [email or web address]@[email or web address] Salima Harris RN [address] [place] [address] [email or web address] documented as of this encounter Visit Diagnoses Not on filedocumented in this encounter Additional Health Concerns Infection Onset Date Last Indicated Resolved Time CoV-Risk Comment:Per note documentation 04/24/2023 04/24/2023 10:25 AM EDT CoV-Risk 05/31/2025 05/31/2025 06/11/2025 1:21 AM EDT documented as of this encounter Care Teams Plate Grainer Apprentice Relationship Specialty Start Date End Date Celine Farley MD PCP - General 07/20/17 05/02/25 Hali Carlin PA [address] [place] [address] [phone] PCP - General Physician Mixer Wet Pour 05/03/25 Prashant Gaspar DO [address] [place] [address] [email or web address] Primary Oncologist Hematology and Oncology 06/01/25 Sharon Hunter NP [address] [place] [address] [email or web address] Nurse Practitioner Medical Oncology 06/26/25 Marilee Kaminski FNP [address] [place] [address] [email or web address] Nurse Practitioner Medical Oncology 06/28/25 documented as of this encounter Additional Source Comments The information contained in this document represents components of the legal health record. It is not the complete legal health record.[facility]
--- OUTSIDE RECORDS SUMMARY | 2025-07-17 20:21 | XMS_ITS | Encounter Summary ---
Author Organization [facility] Address [address] [place] [address] Phone Care Team Providers Care Cardiology Specialist Name Role Phone Celine Farley MD Primary Care Provider Unavailable Hali Carlin Primary Care Provider [phone] Prashant Gaspar DO Unavailable Sharon Hunter OPERATIONS INTELLIGENCE Unavailable Marilee KaminskiP Unavailable Encounter Details Date Type Department Care Team (Late st Contact Info) Description 07/22/2023 Procedure Pass [facility], Ct Scan - [facility] [address] [place] [address] Social History Tobacco Use Types Packs/Day Years [...] 4:20 PM EDT Helen Stauffer RN * [place] Suicide Severity Rating Scale (Screener/Recent Self-Report) Question [...] (Latest Contact Info) Description 07/20/2025 Procedure Pass [facility] Cardiovascular And Interventional Radiology [address] [place] [address] 07/20/2025 1:00 PM EDT Hospital Encounter [facility] Cardiovascular And Interventional Radiology [address] [place] [address] Galen Contreras MD [address] [place] [address] [email or web address] 07/20/2025 1:00 PM EDT - 07/20/2025 2:25 PM EDT Surgery [facility] Cardiovascular And Interventional Radiology [address] [place] [address] Galen Contreras MD [address] [place] [address] [email or web address] PORT A CATH INSERTION (IR) 07/31/2025 7:40 AM EDT Appointment [facility] [address] [place] [address] Prashant Gaspar, DO [address] [place] [address] [email or web address]@[facility] 07/31/2025 8:30 AM EDT Office Visit [facility] at [address] [address] Marilee Kaminski FNP [address] [place] [address] [email or web address] 07/31/2025 9:[address] [facility] at [address] [address] Prashant Gaspar, DO [address] [place] [address] [email or web address]@[facility] Kaushal Feliz, RICHARDSON [address] [place] [address] [email or web address] 08/01/2025 2:[address] [facility] at [address] [address] Prashant Gaspar, DO [address] [place] [address] JAMI@[facility] Celine Peralta, RN [address] [place] [address] [email or web address] 08/02/2025 2:[address] [facility] at [address] [address] Prashant Gaspar, DO [address] [place] [address] [email or web address]@[facility] Kimberly Nunes, RICHARDSON [address] [place] [address] 08/03/2025 4:00 PM EDT Infusion [facility] at [facility] [address] [place] [address] Prashant Gaspar DO 30 [place] [address] [email or web address]@[facility] Salima Harris RN [address] [place] [address] [email or web address] documented as of this encounter Visit Diagnoses Not on filedocumented in this encounter Additional Health Concerns Infection Onset Date Last Indicated Resolved Time CoV-Risk 05/31/2025 05/31/2025 06/11/2025 1:21 AM EDT documented as of this encounter Care Teams Cardiology Specialist Relationship Specialty Start Date End Date Celine Farley MD PCP - General 07/20/17 05/02/25 Hali Carlin PA [address] [place] [address] [phone] PCP - General Physician Jig Builder Helper 05/03/25 Prashant Gaspar DO [address] [place] [address] [email or web address] Primary Oncologist Hematology and Oncology 06/01/25 Sharon Hunter NP [address] [place] [address] [email or web address] Nurse Practitioner Medical Oncology 06/26/25 Marilee Kaminski FNP [address] [place] [address] [email or web address] Nurse Practitioner Medical Oncology 06/28/25 documented as of this encounter Additional Source Comments The information contained in this document represents components of the legal health record. It is not the complete legal health record.[facility]
--- OUTSIDE RECORDS SUMMARY | 2025-07-17 20:21 | XMS_ITS | Encounter Summary ---
Author Organization [facility] Address [address] [place] [address] Phone Care Team Providers Care Stencil Typist Name Role Phone Hali Carlin Primary Care Provider [phone] Prashant Gaspar DO Unavailable [phone] Sharon Hunter COMMUNITY HEALTH WORKER Unavailable [phone] Marilee Kaminski LOSS PREVENTION COORDINATOR Unavailable [phone] Encounter Details Date Type Department Care Team (Late st Contact Info) Description 05/31/2025 Procedure Pass [facility], Ct Scan - [facility] [address] [place] [address] Social History Tobacco Use Types Packs/Day Years [...] Pass [facility] Cardiovascular And Interventional Radiology [address] [place] [address] 07/20/2025 1:00 PM EDT Hospital Encounter [facility] [address] [place] [address] Galen Contreras MD 30 [place] [address] [email or web address] 07/20/2025 1:00 PM EDT - 07/20/2025 2:25 PM EDT Surgery [facility] Cardiovascular And Interventional Radiology [address] [place] [address] Galen Contreras MD 30 [place] [address] [email or web address] PORT A CATH INSERTION (IR) 07/31/2025 7:40 AM EDT Appointment [facility] [address] [place] [address] Prashant Gaspar, DO [address] [place] [address] [email or web address]@[email or web address] 07/31/2025 8:30 AM EDT Office Visit [facility] at [address] [address] Marilee Kaminski FNP [address] [place] [address] 07/31/2025 9:20 AM EDT Infusion [facility] at [address] [address] Prashant Gaspar, DO [address] [place] [address] [email or web address] Kaushal Feliz, RICHARDSON [address] [place] [address] [email or web address] 08/01/2025 2:40 PM EDT Infusion [facility] at [address] [address] Prashant Gaspar, DO [address] [place] [address] [email or web address] Celine Peralta, RN [address] [place] [address] [email or web address] 08/02/2025 2:40 PM EDT Infusion [facility] at [address] [address] Prashant Gaspar DO [address] [place] [address] JAMI@[email or web address] Kimberly Nunes, RICHARDSON [address] [place] [address] [email or web address] 08/03/2025 4:00 PM EDT Infusion [facility] at [address] [address] Prashant Gaspar DO [address] [place] [address] JAMI@[facility] Salima Harris RN [address] [place] [address] [email or web address] documented as of this encounter Visit Diagnoses Not on filedocumented in this encounter Additional Health Concerns Infection Onset Date Last Indicated Resolved Time CoV-Risk 05/31/2025 05/31/2025 06/11/2025 1:21 AM EDT documented as of this encounter Care Teams Stencil Typist Relationship Specialty Start Date End Date Hali Carlin PA [address] [place] [address] [phone] PCP - General Physician Professor Of Chemistry 05/03/25 Prashant Gaspar DO [address] [place] [address] [email or web address] Primary Oncologist Hematology and Oncology 06/01/25 Sharon Hunter, EVA [address] [place] [address] [email or web address] Nurse Practitioner Medical Oncology 06/26/25 Marilee Kaminski FNP [address] [place] [address] [email or web address] Nurse Practitioner Medical Oncology 06/28/25 documented as of this encounter Additional Source Comments The information contained in this document represents components of the legal health record. It is not the complete legal health record.[facility]
--- OUTSIDE RECORDS SUMMARY | 2025-07-17 20:21 | XMS_ITS | Encounter Summary ---
Author Organization [facility] Address [address] [place] [address] Phone Care Team Providers Care Hand Crocheter Name Role Phone Hali Carlin Primary Care Provider [phone] Prashant Gaspar DO Unavailable [phone] Sharon Hunter RETURNING OFFICER Unavailable Marilee Kaminski BUSINESS TRANSFORMATION ANALYST Unavailable [phone] Encounter Details Date Type Department Care Team (Late st Contact Info) Description 06/14/2025 Procedure Pass [facility], [facility] 30 [place] [address] Social History Tobacco Use Types Packs/Day Years [...] 1:18 PM EDT Astrid Tejeda, RN * Theodore Suicide Severity Rating Scale (Screener/Recent Self-Report) Question [...] Contact Info) Description 07/20/2025 Procedure Pass [facility] Cardiovascular And Interventional Radiology [address] [place] [address] 07/20/2025 1:00 PM EDT Hospital Encounter [facility] Cardiovascular And Interventional Radiology [address] [place] [address] Galen Contreras MD [address] [place] [address] [email or web address] 07/20/2025 1:00 PM EDT - 07/20/2025 2:25 PM EDT Surgery [facility] Cardiovascular And Interventional Radiology [address] [place] [address] Galen Contreras MD [address] [place] [address] [email or web address] PORT A CATH INSERTION (IR) 07/31/2025 7:40 AM EDT Appointment [facility] Laboratory [address] [place] [address] Prashant Gaspar, DO [address] [place] [address] [email or web address] 07/31/2025 8:30 AM EDT Office Visit [facility] at [address] [address] Marilee Kaminski FNP [address] [place] [address] 07/31/2025 9:20 AM EDT Infusion [facility] at [address] [address] Prashant Gaspar, DO 30 [place] [address] LINDAMARIA R@[email or web address] Kaushal Feliz RN [address] [place] [address] [email or web address] 08/01/2025 2:40 PM EDT Infusion [facility] [place] at [address] [address] Prashant Gaspar, [address] [address] [email or web address] Celine Peralta RN [address] [place] [address] [email or web address] 08/02/2025 2:40 PM EDT Infusion [facility] at [address] [address] Prashant Gaspar [address] [address] [email or web address] Kimberly Nunes RN [address] [place] [address] [email or web address] 08/03/2025 4:00 PM EDT Infusion [facility] at [address] [address] Prashant Gaspar [address] [address] [email or web address]@[facility] Salima Harris RN [address] [place] [address] [email or web address] documented as of this encounter Visit Diagnoses Not on filedocumented in this encounter Care Teams Hand Crocheter Relationship Specialty Start Date End Date Hali Carlin PA [address] [place] [phone] PCP - General Physician Hydrostatic Tester 05/03/25 Prashant Gaspar DO [address] [place] [address] [email or web address] Primary Oncologist Hematology and Oncology 06/01/25 Sharon Hunter NP [address] [place] [address] [email or web address] Nurse Practitioner Medical Oncology 06/26/25 Marilee Kaminski FNP [address] [place] [address] Nurse Practitioner Medical Oncology 06/28/25 documented as of this encounter Additional Source Comments The information contained in this document represents components of the legal health record. It is not the complete legal health record.[facility]
--- OUTSIDE RECORDS SUMMARY | 2025-07-17 20:21 | XMS_ITS | Encounter Summary ---
Author Organization [facility] Address [address] [place] [address] Phone Care Team Providers Care Care Team Assistant Name Role Phone Hali Carlin Primary Care Provider [phone] Prashant Gaspar DO Unavailable [phone] Sharon Hunter HEALTH DIRECTOR Unavailable [phone] Marilee Kaminski OBJECT ORIENTED DEVELOPER Unavailable [phone] Encounter Details Date Type Department Care Team (Late st Contact Info) Description 07/05/2025 Procedure Pass [facility], Ct Scan - [facility] 30 [place] [address] Social History Tobacco Use Types Packs/Day Years [...] 7:07 PM EDT Vangie Villa, RN * [place] Suicide Severity Rating Scale (Screener/Recent Self-Report) Question [...] (Latest Contact Info) Description 07/20/2025 Procedure Pass [facility] Cardiovascular And Interventional Radiology [address] [place] [address] 07/20/2025 1:00 PM EDT Hospital Encounter [facility] Cardiovascular And Interventional Radiology [address] [place] [address] Galen Contreras MD [address] [place] [address] [email or web address] 07/20/2025 1:00 PM EDT - 07/20/2025 2:25 PM EDT Surgery [facility] Cardiovascular And Interventional Radiology [address] [place] [address] Galen Contreras MD [address] [place] [address] [email or web address] PORT A CATH INSERTION (IR) 07/31/2025 7:40 AM EDT Appointment [facility] Laboratory [address] [place] [address] Prashant Gaspar, DO [address] [place] [address] [email or web address] 07/31/2025 8:30 AM EDT Office Visit [facility] at [address] [address] Marilee Kaminski FNP [address] [place] [address] 07/31/2025 9:20 AM EDT Infusion [facility] [place] at [address] [address] Prashant Gaspar, DO 30 [place] [address] LINDAMARIA [email or web address] Kaushal Feliz RN [address] [place] [address] [email or web address] 08/01/2025 2:40 PM EDT Infusion [facility] at [address] [address] Prashant Gaspar, [address] [address] [email or web address] Celine Peralta RN [address] [place] [address] [email or web address] 08/02/2025 2:40 PM EDT Infusion [facility] at [address] [address] Prashant Gaspar [address] [address] [email or web address] Kimberly Nnues RN [address] [place] [address] [email or web address] 08/03/2025 4:00 PM EDT Infusion [facility] at [address] [address] Prashant Gaspar [address] [address] [email or web address]@[email or web address] Salima Harris RN [address] [place] [address] [email or web address] documented as of this encounter Visit Diagnoses Not on filedocumented in this encounter Care Teams Care Team Assistant Relationship Specialty Start Date End Date Hali Carlin PA [address] [place] [phone] PCP - General Physician Graphic Editor 05/03/25 Prashant Gaspar DO [address] [place] [address] [email or web address] Primary Oncologist Hematology and Oncology 06/01/25 Sharon Hunter NP [address] [place] [address] [email or web address] Nurse Practitioner Medical Oncology 06/26/25 Marilee Kaminski FNP [address] [place] [address] Nurse Practitioner Medical Oncology 06/28/25 documented as of this encounter Additional Source Comments The information contained in this document represents components of the legal health record. It is not the complete legal health record.[facility]
--- OUTSIDE RECORDS SUMMARY | 2025-07-17 20:21 | XMS_ITS | Encounter Summary ---
Author Organization Formerly [facility] Address [address] [place] [address] Phone Care Team Providers Care Director Of Quality Improvement Name Role Phone Hali Carlin Primary Care Provider +1- [phone] Prashatn Gaspra DO Unavailable [phone] Sharon Hunter COMMUNICATIONS INTERN Unavailable [phone] Marilee Kaminski CLIENT ONBOARDING ANALYST Unavailable [phone] Encounter Details Date Type Department Care Team (Late st Contact Info) Description 07/05/2025 Procedure Pass [facility], Ct Scan - [facility] [address] [place] [address] Social History Tobacco Use Types Packs/Day Years [...] 7:07 PM EDT Vangie Villa, RN * [place] Suicide Severity Rating Scale (Screener/Recent Self-Report) Question [...] (Latest Contact Info) Description 07/20/2025 Procedure Pass [facility] Cardiovascular And Interventional Radiology [address] [place] [address] 07/20/2025 1:00 PM EDT Hospital Encounter [facility] Cardiovascular And Interventional Radiology [address] [place] [address] Galen Contreras MD [address] [place] [address] [email or web address] 07/20/2025 1:00 PM EDT - 07/20/2025 2:25 PM EDT Surgery [facility] Cardiovascular And Interventional Radiology [address] [place] [address] Galen Contreras MD [address] [place] [address] [email or web address] PORT A CATH INSERTION (IR) 07/31/2025 7:40 AM EDT Appointment [facility] Laboratory [address] [place] [address] Prashant Gaspar, DO [address] [place] [address] [email or web address] 07/31/2025 8:30 AM EDT Office Visit [facility] at [address] [address] Marilee Kaminski FNP [address] [place] [address] 07/31/2025 9:20 AM EDT Infusion [facility] [place] at [address] [address] Prsahant Gaspar, DO [address] [place] [address] LINDAMARIA R@[email or web address] Kaushal Feliz RN [address] [place] [address] [email or web address] 08/01/2025 2:40 PM EDT Infusion [facility] at [address] [address] Prashant Gaspar, [address] [address] LINDAOME@[facility] Celine Peralta RN [address] [place] [address] [email or web address] 08/02/2025 2:40 PM EDT Infusion [facility] at [address] [address] Prashant Gaspar [address] [address] LINDAOME@[facility] Kimberly Nunes RN [address] [place] [address] [email or web address] 08/03/2025 4:00 PM EDT Infusion [facility] at [address] [address] Prashant Gaspar [address] [address] JAMI@[facility] Salima Harris RN [address] [place] [address] [email or web address] documented as of this encounter Visit Diagnoses Not on filedocumented in this encounter Care Teams Director Of Quality Improvement Relationship Specialty Start Date End Date Hali Carlin PA [address] [place] [phone] PCP - General Physician Job Lithographer 05/03/25 Prashant Gaspar DO [address] [place] [address] [email or web address] Primary Oncologist Hematology and Oncology 06/01/25 Sharon Hunter NP [address] [place] [address] [email or web address] Nurse Practitioner Medical Oncology 06/26/25 Marilee Kaminski FNP [address] [place] [address] Nurse Practitioner Medical Oncology 06/28/25 documented as of this encounter Additional Source Comments The information contained in this document represents components of the legal health record. It is not the complete legal health record.[facility]
--- OUTSIDE RECORDS SUMMARY | 2025-07-17 20:21 | XMS_ITS | Encounter Summary ---
Author Organization [facility] Address [address] [place] [address] Phone Care Team Providers Care Broaching Machine Operator Name Role Phone Hali Carlin Primary Care Provider [phone]- [phone] Prashant Gaspar DO Unavailable [phone] Sharon Hunter BUFFING WHEEL FORMER AUTOMATIC Unavailable Marilee Kaminski ARTIFICIAL INSEMINATOR Unavailable [phone] Encounter Details Date Type Department Care Team (Late st Contact Info) Description 06/14/2025 Procedure Pass [facility], [facility] [address] [place] [address] Social History Tobacco Use Types Packs/Day Years [...] 1:18 PM EDT Astrid Tejeda, RN * [place] Suicide Severity Rating Scale (Screener/Recent Self-Report) Question [...] (Latest Contact Info) Description 07/20/2025 Procedure Pass [facility] Cardiovascular And Interventional Radiology [address] [place] [address] 07/20/2025 1:00 PM EDT Hospital Encounter [facility] Cardiovascular And Interventional Radiology [address] [place] [address] Galen Contreras MD [address] [place] [address] [email or web address] 07/20/2025 1:00 PM EDT - 07/20/2025 2:25 PM EDT Surgery [facility] Cardiovascular And Interventional Radiology [address] [place] [address] Galen Contreras MD [address] [place] [address] [email or web address] PORT A CATH INSERTION (IR) 07/31/2025 7:40 AM EDT Appointment [facility] Laboratory [address] [place] [address] Prashant Gaspar, DO [address] [place] [address] [email or web address] 07/31/2025 8:30 AM EDT Office Visit [facility] at [address] [address] Marilee Kaminski FNP [address] [place] [address] 07/31/2025 9:20 AM EDT Infusion [facility] at [address] [address] Prashant Gaspar, DO 30 [place] [address] LINDAMARIA R@[email or web address] Kaushal Feliz RN [address] [place] [address] [email or web address] 08/01/2025 2:40 PM EDT Infusion [facility] [place] at [address] [address] Prashant Gaspar, [address] [address] [email or web address]@[email or web address] Celine Peralta RN [address] [place] [address] [email or web address] 08/02/2025 2:40 PM EDT Infusion [facility] at [address] [address] Prashant Gaspar [address] [address] [email or web address]@[facility] Kimberly Nuens RN [address] [place] [address] [email or web address] 08/03/2025 4:00 PM EDT Infusion [facility] at [address] [address] Prashant Gaspar [address] [address] JAMI@[facility] Salima Harris RN [address] [place] [address] [email or web address] documented as of this encounter Visit Diagnoses Not on filedocumented in this encounter Care Teams Broaching Machine Operator Relationship Specialty Start Date End Date Hali Calrin PA [address] [place] [phone] PCP - General Physician Agricultural Real Estate Agent 05/03/25 Prashant Gaspar DO [address] [place] [address] [email or web address] Primary Oncologist Hematology and Oncology 06/01/25 Sharon Hunter NP [address] [place] [address] [email or web address] Nurse Practitioner Medical Oncology 06/26/25 Marilee Kaminski FNP [address] [place] [address] Nurse Practitioner Medical Oncology 06/28/25 documented as of this encounter Additional Source Comments The information contained in this document represents components of the legal health record. It is not the complete legal health record.[facility]
--- OUTSIDE RECORDS SUMMARY | 2025-07-17 20:21 | XMS_ITS ---
Author Organization [facility] Address [address] [place] [address] Phone Care Team Providers Care Physical Fitness Teacher Name Role Phone Hali Carlin Primary Care Provider [phone]- [phone] Prashant Gaspar DO Unavailable Sharon Hunter ALMOND GRINDER Unavailable [phone] Marilee Kaminski TOOLMAKER HELPER Unavailable [phone] Active Problems Problem Noted Date Diagnosed Date [...] evaluate for small aneurysm seen on the [facility] CT scan of the head [...] per oncology. Neurochecks every 4 hours [facility] 05/16/2025 Assessment & Plan (05/16/2025 2:07 PM [...]
--- OUTSIDE RECORDS SUMMARY | 2025-07-17 20:21 | XMS_ITS | Encounter Summary ---
Author Organization [facility] Address [address] [place] [address] Phone Care Team Providers Care Lamination Assembler Name Role Phone Hali Carlin Primary Care Provider [phone]- [phone] Prashant Gaspar DO Unavailable [phone] Sharon Hunter RN LPN CNA Unavailable [phone] Marilee Kaminski WATCH TRAIN ASSEMBLER Unavailable [phone] Encounter Details Date Type Department Care Team (Late st Contact Info) Description 05/31/2025 Procedure Pass [facility], Ct Scan - [facility] [address] [place] [address] Social History Tobacco Use Types Packs/Day Years [...] Procedure Pass [facility] Cardiovascular And Interventional Radiology [address] [place] [address] 07/20/2025 1:00 PM EDT Hospital Encounter [facility]ventional [facility] [address] [place] [address] Galen Contreras MD 30 [place] [address] [email or web address] 07/20/2025 1:00 PM EDT - 07/20/2025 2:25 PM EDT Surgery [facility] Cardiovascular And Interventional Radiology [address] [place] [address] Galen Contreras MD 30 [place] [address] [email or web address] PORT A CATH INSERTION (IR) 07/31/2025 7:40 AM EDT Appointment [facility] Laboratory [address] [place] [address] Prashant Gaspar, DO [address] [place] [address] [email or web address]@[email or web address] 07/31/2025 8:30 AM EDT Office Visit [facility] at [address] [address] Marilee Kaminski FNP [address] [place] [address] 07/31/2025 9:20 AM EDT Infusion [facility] at [address] [address] Prashant Gaspar, DO [address] [place] [address] [email or web address] Kaushal Feliz, RICHARDSON [address] [place] [address] [email or web address] 08/01/2025 2:40 PM EDT Infusion [facility] at [address] [address] Prashant Gaspar, DO [address] [place] [address] [email or web address]@[facility] Celine Peralta, RN [address] [place] [address] [email or web address] g 08/02/2025 2:40 PM EDT Infusion [facility] at [address] [address] Prashant Gaspar DO [address] [place] [address] JAMI@[facility] Kimberly Nunes, RICHARDSON [address] [place] [address] [email or web address] 08/03/2025 4:00 PM EDT Infusion [facility] at [address] [address] Prashant Gaspar DO [address] [place] [address] JAMI@[facility] Salima Harris RN [address] [place] [address] [email or web address] documented as of this encounter Visit Diagnoses Not on filedocumented in this encounter Additional Health Concerns Infection Onset Date Last Indicated Resolved Time CoV-Risk 05/31/2025 05/31/2025 06/11/2025 1:21 AM EDT documented as of this encounter Care Teams Lamination Assembler Relationship Specialty Start Date End Date Hali Carlin PA [address] [place] [phone] PCP - General Physician Scientific Research Associate 05/03/25 Prashant Gaspar DO [address] [place] [address] [email or web address] Primary Oncologist Hematology and Oncology 06/01/25 Sharon Hunter, EVA [address] [place] [address] [email or web address] Nurse Practitioner Medical Oncology 06/26/25 Marilee Kaminski FNP [address] [place] [address] [email or web address] Nurse Practitioner Medical Oncology 06/28/25 documented as of this encounter Additional Source Comments The information contained in this document represents components of the legal health record. It is not the complete legal health record.[facility]
--- OUTSIDE RECORDS SUMMARY | 2025-07-17 20:21 | XMS_ITS | Encounter Summary ---
Author Organization [facility] Address [address] [place] [address] Phone Care Team Providers Care Creative Perfumer Name Role Phone Celine Farley MD Primary Care Provider Unavailable Hali Carlin Primary Care Provider [phone]- [phone] Prashant Gaspar DO Unavailable [phone] Sharon Hunter DOUBLE END TENONER SETTER Unavailable Marilee KaminskiP Unavailable [phone] Encounter Details Date Type Department Care Team (Late st Contact Info) Description 04/23/2023 Procedure Pass [facility], Ct Scan - [facility] 30 [place] [address] Social History Tobacco Use Types Packs/Day Years [...] 8:34 AM EDT Celena Hinton RN * [place] Suicide Severity Rating Scale (Screener/Recent Self-Report) Question [...] (Latest Contact Info) Description 07/20/2025 Procedure Pass [facility] Cardiovascular And Interventional Radiology [address] [place] [address] 07/20/2025 1:00 PM EDT Hospital Encounter [facility] Cardiovascular And Interventional Radiology [address] [place] [address] Galen Contreras MD [address] [place] [address] [email or web address] 07/20/2025 1:00 PM EDT - 07/20/2025 2:25 PM EDT Surgery [facility] Cardiovascular And Interventional Radiology [address] [place] [address] Galen Contreras MD [address] [place] [address] [email or web address] PORT A CATH INSERTION (IR) 07/31/2025 7:40 AM EDT Appointment [facility] Laboratory [address] [place] [address] Prashant Gaspar, DO [address] [place] [address] JAMI@[facility] 07/31/2025 8:30 AM EDT Office Visit [facility] at [address] [address] Marilee Kaminski FNP [address] [place] [address] [email or web address] 07/31/2025 9:20 AM EDT Infusion [facility] at [address] [address] Prashant Gaspar, DO [address] [place] [address] JAMI@[facility] Kaushal Feliz, RICHARDSON [address] [place] [address] [email or web address] 08/01/2025 2:40 PM EDT Infusion [facility] at [address] [address] Prashant Gaspar, DO [address] [place] [address] JAMI@[facility] Celine Peralta, RICHARDSON [address] [place] [address] [email or web address] 08/02/2025 2:40 PM EDT Infusion [facility] at [address] [address] Prashant Gaspar DO 30 [place] [address] JAMI@[facility] Kimberly Nunes, RICHARDSON [address] [place] [address] [email or web address] 08/03/2025 4:00 PM EDT Infusion [facility] at [address] [address] Prashant Gaspar DO 30 [place] [address] JAMI@[facility] Salima Harris RN [address] [place] [address] [email or web address] documented as of this encounter Visit Diagnoses Not on filedocumented in this encounter Additional Health Concerns Infection Onset Date Last Indicated Resolved Time CoV-Risk Comment:Per note documentation 04/24/2023 04/24/2023 10:25 AM EDT CoV-Risk 05/31/2025 05/31/2025 06/11/2025 1:21 AM EDT documented as of this encounter Care Teams Creative Perfumer Relationship Specialty Start Date End Date Celine Farley MD PCP - General 07/20/17 05/02/25 Hali Carlin PA [address] [place] [phone] PCP - General Physician New Accounts Representative 05/03/25 Prashant Gaspar DO [address] [place] [address] [email or web address].ED U Primary Oncologist Hematology and Oncology 06/01/25 Sharon Hunter NP [address] [place] [address] [email or web address] Nurse Practitioner Medical Oncology 06/26/25 Marilee Kaminski FNP [address] [place] [address] [email or web address] Nurse Practitioner Medical Oncology 06/28/25 documented as of this encounter Additional Source Comments The information contained in this document represents components of the legal health record. It is not the complete legal health record.[facility]
--- OUTSIDE RECORDS SUMMARY | 2025-07-17 20:21 | XMS_ITS | Encounter Summary ---
Author Organization [facility] Address [address] [place] [address] Phone Care Team Providers Care Customer Supply Chain Analyst Name Role Phone Hali Carlin Primary Care Provider [phone] Prashant Gaspar DO Unavailable [phone] Sharon Hunter OPERATOR MAINTAINER Unavailable [phone] Marilee Kaminski BLEACH RANGE OPERATOR Unavailable [phone] Encounter Details Date Type Department Care Team (Late st Contact Info) Description 06/14/2025 Procedure Pass [facility], Ct Scan - [facility] [address] [place] [address] Social History Tobacco Use Types Packs/Day Years [...] 1:18 PM EDT Astrid Tejeda, RN * [place] Suicide Severity Rating Scale (Screener/Recent Self-Report) Question [...] (Latest Contact Info) Description 07/20/2025 Procedure Pass [facility] Cardiovascular And Interventional Radiology [address] [place] [address] 07/20/2025 1:00 PM EDT Hospital Encounter [facility] Cardiovascular And Interventional Radiology [address] [place] [address] Galen Contreras MD [address] [place] [address] [email or web address] 07/20/2025 1:00 PM EDT - 07/20/2025 2:25 PM EDT Surgery [facility] Cardiovascular And Interventional Radiology [address] [place] [address] Galen Contreras MD [address] [place] [address] [email or web address] PORT A CATH INSERTION (IR) 07/31/2025 7:40 AM EDT Appointment [facility] Laboratory [address] [place] [address] Prashant Gaspar, DO [address] [place] [address] [email or web address] 07/31/2025 8:30 AM EDT Office Visit [facility] at [address] [address] Marilee Kaminski FNP [address] [place] [address] 07/31/2025 9:20 AM EDT Infusion [facility] at [address] [address] Prashant Gaspar, DO [address] [place] [address] LINDAMARIA R@[facility] Kaushal Feliz RN [address] [place] [address] [email or web address] 08/01/2025 2:40 PM EDT Infusion [facility] at [address] [address] Prashant Gaspra, [address] [address] LINDAOME@[facility] Celine Peralta RN [address] [place] [address] [email or web address] 08/02/2025 2:40 PM EDT Infusion [facility] at [address] [address] Prashant Gaspar [address] [address] LINDAOME@[facility] Kimberly Nunes RN [address] [place] [address] [email or web address] 08/03/2025 4:00 PM EDT Infusion [facility] at [address] [address] Prashant Gaspar [address] [address] JAMI@[facility] Salima Harris RN [address] [place] [address] [email or web address] documented as of this encounter Visit Diagnoses Not on filedocumented in this encounter Care Teams Customer Supply Chain Analyst Relationship Specialty Start Date End Date Hali Carlin PA [address] [place] [phone] PCP - General Physician Laborer Salvage 05/03/25 Prashant Gaspar DO [address] [place] [address] [email or web address]@[email or web address] Primary Oncologist Hematology and Oncology 06/01/25 Sharon Hunter NP [address] [place] [address] [email or web address] Nurse Practitioner Medical Oncology 06/26/25 Marilee Kaminski FNP [address] [place] [address] Nurse Practitioner Medical Oncology 06/28/25 documented as of this encounter Additional Source Comments The information contained in this document represents components of the legal health record. It is not the complete legal health record.[facility]
--- OUTSIDE RECORDS SUMMARY | 2025-07-17 20:21 | XMS_ITS | Encounter Summary ---
Author Organization [facility] Address [address] [place] [address] Phone Care Team Providers Care Nougat Candy Maker Helper Name Role Phone Hali Carlin Primary Care Provider [phone] Prashant Gaspar DO Unavailable [phone] Sahron Hunter STOCK TAKER Unavailable [phone] Marilee Kaminski TECHNOLOGY RECRUITER Unavailable [phone] Encounter Details Date Type Department Care Team (Late st Contact Info) Description 06/14/2025 Procedure Pass [facility], Ct Scan - [facility] [address] [place] [address] Social History Tobacco Use Types Packs/Day Years [...] 1:18 PM EDT Astrid Tejeda, RN * [place] Suicide Severity Rating Scale (Screener/Recent Self-Report) Question [...] Contact Info) Description 07/20/2025 Procedure Pass [facility] Cardiovascular And Interventional Radiology [address] [place] [address] 07/20/2025 1:00 PM EDT Hospital Encounter [facility] Cardiovascular And Interventional Radiology [address] [place] [address] Galen Contreras MD [address] [place] [address] [email or web address] 07/20/2025 1:00 PM EDT - 07/20/2025 2:25 PM EDT Surgery [facility] Cardiovascular And Interventional Radiology [address] [place] [address] Galen Contreras MD [address] [place] [address] [email or web address] PORT A CATH INSERTION (IR) 07/31/2025 7:40 AM EDT Appointment [facility] Laboratory [address] [place] [address] Prashant Gaspar, DO [address] [place] [address] [email or web address] [email or web address] 07/31/2025 8:30 AM EDT Office Visit [facility] at [address] [address] Marilee Kaminski FNP [address] [place] [address] 07/31/2025 9:20 AM EDT Infusion [facility] [place] at [address] [address] Prashant Gaspar, DO [address] [place] [address] LINDAMARIA R@[email or web address] Kaushal Feliz RN [address] [place] [address] [email or web address] 08/01/2025 2:40 PM EDT Infusion [facility] at [address] [address] Prashant Gaspar, [address] [address] [email or web address] Celine Peralta RN [address] [place] [address] [email or web address] 08/02/2025 2:40 PM EDT Infusion [facility] at [address] [address] Prashant Gaspar [address] [address] [email or web address] Kimberly Nunes RN [address] [place] [address] [email or web address] 08/03/2025 4:00 PM EDT Infusion [facility] at [address] [address] Prashant Gaspar [address] [address] [email or web address]@[email or web address] Salima Harris RN [address] [place] [address] [email or web address] documented as of this encounter Visit Diagnoses Not on filedocumented in this encounter Care Teams Nougat Candy Maker Helper Relationship Specialty Start Date End Date Hali Carlin PA [address] [place] [phone] PCP - General Physician Carbonation Tester 05/03/25 Prashant Gaspar DO [address] [place] [address] [email or web address] [email or web address] Primary Oncologist Hematology and Oncology 06/01/25 Sharon Hunter NP [address] [place] [address] [email or web address] Nurse Practitioner Medical Oncology 06/26/25 Marilee Kaminski FNP [address] [place] [address] Nurse Practitioner Medical Oncology 06/28/25 documented as of this encounter Additional Source Comments The information contained in this document represents components of the legal health record. It is not the complete legal health record.[facility]
--- OUTSIDE RECORDS SUMMARY | 2025-07-17 20:21 | XMS_ITS | Encounter Summary ---
Author Organization [facility] Address [address] [place] [address] Phone Care Team Providers Care Blind Stitch Machine Operator Name Role Phone Hali Carlin Primary Care Provider [phone] Prashant Gaspar DO Unavailable [phone] Sharon Hunter MATERIAL HANDLING SUPERVISOR Unavailable [phone] Marilee Kaminski SUSTAINABLE LANDSCAPE ARCHITECT Unavailable [phone] Encounter Details Date Type Department Care Team (Late st Contact Info) Description 06/14/2025 Procedure Pass [facility], Ct Scan - [facility] [address] [place] [address] Social History Tobacco Use Types Packs/Day Years [...] 1:18 PM EDT Astrid Tejeda, RN * [place] Suicide Severity Rating Scale (Screener/Recent Self-Report) Question [...] (Latest Contact Info) Description 07/20/2025 Procedure Pass [facility] Cardiovascular And Interventional Radiology [address] [place] [address] 07/20/2025 1:00 PM EDT Hospital Encounter [facility] Cardiovascular And Interventional Radiology [address] [place] [address] Galen Contreras MD [address] [place] [address] [email or web address] 07/20/2025 1:00 PM EDT - 07/20/2025 2:25 PM EDT Surgery [facility] Cardiovascular And Interventional Radiology [address] [place] [address] Galen Contreras MD [address] [place] [address] [email or web address] PORT A CATH INSERTION (IR) 07/31/2025 7:40 AM EDT Appointment [facility] Laboratory [address] [place] [address] Prashant Gaspar, DO [address] [place] [address] [email or web address] 07/31/2025 8:30 AM EDT Office Visit [facility] at [address] [address] Marilee Kaminski FNP [address] [place] [address] 07/31/2025 9:20 AM EDT Infusion [facility] [place] at [address] [address] Prashant Gaspar, DO [address] [place] [address] LINDAMARIA R@[email or web address] Kaushal Feliz RN [address] [place] [address] [email or web address] 08/01/2025 2:40 PM EDT Infusion [facility] at [address] [address] Prashant Gaspar, [address] [address] [email or web address]@[email or web address] Celine Peralta RN [address] [place] [address] [email or web address] 08/02/2025 2:40 PM EDT Infusion [facility] at [address] [address] Prashant Gaspar [address] [address] [email or web address]@[email or web address] Kimberly Nunes RN [address] [place] [address] [email or web address] 08/03/2025 4:00 PM EDT Infusion [facility] at [address] [address] Prashant Gaspar [address] [address] [email or web address]@[email or web address] Salima Harris RN [address] [place] [address] [email or web address] documented as of this encounter Visit Diagnoses Not on filedocumented in this encounter Care Teams Blind Stitch Machine Operator Relationship Specialty Start Date End Date Hali Carlin PA [address] [place] [phone] PCP - General Physician Assembler Liquid Center 05/03/25 Prashant Gaspar DO [address] [place] [address] [email or web address] Primary Oncologist Hematology and Oncology 06/01/25 Sharon Hunter NP [address] [place] [address] [email or web address] Nurse Practitioner Medical Oncology 06/26/25 Marilee Kaminski FNP [address] [place] [address] Nurse Practitioner Medical Oncology 06/28/25 documented as of this encounter Additional Source Comments The information contained in this document represents components of the legal health record. It is not the complete legal health record.[facility]
--- OUTSIDE RECORDS SUMMARY | 2025-07-17 20:21 | XMS_ITS | Encounter Summary ---
Author Organization [facility] Address [address] [place] [address] Phone Care Team Providers Care Gore Cutter Name Role Phone Hali Carlin Primary Care Provider [phone] Prashant Gaspar DO Unavailable [phone] Sharon Hunter BOTTLE LABEL INSPECTOR Unavailable [phone] Marilee Kaminski CHEMICAL RESEARCH TECHNICIAN Unavailable [phone] Encounter Details Date Type Department Care Team (Late st Contact Info) Description 07/05/2025 Procedure Pass [facility], Ct Scan - [facility] [address] [place] [address] Social History Tobacco Use Types Packs/Day Years [...] 7:07 PM EDT Vangie Villa, RN * [place] Suicide Severity Rating Scale (Screener/Recent Self-Report) Question [...] Contact Info) Description 07/20/2025 Procedure Pass [facility] Cardiovascular And Interventional Radiology [address] [place] [address] 07/20/2025 1:00 PM EDT Hospital Encounter [facility] Cardiovascular And Interventional Radiology [address] [place] [address] Galen Contreras MD [address] [place] [address] [email or web address] 07/20/2025 1:00 PM EDT - 07/20/2025 2:25 PM EDT Surgery [facility] Cardiovascular And Interventional Radiology [address] [place] [address] Galen Contreras MD [address] [place] [address] [email or web address] PORT A CATH INSERTION (IR) 07/31/2025 7:40 AM EDT Appointment [facility] Laboratory [address] [place] [address] Prashant Gaspar, DO [address] [place] [address] [email or web address] 07/31/2025 8:30 AM EDT Office Visit [facility] at [address] [address] Marilee Kaminski FNP [address] [place] [address] 07/31/2025 9:20 AM EDT Infusion [facility] [place] at [address] [address] Prashant Gaspar, DO [address] [place] [address] LINDAMARIA R@[email or web address] Kaushal Feliz RN [address] [place] [address] [email or web address] 08/01/2025 2:40 PM EDT Infusion [facility] at [address] [address] Prashant Gaspar, [address] [address] [email or web address]@[email or web address] Celine Peralta RN [address] [place] [address] [email or web address] 08/02/2025 2:40 PM EDT Infusion [facility] at [address] [address] Prashant Gaspar [address] [address] [email or web address]@[email or web address] Kimberly Nunes RN [address] [place] [address] [email or web address] 08/03/2025 4:00 PM EDT Infusion [facility] at [address] [address] Prashant Gaspar [address] [address] JAMI@[email or web address] Salima Harris RN [address] [place] [address] [email or web address] documented as of this encounter Visit Diagnoses Not on filedocumented in this encounter Care Teams Gore Cutter Relationship Specialty Start Date End Date Hali Carlin PA [address] [place] [phone] PCP - General Physician Director Of Therapy Services 05/03/25 Prashant Gaspar DO [address] [place] [address] [email or web address] Primary Oncologist Hematology and Oncology 06/01/25 Sharon Hunter NP [address] [place] [address] [email or web address] Nurse Practitioner Medical Oncology 06/26/25 Marilee Kaminski FNP [address] [place] [address] Nurse Practitioner Medical Oncology 06/28/25 documented as of this encounter Additional Source Comments The information contained in this document represents components of the legal health record. It is not the complete legal health record.[facility]
--- OUTSIDE RECORDS SUMMARY | 2025-07-17 20:21 | XMS_ITS | Encounter Summary ---
Author Organization [facility] Address [address] [place] [address] Phone Care Team Providers Care Home Organizer Name Role Phone Hali Carlin Primary Care Provider [phone] Prashant Gaspar DO Unavailable [phone] Sharon Hunter SUGAR LABORATORY ASSISTANT Unavailable Marilee Kaminski PALLIATIVE CARE COORDINATOR Unavailable [phone] Encounter Details Date Type Department Care Team (Late st Contact Info) Description 06/14/2025 Procedure Pass [facility] [address] [place] [address] Social History Tobacco Use Types Packs/Day Years [...] 1:18 PM EDT Astrid Tejeda, RN * [place] Suicide Severity Rating Scale (Screener/Recent Self-Report) Question [...] Description 07/20/[address] [facility] Cardiovascular And Interventional Radiology [address] [place] [address] 07/20/2025 1:00 PM EDT Hospital Encounter [facility] Cardiovascular And Interventional Radiology [address] [place] [address] Galen Contreras MD [address] [place] [address] [email or web address] 07/20/2025 1:00 PM EDT - 07/20/2025 2:25 PM EDT Surgery [facility] Cardiovascular And Interventional Radiology [address] [place] [address] Galen Contreras MD [address] [place] [address] [email or web address] PORT A CATH INSERTION (IR) 07/31/2025 7:40 AM EDT Appointment [facility] Laboratory [address] [place] [address] Prashant Gaspar, DO [address] [place] [address] [email or web address] [email or web address] 07/31/2025 8:30 AM EDT Office Visit [facility] at [address] [address] Marilee Kaminski FNP [address] [place] [address] 07/31/2025 9:20 AM EDT Infusion [facility] [place] at [address] [address] Prashant Gaspar, DO [address] [place] [address] [email or web address]@[email or web address] Kaushal Feliz RN [address] [place] [address] [email or web address] 08/01/2025 2:40 PM EDT Infusion [facility] at [address] [address] Prashant Gaspar, DO [address] [place] [address] [email or web address]@[email or web address] Celine Peralta RN [address] [place] [address] [email or web address] 08/02/2025 2:40 PM EDT Infusion [facility] at [address] [address] Prashant Gaspar, DO [address] [place] [address] [email or web address]@[facility] Kimberly Nunes RN [address] [place] [address] [email or web address] 08/03/2025 4:00 PM EDT Infusion [facility] at [address] [address] Prashant Gaspar, DO [address] [place] [address] [email or web address]@[email or web address] Salima Harris RN [address] [place] [address] [email or web address] documented as of this encounter Visit Diagnoses Not on filedocumented in this encounter Care Teams Home Organizer Relationship Specialty Start Date End Date Hali Carlin PA [address] [place] [phone] PCP - General Physician Instrumentation Fitter 05/03/25 Prashant Gaspar DO [address] [place] [address] [email or web address] Primary Oncologist Hematology and Oncology 06/01/25 Sharon Hunter NP [address] [place] [address] [email or web address] Nurse Practitioner Medical Oncology 06/26/25 Marilee Kaminski FNP [address] [place] [address] [email or web address] Nurse Practitioner Medical Oncology 06/28/25 documented as of this encounter Additional Source Comments The information contained in this document represents components of the legal health record. It is not the complete legal health record.[facility]
--- NOTE | 2025-07-17 21:38 | ED_ITS ---
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 Patient came back today because of the pain continuing. No bowel movement for 10 days. Patient has also been taking some narcotics. She was prescribed some oxycodone but unfortunately was unable to pick them up. There is no fever no chills. There is no chest pain. There is no diaphoresis. CTA was just done 2 days ago. It was grossly negative for any acute evidence of pulmonary emboli. Patient from home. No recent chemo. No fever no chills no coughing or congestion that is new. Patient denies any diaphoresis. Passing gas. Related Data Previous Rx's ?Medication ?Instructions ?Recorded oxycodone 5 mg capsule 5 mg PO Q6H PRN pain #12 cap s 07/15/25 polyethylene glycol 3350 17 17 g PO DAILY #238 grams 1 gram/dose oral powder (Miralax) Allergies Allergy/AdvReac Type Severity Reaction Status Date / Time Penicillins Allergy Unknown Verified 07/17/25 17:35 Sulfa (Sulfonamide Allergy Unknown Verified 07/17/25 17:35 Antibiotics) Review of Systems 2 Review of Systems: No fever no chills Positive chest pain Yes all other systems are reviewed and are negative [facility] Past Medical History Attestation statement: The following information was validated with the patient. Social History Social History Smoked in Last 30 Days: No Use of substances other than those prescribed or required for medical reasons: No Advance Directives: No Advance Directives Information Provided: No Do you have a plan to hurt others: No Plan Physical Exam 2 Exam: Exam: Appearance: Alert. Oriented X3. No acute distress. Eyes: Pupils equal, round and reactive to light. ENT: Pharynx normal. Neck: Normal inspection. Neck supple. No lymph nodes noted. No crepitus CVS: Normal heart rate and rhythm. Pulses normal. Normal S1 and S2 Respiratory: No respiratory distress. Breath sounds normal. No Wheezing. No rales Abdomen: Soft and nontender. No rigidity. No distention. good BS x4 Skin: Skin warm and dry. Normal skin color. Normal skin turgor. Extremities: No lower extremity edema. Neurovascular intact to all extremities. No Lacerations. No Rash Neuro: Oriented X 3. No motor deficit. No sensory deficit. Moving all extermities. No slurred speech Vital Signs: Vital Signs: Last Vital Signs Temp 97.8 F 07/17/25 23:08 Pulse 81 07/17/25 23:08 Resp 17 07/17/25 23:08 BP 176/92 H 07/17/25 23:08 Pulse Ox 98 07/17/25 23:08 O2 Del Method Room Air 07/17/25 23:08 BMI result Body Mass Index 26.2 Medications Administered Discontinued Medications Generic Name Dose Route Start Last Admin Trade Name Freq PRN Reason Stop Dose Admin Sodium Chloride 1,000 mls @ 999 mls/hr 07/17/25 21:45 07/17/25 21:47 Ns IV 07/17/25 22:45 999 mls/hr .Q1H1M KAR Administration Iohexol 85 ml 07/17/25 21:57 07/17/25 22:01 Iohexol 350 Mg/Ml 100 Ml Infus..Btl IV 07/17/25 21:58 85 ml ONCE ONE Administration Mineral Oil 133 ml 07/17/25 21:38 07/17/25 21:45 Mineral Oil Enema 133 Ml Enema AR 07/17/25 21:39 133 ml ONCE ONE Administration Medical Decision Making Medical Decision Making MDM Narrative: I attempted manual dispense impaction with nurse Chelsey present. Rectal exam showed mild amount of impacted stool which were removed digitally. Then a mineral oil enema was applied. Moderate relief. Will get a CT scan of the abdomen pelvis to ensure patient does not have gross obstruction. Had the same chest pain as 2 days prior. Patient's 1st set of troponin is negative. Already had a CTA done 2 days ago and there was no PE. [place] the risk of PE is low despite the history of having cancer. Had a long discussion with patient she wants a 2nd CTA at this time she elected to withhold the 2nd CTA. My interpretation patient's EKG showed a sinus rhythm heart rate is 80 AR QRS QTC normal there is diffuse T-wave flattening noted. Patient did not want to stay in the hospital my interpretation patient's chest x-ray showed no focal infiltrate. Patient's CTA abdomen reported by radiology's showed numerous metastases to the liver which patient is aware of. No huge amount of stool burden was noted. Will start patient on some MiraLax. Have patient follow-up on an outpatient basis. Patient feel comfortable with that plan. It is picking up her oxycodone outpatient. Wants to go home. In stable condition. Differential Diagnosis Differential Diagnoses: The differential diagnosis associated with the presentation includes Bowel obstruction, constipation, chest pain, ACS, PE, pneumonia Admission/Observation Consideration of admission/observation: Escalation of care including admission/observation considered Lab Data MDM Lab Attestation statement: I reviewed the patient's lab results. 07/17/25 17:57 07/17/25 17:57 Labs: Lab Results 07/17/25 07/17/25 07/17/25 Range/Units 17:50 17:57 21:44 WBC 11.2 H (4.8-10.8) X10*3/uL RBC 3.55 L (4.20-5.50) X10*6/uL Hgb 10.7 L (12.0-16.0) g/dl Hct 32.6 L (37.0-47.0) % MCV 91.8 (80.0-98.0) fL MCH 30.1 (27.0-33.0) pg MCHC 32.8 (31.0-35.0) g/dl RDW 17.1 H (11.0-16.0) % Plt Count 716 H (160-400) X10*3/uL MPV 9.9 (9.4-12.3) fL Immature Gran % (Auto) 0.9 H (0.0-0.4) % Neut % (Auto) 70.3 (45-73) % Lymph % (Auto) 16.4 L (20-40) % [place] % (Auto) 11.4 H (2-11) % Eos % (Auto) 0.1 (0-4) % Baso % (Auto) 0.9 (0-2) % Lymph # (Auto) 1.8 (1.2-4.9) X10*3/uL [place] # (Auto) 1.3 H (0.1-1.2) X10*3/uL Eos # (Auto) 0.0 (0.0-0.4) X10*3/uL Baso # (Auto) 0.1 (0.0-0.2) X10*3/uL Abs Immat Gran (auto) 0.10 H (0.00-0.03) X10*3/uL Absolute Neuts (auto) 7.9 (2.0-8.3) x10*3/uL Absolute Nucleated RBC 0.000 (0.0-0.012) X10*3/uL Nucleated RBC % (auto) 0.0 (0.0-0.2) /100WBC PT 11.6 (10.9-12.4) SEC INR 1.0 (0.9-1.1) Sodium 145 (135-145) mmol/L Potassium 3.8 (3.3-5.1) mmol/L Chloride 109 H (96-108) mmol/L Carbon Dioxide 28 (22-29) mmol/L Anion Gap 12 (12-20) BUN 10 (9-16) mg/dL Creatinine 0.80 (0.5-1.4) mg/dL Estim Creat Clear Calc 51.8 Estimated GFR > 60 Random Glucose 120 H (60-115) mg/dL Calcium 8.7 (8.4-10.2) mg/dL Magnesium 1.6 (1.6-2.6) mg/dL Total Bilirubin 0.4 (0.0-1.0) mg/dL AST 61 H (5-31) U/L ALT 27 (0-31) U/L Alkaline Phosphatase 424 H (39-117) U/L Troponin I High Sens 4.7 D 4.9 (<3.5-17.0) ng/L Total Protein 7.3 (6.5-8.0) g/dL Albumin 3.4 L (3.5-5.0) g/dL Lipase 28 (8-78) U/L COVID-19 (SWAPNA) Negative (Negative) COVID-19 Clin Com See Note Influenza Type A (ALTHEA) Negative (Negative) Influenza Type B (ALTHEA) Negative (Negative) Influenza A & B Note See Note Independent Interpretation I performed an independent interpretation of an: EKG (Sinus heart rate is 80 AR QRS QTC normal no acute ST segment elevation) and CT Scan (No obstruction) Radiology Impression Discussion of test interpretation with radiology: I discussed test interpretation with the radiologist and I have reviewed the radiologist's reading. External Record Review External record reviewed: Inpatient record and Prior outpatient radiology Chronic Conditions Lung cancer metastatic Social Determinants Patient?s care significantly limited by Social Determinants of Health including: Problems related to primary support group Discharge Plan Discharge Clinical Impression: Abdominal pain, Constipation, Chest pain, Lung cancer Patient Disposition: Home, Self-Care Instructions: Constipation (DC), Lung Cancer (DC), Abdominal Pain (ED) Prescriptions: New polyethylene glycol 3350 [Miralax] 17 gram/dose powder 17 g PO DAILY Qty: 238 0RF No Action oxycodone 5 mg capsule 5 mg PO Q6H PRN (Reason: pain) Qty: 12 0RF Rx Instructions: Partial Fill upon patient request. Referrals: Physician,Catalina J [Primary Care Provider, Medical] - 07/19/25 Print Language: Malay
[2025-07-17] MEDS: iohexoL 350 MG/ML 100 ML INFUS..BTL 85 ML IV (22:01)
[2025-07-17 22:17] LABS: Troponin-I High Sensitivity 4.9 ng/L (<3.5-17.0)
[2025-07-17 23:08] VITALS: BP 176/92; PULSE 81; RESP 17; TEMP 36.6; O2SAT 98
[2025-07-18] VITALS: BP 188/89; PULSE 78; RESP 15; TEMP 36.7; O2SAT 97
[2025-07-18 00:13] VITALS: BP 188/89; PULSE 78; RESP 15; TEMP 36.7; O2SAT 97
== END 2025-07-18 00:35 | disposition home or self-care (01) ==
PROVIDERS: Registered Nurse Emergency; Emergency Provider Emergency Medicine Emergency Medical Services
DX: R07.89 Other chest pain (principal); R10.22 Pelvic and perineal pain left side; K59.00 Constipation, unspecified; C34.90 Malignant neoplasm of unspecified part of unspecified bronchus or lung; R11.0 Nausea; Z79.899 Other long term (current) drug therapy; Z11.52 Encounter for screening for COVID-19
CPT/HCPCS: 36415; 71045; 74177; 80053; 83690; 83735; 84484; 85025; 85610; 87502; 87635; 93005; 96361; 96374; 99285; J1171; Q9967

== ENCOUNTER → 2025-07-17 17:16 | Outpatient (BNV) | payer MEDICARE, SELFPAY | PROVIDERS: Emergency Provider Emergency Medicine Emergency Medical Services; Visit Provider Internal Medicine Cardiovascular Disease | DX: I49.3 Ventricular premature depolarization (principal); I25.2 Old myocardial infarction | CPT/HCPCS: 93010 ==

== ENCOUNTER → 2025-07-17 21:30 | Outpatient (BNV) | payer MEDICARE, SELFPAY | PROVIDERS: Emergency Provider Emergency Medicine Emergency Medical Services; Visit Provider Radiology Diagnostic Radiology | DX: K44.9 Diaphragmatic hernia without obstruction or gangrene (principal); R10.84 Generalized abdominal pain; R07.9 Chest pain, unspecified | CPT/HCPCS: 71045; 74177 ==

== ENCOUNTER 2025-09-19 17:48 | Inpatient (IN) | payer MEDICARE, SELFPAY ==
--- OUTSIDE RECORDS SUMMARY | 2025-09-14 16:20 | XMS_ITS | Encounter Summary ---
Author Organization [facility] Address [address] [place] [address] [place] [phone] Phone Care Team Providers Care Tray Drier Operator Name Role Phone Hali Carlin Primary Care Provider [phone] Prashant Gaspar DO Unavailable [phone] Sharon Hunter TRADE PROMOTION ANALYST Unavailable [phone] Marilee Kaminski LOCAL COMBINATION TRUCK DRIVER Unavailable [phone] Brandy Escobar RN Unavailable [phone] Reason for Visit * Treatment and Therapy Plan (Routine) - Authorized Specialty Diagnoses / Procedures Referred By Contbibiana t Referred To Contact Diagnoses 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 Procedures [place] INJ PEGFILGRAST EX BIO 0.5MG [place] INJ., APREPITANT, 1 MG [place] ETOPOSIDE 10 MG INJ [place] CARBOPLATIN INJECTION, 50 MG Prashant Gaspar, [place] [address] Phone: tel: fax: mailto:[email or web address] Prashant Gaspar, DO [address] [place] [address] Phone: tel: fax: mailto:[email or web address] Referral ID Status Reason Start Date Expiration Date V isits Requested Visits Authorized [id number] Authorized 06/04/2025 12/03/2025 [id number] Encounter Details Date Type Department Care Team (Late st Contact Info) Description 09/14/2025 4:20 PM EST Infusion [facility] [address] [place] [address] Prashant Gaspar, DO [address] [place] [address] [email or web address] 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 Never True 08/25/2025 Within the past 6 months the food we bought just didn't last and we didn't have enough money to get more. Never True Residential Stability Answer Date Recor ded What is your housing situation today? I have allan sing 08/25/2025 How many times have you move d in the past 12 months? Zero (I did not move) 08/25/2025 Paying for Meds Answer Date Recorded Do you have trouble paying for medicines? No 08/25/2025 Paying Utility Bills Answer Date Record ed Do you have trouble paying your heating or elect ricity bill? No 08/25/2025 Transportation Answer Date Recorded Has the lack of transportati on kept you from medical appointments or from getting medications? No 08/25/2025 Digital Access Answer Date Recorded No 08/25/2025 Yes 08/25/2025 Do you have reliable internet access at home? Ye s 08/25/2025 Do you have a device (e.g., phone, tablet, computer) with a working camera? Yes 08/25/2025 Intimate Partner Violence Answer Date R ecorded Are you denied basic needs s uch as food, clothing, or medical care? No 08/25/2025 In the past 12 months have y ou been in a relationship with a person who hurts, threatens, or tries to control you? No 08/25/2025 Are you denied basic needs s uch as food, clothing, or medical care? No 08/25/2025 In the past 12 months have y ou been in a relationship with a person who hurts, threatens, or tries to control you? No 08/25/2025 Comments Unknown Sex and Gender Information Value Date Recorded Sex Assigned at Female 04/23/2023 3:07 PM EDT Legal Sex Female 9:58 PM EDT Gender Identity Female 04/23/2023 3:07 PM EDT Sexual Orientation Straight 07/22/2023 4: 20 PM EDT documented as of this encounter Plan of Treatment Upcoming Encounters Date Type Department Care Team (Late st Contact Info) Description 09/28/2025 2:50 PM EST Blood Draw [facility] [address] [place] [phone] 10/01/2025 9:00 AM EST Office Visit [facility] H[facility] [address] [place] [address] Prashant Gaspar DO [address] [place] [phone] [email or web address] 10/01/2025 10:00 AM EST Infusion [facility] Infusion Center [address] [place] [address] Livia Villalobos RN [address] [place] [phone] 10/02/2025 2:00 PM EST Infusion [facility] [address] [place] [address] Jonatan Abreu RN [address] [place] [phone] [email or web address] 10/02/2025 2:20 PM EST Nutrition [facility] [address] [place] [address] 10/03/2025 2:00 PM EST Infusion [facility] [address] [place] [address] Corina Mixon RN [address] [place] [phone] [email or web address] 10/05/2025 4:00 PM EST Infusion [facility] [address] [place] [address] Celine Peralta RN [address] [place] [phone] [email or web address] documented as of this encounter Visit Diagnoses Diagnosis 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 Given 09/14/2025 4:20 PM EST 6 mg Right Arm documented in this encounter Care Teams Tray Drier Operator Relationship Specialty Start Date End Date Hali Carlin PA [address] [place] [phone] PCP - General Physician Bridge Welder 05/03/25 Prashant Gaspar DO [address] [place] [phone] [email or web address] Primary Oncologist Hematology and Oncology 06/01/25 Sharon Hunter NP [address] [place] [phone] [email or web address] Nurse Practitioner Medical Oncology 06/26/25 Marilee Kaminski FNP [address] [place] [address] [email or web address] Nurse Practitioner Medical Oncology 06/28/25 Brandy Escobar RN [address] [place] [address] [email or web address] Nurse Navigator 07/19/25 documented as of this encounter Additional Source Comments The information contained in this document represents components of the legal health record. It is not the complete legal health record.[facility]
--- NOTE | ~2025-09-19 | CT_ITS ---
CLINICAL HISTORY: abdominal pain, lung ca with mets CT abdomen and pelvis with contrast Comparison: CT/REG/SR - CT ANGIO CHEST PE PROTOCOL - 09/19/25 20:[address]/SR - CT ABDOMEN PELVIS W IV CON - 07/17/25 21:52 EDT Findings: Chest findings discussed on same day comparison. Innumerable small hepatic hypodensities again noted. These have decreased in size and number. Example lesion anterior segment 3 is 1.3 cm diameter image 194:16, and was previously 1.9 cm. The gallbladder and solid organs are otherwise unremarkable. No urolithiasis. No bowel obstruction, pneumoperitoneum, or pneumatosis. Moderate stool. Uterus and ovaries unremarkable. Normal appendix. Previous mild inferior T12 vertebral body endplate fracture similar to the prior exam. Old bilateral and transverse sacral insufficiency fractures. Osteopenia. No acute fracture or dislocation. Interbody graft L5-S1 unchanged. IMPRESSION: Decreasing size and number of numerous hepatic lesions suggesting treatment response of metastatic disease. This document has been electronically signed by: Cira Nguyen MD on 09/19/2025 22:15:55
--- NOTE | ~2025-09-19 | CT_ITS ---
CLINICAL HISTORY: tachycardia, shortness of breath CT angiography chest with contrast. 3D Postprocessing. Comparison: CT/REG/SR - CT ABDOMEN PELVIS W IV CON - 09/19/25 20:[address]/SR - CT ANGIO CHEST PE PROTOCOL - 07/15/25 02:45 EDT Findings: Heart size normal. Severe coronary artery calcifications. The thoracic aorta is normal caliber. No acute pulmonary embolus. The visualized thyroid and mediastinum are unremarkable. Power injectable right internal jugular chest port. Mild emphysema. There is a cluster small patchy opacities in the inferior right upper lobe centered on image 260:8. New since the prior exam. Platelike atelectasis right lower lobe along the minor fissure, and left lower lobe in the basilar segments. No effusion or pneumothorax. The abdominal findings are discussed on the same day comparison. A prior mild right inferior endplate T12 compression fracture is unchanged. There are new mild compression fractures at the inferior endplate T3 and superior endplate T4. Old inferior sternal fracture. Bones are osteopenic. IMPRESSION: 1. No acute pulmonary embolus. 2. New small patchy opacity in the right upper lobe. Infectious etiology favored. 3. New mild compression fractures inferior T3 and superior T4 endplates. 4. Additional findings as above. This document has been electronically signed by: Cira Nguyen MD on 09/19/2025 22:08:50
--- NOTE | ~2025-09-19 | XR_ITS ---
CLINICAL HISTORY: sob 1 view chest x-ray. Comparison: 07/17/2025 Findings: No consolidation or effusion. Cardiac and mediastinal contours appear unremarkable. Bones unremarkable. Impression: 1. No acute pulmonary disease. This document has been electronically signed by: Feliciano Andrews MD on 09/19/2025 19:30:02
--- NOTE | 2025-09-19 17:51 | ED_ITS ---
HPI - General Adult General Chief complaint: Weakness Stated complaint: Cancer Patient Difficulty Breathing Time Seen by Provider: 09/19/25 18:02 Source: patient Mode of arrival: ambulatory Limitations: no limitations History of Present Illness ED Provider: Dr. 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 Patient stated that she has been feeling weak for the past 5 days. She had recently started chemotherapy. Patient is complaining of umbilical abdominal tenderness. She has noticed that she has increased shortness of breath on the way here to the ER. She is complaining of subjective fever as well. Denies any coughing. Related Data Previous Rx's ?Medication ?Instructions ?Recorded oxycodone 5 mg capsule 5 mg PO Q6H PRN pain #12 cap s 07/15/25 polyethylene glycol 3350 17 17 g PO DAILY #238 grams 1 gram/dose oral powder (Miralax) Allergies Allergy/AdvReac Type Severity Reaction Status Date / Time Penicillins Allergy Unknown Verified 09/19/25 17:54 Sulfa (Sulfonamide Allergy Unknown Verified 09/19/25 17:54 Antibiotics) Review of Systems 2 Review of Systems: Pertinent review of systems as mentioned in HPI. All other system otherwise negative. [facility] Past Medical History [facility] Narrative: Medical history as mentioned in HPI Social History Social History Patient Tobacco Use Status: Former Tobacco user Smoked in Last 30 Days: No Use of substances other than those prescribed or required for medical reasons: No Advance Directives: No Advance Directives Information Provided: Yes Physical Exam ED Exam Exam: General: Pleasant, no distress, interacting appropriately Head: Normacephalic, atraumatic ENT: oral mucosa dry, neck supple, no tracheal deviation Cardiovascular: Tachycardic rate, regular rhythm, no murmurs, rubbing, gallops Respiratory: Diminished lung sounds in the right side compared to the left Gastrointestinal: Soft, non distended, diffuse abdominal tenderness on palpation Extremities: Trace edema in lower extremity Neurological: Awake and alert, no facial droop noted Skin: Warm and dry Psychiatric: Appropriate mood and thoughts Vital Signs: Vital Signs - 24 hr 09/19/25 17:53 09/19/25 19:29 09/19/25 19:57 Temperature 98.4 F 98.2 F Pulse Rate 104 H 86 Respiratory Rate 18 20 16 Blood Pressure 155/82 H 148/90 H Pulse Oximetry 99 100 Oxygen Delivery Method Room Air Room Air 09/19/25 21:59 09/19/25 22:14 09/19/25 23:22 Temperature 97.7 F Pulse Rate 85 Respiratory Rate 20 Blood Pressure 136/72 174/121 H 155/86 H Pulse Oximetry 100 Oxygen Delivery Method Room Air BMI result Body Mass Index 22.7 Course Course Course Narrative: This is a rapid medical exam performed by Michael Ford NP: Additional HPI, ROS, PE not included below will be deferred to primary provider. Patient is a 70y/o F with pmhx of metastatic lung cancer to the liver presenting with nausea, vomiting, sweats, weakness for the past 5 days. Pain everywhere, pain meds not working. Last infusion was 1 week ago. Cancer treatment through [facility]. Plan: viral serology, labs Medications Administered Discontinued Medications Generic Name Dose Route Start Last Admin Trade Name Freq PRN Reason Stop Dose Admin Hydromorphone HCl 0.25 mg 09/19/25 18:18 09/19/25 19:29 Hydromorphone Hcl 0.5 Mg/0.5 Ml Syringe IVPUSH 09/19/25 18:19 0.25 mg ONCE ONE Administration Protocol Lactated Ringer's 1,000 mls @ 999 mls/hr 09/19/25 18:30 09/19/25 19:53 Lr IV 09/19/25 19:30 Not Given .Q1H1M KAR Levofloxacin 750 mg in 150 mls @ 100 mls/hr 09/19/25 19:01 09/19/25 21:34 Levaquin IV 09/19/25 20:30 Infused ONCE ONE Infusion Magnesium Sulfate 2 gm in 50 mls @ 50 mls/hr 09/19/25 19:03 09/19/25 22:14 Magnesium Sulfate/H2o IV 09/19/25 20:02 Infused ONCE ONE Infusion Lactated Ringer's 1,584 mls @ 1,584 mls/hr 09/19/25 19:03 09/19/25 21:59 Lr 30 ml/kg infuse over 1 hr (1584 ml) 09/19/25 20:02 Infused IV Infusion .Q1H ONE Vancomycin HCl 1,250 mg/ 250 mls @ 166.667 mls/hr 09/19/25 20:30 09/19/25 23:16 Sodium Chloride IV 09/19/25 21:59 Infused ONCE ONE Infusion Magnesium Sulfate 2 gm in 50 mls @ 50 mls/hr 09/19/25 22:48 09/19/25 23:03 Magnesium Sulfate/H2o IV 09/19/25 23:47 50 mls/hr ONCE ONE Administration Iohexol 65 ml 09/19/25 20:43 09/19/25 20:45 Iohexol 350 Mg/Ml 100 Ml Infus..Btl IV 09/19/25 20:44 65 ml ONCE ONE Administration Ondansetron HCl 4 mg 09/19/25 18:20 09/19/25 19:29 Ondansetron Hcl 4 Mg/2 Ml Vial IVPUSH 09/19/25 18:21 4 mg ONCE ONE Administration Medical Decision Making Medical Decision Making [facility] Narrative: This is a 70-year-old female history of 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 I am unsure whether patient has chemotherapy had may patient's immunocompromise at this time. Patient is complaining of subjective fever. We will obtain a sepsis workup including blood culture lactic acid CBC CMP. Flu COVID and RSV swab will be obtained. We will obtain UA as well. Given patient's lung cancer she is high risk with the postobstruction pneumonia from lung mass. We will obtain a CT chest. We will also evaluate for any signs of PE. Patient abdomen and pelvis will be obtained as well given her abdominal pain. Patient's CT abdomen and pelvis shows decreased same metastases in the liver. CTA of the chest shows no pulmonary embolism however there was signs of patchiness in the right upper lobe indicative of pneumonia. Patient was given IV Levaquin and IV vancomycin. Patient is severely neutropenic Patient will be admitted to the hospital at this time. Differential Diagnosis Differential Diagnoses: The differential diagnosis associated with the presentation includes Dehydration, sepsis, PE, pneumonia, colitis, neutropenia Lab Data [facility] Lab Attestation statement: I reviewed the patient's lab results. 09/19/25 18:41 09/19/25 18:41 Labs: Lab Results 09/19/25 09/19/25 Range/Units 18:41 21:46 WBC 0.7 L* (4.8-10.8) X10*3/uL RBC 3.33 L (4.20-5.50) X10*6/uL Hgb 10.2 L (12.0-16.0) g/dl Hct 30.9 L (37.0-47.0) % MCV 92.8 (80.0-98.0) fL MCH 30.6 (27.0-33.0) pg MCHC 33.0 (31.0-35.0) g/dl RDW 16.7 H (11.0-16.0) % Plt Count 19 L* D (160-400) X10*3/uL MPV 11.1 (9.4-12.3) fL Immature Gran % (Auto) 0.0 (0.0-0.4) % Neut % (Auto) 4.4 L (45-73) % Lymph % (Auto) 91.2 H (20-40) % [place] % (Auto) 2.9 (2-11) % Eos % (Auto) 0.0 (0-4) % Baso % (Auto) 1.5 (0-2) % Lymph # (Auto) 0.6 L (1.2-4.9) X10*3/uL [place] # (Auto) 0.0 L (0.1-1.2) X10*3/uL Eos # (Auto) 0.0 (0.0-0.4) X10*3/uL Baso # (Auto) 0.0 (0.0-0.2) X10*3/uL Abs Immat Gran (auto) 0.00 (0.00-0.03) X10*3/uL Absolute Neuts (auto) 0.0 L (2.0-8.3) x10*3/uL Absolute Nucleated RBC 0.000 (0.0-0.012) X10*3/uL Nucleated RBC % (auto) 0.0 (0.0-0.2) /100WBC Smear Tech's Comments VERIFIED Sodium 137 (135-145) mmol/L Potassium 5.1 D (3.3-5.1) mmol/L Chloride 99 (96-108) mmol/L Carbon Dioxide 28 (22-29) mmol/L Anion Gap 15 (12-20) BUN 24 H (9-16) mg/dL Creatinine 1.14 (0.5-1.4) mg/dL Estim Creat Clear Calc 32.0 Estimated GFR 47 Random Glucose 116 H (60-115) mg/dL Lactic Acid 2.9 H* (0.5-2.0) mmol/L Lactic Acid F/U @ 2Hr 1.0 (0.5-2.0) mmol/L Calcium 9.3 D (8.4-10.2) mg/dL Magnesium 1.0 L* (1.6-2.6) mg/dL Total Bilirubin 0.7 (0.0-1.0) mg/dL AST 35 H (5-31) U/L ALT 24 (0-31) U/L Alkaline Phosphatase 166 H (39-117) U/L Total Protein 7.2 (6.5-8.0) g/dL Albumin 3.9 (3.5-5.0) g/dL Lipase 10 (8-78) U/L Influenza Type A (PCR) NEGATIVE (Negative) Influenza Type B (PCR) NEGATIVE (Negative) RSV RNA Qual (PCR) NEGATIVE (Negative) SARS-CoV-2 RNA (RT-PCR) NEGATIVE (Negative) Independent Interpretation I performed an independent interpretation of an: CT Scan Radiology Impression Discussion of test interpretation with radiology: I have reviewed the radiologist's reading. Critical Care Time Critical Care Time Critical Care Time: Yes Total Critical Care Time: 40 Attestation: Time is exclusive of separately billable procedures. Time includes: direct patient care, patient reassessment, coordination of patient care, interpretation of data (laboratory data, pulse oximetry, arterial blood gases and chest xrays), review of patient's medical records, medical consultation and documentation of patient care. Procedures excluded from critical care time: central intravenous line placement and electrocardiography. Discharge Plan Discharge Clinical Impression: Severe neutropenia, Pneumonia Patient Disposition: Admitted As Inpatient
[2025-09-19 17:53] VITALS: BP 155/82; PULSE 104; RESP 18; TEMP 36.9; O2SAT 99; BMI 22.7
[2025-09-19 18:47] LABS: Hematocrit 30.9 % (37.0-47.0); Hemoglobin 10.2 g/dl (12.0-16.0); Imm Gran Abs Auto 0.00 X10*3/uL (0.00-0.03); Imm Gran Pct Auto 0.0 % (0.0-0.4); Lymphocytes Absolute Auto 0.6 X10*3/uL (1.2-4.9); MANUAL DIFF FLAG SCAN; Mean Corpuscular HGB Conc 33.0 g/dl (31.0-35.0); Mean Corpuscular Hemoglobin 30.6 pg (27.0-33.0); Mean Corpuscular Volume 92.8 fL (80.0-98.0); NRBC Abs Auto 0.000 X10*3/uL (0.0-0.012); NRBC Pct Auto 0.0 /100WBC (0.0-0.2); Red Blood Count 3.33 X10*6/uL (4.20-5.50); SCAN SMEAR FLAG 1
[2025-09-19 18:58] LABS: Lipase 10 U/L (8-78)
[2025-09-19 19:01] LABS: White Blood Count 0.7 X10*3/uL (4.8-10.8)
--- NOTE | 2025-09-19 19:03 | ECG_ITS ---
Test Reason : WEAKNESS Blood Pressure : */* mmHG Vent. Rate : 86 BPM Atrial Rate : 86 BPM P-R Int : 98 ms QRS Dur : 88 ms QT Int : 386 ms P-R-T Axes : 28 26 49 degrees QTcB Int : 461 ms Poor data quality Sinus rhythm with short W[place] Cannot rule out Inferior infarct (cited on or before 14-Jul-2025) Abnormal ECG When compared with ECG of 17-Jul-2025 17:16, Premature ventricular complexes are no longer Present Nonspecific T wave abnormality now evident in Lateral leads Referred By: Meghann Elliott Electronically Signed By: Robb Whyte
[2025-09-19 19:05] LABS: Alanine Aminotransferase 24 U/L (0-31); Albumin Level 3.9 g/dL (3.5-5.0); Alkaline Phosphatase 166 U/L (39-117); Anion Gap 15 (12-20); Aspartate Amino Transferase 35 U/L (5-31); Blood Urea Nitrogen 24 mg/dL (9-16); Calcium 9.3 mg/dL (8.4-10.2); Carbon Dioxide 28 mmol/L (22-29); Chloride 99 mmol/L (96-108); Creatinine Clr Calc Pharmacy 32.0; Estimated Glomerular Filt Rate 47; Magnesium 1.0 mg/dL (1.6-2.6); Potassium 5.1 mmol/L (3.3-5.1); Sodium 137 mmol/L (135-145); Total Protein 7.2 g/dL (6.5-8.0)
[2025-09-19 19:29] VITALS: RESP 20
[2025-09-19 19:34] LABS: Resp Syncy Virus RNA Qual PCR NEGATIVE (Negative); SARS COV2 PCR INHOUSE NEGATIVE (Negative)
[2025-09-19] MEDS: Magnesium Sulfate/H2O 2 GM/50 ML PIGGYBACK IV ×2 (19:48→23:03)
[2025-09-19 19:57] VITALS: BP 148/90; PULSE 86; RESP 16; TEMP 36.8; O2SAT 100
[2025-09-19 19:58] LABS: Platelet Count 19 X10*3/uL (160-400)
[2025-09-19 20:45] LABS: Reflex Lactate? Lactic Acid Added
[2025-09-19] MEDS: iohexoL 350 MG/ML 100 ML INFUS..BTL 65 ML IV (20:45)
--- OUTSIDE RECORDS SUMMARY | 2025-09-19 21:07 | XMS_ITS | Encounter Summary ---
Author Organization [facility] Address [address] [place] [address] Phone Care Team Providers Care Master Plumber Name Role Phone Celine Farley MD Primary Care Provider Unavailable Hali Carlin Primary Care Provider [phone] Prashant Gaspar DO Unavailable [phone] Sharon Hunter INSPECTOR WATCH ASSEMBLY Unavailable [phone] Marilee Kaminski GALLEY COOK Unavailable Brandy Escobar RN Unavailable [phone] Encounter Details Date Type Department Care Team (Late st Contact Info) Description 04/23/2023 Procedure Pass [facility], Ct Scan - [address] [address] Social History Tobacco Use Types Packs/Day Years [...] 8:34 AM EDT Celena Hinton RN * [place] Suicide Severity Rating Scale (Screener/Recent Self-Report) Question Answer Date of Assessment Author 1. Wish to be (Past 1 Month) No 023 8:34 AM EDT Celena Hinton, RICHAR[place]ON 2. Non-Specific Active Suici raymond Thoughts (Past 1 Month) No 04/26/2023 8:34 AM EDT Sherine Hinton RN 6. Suicidal Behavior (Lifetime) No 3 8:34 AM EDT Celena Hinton, RICHARDSON documented as of this encounter Plan of Treatment Upcoming Encounters Date Type Department Care Team (Late st Contact Info) Description 09/28/2025 2:50 PM EST Blood Draw [facility] [address] [place] [address] 10/01/2025 9:00 AM EST Office Visit [facility] [place] [facility] at [address] [address] Prashant Gaspar, [address] [place] [address] [email or web address] 10/01/2025 10:00 AM EST Infusion [facility] Infusion Center [address] [place] [address] Livia Villalobos, RN [address] [place] [address] 10/02/2025 2:00 PM EST Infusion [facility] Infusion Center [address] [place] [address] Jonatan Abreu RN [address] [place] [address] [email or web address] 10/02/2025 2:20 PM EST Nutrition [facility] Hematology Oncology Clinic at [address] [address] 10/03/2025 2:00 PM EST Infusion [facility] Infusion Center [address] [place] [address] Corina Mixon, RICHARDSON [address] [place] [address] 10/05/2025 4:00 PM EST Infusion [facility] [address] [place] [address] Celine Peralta, RICHARDSON [address] [place] [address] documented as of this encounter Visit Diagnoses Not on filedocumented in this encounter Additional Health Concerns Infection Onset Date Last Indicated Resolved Time CoV-Risk Comment:Per note documentation 04/24/2023 04/24/2023 10:25 AM EDT CoV-Risk 05/31/2025 05/31/2025 06/11/2025 1:21 AM EDT Resp-Risk 08/25/2025 08/25/2025 09/05/2025 7:06 PM EST documented as of this encounter Care Teams Master Plumber Relationship Specialty Start Date End Date Celine Farley MD PCP - General 07/20/17 05/02/25 Hali Carlin PA [address] [place] [phone] PCP - General Physician Mechanical Technical Service Specialist 05/03/25 Prashant Gaspar DO [address] [place] [address] [email or web address] Primary Oncologist Hematology and Oncology 06/01/25 Sharon Hunter NP [address] [place] [address] [email or web address] Nurse Practitioner Medical Oncology 06/26/25 Marilee Kaminski FNP [address] [place] [address] [email or web address] Nurse Practitioner Medical Oncology 06/28/25 Brandy Escobar RN [address] [place] [address] [email or web address] Nurse Navigator 07/19/25 documented as of this encounter Additional Source Comments The information contained in this document represents components of the legal health record. It is not the complete legal health record.[facility]
--- OUTSIDE RECORDS SUMMARY | 2025-09-19 21:07 | XMS_ITS | Encounter Summary ---
Author Organization [facility] Address [address] [place] [address] [place] [address] Phone Care Team Providers Care Pill Packer Name Role Phone Hali Carlin Primary Care Provider [phone] Prashant Gaspar DO Unavailable Sharon Hunter GATE SERVICES SUPERVISOR Unavailable Marilee Kaminski PROGRAMMER OR ANALYST Unavailable [phone] Brandy Escobar RN Unavailable Encounter Details Date Type Department Care Team (Late st Contact Info) Description 08/25/2025 Procedure Pass [facility], Ct Scan - [address] [address] Social History Tobacco Use Types Packs/Day Years [...] housing situation today? I have allan vines 08/25/2025 How many times have you move [...] Date of Assessment Author No Risk Indicated 08/25/2025 1:28 PM Ghislaine Dale, RN * [place] Suicide Severity Rating Scale (Screener/Recent Self-Report) Question Answer Date of Assessment Author 1. Wish to be (Past 1 Month) No 025 1:28 PM Ghislaine Dale, RICHARDSON 2. Non-Specific Active Suici raymond Thoughts (Past 1 Month) No 08/25/2025 1:28 PM Ghislaine Dale RN 6. Suicidal Behavior (Lifetime) No 1:28 PM Ghislaine Dale RN documented as of this encounter Plan of Treatment Upcoming Encounters Date Type Department Care Team (Late st Contact Info) Description 09/28/2025 2:50 PM EST Blood Draw [facility]le[facility] [address] [place] [address] 10/01/2025 9:00 AM EST Office Visit [facility] Hematology Oncology Clinic at [address] [address] Prashant Gaspar DO [address] [place] [address] [email or web address] 10/01/2025 10:00 AM EST Infusion [facility] Infusion Center [address] [place] [address] Livia Villalobos RN [address] [place] [address] 10/02/2025 2:00 PM EST Infusion [facility] Infusion Center [address] [place] [address] Jonatan Abreu RN [address] [place] [address] [email or web address] 10/02/2025 2:20 PM EST Nutrition [facility] Hematology Oncology Clinic at [address] [address] 10/03/2025 2:00 PM EST Infusion [facility] Infusion Center [address] [place] [address] Corina Mixon, RICHARDSON [address] [place] [address] 10/05/2025 4:00 PM EST Infusion [facility] [place] [facility] [address] [place] [address] Celine Peralta, RICHARDSON [address] [place] [address] [email or web address] documented as of this encounter Visit Diagnoses Not on filedocumented in this encounter Additional Health Concerns Infection Onset Date Last Indicated Resolved Time Resp-Risk 08/25/2025 08/25/2025 09/05/2025 7:06 PM EST documented as of this encounter Care Teams Pill Packer Relationship Specialty Start Date End Date Hali Carlin PA [address] [place] [phone] PCP - General Physician Hide Inspector 05/03/25 Prashant Gaspar DO [address] [place] [address] [email or web address] Primary Oncologist Hematology and Oncology 06/01/25 Sharon Hunter NP [address] [place] [address] [email or web address] Nurse Practitioner Medical Oncology 06/26/25 Marilee Kaminski FNP [address] [place] [address] [email or web address] Nurse Practitioner Medical Oncology 06/28/25 Brandy Escobar RN [address] [place] [address] [email or web address] Nurse Navigator 07/19/25 documented as of this encounter Additional Source Comments The information contained in this document represents components of the legal health record. It is not the complete legal health record.[facility]
--- OUTSIDE RECORDS SUMMARY | 2025-09-19 21:07 | XMS_ITS | Encounter Summary ---
Author Organization [facility] Address [address] [place] [address] [place] [address] Phone Care Team Providers Care Model Making Supervisor Name Role Phone Hali Carlin Primary Care Provider [phone] Prashant Gaspar DO Unavailable Sharon Hunter TREAD BUILDER Unavailable Marilee Kaminski FOREST PATHOLOGY ASSOCIATE PROFESSOR Unavailable Brandy Escobar RN Unavailable [phone] Encounter Details Date Type Department Care Team (Late st Contact Info) Description 09/10/2025 Telephone [facility] Hematology Oncology Clinic at [address] [address] Prashant Gaspar DO [address] [place] [address] [email or web address] Social History Tobacco Use Types Packs/Day Years [...] EST Blood Draw [facility] [address] [place] [address] 10/01/2025 9:00 AM EST Office Visit [facility] Hematology Oncology Clinic at [address] [address] Prashant Gaspar DO [address] [place] [address] [email or web address] 10/01/2025 10:00 AM EST Infusion [facility] Infusion [address] [address] Livia Villalobos RN [address] [place] [address] 10/02/2025 2:00 PM EST Infusion [address] [address] Jonatan Abreu RN [address] [place] [address] [email or web address] 10/02/2025 2:20 PM EST Nutrition [facility] Hematology Oncology Clinic at [address] [address] 10/03/2025 2:00 PM EST Infusion [address] [address] Corina Mixon RN [address] [place] [address] 10/05/2025 4:00 PM EST Infusion [facility] Infusion [address] [address] Celine Peralta, RICHARDSON [address] [place] [address] documented as of this encounter Visit Diagnoses Diagnosis 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 Anemia, unspecified type documented in this encounter Care Teams Model Making Supervisor Relationship Specialty Start Date End Date Hali Carlin PA [address] [place] [phone] PCP - General Physician Occupational Health And Safety Manager 05/03/25 Prashant Gaspar DO [address] [place] [address] [email or web address] Primary Oncologist Hematology and Oncology 06/01/25 Sharon Hunter NP [address] [place] [address] [email or web address] Nurse Practitioner Medical Oncology 06/26/25 Marilee Kaminski FNP [address] [place] [address] [email or web address] Nurse Practitioner Medical Oncology 06/28/25 Brandy Escobar RN [address] [place] [address] [email or web address] Nurse Navigator 07/19/25 documented as of this encounter Additional Source Comments The information contained in this document represents components of the legal health record. It is not the complete legal health record.[facility]
--- OUTSIDE RECORDS SUMMARY | 2025-09-19 21:07 | XMS_ITS | Encounter Summary ---
Author Organization [facility] Address [address] [facility] [address] [place] [address] Phone Care Team Providers Care Wet Process Operator Name Role Phone Celine Farley MD Primary Care Provider Unavailable Hali Carlin Primary Care Provider [phone] Prashant Gaspar DO Unavailable Sharon Hunter ASSISTANT PROFESSOR OF ANTHROPOLOGY Unavailable Marilee Kaminski FLAT EXAMINER Unavailable Brandy Escobar RN Unavailable Encounter Details Date Type Department Care Team (Late st Contact Info) Description 04/23/[address] [facility], Ct Scan - [address] [address] Social History Tobacco Use Types Packs/Day Years [...] 8:34 AM EDT Celena Hinton RN * [place] Suicide Severity Rating Scale (Screener/Recent Self-Report) Question [...] EST Blood Draw [facility] Phleb [facility] 30 [place] [address] 10/01/2025 9:00 AM EST Office Visit [facility] [place] [facility] Oncology Clinic at [address] [address] Prashant Gaspar, 30 [place] [address] [email or web address] .[facility] 10/01/2025 10:00 AM EST Infusion [facility] Infusion Center [address] [place] [address] Livia Villalobos, RN [address] [place] [address] 10/02/2025 2:00 PM EST Infusion [facility] Infusion Center [address] [place] [address] Jonatan Abreu RN [address] [place] [address] [email or web address] 10/02/2025 2:20 PM EST Nutrition [facility] Hematology Oncology Clinic at [address] [address] 10/03/2025 2:00 PM EST Infusion [facility] Infusion Center [address] [place] [address] Corina Mixon, RICHARDSON [address] [place] [address] 10/05/2025 4:00 PM EST Infusion [facility] [address] [place] [address] Celine Peralta, RICHARDSON [address] [place] [address] documented as of this encounter Visit Diagnoses Not on filedocumented in this encounter Additional Health Concerns Infection Onset Date Last Indicated Resolved Time CoV-Risk Comment:Per note documentation 04/24/2023 04/24/2023 10:25 AM EDT CoV-Risk 05/31/2025 05/31/2025 06/11/2025 1:21 AM EDT Resp-Risk 08/25/2025 08/25/2025 09/05/2025 7:06 PM EST documented as of this encounter Care Teams Wet Process Operator Relationship Specialty Start Date End Date Celine Farley MD PCP - General 07/20/17 05/02/25 Hali Carlin PA [address] [place] [phone] PCP - General Physician Hair Clipper Power 05/03/25 Prashant Gaspar DO 30 [place] [address] [email or web address] U Primary Oncologist Hematology and Oncology 06/01/25 Sharon Hunter NP 30 [place] [address] [email or web address] Nurse Practitioner Medical Oncology 06/26/25 Marilee Kaminski FNP 30 [place] [address] [email or web address] Nurse Practitioner Medical Oncology 06/28/25 Brandy Escobar RN 30 [place] [address] [email or web address] Nurse Navigator 07/19/25 documented as of this encounter Additional Source Comments The information contained in this document represents components of the legal health record. It is not the complete legal health record.[facility]
--- OUTSIDE RECORDS SUMMARY | 2025-09-19 21:07 | XMS_ITS | Encounter Summary ---
Author Organization [facility] Address [address] [facility] [address] [place] [address] Phone Care Team Providers Care Marketing And Promotions Manager Name Role Phone Celine Farley MD Primary Care Provider Unavailable Hali Carlin Primary Care Provider [phone] Prashant Gaspar DO Unavailable Sharon Hunter SIX PACK PACKER Unavailable Marilee Kaminski FORK REPAIRER Unavailable Brandy Escobar RN Unavailable Encounter Details Date Type Department Care Team (Late st Contact Info) Description 04/23/2023 Procedure Pass [facility], Ct Scan - [address] [address] Social History Tobacco Use Types Packs/Day Years [...] 8:34 AM EDT Celena Hinton RN * [place] Suicide Severity Rating Scale (Screener/Recent Self-Report) Question Answer Date of Assessment Author 1. Wish to be (Past 1 Month) No 023 8:34 AM EDT Celena Hinton, RICHARDSON 2. Non-Specific Active Suici ryamond Thoughts (Past 1 Month) No 04/26/2023 8:34 AM EDT Sherine Hinton RN 6. Suicidal Behavior (Lifetime) No 3 8:34 AM EDT Celena Hinton, RICHARDSON documented as of this encounter Plan of Treatment Upcoming Encounters Date Type Department Care Team (Late st Contact Info) Description 09/28/2025 2:50 PM EST Blood Draw [facility] Phleb [facility] 30 [place] [address] 10/01/2025 9:00 AM EST Office Visit [facility] [place] Hematology Oncology Clinic at [address] [address] Prashant Gaspar, 30 [place] [address] [email or web address].[email or web address] .[facility] 10/01/2025 10:00 AM EST Infusion [facility] Infusion Center [address] [place] [address] Livia Villalobos, RN [address] [place] [address] 10/02/2025 2:00 PM EST Infusion [facility] Infusion Center [address] [place] [address] Jonatan Abreu RN [address] [place] [address] [email or web address] 10/02/2025 2:20 PM EST Nutrition [facility] Hematology Oncology Clinic at [address] [address] 10/03/2025 2:00 PM EST Infusion [facility] Infusion Center [address] [place] [address] Corina Mixon, RICHARDSON [address] [place] [address] 10/05/2025 4:[address] [facility] [address] [place] [address] Celine Peralta, RICHARDSON [address] [place] [address] documented as of this encounter Visit Diagnoses Not on filedocumented in this encounter Additional Health Concerns Infection Onset Date Last Indicated Resolved Time CoV-Risk Comment:Per note documentation 04/24/2023 04/24/2023 10:25 AM EDT CoV-Risk 05/31/2025 05/31/2025 06/11/2025 1:21 AM EDT Resp-Risk 08/25/2025 08/25/2025 09/05/2025 7:06 PM EST documented as of this encounter Care Teams Marketing And Promotions Manager Relationship Specialty Start Date End Date Celine Farley MD PCP - General 07/20/17 05/02/25 Hali Carlin PA [address] [place] [phone] PCP - General Physician Senior Behavioral Scientist 05/03/25 Prashant Gaspar DO 30 [place] [address] [email or web address] U Primary Oncologist Hematology and Oncology 06/01/25 Sharon Hunter NP 30 [place] [address] [email or web address] Nurse Practitioner Medical Oncology 06/26/25 Marilee Kaminski FNP 30 [place] [address] [email or web address] Nurse Practitioner Medical Oncology 06/28/25 Brandy Escobar RN [address] [place] [address] [email or web address] Nurse Navigator 07/19/25 documented as of this encounter Additional Source Comments The information contained in this document represents components of the legal health record. It is not the complete legal health record.[facility]
--- OUTSIDE RECORDS SUMMARY | 2025-09-19 21:07 | XMS_ITS | Encounter Summary ---
Author Organization [facility] Address [address] [place] [address] [place] [address] Phone Care Team Providers Care Ornamental Plaster Sticker Name Role Phone Hali Carlin Primary Care Provider [phone] Prashant Gaspar DO Unavailable [phone] Sharon Hunter TOOL AND CUTTER GRINDER Unavailable [phone] Marilee Kaminski ACCOUNTING RECRUITER Unavailable Brandy Escobar RN Unavailable Encounter Details Date Type Department Care Team (Late st Contact Info) Description 08/17/2025 Orders Only [facility] [place] [facility] at [address] [address] Provider, MD [place] [address] [place] [address] Social History Tobacco Use Types Packs/Day Years [...] No Risk Indicated 08/25/2025 1:28 PM Ghislaine Dale RN * [place] Suicide Severity Rating Scale (Screener/Recent Self-Report) Question Answer Date of Assessment Author 1. Wish to be (Past 1 Month) No 1:28 PM Ghislaine Dale RN 2. Non-Specific Active Suici raymond Thoughts (Past 1 Month) No 08/25/2025 1:28 PM Ghislaine Dale, RICHARDSON 6. Suicidal Behavior (Lifetime) No 1:28 PM Ghislaine Dale RN documented as of this encounter Plan of Treatment Upcoming Encounters Date Type Department Care Team (Late st Contact Info) Description 09/28/2025 2:50 PM EST Blood Draw [facility] Phleb [address] [address] 10/01/2025 9:00 AM EST Office Visit [facility] at [address] [address] Prashant Gaspar DO [address] [place] [address] [email or web address] 10/01/2025 10:00 AM EST Infusion [facility] Infusion Center [address] [place] [address] Livia Villalobos RN [address] [place] [address] [email or web address] 10/02/2025 2:00 PM EST Infusion [facility] Infusion Center [address] [place] [address] Jonatan Abreu RN [address] [place] [address] [email or web address] 10/02/2025 2:20 PM EST Nutrition [facility] Hematology Oncology Clinic at [address] [address] 10/03/2025 2:00 PM EST Infusion [facility] Infusion Center [address] [place] [address] Corina Mixon, RICHARDSON [address] [place] [address] 10/05/2025 4:00 PM EST Infusion [facility] In[facility] Center 30 [place] [address] Celine Peralta, RN 30 [place] [address] [email or web address] documented as of this encounter Procedures Procedure Name Priority Date/Time Associated Diagnosis Comments OUTSIDE LAB Routine 08/17/2025 11:00 AM EST documented in this encounter Results * Outside Lab (Non-MGB) (08/17/2025 11:00 AM EST) us Historical Provider LAB BLOOD BKR ORDERABLES Final Result documented in this encounter Visit Diagnoses Not on filedocumented in this encounter Additional Health Concerns Infection Onset Date Last Indicated Resolved Time Resp-Risk 08/25/2025 08/25/2025 09/05/2025 7:06 PM EST documented as of this encounter Care Teams Ornamental Plaster Sticker Relationship Specialty Start Date End Date Hali Carlin PA [address] [place] [phone] PCP - General Physician Tire Mold Engraver 05/03/25 Prashant Gaspar DO [address] [place] [address] [email or web address] Primary Oncologist Hematology and Oncology 06/01/25 Sharon Hunter NP [address] [place] [address] [email or web address] Nurse Practitioner Medical Oncology 06/26/25 Marilee Kaminski FNP [address] [place] [address] [email or web address] Nurse Practitioner Medical Oncology 06/28/25 Brandy Escobar RN 30 [place] [address] [email or web address] Nurse Navigator 07/19/25 documented as of this encounter Additional Source Comments The information contained in this document represents components of the legal health record. It is not the complete legal health record.[facility]
--- OUTSIDE RECORDS SUMMARY | 2025-09-19 21:07 | XMS_ITS | Encounter Summary ---
Author Organization [facility] Address [address] [place] [address] [place] [address] Phone Care Team Providers Care Break Up Worker Name Role Phone Hali Carlin Primary Care Provider [phone] Prashant Gaspar DO Unavailable [phone] Sharon Hunter LOG OPERATIONS COORDINATOR Unavailable Marilee Kaminski TEAM GUIDE Unavailable Brandy Escobar RN Unavailable Encounter Details Date Type Department Care Team (Late st Contact Info) Description 06/24/2025 Procedure Pass [facility], Ct Scan - [address] [id number] Social History Tobacco Use Types Packs/Day Years [...] 9:32 PM EDT Helen Stauffer RN * [place] Suicide Severity Rating Scale (Screener/Recent Self-Report) Question Answer Date of Assessment Author 1. Wish to be (Past 1 Month) No 06/24/2025 9:32 PM Helen Vasquez RN 2. Non-Specific Active Suici raymond Thoughts (Past 1 Month) No 06/24/2025 9:32 PM Patrick Vasquez RN 6. Suicidal Behavior (Lifetime) No 9:32 PM Helen Vasquez RN documented as of this encounter Plan of Treatment Upcoming Encounters Date Type Department Care Team (Late st Contact Info) Description 09/28/2025 2:50 PM EST Blood Draw [facility] Phleb MG 30 [place] [address] 10/01/2025 9:00 AM EST Office Visit [facility] Hematology Oncology Clinic at [address] [address] Prashant Gaspar DO [address] [place] [address] [email or web address] 10/01/2025 10:00 AM EST Infusion [facility] Infusion Center [address] [place] [address] Livia Villalobos RN [address] [place] [address] 10/02/2025 2:00 PM EST Infusion [facility] Center [address] [place] [address] Jonatan Abreu RN [address] [place] [address] [email or web address] 10/02/2025 2:20 PM EST Nutrition [facility] Hematology Oncology Clinic at [address] [address] 10/03/2025 2:00 PM EST Infusion [facility] Infusion Center [address] [place] [address] Corina Mixon RN [address] [place] [address] 10/05/2025 4:00 PM EST Infusion [facility] [place] Infusion Center 30 [place] [address] Celine Peralta RN 30 [place] [address] documented as of this encounter Visit Diagnoses Not on filedocumented in this encounter Additional Health Concerns Infection Onset Date Last Indicated Resolved Time Resp-Risk 08/25/2025 08/25/2025 09/05/2025 7:06 PM EST documented as of this encounter Care Teams Break Up Worker Relationship Specialty Start Date End Date Hali Carlin PA [address] [place] [phone] PCP - General Physician Data Conversion Operator 05/03/25 Prashant Gaspar DO [address] [place] [address] [email or web address] Primary Oncologist Hematology and Oncology 06/01/25 Sharon Hunter NP [address] [place] [address] [email or web address] Nurse Practitioner Medical Oncology 06/26/25 Marilee Kaminski FNP [address] [place] [address] [email or web address] Nurse Practitioner Medical Oncology 06/28/25 Brandy Escobar RN [address] [place] [address] [email or web address] Nurse Navigator 07/19/25 documented as of this encounter Additional Source Comments The information contained in this document represents components of the legal health record. It is not the complete legal health record.[facility]
--- OUTSIDE RECORDS SUMMARY | 2025-09-19 21:07 | XMS_ITS | Encounter Summary ---
Author Organization [facility] Address [address] [place] [address] [place] [address] Phone Care Team Providers Care Toaster Element Repairer Name Role Phone Hali Carlin Primary Care Provider [phone] Prashant Gaspar DO Unavailable Sharon Hunter GROUND CREW CHIEF Unavailable [phone] Marilee Kaminski PEN RIDER Unavailable Brandy Escobar RN Unavailable Encounter Details Date Type Department Care Team (Late st Contact Info) Description 06/20/2025 Telephone [facility] Hematology Oncology Clinic at [address] [address] Prashant Gaspar DO [address] [place] [address] [email or web address] Social History Tobacco Use Types Packs/Day Years [...] EST Blood Draw [facility] Phleb [facility] [address] [place] [address] 10/01/2025 9:00 AM EST Office Visit [facility] Hematology Oncology Clinic at [address] [address] Prashant Gaspar DO [address] [place] [address] [email or web address] 10/01/2025 10:00 AM EST Infusion [facility] Infusion [address] [address] Livia Villalobos RN [address] [place] [address] 10/02/2025 2:00 PM EST Infusion [address] [address] Jonatan Abreu RN [address] [place] [address] [email or web address] 10/02/2025 2:20 PM EST Nutrition [facility] Hematology Oncology Clinic at [address] [address] 10/03/2025 2:00 PM EST Infusion [address] [address] Corina Mixon RN [address] [place] [address] 10/05/2025 4:00 PM EST Infusion [facility] Infusion [address] [address] Celine Peralta, RICHARDSON [address] [place] [address] documented as of this encounter Visit Diagnoses Not on filedocumented in this encounter Additional Health Concerns Infection Onset Date Last Indicated Resolved Time Resp-Risk 08/25/2025 08/25/2025 09/05/2025 7:06 PM EST documented as of this encounter Care Teams Toaster Element Repairer Relationship Specialty Start Date End Date Hali Carlin PA [address] [place] [phone] PCP - General Physician Mutual Fund Manager 05/03/25 Prashant Gaspar DO [address] [place] [address] [email or web address] Primary Oncologist Hematology and Oncology 06/01/25 Sharon Hunter NP [address] [place] [address] [email or web address] Nurse Practitioner Medical Oncology 06/26/25 Marilee Kaminski FNP [address] [place] [address] Nurse Practitioner Medical Oncology 06/28/25 Brandy Escobar RN [address] [place] [address] [email or web address] Nurse Navigator 07/19/25 documented as of this encounter Additional Source Comments The information contained in this document represents components of the legal health record. It is not the complete legal health record.[facility]
--- OUTSIDE RECORDS SUMMARY | 2025-09-19 21:07 | XMS_ITS | Encounter Summary ---
Author Organization [facility] Address [address] [facility] [address] [place] [address] Phone Care Team Providers Care Bulldozer Operator Name Role Phone Celine Farley MD Primary Care Provider Unavailable Hali Carlin Primary Care Provider [phone] Prashant Gaspar DO Unavailable Sharon Hunter PACKING LINE WORKER Unavailable Marilee Kaminski GLASS INSPECTOR Unavailable [phone] Brandy Escobar RN Unavailable [phone] Encounter Details Date Type Department Care Team (Late st Contact Info) Description 07/22/2023 Procedure Pass [facility], Ct Scan - [address] [address] Social History Tobacco Use Types Packs/Day Years [...] 4:20 PM EDT Helen Stauffer RN * [place] Suicide Severity Rating Scale (Screener/Recent Self-Report) Question [...] EST Blood Draw [facility] Phleb [facility] 30 [place] [address] 10/01/2025 9:00 AM EST Office Visit [facility] Hematology Oncology Clinic [facility] [address] [place] [address] Prashant Gaspar DO 30 [place] [address] [email or web address] [email or web address] 10/01/2025 10:00 AM EST Infusion [facility] Infusion Center [address] [place] [address] Livia Villalobos RN [address] [place] [address] 10/02/2025 2:00 PM EST Infusion [facility] Infusion Center [address] [place] [address] Jonatan Abreu RN [address] [place] [address] [email or web address] 10/02/2025 2:20 PM EST Nutrition [facility] Hematology Oncology Clinic at [address] [address] 10/03/2025 2:00 PM EST Infusion [facility] Infusion Center [address] [place] [address] Corina Mixon RN [address] [place] [address] 10/05/2025 4:00 PM EST Infusion [facility] Infusion Center [address] [place] [address] Celine Peralta RN [address] [place] [address] documented as of this encounter Visit Diagnoses Not on filedocumented in this encounter Additional Health Concerns Infection Onset Date Last Indicated Resolved Time CoV-Risk 05/31/2025 05/31/2025 06/11/2025 1:21 AM EDT Resp-Risk 08/25/2025 08/25/2025 09/05/2025 7:06 PM EST documented as of this encounter Care Teams Bulldozer Operator Relationship Specialty Start Date End Date Celine Farley MD PCP - General 07/20/17 05/02/25 Hali Carlin PA [address] [place] [phone] PCP - General Physician President And Chief Operating Officer 05/03/25 Prashant Gaspar DO 30 [place] [address] [email or web address] Primary Oncologist Hematology and Oncology 06/01/25 Sharon Hunter NP [address] [place] [address] [email or web address] Nurse Practitioner Medical Oncology 06/26/25 Marilee Kaminski FNP [address] [place] [address] [email or web address] Nurse Practitioner Medical Oncology 06/28/25 Brandy Escobar RN [address] [place] [address] [email or web address] Nurse Navigator 07/19/25 documented as of this encounter Additional Source Comments The information contained in this document represents components of the legal health record. It is not the complete legal health record.[facility]
--- OUTSIDE RECORDS SUMMARY | 2025-09-19 21:07 | XMS_ITS | Encounter Summary ---
Author Organization [facility] Address [address] [place] [address] [place] [address] Phone Care Team Providers Care Pick Up Worker Name Role Phone Hali Carlin Primary Care Provider [phone] Prashant Gaspar DO Unavailable [phone] Sharon Hunter AUDIO TAPE LIBRARIAN Unavailable [phone] Marilee Kaminski INJECTOR ASSEMBLER Unavailable [phone] Brandy Escobar RN Unavailable Encounter Details Date Type Department Care Team (Late st Contact Info) Description 08/25/2025 Procedure Pass [facility], Ct Scan - [address] [address] Social History Tobacco Use Types Packs/Day Years [...] 08/25/2025 1:28 PM Ghislaine Dale, RN * [place] Suicide Severity Rating Scale (Screener/Recent Self-Report) Question [...] EST Blood Draw [facility] Phleb MG [address] [place] [address] 10/01/2025 9:00 AM EST Office Visit [facility] Hematology Oncology Clinic at [address] [address] Prashant Gaspar DO [address] [place] [address] [email or web address] 10/01/2025 10:00 AM EST Infusion [facility] Infusion Center [address] [place] [address] Livia Villalobos RN [address] [place] [address] 10/02/2025 2:00 PM EST Infusion [facility] Infusion Center [address] [place] [address] Jonatan Abreu RN [address] [place] [address] [email or web address] 10/02/2025 2:20 PM EST Nutrition [facility] Hematology Oncology Clinic at [address] [address] 10/03/2025 2:00 PM EST Infusion [facility] Infusion Center [address] [place] [address] Corina Mixon, RICHARDSON [address] [place] [address] 10/05/2025 4:00 PM EST Infusion [facility] [place] [facility] [address] [place] [address] Celine Peralta, RICHARDSON [address] [place] [address] [email or web address] documented as of this encounter Visit Diagnoses Not on filedocumented in this encounter Additional Health Concerns Infection Onset Date Last Indicated Resolved Time Resp-Risk 08/25/2025 08/25/2025 09/05/2025 7:06 PM EST documented as of this encounter Care Teams Pick Up Worker Relationship Specialty Start Date End Date Hali Carlin PA [address] [place] [address] [phone] PCP - General Physician Spice Grinder 05/03/25 Prashant Gaspar DO [address] [place] [address] [email or web address] Primary Oncologist Hematology and Oncology 06/01/25 Sharon Hunter NP [address] [place] [address] [email or web address] Nurse Practitioner Medical Oncology 06/26/25 Marilee Kaminski FNP [address] [place] [address] [email or web address] Nurse Practitioner Medical Oncology 06/28/25 Brandy Escobar RN [address] [place] [address] [email or web address] Nurse Navigator 07/19/25 documented as of this encounter Additional Source Comments The information contained in this document represents components of the legal health record. It is not the complete legal health record.[facility]
--- OUTSIDE RECORDS SUMMARY | 2025-09-19 21:07 | XMS_ITS | Encounter Summary ---
Author Organization [facility] Address [address] [place] [address] [place] [address] Phone Care Team Providers Care Wine Steward/Stewardess Name Role Phone Hali Carlin Primary Care Provider [phone] Prashant Gaspar DO Unavailable Sharon Hunter OTOLARYNGOLOGY PHYSICIAN Unavailable Marilee Kaminski MANAGER DEMAND Unavailable Brandy Escobar RN Unavailable Encounter Details Date Type Department Care Team (Late st Contact Info) Description 08/25/2025 Procedure Pass [facility], Ct Scan - [address] [address] Social History Tobacco Use Types Packs/Day Years [...] 08/25/2025 1:28 PM Ghislaine Dale, RN * [place] Suicide Severity Rating Scale (Screener/Recent Self-Report) Question [...] EST Blood Draw [facility] Phleb MG [address] [place] [address] 10/01/2025 9:00 AM EST Office Visit [facility] Hematology Oncology Clinic at [address] [address] Prashant Gaspar DO [address] [place] [address] [email or web address] 10/01/2025 10:00 AM EST Infusion [facility] Infusion Center [address] [place] [address] Livia Villalobos RN [address] [place] [address] 10/02/2025 2:00 PM EST Infusion [facility] Infusion Center [address] [place] [address] Jonatan Abreu RN [address] [place] [address] [email or web address] 10/02/2025 2:20 PM EST Nutrition [facility] Hematology Oncology Clinic at [address] [address] 10/03/2025 2:00 PM EST Infusion [facility] Infusion Center [address] [place] [address] Corina Mixon, RICHARDSON [address] [place] [address] 10/05/2025 4:00 PM EST Infusion [facility] [place] [facility] [address] [place] [address] Celine Peralta, RICHARDSON [address] [place] [address] [email or web address] documented as of this encounter Visit Diagnoses Not on filedocumented in this encounter Additional Health Concerns Infection Onset Date Last Indicated Resolved Time Resp-Risk 08/25/2025 08/25/2025 09/05/2025 7:06 PM EST documented as of this encounter Care Teams Wine Steward/Stewardess Relationship Specialty Start Date End Date Hali Carlin PA [address] [place] [address] [phone] PCP - General Physician Engagement Quality Consultant 05/03/25 Prashant Gaspar DO [address] [place] [address] [email or web address] Primary Oncologist Hematology and Oncology 06/01/25 Sharon Hunter NP [address] [place] [address] [email or web address] Nurse Practitioner Medical Oncology 06/26/25 Marilee Kaminski FNP [address] [place] [address] [email or web address] Nurse Practitioner Medical Oncology 06/28/25 Brandy Escobar RN [address] [place] [address] [email or web address] Nurse Navigator 07/19/25 documented as of this encounter Additional Source Comments The information contained in this document represents components of the legal health record. It is not the complete legal health record.[facility]
--- OUTSIDE RECORDS SUMMARY | 2025-09-19 21:07 | XMS_ITS ---
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 on the [facility] CT scan of the head Oncology consulted [...] Medications Current Day (Day 1 , Cycle 5 - Planned for 10/02/2025) Next Day (Day 2, Cycle 5 - Planned for 10/03/2025) CARBOplatin (PARAPLATIN)CARBOplatin (PARAPLATIN) IVPB (by AUC) 270 mLetoposide (VEPESID, TOPOSAR)etoposide (VEPESID, TOPOSAR) infusion (500 mL)etoposide (VEPESID, TOPOSAR) infusion QS 700 mL NS {doses 216 - 280 mg} Bag CARBOplatin (PARAPLATIN) 486 mg in D5W 318.6 mL IVPBetoposide (TOPOSAR) 160 mg in sodium chloride 0.9% 548 mL infusion etoposide (TOPOSAR) 160 mg in sodium chloride 0.9% 548 mL infusion Past Treatment and Therapy Plans No past plan information found. Lifetime Dose Tracking * Chemical Lifetime Dose Automatic Entry Manual Entr y Invasive Cardiology Radiation Exposure 0.1 mGy 0 mGy 0.1 mGy 2. DAP 5.04 uGy-m2 0 uGy-m2 5.04 uGy-m2
--- OUTSIDE RECORDS SUMMARY | 2025-09-19 21:07 | XMS_ITS | Encounter Summary ---
Author Organization [facility] Address [address] [place] [address] [place] [address] Phone Care Team Providers Care Research Geologist Name Role Phone Hali Carlin Primary Care Provider [phone] Prashant Gaspar DO Unavailable [phone] Sharon Hunter SKINNING MACHINE FEEDER Unavailable [phone] Marilee Kaminski BREWERY TECHNICIAN Unavailable [phone] Brandy Escobar RN Unavailable Encounter Details Date Type Department Care Team (Late st Contact Info) Description 06/24/2025 Procedure Pass [facility], Ct Scan - [address] [id number] Social History Tobacco Use Types Packs/Day Years [...] 9:32 PM EDT Helen Stauffer RN * [place] Suicide Severity Rating Scale (Screener/Recent Self-Report) Question [...] EST Blood Draw [facility] Phleb MG 30 [place] [address] 10/01/2025 9:00 AM EST Office Visit [facility] Hematology Oncology Clinic at [address] [address] Prashant Gaspar DO [address] [place] [address] [email or web address] 10/01/2025 10:00 AM EST Infusion [facility] Infusion Center [address] [place] [address] Livia Villalobos RN [address] [place] [address] 10/02/2025 2:00 PM EST Infusion [facility] Center [address] [place] [address] Jonatan Abreu RN [address] [place] [address] [email or web address] 10/02/2025 2:20 PM EST Nutrition [facility] Hematology Oncology Clinic at [address] [address] 10/03/2025 2:00 PM EST Infusion [facility] Infusion Center [address] [place] [address] Corina Mixon RN [address] [place] [address] 10/05/2025 4:00 PM EST Infusion [facility] [place] [facility] [address] [place] [address] Celine Peralta RN 30 [place] [address] documented as of this encounter Visit Diagnoses Not on filedocumented in this encounter Additional Health Concerns Infection Onset Date Last Indicated Resolved Time Resp-Risk 08/25/2025 08/25/2025 09/05/2025 7:06 PM EST documented as of this encounter Care Teams Research Geologist Relationship Specialty Start Date End Date Hali Carlin PA [address] [place] [address] [phone] PCP - General Physician Senior Reliability Engineer 05/03/25 Prashant Gaspar DO [address] [place] [address] [email or web address] Primary Oncologist Hematology and Oncology 06/01/25 Sharon Hunter NP [address] [place] [address] [email or web address] Nurse Practitioner Medical Oncology 06/26/25 Marilee Kaminski FNP [address] [place] [address] [email or web address] Nurse Practitioner Medical Oncology 06/28/25 Brandy Escobar RN [address] [place] [address] [email or web address] Nurse Navigator 07/19/25 documented as of this encounter Additional Source Comments The information contained in this document represents components of the legal health record. It is not the complete legal health record.[facility]
--- OUTSIDE RECORDS SUMMARY | 2025-09-19 21:07 | XMS_ITS | Encounter Summary ---
Author Organization [facility] Address [address] [facility] [address] [place] [address] Phone Care Team Providers Care Vp Integration Name Role Phone Celine Farley MD Primary Care Provider Unavailable Hali Carlin Primary Care Provider [phone] Prashant Gaspar DO Unavailable Sharon Hunter SUPERVISOR DIE CASTING Unavailable Marilee Kaminski SHEARING SUPERVISOR Unavailable Brandy Escobar RN Unavailable Encounter Details Date Type Department Care Team (Late st Contact Info) Description 04/23/2023 Procedure Pass [facility], Ct Scan - [address] [address] Social History Tobacco Use Types Packs/Day Years [...] 8:34 AM EDT Celena Hinton RN * [place] Suicide Severity Rating Scale (Screener/Recent Self-Report) Question [...] EST Blood Draw [facility] Phleb [facility]CC 30 [place] [address] 10/01/2025 9:00 AM EST Office Visit [facility] [place] Hematology Oncology Clinic at [address] [address] Prashant Gaspar, [address] [place] [address] [email or web address] .[email or web address] 10/01/2025 10:00 AM EST Infusion [facility] Infusion Center [address] [place] [address] Livia Villalobos, RN [address] [place] [address] 10/02/2025 2:00 PM EST Infusion [facility] Infusion Center [address] [place] [address] Jonatan Abreu RN [address] [place] [address] [email or web address] 10/02/2025 2:20 PM EST Nutrition [facility] Hematology Oncology Clinic at [address] [address] 10/03/2025 2:00 PM EST Infusion [facility] Infusion Center [address] [place] [address] Corina Mixon, RICHARDSON [address] [place] [address] 10/05/2025 4:00 PM EST Infusion [facility] [address] [place] [address] Celine Peralta, RICHARDSON [address] [place] [address] documented as of this encounter Visit Diagnoses Not on filedocumented in this encounter Additional Health Concerns Infection Onset Date Last Indicated Resolved Time CoV-Risk Comment:Per note documentation 04/24/2023 04/24/2023 10:25 AM EDT CoV-Risk 05/31/2025 05/31/2025 06/11/2025 1:21 AM EDT Resp-Risk 08/25/2025 08/25/2025 09/05/2025 7:06 PM EST documented as of this encounter Care Teams Vp Integration Relationship Specialty Start Date End Date Celine Farley MD PCP - General 07/20/17 05/02/25 Hali Carlin PA [address] [place] [phone] PCP - General Physician Science Teacher 05/03/25 Prashant Gaspar DO [address] [place] [address] [email or web address] Primary Oncologist Hematology and Oncology 06/01/25 Sharon Hunter NP [address] [place] [address] [email or web address] Nurse Practitioner Medical Oncology 06/26/25 Marilee Kaminski FNP [address] [place] [address] [email or web address] Nurse Practitioner Medical Oncology 06/28/25 Brandy Escobar RN [address] [place] [address] [email or web address] Nurse Navigator 07/19/25 documented as of this encounter Additional Source Comments The information contained in this document represents components of the legal health record. It is not the complete legal health record.[facility]
--- OUTSIDE RECORDS SUMMARY | 2025-09-19 21:08 | XMS_ITS | Encounter Summary ---
Author Organization [facility] Address [address] [place] [address] [place] [address] Phone Care Team Providers Care Ceiling Insulation Blower Name Role Phone Hali Carlin Primary Care Provider [phone] Prashant Gaspar DO Unavailable Sharon Hunter LAW SECRETARY Unavailable [phone] Marilee Kaminski STABLE HAND Unavailable Brandy Escobar RN Unavailable Encounter Details Date Type Department Care Team (Late st Contact Info) Description 06/14/2025 Procedure Pass [facility], Ct Scan - [address] [id number] Social History Tobacco Use Types Packs/Day Years [...] 1:18 PM EDT Astrid Tejeda, RN * [place] Suicide Severity Rating Scale (Screener/Recent Self-Report) Question Answer Date of Assessment Author 1. Wish to be (Past 1 Month) No 09/11/2 025 1:18 PM EDT Astrid Tejeda, RN 2. Non-Specific Active Suici raymond Thoughts (Past 1 Month) No 06/14/2025 1:18 PM GINNYT Astrid Tejeda, RN 6. Suicidal Behavior (Lifetime) No 1:18 PM EDT Astrid Tejeda, RN documented as of this encounter Plan of Treatment Upcoming Encounters Date Type Department Care Team (Late st Contact Info) Description 09/28/2025 2:50 PM EST Blood Draw [facility] Phleb MG [address] [place] [address] 10/01/2025 9:00 AM EST Office Visit [facility] Hematology Oncology Clinic at [address] [address] Prashant Gaspar DO [address] [place] [address] [email or web address] 10/01/2025 10:00 AM EST Infusion [facility] Infusion Center [address] [place] [address] Livia Villalobos RN [address] [place] [address] 10/02/2025 2:00 PM EST Infusion [facility] Infusion Center [address] [place] [address] Jonatan Abreu RN [address] [place] [address] [email or web address] 10/02/2025 2:20 PM EST Nutrition [facility] Hematology Oncology Clinic at [address] [address] 10/03/2025 2:00 PM EST Infusion [facility] Infusion Center [address] [place] [address] Corina Mixon RN [address] [place] [address] 10/05/2025 4:00 PM EST Infusion [facility] [place] [facility] [address] [place] [address] Celine Peralta RN [address] [place] [address] documented as of this encounter Visit Diagnoses Not on filedocumented in this encounter Additional Health Concerns Infection Onset Date Last Indicated Resolved Time Resp-Risk 08/25/2025 08/25/2025 09/05/2025 7:06 PM EST documented as of this encounter Care Teams Ceiling Insulation Blower Relationship Specialty Start Date End Date Hali Carlin PA [address] [place] [address] [phone] PCP - General Physician Supervisor Hand Silvering 05/03/25 Prashant Gaspar DO [address] [place] [address] [email or web address] Primary Oncologist Hematology and Oncology 06/01/25 Sharon Hunter NP [address] [place] [address] [email or web address] Nurse Practitioner Medical Oncology 06/26/25 Marilee Kaminski FNP [address] [place] [address] Nurse Practitioner Medical Oncology 06/28/25 Brandy Escobar RN [address] [place] [address] [email or web address] Nurse Navigator 07/19/25 documented as of this encounter Additional Source Comments The information contained in this document represents components of the legal health record. It is not the complete legal health record.[facility]
--- OUTSIDE RECORDS SUMMARY | 2025-09-19 21:08 | XMS_ITS | Encounter Summary ---
Author Organization [facility] Address [address] [place] [address] [place] [address] Phone Care Team Providers Care [place] Crewmember Name Role Phone Hali Carlin Primary Care Provider [phone] Prashant Gaspra DO Unavailable [phone] Sharon Hunter SUPERVISOR LEAF SPRING FABRICATION Unavailable Marilee Kaminski MARKET SALES MANAGER Unavailable Brandy Escobar RN Unavailable Encounter Details Date Type Department Care Team (Late st Contact Info) Description 07/05/2025 Procedure Pass [facility], Ct Scan - [address] [address] Social History Tobacco Use Types Packs/Day Years [...] 7:07 PM EDT Vangie Villa, RN * [place] Suicide Severity Rating Scale (Screener/Recent Self-Report) Question Answer Date of Assessment Author 1. Wish to be (Past 1 Month) No 10/02/2 025 7:07 PM Vangie Montanez, RN 2. Non-Specific Active Suici raymond Thoughts (Past 1 Month) No 07/05/2025 7:07 PM Vangie Montanez, RN 6. Suicidal Behavior (Lifetime) No 7:07 PM Vangie Montanez, RN documented as of this encounter Plan of Treatment Upcoming Encounters Date Type Department Care Team (Late st Contact Info) Description 09/28/2025 2:50 PM EST Blood Draw [facility] Phleb MG [address] [place] [address] 10/01/2025 9:00 AM EST Office Visit [facility] Hematology Oncology Clinic at [address] [address] Prashant Gaspar DO [address] [place] [address] [email or web address] 10/01/2025 10:00 AM EST Infusion [facility] Infusion Center [address] [place] [address] Livia Villalobos RN [address] [place] [address] 10/02/2025 2:00 PM EST Infusion [address] [address] Jonatan Abreu RN [address] [place] [address] [email or web address] 10/02/2025 2:20 PM EST Nutrition [facility] Hematology Oncology Clinic at [address] [address] 10/03/2025 2:00 PM EST Infusion [facility] Infusion Center [address] [place] [address] Corina Mixon RN [address] [place] [address] 10/05/2025 4:00 PM EST Infusion [facility] [place] [facility] [address] [place] [address] Celine Peralta RN [address] [place] [address] documented as of this encounter Visit Diagnoses Not on filedocumented in this encounter Additional Health Concerns Infection Onset Date Last Indicated Resolved Time Resp-Risk 08/25/2025 08/25/2025 09/05/2025 7:06 PM EST documented as of this encounter Care Teams [place] Crewmember Relationship Specialty Start Date End Date Hali Carlin PA [address] [place] [phone] PCP - General Physician Table Maker 05/03/25 Prashant Gaspar DO [address] [place] [address] [email or web address] Primary Oncologist Hematology and Oncology 06/01/25 Sharon Hunter NP [address] [place] [address] [email or web address] Nurse Practitioner Medical Oncology 06/26/25 Marilee Kaminski FNP [address] [place] [address] Nurse Practitioner Medical Oncology 06/28/25 Brandy Escobar RN [address] [place] [address] [email or web address] Nurse Navigator 07/19/25 documented as of this encounter Additional Source Comments The information contained in this document represents components of the legal health record. It is not the complete legal health record.[facility]
--- OUTSIDE RECORDS SUMMARY | 2025-09-19 21:08 | XMS_ITS | Encounter Summary ---
Author Organization [facility] Address [address] [place] [address] [place] [address] Phone Care Team Providers Care Shuttle Threader Name Role Phone Hali Carlin Primary Care Provider [phone] Prashant Gaspar DO Unavailable [phone] Sharon Hunter LINUX SYSTEMS ADMINISTRATOR Unavailable Marilee Kaminski ANIMAL CARE SPECIALIST Unavailable Brandy Escobar RN Unavailable Encounter Details Date Type Department Care Team (Late st Contact Info) Description 05/31/2025 Procedure Pass [facility], Ct Scan - [address] [id number] Social History Tobacco Use Types Packs/Day Years [...] housing situation today? I have allan vines 05/03/2025 How many times have you move [...] EST Blood Draw [facility] Phleb [facility] [address] [place] [address] 10/01/2025 9:00 AM EST Office Visit [facility] [place] [facility] at [employer] [address] [place] [address] Prashant Gaspar, [address] [place] [address] [email or web address] 10/01/2025 10:00 AM EST Infusion [facility] Infusion Center [address] [place] [address] Livia Villalobos RN [address] [place] [address] 10/02/2025 2:00 PM EST Infusion [address] [address] Jonatan Abreu RN [address] [place] [address] [email or web address] 10/02/2025 2:20 PM EST Nutrition [facility] Hematology Oncology Clinic at [address] [address] 10/03/2025 2:00 PM EST Infusion [facility] Infusion Center [address] [place] [address] Corina Mixon, RICHARDSON [address] [place] [address] 10/05/2025 4:00 PM EST Infusion [address] [address] Celine Peralta, RICHARDSON [address] [place] [address] documented as of this encounter Visit Diagnoses Not on filedocumented in this encounter Additional Health Concerns Infection Onset Date Last Indicated Resolved Time CoV-Risk 05/31/2025 05/31/2025 06/11/2025 1:21 AM EDT Resp-Risk 08/25/2025 08/25/2025 09/05/2025 7:06 PM EST documented as of this encounter Care Teams Shuttle Threader Relationship Specialty Start Date End Date Hali Carlin PA [address] [place] [address] [phone] PCP - General Physician Hydroelectric Systems Technician 05/03/25 Prashant Gaspar DO [address] [place] [address] [email or web address] Primary Oncologist Hematology and Oncology 06/01/25 Sharon Hunter NP [address] [place] [address] [email or web address] Nurse Practitioner Medical Oncology 06/26/25 Marilee Kaminski FNP [address] [place] [address] [email or web address] Nurse Practitioner Medical Oncology 06/28/25 Brandy Escobar RN [address] [place] [address] [email or web address] Nurse Navigator 07/19/25 documented as of this encounter Additional Source Comments The information contained in this document represents components of the legal health record. It is not the complete legal health record.[facility]
--- OUTSIDE RECORDS SUMMARY | 2025-09-19 21:08 | XMS_ITS | Encounter Summary ---
Author Organization [facility] Address [address] [place] [address] [place] [address] Phone Care Team Providers Care Building Serviceman Name Role Phone Hali Carlin Primary Care Provider [phone] Prashant Gaspar DO Unavailable [phone] Sharon Hunter SUPPLIER DIVERSITY DIRECTOR Unavailable [phone] Marilee Kaminski SENIOR SALES OPERATIONS ANALYST Unavailable Brandy Escobar RN Unavailable Encounter Details Date Type Department Care Team (Late st Contact Info) Description 07/05/2025 Procedure Pass [facility], Ct Scan - [address] [address] Social History Tobacco Use Types Packs/Day Years [...] 7:07 PM EDT Vangie Villa, RN * [place] Suicide Severity Rating Scale (Screener/Recent Self-Report) Question [...] EST Blood Draw [facility] Phleb MG 30 [place] [address] 10/01/2025 9:00 AM EST Office Visit [facility] Hematology Oncology Clinic at [address] [address] Prashant Gaspar DO [address] [place] [address] [email or web address] 10/01/2025 10:00 AM EST Infusion [facility] Infusion Center [address] [place] [address] Livia Villalobos RN [address] [place] [address] 10/02/2025 2:00 PM EST Infusion [address] [address] Jonatan Abreu RN [address] [place] [address] [email or web address] 10/02/2025 2:20 PM EST Nutrition [facility] Hematology Oncology Clinic at [address] [address] 10/03/2025 2:00 PM EST Infusion [facility] Infusion Center [address] [place] [address] Corina Mixon RN [address] [place] [address] 10/05/2025 4:00 PM EST Infusion [facility] [place] [facility] 30 [place] [address] Celine Peralta RN [address] [place] [address] documented as of this encounter Visit Diagnoses Not on filedocumented in this encounter Additional Health Concerns Infection Onset Date Last Indicated Resolved Time Resp-Risk 08/25/2025 08/25/2025 09/05/2025 7:06 PM EST documented as of this encounter Care Teams Building Serviceman Relationship Specialty Start Date End Date Hali Carlin PA [address] [place] [address] [phone] PCP - General Physician Revenue Director 05/03/25 Prashant Gaspar DO [address] [place] [address] [email or web address] Primary Oncologist Hematology and Oncology 06/01/25 Sharon Hunter NP [address] [place] [address] [email or web address] Nurse Practitioner Medical Oncology 06/26/25 Marilee Kaminski FNP [address] [place] [address] Nurse Practitioner Medical Oncology 06/28/25 Brandy Escobar RN [address] [place] [address] [email or web address] Nurse Navigator 07/19/25 documented as of this encounter Additional Source Comments The information contained in this document represents components of the legal health record. It is not the complete legal health record.[facility]
--- OUTSIDE RECORDS SUMMARY | 2025-09-19 21:08 | XMS_ITS | Encounter Summary ---
Author Organization [facility] Address [address] [place] [address] [place] [address] Phone Care Team Providers Care Yarn Texture Machine Operator Name Role Phone Hali Carlin Primary Care Provider [phone] Prashant Gaspar DO Unavailable Sharon Hunter NUMERICAL CONTROL MACHINE MACHINIST Unavailable [phone] Marilee Kaminski CITY TAX AUDITOR Unavailable [phone] Brandy Escobar RN Unavailable Encounter Details Date Type Department Care Team (Late st Contact Info) Description 06/14/2025 Procedure Pass [facility] [address] [place], [place] [phone] Social History Tobacco Use Types Packs/Day Years [...] Risk Indicated 06/14/2025 1:18 PM EDT Astrid Tejeda RN * [place] Suicide Severity Rating Scale (Screener/Recent Self-Report) Question Answer Date of Assessment Author 1. Wish to be (Past 1 Month) No 025 1:18 PM EDT Neipp, Astrid B, RN 2. Non-Specific Active Suici raymond Thoughts (Past 1 Month) No 06/14/2025 1:18 PM GINNYT Astrid Tejeda, RN 6. Suicidal Behavior (Lifetime) No 1:18 PM GINNYT Astrid Tejeda, RN documented as of this encounter Plan of Treatment Upcoming Encounters Date Type Department Care Team (Late st Contact Info) Description 09/28/2025 2:50 PM EST Blood Draw [facility] Phleb [facility] [address] [place] [address] 10/01/2025 9:00 AM EST Office Visit [facility] Hematology Oncology Clinic at [address] [address] Prashant Gaspar DO [address] [place] [address] [email or web address] 10/01/2025 10:00 AM EST Infusion [facility] Infusion Center [address] [place] [address] Livia Villalobos RN [address] [place] [address] 10/02/2025 2:00 PM EST Infusion [facility] [address] [place] [address] Jonatan Abreu RN [address] [place] [address] [email or web address] 10/02/2025 2:20 PM EST Nutrition [facility] Hematology Oncology Clinic at [address] [address] 10/03/2025 2:00 PM EST Infusion [facility] Infusion Center [address] [place] [address] Corina Mixon, RICHARDSON [address] [place] [address] 10/05/2025 4:00 PM EST Infusion [facility] Infusion Center [address] [place] [address] Celine Peralta RN [address] [place] [address] [email or web address] documented as of this encounter Visit Diagnoses Not on filedocumented in this encounter Additional Health Concerns Infection Onset Date Last Indicated Resolved Time Resp-Risk 08/25/2025 08/25/2025 09/05/2025 7:06 PM EST documented as of this encounter Care Teams Yarn Texture Machine Operator Relationship Specialty Start Date End Date Hali Carlin PA [address] [place] [address] [phone] PCP - General Physician Box Bender 05/03/25 Prashant Gaspar DO [address] [place] [address] [email or web address] Primary Oncologist Hematology and Oncology 06/01/25 Sharon Hunter NP [address] [place] [address] [email or web address] Nurse Practitioner Medical Oncology 06/26/25 Marilee Kaminski FNP [address] [place] [address] [email or web address] Nurse Practitioner Medical Oncology 06/28/25 Brandy Escobar RN [address] [place] [address] [email or web address] Nurse Navigator 07/19/25 documented as of this encounter Additional Source Comments The information contained in this document represents components of the legal health record. It is not the complete legal health record.[facility]
--- OUTSIDE RECORDS SUMMARY | 2025-09-19 21:08 | XMS_ITS | Encounter Summary ---
Author Organization [facility] Address [address] [place] [address] [place] [address] Phone Care Team Providers Care Owner Oral Surgeon Name Role Phone Hali Carlin Primary Care Provider [phone] Prashant Gaspar DO Unavailable [phone] Sharon Hunter AERIAL INSTALLER Unavailable Marilee Kaminski CARD SERVICES SPECIALIST Unavailable Brandy Escobar RN Unavailable [phone] Encounter Details Date Type Department Care Team (Late st Contact Info) Description 06/14/2025 Procedure Pass [facility], [address] [id number] Social History Tobacco Use Types Packs/Day Years [...] 3:07 PM EDT Sexual Orientation Straight 07/22/2023 4 :20 PM EDT documented as of this encounter Functional Status * Calculated C-SSRS Risk Score (Lifetime/Recent) Answer Date of Assessment Author No Risk Indicated 06/14/2025 1:18 PM EDT Astrid Tejeda, RN * [place] Suicide Severity Rating Scale (Screener/Recent Self-Report) Question [...] 2:50 PM EST Blood Draw [facility] Phle[facility] 30 [place] [address] 10/01/2025 9:00 AM EST Office Visit [facility] Hematology Oncology Clinic at [address] [address] Prashant Gaspar DO [address] [place] [address] [email or web address] 10/01/2025 10:00 AM EST Infusion [facility] Infusion Center [address] [place] [address] Livia Villalobos RN [address] [place] [address] 10/02/2025 2:00 PM EST Infusion [facility] [address] [place] [address] Jonatan Abreu RN [address] [place] [address] [email or web address] 10/02/2025 2:20 PM EST Nutrition [facility] Hematology Oncology Clinic at [address] [address] 10/03/2025 2:00 PM EST Infusion [facility] [address] [place] [address] Corina Mixon, RICHARDSON [address] [place] [address] 10/05/2025 4:00 PM EST Infusion [facility] 30 [place] [address] Celine Peralta, RICHARDSON [address] [place] [address] documented as of this encounter Visit Diagnoses Not on filedocumented in this encounter Additional Health Concerns Infection Onset Date Last Indicated Resolved Time Resp-Risk 08/25/2025 08/25/2025 09/05/2025 7:06 PM EST documented as of this encounter Care Teams Owner Oral Surgeon Relationship Specialty Start Date End Date Hali Carlin PA [address] [place] [address] [phone] PCP - General Physician Solar Energy Sales Specialist 05/03/25 Prashant Gaspar DO [address] [place] [address] [email or web address] Primary Oncologist Hematology and Oncology 06/01/25 Sharon Hunter NP [address] [place] [address] [email or web address] Nurse Practitioner Medical Oncology 06/26/25 Marilee Kaminski FNP [address] [place] [address] Nurse Practitioner Medical Oncology 06/28/25 Brandy Escobar RN [address] [place] [address] [email or web address] Nurse Navigator 07/19/25 documented as of this encounter Additional Source Comments The information contained in this document represents components of the legal health record. It is not the complete legal health record.[facility]
--- OUTSIDE RECORDS SUMMARY | 2025-09-19 21:08 | XMS_ITS | Encounter Summary ---
Author Organization [facility] Address [address] [place] [address] [place] [address] Phone Care Team Providers Care Shell Freezing Machine Operator Name Role Phone Hali Carlin Primary Care Provider [phone] Prashant Gaspar DO Unavailable Sharon Hunter PRODUCE RUNNER Unavailable [phone] Marilee Kaminski AIRCRAFT SHIPPING CHECKER Unavailable [phone] Brandy Escobar RN Unavailable Encounter Details Date Type Department Care Team (Late st Contact Info) Description 06/14/2025 Procedure Pass [facility], [address] [id number] Social History Tobacco Use Types Packs/Day Years [...] 1:18 PM EDT Astrid Tejeda, RN * [place] Suicide Severity Rating Scale (Screener/Recent Self-Report) Question [...] 2:50 PM EST Blood Draw [facility] Phleb [facility] [address] [place] [address] 10/01/2025 9:00 AM EST Office Visit [facility] Hematology Oncology Clinic at [address] [address] Prashant Gaspar DO [address] [place] [address] [email or web address] 10/01/2025 10:00 AM EST Infusion [facility] Infusion Center [address] [place] [address] Livia Villalobos RN [address] [place] [address] 10/02/2025 2:00 PM EST Infusion [facility] [address] [place] [address] Jonatan Abreu RN [address] [place] [address] [email or web address] 10/02/2025 2:20 PM EST Nutrition [facility] Hematology Oncology Clinic at [address] [address] 10/03/2025 2:00 PM EST Infusion [facility] Infusion Center [address] [place] [address] Corina Mixon, RICHARDSON [address] [place] [address] 10/05/2025 4:00 PM EST Infusion [facility] [place] [facility] [address] [place] [address] Celine Peralta, RICHARDSON [address] [place] [address] documented as of this encounter Visit Diagnoses Not on filedocumented in this encounter Additional Health Concerns Infection Onset Date Last Indicated Resolved Time Resp-Risk 08/25/2025 08/25/2025 09/05/2025 7:06 PM EST documented as of this encounter Care Teams Shell Freezing Machine Operator Relationship Specialty Start Date End Date Hali Carlin PA [address] [place] [address] [phone] PCP - General Physician Java Analyst 05/03/25 Prashant Gaspar DO [address] [place] [address] [email or web address] Primary Oncologist Hematology and Oncology 06/01/25 Sharon Hunter NP [address] [place] [address] [email or web address] Nurse Practitioner Medical Oncology 06/26/25 Marilee Kaminski FNP [address] [place] [address] Nurse Practitioner Medical Oncology 06/28/25 Bradny Escobar RN [address] [place] [address] [email or web address] Nurse Navigator 07/19/25 documented as of this encounter Additional Source Comments The information contained in this document represents components of the legal health record. It is not the complete legal health record.[facility]
--- OUTSIDE RECORDS SUMMARY | 2025-09-19 21:08 | XMS_ITS | Encounter Summary ---
Author Organization [facility] Address [address] [place] [address] [place] [address] Phone Care Team Providers Care Appliance Installer Name Role Phone Hali Carlin Primary Care Provider [phone] Prashant Gaspar DO Unavailable [phone] Sharon Hunter HUMAN ANATOMY TEACHER Unavailable Marilee Kaminski ALLERGIST/PEDIATRIC PULMONOLOGIST Unavailable Brandy Escobar RN Unavailable [phone] Encounter Details Date Type Department Care Team (Late st Contact Info) Description 05/03/2025 Procedure Pass [facility], Ct Scan - [address] [id number] Social History Tobacco Use Types Packs/Day Years [...] Risk Indicated 05/03/2025 5:16 PM EDT Vangie Kraus, RN * [place] Suicide Severity Rating Scale (Screener/Recent Self-Report) Question Answer Date of Assessment Author 1. Wish to be (Past 1 Month) No 025 5:16 PM EDT Vangie Kraus, RN 2. Non-Specific Active Suici raymond Thoughts (Past 1 Month) No 05/03/2025 5:16 PM EDT Vangie Kraus, RN 6. Suicidal Behavior (Lifetime) No 5:16 PM EDT Vangie Kraus, RN documented as of this encounter Plan of Treatment Upcoming Encounters Date Type Department Care Team (Late st Contact Info) Description 09/28/2025 2:50 PM EST Blood Draw [facility] Phleb [address] [address] 10/01/2025 9:00 AM EST Office Visit [facility] Hematology Oncology Clinic at [address] [address] Prashant Gaspar DO [address] [place] [address] [email or web address] 10/01/2025 10:[address] [facility] Infusion [address] [address] Livia Villalobos RN [address] [place] [address] 10/02/2025 2:[address] [facility] Infusion Center [address] [place] [address] Jonatan Abreu RN [address] [place] [address] [email or web address] 10/02/2025 2:[address] [facility] Hematology Oncology Clinic at [address] [address] 10/03/2025 2:[address] [facility] Infusion Center [address] [place] [address] Corina Mixon, RICHARDSON [address] [place] [address] 10/05/2025 4:[address] [facility] Infusion Center [address] [place] [address] Celine Peralta, RICHARDSON [address] [place] [address] [email or web address] documented as of this encounter Visit Diagnoses Not on filedocumented in this encounter Additional Health Concerns Infection Onset Date Last Indicated Resolved Time CoV-Risk 05/31/2025 05/31/2025 06/11/2025 1:21 AM EDT Resp-Risk 08/25/2025 08/25/2025 09/05/2025 7:06 PM EST documented as of this encounter Care Teams Appliance Installer Relationship Specialty Start Date End Date Hali Carlin PA [address] [place] [phone] PCP - General Physician Jewelry Designer 05/03/25 Prashant Gaspar DO [address] [place] [address] [email or web address] Primary Oncologist Hematology and Oncology 06/01/25 Sharon Hunter NP [address] [place] [address] [email or web address] Nurse Practitioner Medical Oncology 06/26/25 Marilee Kaminski FNP [address] [place] [address] [email or web address] Nurse Practitioner Medical Oncology 06/28/25 Brandy Escobar RN [address] [place] [address] [email or web address] Nurse Navigator 07/19/25 documented as of this encounter Additional Source Comments The information contained in this document represents components of the legal health record. It is not the complete legal health record.[facility]
--- OUTSIDE RECORDS SUMMARY | 2025-09-19 21:08 | XMS_ITS | Encounter Summary ---
Author Organization [facility] Address [address] [place] [address] [place] [address] Phone Care Team Providers Care Professor Of Biological Sciences Name Role Phone Hali Carlin Primary Care Provider [phone] Prashant Gaspar DO Unavailable Sharon Hunter LAB INTERN Unavailable [phone] Marilee Kaminski PSYCHOMETRIC EXAMINER Unavailable Brandy Escobar RN Unavailable Encounter Details Date Type Department Care Team (Late st Contact Info) Description 06/14/2025 Procedure Pass [facility], Ct Scan - [address] [id number] Social History Tobacco Use Types Packs/Day Years [...] 1:18 PM EDT Astrid Tejeda, RN * [place] Suicide Severity Rating Scale (Screener/Recent Self-Report) Question [...] EST Blood Draw [facility] Phleb MG [address] [place] [address] 10/01/2025 9:00 AM EST Office Visit [facility] Hematology Oncology Clinic at [address] [address] Prashant Gaspar DO [address] [place] [address] [email or web address] 10/01/2025 10:00 AM EST Infusion [facility] Infusion Center [address] [place] [address] Livia Villalobos RN [address] [place] [address] 10/02/2025 2:00 PM EST Infusion [facility] Infusion Center [address] [place] [address] Jonatan Abreu RN [address] [place] [address] [email or web address] 10/02/2025 2:20 PM EST Nutrition [facility] Hematology Oncology Clinic at [address] [address] 10/03/2025 2:00 PM EST Infusion [facility] Infusion Center [address] [place] [address] Corina Mixon RN [address] [place] [address] 10/05/2025 4:00 PM EST Infusion [facility] [place] [facility] [address] [place] [address] Celine Peralta RN 30 [place] [address] documented as of this encounter Visit Diagnoses Not on filedocumented in this encounter Additional Health Concerns Infection Onset Date Last Indicated Resolved Time Resp-Risk 08/25/2025 08/25/2025 09/05/2025 7:06 PM EST documented as of this encounter Care Teams Professor Of Biological Sciences Relationship Specialty Start Date End Date Hali Carlin PA [address] [place] [phone] PCP - General Physician Information Technology Data Analyst 05/03/25 Prashant Gaspar DO [address] [place] [address] [email or web address] Primary Oncologist Hematology and Oncology 06/01/25 Sharon Hunter NP [address] [place] [address] [email or web address] Nurse Practitioner Medical Oncology 06/26/25 Marilee Kaminski FNP [address] [place] [address] Nurse Practitioner Medical Oncology 06/28/25 Brandy Escobar RN [address] [place] [address] [email or web address] Nurse Navigator 07/19/25 documented as of this encounter Additional Source Comments The information contained in this document represents components of the legal health record. It is not the complete legal health record.[facility]
--- OUTSIDE RECORDS SUMMARY | 2025-09-19 21:08 | XMS_ITS | Encounter Summary ---
Author Organization [facility] Address [address] [place] [address] [place] [phone] Phone Care Team Providers Care Rug Dry Room Attendant Name Role Phone Hali Carlin Primary Care Provider [phone] Prashant Gaspar DO Unavailable Sharon Hunter INFORMATION TECHNOLOGY ACCOUNT MANAGER Unavailable [phone] Marilee Kaminski ART PSYCHOTHERAPIST OR THERAPIST Unavailable Brandy Escobar RN Unavailable Encounter Details Date Type Department Care Team (Late st Contact Info) Description 06/14/2025 Procedure Pass [facility], Ct Scan - [address] [phone] Social History Tobacco Use Types Packs/Day Years [...] 1:18 PM EDT Astrid Tejeda, RN * [place] Suicide Severity Rating Scale (Screener/Recent Self-Report) Question [...] EST Blood Draw [facility] Phleb MG [address] [place] [address] 10/01/2025 9:00 AM EST Office Visit [facility] Hematology Oncology Clinic at [address] [address] Prashant Gaspar DO [address] [place] [address] [email or web address] 10/01/2025 10:00 AM EST Infusion [facility] Infusion Center [address] [place] [address] Livia Villalobos RN [address] [place] [address] 10/02/2025 2:00 PM EST Infusion [facility] Infusion Center [address] [place] [address] Jonatan Abreu RN [address] [place] [address] [email or web address] 10/02/2025 2:20 PM EST Nutrition [facility] Hematology Oncology Clinic at [address] [address] 10/03/2025 2:00 PM EST Infusion [facility] Infusion Center [address] [place] [address] Corina Mixon RN [address] [place] [address] 10/05/2025 4:[address] [facility] [place] [facility] [address] [place] [address] Celine Peralta RN 30 [place] [address] documented as of this encounter Visit Diagnoses Not on filedocumented in this encounter Additional Health Concerns Infection Onset Date Last Indicated Resolved Time Resp-Risk 08/25/2025 08/25/2025 09/05/2025 7:06 PM EST documented as of this encounter Care Teams Rug Dry Room Attendant Relationship Specialty Start Date End Date Hali Carlin PA [address] [place] [address] [phone] PCP - General Physician Radial Drill Operator For Plastic 05/03/25 Prashant Gaspar DO [address] [place] [address] [email or web address] Primary Oncologist Hematology and Oncology 06/01/25 Sharon Hunter NP [address] [place] [address] [email or web address] Nurse Practitioner Medical Oncology 06/26/25 Marilee Kaminski FNP [address] [place] [address] Nurse Practitioner Medical Oncology 06/28/25 Brandy Escobar RN [address] [place] [address] [email or web address] Nurse Navigator 07/19/25 documented as of this encounter Additional Source Comments The information contained in this document represents components of the legal health record. It is not the complete legal health record.[facility]
--- OUTSIDE RECORDS SUMMARY | 2025-09-19 21:08 | XMS_ITS | Encounter Summary ---
Author Organization [facility] Address [address] [place] [address] [place] [phone] Phone Care Team Providers Care Sec Accountant Name Role Phone Hali Carlin Primary Care Provider [phone] Prashant Gaspar DO Unavailable Sharon Hunter CUSTOMER EXPERIENCE CONSULTANT Unavailable Marilee Kaminski RFID SYSTEMS ARCHITECT Unavailable Brandy Escobar RN Unavailable [phone] Encounter Details Date Type Department Care Team (Late st Contact Info) Description 05/31/2025 Procedure Pass [facility], Ct Scan - [address] [phone] Social History Tobacco Use Types Packs/Day Years [...] EST Blood Draw [facility] Phleb [facility] [address] [place] [address] 10/01/2025 9:00 AM EST Office Visit [facility] [place] Hematology Oncology Clinic at [facility] [address] [place] [address] Prashant Gaspar, [address] [place] [address] [email or web address] 10/01/2025 10:00 AM EST Infusion [facility] Infusion Center [address] [place] [address] Livia Villalobos RN [address] [place] [address] 10/02/2025 2:00 PM EST Infusion [address] [address] Jonatan Abreu RN [address] [place] [address] [email or web address] 10/02/2025 2:20 PM EST Nutrition [facility] Hematology Oncology Clinic at [address] [address] 10/03/2025 2:00 PM EST Infusion [facility] Infusion Center [address] [place] [address] Corina Mixon, RICHAR[place]ON [address] [place] [address] 10/05/2025 4:00 PM EST Infusion [address] [address] Celine Peralta, RICHAR[place]ON [address] [place] [address] documented as of this encounter Visit Diagnoses Not on filedocumented in this encounter Additional Health Concerns Infection Onset Date Last Indicated Resolved Time CoV-Risk 05/31/2025 05/31/2025 06/11/2025 1:21 AM EDT Resp-Risk 08/25/2025 08/25/2025 09/05/2025 7:06 PM EST documented as of this encounter Care Teams Sec Accountant Relationship Specialty Start Date End Date Hali Carlin PA [address] [place] [phone] PCP - General Physician Warehouse Technician 05/03/25 Prashant Gaspar DO 30 [place] [address] [email or web address] Primary Oncologist Hematology and Oncology 06/01/25 Sharon Hunter NP [address] [place] [address] [email or web address] Nurse Practitioner Medical Oncology 06/26/25 Marilee Kaminski FNP 30 [place] [address] [email or web address] Nurse Practitioner Medical Oncology 06/28/25 Brandy Escobar RN 30 [place] [address] [email or web address] Nurse Navigator 07/19/25 documented as of this encounter Additional Source Comments The information contained in this document represents components of the legal health record. It is not the complete legal health record.[facility]
--- OUTSIDE RECORDS SUMMARY | 2025-09-19 21:08 | XMS_ITS | Encounter Summary ---
Author Organization [facility] Address [address] [place] [address] [place] [address] Phone Care Team Providers Care Service Center Coordinator Name Role Phone Hali Carlin Primary Care Provider [phone] Prashant Gaspar DO Unavailable [phone] Sharon Hunter CHIEF LIBRARIAN CIRCULATION DEPARTMENT Unavailable Marilee Kaminski TRAIN STARTER Unavailable [phone] Brandy Escobar RN Unavailable [phone] Encounter Details Date Type Department Care Team (Late st Contact Info) Description 05/25/2025 Procedure Pass [place] Admitting Dept - Virtual Department [address] [place] [address] [phone] Social History Tobacco Use Types Packs/Day Years [...] EST Blood Draw [facility] Phleb [facility] [address] [place] [address] 10/01/2025 9:00 AM EST Office Visit [facility] [place] Hematology Oncology Clinic at [facility] [address] [place] [address] Prashant Gaspar, [address] [place] [address] [email or web address] 10/01/2025 10:00 AM EST Infusion [facility] Infusion Center [address] [place] [address] Livia Villalobos RN [address] [place] [address] 10/02/2025 2:00 PM EST Infusion [facility] Infusion Center [address] [place] [address] Jonatan Abreu RN [address] [place] [address] [email or web address] 10/02/2025 2:20 PM EST Nutrition [facility] Hematology Oncology Clinic at [address] [address] 10/03/2025 2:00 PM EST Infusion [facility] Infusion Center [address] [place] [address] Corina Mixon, RICHARDSON [address] [place] [address] 10/05/2025 4:00 PM EST Infusion [facility] Infusion Center [address] [place] [address] Celine Peralta, RICHARDSON [address] [place] [address] documented as of this encounter Visit Diagnoses Not on filedocumented in this encounter Additional Health Concerns Infection Onset Date Last Indicated Resolved Time CoV-Risk 05/31/2025 05/31/2025 06/11/2025 1:21 AM EDT Resp-Risk 08/25/2025 08/25/2025 09/05/2025 7:06 PM EST documented as of this encounter Care Teams Service Center Coordinator Relationship Specialty Start Date End Date Esrick, Hali Ken, PA [address] [place] [phone] PCP - General Physician Mine Promotor 05/03/25 Prashant Gaspar DO [address] [place] [address] [email or web address] Primary Oncologist Hematology and Oncology 06/01/25 Sharon Hunter NP [address] [place] [address] [email or web address] Nurse Practitioner Medical Oncology 06/26/25 Marilee Kaminski FNP [address] [place] [address] Nurse Practitioner Medical Oncology 06/28/25 Brandy Escobar RN [address] [place] [address] [email or web address] Nurse Navigator 07/19/25 documented as of this encounter Additional Source Comments The information contained in this document represents components of the legal health record. It is not the complete legal health record.[facility]
--- OUTSIDE RECORDS SUMMARY | 2025-09-19 21:08 | XMS_ITS | Clinical Summary ---
Author Organization [facility] Address [address] [place] [id number] Phone Care Team Providers Care Equities Analyst Name Role Phone Hali Carlin Primary Care Provider [phone] Prashant Gaspar DO Unavailable Sharon Hunter GERIATRICIAN Unavailable Marilee Kaminski FLAT SORTER PROCESSOR Unavailable Brandy Escobar RN Unavailable Allergies Active Allergy Reactions Criticality Noted Date Comments Adhesive 05/17/2025 Latex 05/17/2025 Medications gabapentin (NEURONTIN) 300 MG capsule Take 600 mg by mouth nightly at bedtime. 03/25/20 Active SYNTHROID 75 mcg tablet Take 75 mcg by mouth every morning. 03/25/20 Active lisinopril (PRINIVIL,ZESTRIL) 10 MG tablet Take 10 mg by mouth daily. 03/25/20 Active aspirin 81 MG EC tablet Take 81 mg by mouth daily. Active oxyCODONE 5 MG immediate release tablet Take 1 tablet (5 mg total) by mouth every 6 (six) hours as needed for pain (specific location in comments). Partial fill OK. 42 tablet 05/25/20 Active Additional Information Patient taking differently: 2.5 mgOral Every 6 hours PRN, pain (specific location in comments), Partial fill OK., Reported on 09/10/2025 ondansetron (ZOFRAN-ODT) 4 MG disintegrating tablet (To-Go) Take 1-2 tablet(s) by mouth every 8 hours as needed for nausea/vomiting 6 tablet 05/31/20 Active amitriptyline (ELAVIL) 25 MG tablet Take 2 tablets (50 mg total) by mouth nightly at bedtime for 14 days, THEN 1 tablet (25 mg total) nightly at bedtime for 14 days. 42 tablet 06/20/20 25 Active vitamins with ferrous fumarate- folic acid 28 mg iron- 800 mcg Tab Take 1 tablet by mouth daily. 30 tablet 2 06/20/20 25 Active thiamine (VITAMIN B-1) 100 mg Tab tablet Take 1 tablet (100 mg total) by mouth daily. 30 tablet 06/21/20 25 Active prochlorperazine (COMPAZINE) 10 MG tablet Take 1 tablet (10 mg total) by mouth every 6 (six) hours as needed (chemotherapy induced nausea and/or vomiting). 30 tablet 2 06/21/20 25 Active HYDROmorphone (DILAUDID) 4 MG tablet Take 0.5 tablets (2 mg total) by mouth every 6 (six) hours as needed for pain (specific location in comments). Partial fill ok 5 tablet 07/18/20 Active gabapentin (NEURONTIN) 300 MG capsule Take 300 mg by mouth 2 (two) times a day. Active atorvastatin (LIPITOR) 40 MG tablet Take 40 mg by mouth daily. Active hydroCHLOROthiazid e 12.5 mg capsule Take 12.5 mg by mouth daily. Active HYDROmorphone (DILAUDID) 4 MG tablet Take 1 tablet (4 mg total) by mouth every 6 (six) hours as needed for pain (specific location in comments). Partial fill ok 8 tablet 07/29/20 Active Additional Information Patient not taking.Reported on 09/10/2025 oxyCODONE 5 MG immediate release tablet Take 1 tablet (5 mg total) by mouth every 6 (six) hours as needed for pain (specific location in comments) (ca pain). Partial fill ok 8 tablet 07/29/20 25 Active Additional Information Patient not taking.Reported on 09/10/2025 famotidine (PEPCID) 20 MG tablet Take 1 tablet (20 mg total) by mouth 2 (two) times a day. 60 tablet 08/20/20 25 Active Active Problems Problem Noted Date Diagnosed Date [...] evaluate for small aneurysm seen on the [facility] CT scan of the head [...] Encounters Date Type Department Care Team Description 09/14/2025 4:20 PM EST Infusion [facility] [address] [place] [address] Prashant Gaspar, DO 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) 09/13/2025 2:40 PM EST Infusion [facility]fusion [facility] [address] [place] [address] Prashant Gaspar DO Romero Losada, Martha Katherine, RICHARDSON 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) 09/12/2025 2:40 PM EST Infusion [address] [address] Prashant Gaspar, Urszula Fay, RICHARDSON 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) 09/11/2025 8:00 AM EST Infusion [address] [address] Prashant Gaspar DO Romero Losada, Martha Katherine, RICHARDSON 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) 09/10/2025 10:20 AM EST Nutrition [facility] Hematology Oncology Clinic at [address] [address] Prashant Gaspar DO 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) 09/10/2025 10:00 AM EST Infusion [address] [address] Prashant Gaspar DO Hickson, Lauren, RICHARDSON 09/10/2025 9:00 AM EST Office Visit [facility] Hematology Oncology Clinic at [address] [address] Prashant Gaspar DO Anemia, unspecified type (Primary Dx) 09/10/2025 Telephone [facility] Hematology Oncology Clinic at [address] [address] Prashant Gaspar DO 09/07/2025 3:40 PM EST Infusion [facility] Infusion Center [address] [place] [address] Prashant Gaspar DO Need for hepatitis B screening test; 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 08/25/2025 4:28 PM EST - 08/26/2025 1:15 AM EST Emergency [facility] [address] [place] [address] Benjamin López MD Discharge Disposition: Home or Self Care 08/25/2025 [address] [facility] [address] [address] 08/25/2025 Procedure [address] [facility] Scan [address] [address] 08/25/2025 Procedure Pass [address] [address] 08/23/2025 4:00 PM EST Infusion [facility] Infusion Center [address] [place] [address] Prashant Gaspar DO 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) 08/22/2025 2:00 PM EST Social Work [facility] Hematology Oncology Clinic at [address] [address] Prashant Gaspar DO 08/22/2025 1:45 PM EST Nutrition [facility] Hematology Oncology Clinic at [address] [address] Prashant Gaspar DO 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) 08/22/2025 1:20 PM EST Infusion [facility] Infusion Center [address] [place] [address] Prashant Gaspar DO Zononi, Karen, RN 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) 08/21/2025 1:20 PM EST Infusion [facility] Infusion [facility] [address] [place] [address] Prashant Gaspar DO Howard, Tajana, RN 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) 08/21/2025 Telephone [facility] Pulmonology, Allergy and Critical Care Medicine Clinic [address] [place] [address] Meredith Malhotra Prescriber Response form 08/20/2025 11:30 AM EST Social Work [facility] Hematology Oncology Clinic at [address] [address] Prashant Gaspar DO 08/20/2025 10:30 AM EST Office Visit [facility] Palliative Care Clinic [address] [place] [address] Yousif Orozco MD Palliative care encounter (Primary Dx); Cancer related pain; Use of opiates for therapeutic purposes; 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 08/20/2025 9:20 AM EST Infusion [facility] Infusion Center [address] [place] [address] Prashant Gaspar, Kaushal Ferris RN 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) 08/20/2025 8:30 AM EST Office Visit [facility] Hematology Oncology Clinic at [address] [address] Prashant Gaspar DO 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) 08/20/2025 8:00 AM EST Infusion [address] [address] Prashant Gaspar DO Howard, Tajana, RN 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); Need for hepatitis B screening test 08/17/2025 Telephone [facility] Hematology Oncology Clinic at [address] [address] Prashant Gaspar DO 08/17/2025 Orders Only [facility] Hematology Oncology Clinic at [address] [address] Lawanda Ibrahim MD 08/06/2025 Telephone [facility] Hematology Oncology Clinic at [address] [address] Prashant Gaspar DO bed reimbursement 08/03/2025 4:00 PM EDT Infusion [facility] Infusion Center [address] [place] [address] Prashant Gaspar DO Zononi, Karen, RICHARDSON 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) 08/03/2025 11:30 AM EDT - 08/03/2025 12:50 PM EDT Surgery [facility] Cardiovascular And Interventional Radiology [address] [place] [address] Rocio Martinez PA-C PORT A CATH INSERTION (IR) 08/03/2025 10:49 AM EDT - 08/03/2025 1:46 PM EDT Hospital Encounter [facility] Cardiovascular And Interventional Radiology [address] [place] [address] Galen Contreras MD Discharge Disposition: Home or Self Care 08/03/2025 Procedure Pass [facility] Cardiovascular And Interventional Radiology [address] [place] [address] 08/02/2025 2:40 PM EDT Infusion [facility] Infusion Center [address] [place] [address] Prashant Gaspar DO Zononi, Karen, RICHARDSON 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) 08/01/2025 2:40 PM EDT Infusion [facility] Infusion Center [address] [place] [address] Prashant Gaspar, Celine Gomez RN 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) 07/31/2025 11:00 AM EDT Office Visit [facility] Palliative Care Clinic [address] [place] [address] Yousif Orozco MD Palliative care encounter (Primary Dx); 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 07/31/2025 10:00 AM EDT Social Work [facility] Hematology Oncology Clinic at [address] [address] Prashant Gaspar DO 07/31/2025 9:20 AM EDT Infusion [facility] Infusion Center [address] [place] [address] Prashant Gaspar DO Howard, Tajana, RN 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) 07/31/2025 8:30 AM EDT Office Visit [facility] Hematology Oncology Clinic at [address] [address] Marilee Kaminski, FLAT SORTER PROCESSOR 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) 07/31/2025 7:40 AM EDT - 07/31/2025 11:59 PM EDT Hospital Encounter [facility] [address] [place] [address] Prashant Gaspar DO Discharge Disposition: Home or Self Care 07/29/2025 4:11 PM EDT - 07/29/2025 7:22 PM EDT Emergency [facility] [address] [place] [address] Benjamin López MD Discharge Disposition: Home or Self Care 07/27/2025 Orders Only [facility] Hematology Oncology Clinic at [address] [address] Marilee Kaminski FNP 07/25/2025 12:45 AM EDT - 07/25/2025 7:04 PM EDT Emergency [facility] [address] [place] [address] Kaushal Samayoa MD Perez, Alberto Juan Ignacio, MD Noone, Caleb J, MD Discharge Disposition: Home or Self Care 07/19/2025 Orders Only [facility] Hematology Oncology Clinic at [address] [address] Marilee Kaminski FNP 07/19/2025 Telephone [facility] Infusion Center [address] [place] [address] Brandy Escobar RN 07/19/2025 Orders Only [facility] Infusion Center [address] [place] [address] Brandy Escobar, RICHARDSON 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) 07/18/2025 5:25 PM EDT - 07/18/2025 7:01 PM EDT Emergency [facility] [address] [place] [address] Discharge Disposition: Home or Self Care 07/09/2025 7:50 AM EDT - 07/09/2025 11:59 PM EDT Hospital Encounter [facility] [address] [place] [address] Prashant Gaspar, DO Discharge Disposition: Home or Self Care 07/09/2025 Telephone [facility] Hematology Oncology Clinic at [address] [address] Prashant Gaspar, 07/09/2025 Telephone [facility] Hematology Oncology Clinic at [address] [address] Sharon Hunter, EVA 07/06/2025 Telephone [facility] Infusion Center [address] [place] [address] Ruby Donnelly, RICHARDSON meds from ED 07/06/2025 Telephone [facility] Hematology Oncology Clinic at [address] [address] Prashant Gaspar, DO 07/06/2025 Orders Only [facility] Hematology Oncology Clinic at [address] [address] Sharon Hunter, GERIATRICIAN 07/05/2025 7:03 PM EDT - 07/05/2025 11:41 PM EDT Emergency [facility] [address] [place] [address] Jonathan Hayes MD Discharge Disposition: Home or Self Care 07/05/2025 Procedure Pass [address] [address] 07/05/[address] [facility] [address] [address] 07/05/2025 Procedure Pass [facility] [address] [address] 07/05/2025 Telephone [facility] Infusion Center [address] [place] [address] Ruby Donnelly, RICHARDSON PORT placement 06/28/2025 10:30 AM EDT Office Visit [facility] Hematology Oncology Clinic at [address] [address] Sharon Hunter, EVA 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); Encounter for antineoplastic chemotherapy 06/27/2025 Orders Only [facility] Phleb [address] [address] White, Claudia Need for hepatitis B screening test; 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 Discharge Disposition: Home or Self Care 06/27/2025 Orders Only [facility] Hematology Oncology Clinic at [address] [address] Sharon Hunter NP 06/26/2025 Telephone [facility] Hematology Oncology Clinic at [address] [address] Marilee Kaminski FNP 06/26/2025 Telephone [facility] Geriatrics Clinic [address] [place] [address] Garfield Lindo RN Post Discharge Follow Up Call 06/24/2025 11:32 PM EDT - 06/25/2025 12:10 PM EDT Emergency [facility] [address] [place] [address] Tung Dietrich, Kaushal Kaminski MD Discharge Disposition: Home or Self Care 06/24/2025 Procedure Pass [facility] [address] [address] 06/24/20[address] [facility] [address] [place] [address] 06/22/2025 4:00 PM EDT Infusion [facility] Infusion Center [address] [place] [address] Prashant Gaspar, Kimberly Menjivar RN 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) 06/21/2025 2:00 PM EDT Infusion [facility] Infusion Center [address] [place] [address] Prashant Gaspar, Kaushal Ferris RN 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) 06/21/2025 Orders Only [facility] Hematology Oncology Clinic at [address] [address] Marilee Kaminski FNP 06/20/2025 Telephone [facility] Hematology Oncology Clinic at [address] [address] Prashant Gaspar DO 06/20/[address] [address] Brandy Escobar RN 06/14/2025 1:20 PM EDT - 06/20/2025 5:45 PM EDT Hospital Encounter [facility] [address] [place] [address] Pedro Pablo Moulton DO Griffith, Andrew Thomas Liao, MD Miskovsky, Glenn E, MD Russo, Margaret A, MD Altman, Evan K DO, MPH Kaitlynn Whalen DO, MPH Discharge Disposition: Home-Health Care Svc from Last 3 Months Immunizations Immunization Administration [...] 08/24/2024 Influenza, Unspecified Formulation 07/07,07/25/2008,08/09/2007,08/25,07/07/2004,07/17/2003,08/17/2002 ,10/13/2001 Novel [id number], Injectable 10/17/2009 Pneumococcal conjugate PCV13 10/10/2018 Pneumococcal [...] Sign Reading Time Taken Comments Blood Pressure 121/72 09/13/2025 2:09 PM EST Pulse 91 09/13/2025 2:09 PM EST Temperature 36.8 C (98.2 F) 09/13/2025 2:09 PM EST Respiratory Rate 18 09/13/2025 2:09 PM EST Oxygen Saturation 99% 09/13/2025 2:09 PM EST Inhaled Oxygen Concentration - - Weight 57.4 kg (126 lb 9.6 oz) 09/10/2025 8:58 A M EST Height 152.4 cm (5') 09/10/2025 8:58 AM EST Body Mass Index 24.72 09/10/2025 8:58 AM EST Plan of Treatment Upcoming Encounters Date Type Department Care Team (Late st Contact Info) Description 09/28/2025 2:50 PM EST Blood Draw [facility] [address] [place] [address] 10/01/2025 9:00 AM EST Office Visit [facility] Hematology Oncology Clinic at [address] [address] Prashant Gaspar, [address] [place] [address] [email or web address] 10/01/2025 10:00 AM EST Infusion [address] [address] Livia Villalobos RN [address] [place] [address] 10/02/2025 2:00 PM EST Infusion [address] [address] Jonatan Abreu RN [address] [place] [address] [email or web address] 10/02/2025 2:20 PM EST Nutrition [facility] Hematology Oncology Clinic at [address] [address] 10/03/2025 2:00 PM EST Infusion [address] [address] Corina Mixon, RICHARDSON [address] [place] [address] 10/05/2025 4:00 PM EST Infusion [address] [address] Celine Peralta, RN [address] [place] [address] Health Maintenance Due Date Last Done Comments LIPID PANEL 1953 DEPRESSION SCREENING 1965 HEPATITIS A VACCINES (1 of 2 - Risk 2-dose series) 1972 MAMMOGRAM 1993 COLOGUARD 1998 COLONOSCOPY 1998 COLORECTAL CANCER SCREENING 1998 FIT TEST 1998 FOBT 1998 SIGMOIDOSCOPY 1998 VIRTUAL COLONOSCOPY 1998 OSTEOPOROSIS SCREENING INITIAL (ONE-TIME) 2018 TSH LEVEL 04/23/2024 04/23/2023 INFLUENZA VACCINE (#1) 2025 , 08/24/2024, 07/08/2023, Additional history exists COVID-19 VACCINE ( season) 2025 12/26/2024, 08/24/2024, 01/22/2024, Additional history exists BLOOD PRESSURE 03/14/2026 09/13/2025 SMOKING Hx and SMOKELESS TOBACCO SCREENING 08/20/2026 08/20/2025 CREATININE LEVEL 09/10/2026 09/10/2025, 02/2025, 08/25/2025, Additional history exists POTASSIUM LEVEL 09/10/2026 09/10/2025, 12/0 02/2025, 08/25/2025, Additional history exists Adult Td,Tdap Booster 06/11/2027 06/11/2017, 007 ZOSTER VACCINES Completed 01/11/2021, 10/05, 03/24/2011 PNEUMOCOCCAL VACCINES (50+ years) Completed 08/14/2021, 07/23/2020, 10/10/2018, Additional history exists RSV VACCINE Completed 11/10/2023 HEPATITIS C SCREENING Completed 06/27/2025 , 06/27/2025, 06/19/2025, Additional history exists HIB VACCINES Aged Out No longer eligi ble based on patient's age to complete this topic MENINGOCOCCAL VACCINES (ACWY) Aged Out No longer eligible based on patient's age to complete this topic MENINGOCOCCAL VACCINES (B) Aged Out N o longer eligible based on patient's age to complete this topic Medical Devices Implanted Type Area Blast Furnace Operator Device Identifier Shelf Expiration Date Model / Serial / Lot Port Dignity 6.6fr Infusion Mid Size Attachable Silicone Filled Suture Hole - [id number] Implanted:Qty: 1 on 08/03/2025 by Galen Contreras MD at [facility] [id number] 01/01/2030 [id number] / / [id number] Procedures Procedure Name Priority Date/Time Associated Diagnosis Comments TRANSFUSE RED BLOOD CELLS Routine 09/10/2025 1:13 PM EST TRANSFUSE RED BLOOD CELLS Routine 09/10/2025 10:36 AM EST PREPARE RBC Routine 09/10/2025 8:56 AM EST CBC AND DIFFERENTIAL Routine 09/10/2025 8:56 AM EST Need for hepatitis B screening test 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 TYPE AND SCREEN (ABO, RH, ANTIBODY SCREEN) Routine 09/10/2025 8:56 AM EST 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 Anemia, unspecified type COMPREHENSIVE METABOLIC PANEL (CMP) Routine 09/10/2025 8:56 AM EST Need for hepatitis B screening test 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 CBC AND DIFFERENTIAL Routine 09/10/2025 8:56 AM EST Need for hepatitis B screening test 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 URIC ACID Routine 09/10/2025 8:56 AM EST Need for hepatitis B screening test 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 TYPE AND SCREEN (ABO,RH,ANTIBODY SCREEN) Routine 09/10/2025 8:56 AM EST 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 Anemia, unspecified type RED BLOOD CELL (RBC) MORPHOLOGY Routine 09/07/2025 3:46 PM EST Need for hepatitis B screening test 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 DIFFERENTIAL, MANUAL (SYSMEX) Routine 09/07/2025 3:46 PM EST Need for hepatitis B screening test 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 TYPE AND SCREEN (ABO, RH, ANTIBODY SCREEN) Routine 09/07/2025 3:46 PM EST 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 CBC AND DIFFERENTIAL Routine 09/07/2025 3:46 PM EST Need for hepatitis B screening test 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 TYPE AND SCREEN (ABO,RH,ANTIBODY SCREEN) Routine 09/07/2025 3:46 PM EST 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 ANTINUCLEAR ANTIBODY (KEON) Routine 09/07/2025 3:46 PM EST 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 URIC ACID Routine 09/07/2025 3:46 PM EST Need for hepatitis B screening test 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 CBC AND DIFFERENTIAL Routine 09/07/2025 3:46 PM EST Need for hepatitis B screening test 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 COMPREHENSIVE METABOLIC PANEL (CMP) Routine 09/07/2025 3:46 PM EST Need for hepatitis B screening test 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 CT ABDOMEN/PELVIS WITH CONTRAST Routine 08/25/2025 8:[address] CHEST PULMONARY ANGIOGRAM (ACUTE) Routine 08/25/2025 8:[address] HEAD WITHOUT CONTRAST Routine 08/25/2025 8:58 PM EST LACTATE (BLOOD GAS) STAT 08/25/2025 7 :48 PM EST BLOOD CULTURE, ROUTINE STAT 5 7:44 PM EST BLOOD CULTURE, ROUTINE STAT 7:02 PM EST SARS-COV-2, INFLUENZA A/B, PCR FLYNN STAT 08/25/2025 6:03 PM EST COVID PANDEMIC RESPIRATORY VIRAL ORDER (PRO) STAT 08/25/2025 6:03 PM EST LAB ADD-ON STAT 08/25/2025 5:31 PM EST TROPONIN STAT 08/25/2025 3:22 PM EST XR CHEST PA AND LATERAL 2 VIEWS STAT 08/25/2025 2:07 PM EST DIFFERENTIAL, MANUAL (SYSMEX) STAT 08/25/2025 1:56 PM EST CBC AND DIFFERENTIAL STAT 08/25/2025 1:56 PM EST TROPONIN STAT 08/25/2025 1:56 PM EST NT-PROBNP STAT 08/25/2025 1:56 PM EST BASIC METABOLIC PANEL (BMP) STAT 08/25/2025 1:56 PM EST CBC AND DIFFERENTIAL STAT 08/25/2025 1:56 PM EST LFTS (HEPATIC PANEL) STAT 08/25/2025 1:40 PM EST C-REACTIVE PROTEIN (CRP) STAT 08/25/2025 1:40 PM EST ECG 12-LEAD STAT 08/25/2025 1:33 PM EST LAB ADD-ON Routine 08/20/2025 8:54 AM EST 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 IRON AND IRON BINDING CAPACITY Routine 08/20/2025 8:23 AM EST 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 FERRITIN Routine 08/20/2025 8:23 AM EST 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 RED BLOOD CELL (RBC) MORPHOLOGY Routine 08/20/2025 8:23 AM EST Need for hepatitis B screening test 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 DIFFERENTIAL, MANUAL (SYSMEX) Routine 08/20/2025 8:23 AM EST Need for hepatitis B screening test 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 CBC AND DIFFERENTIAL Routine 08/20/2025 8:23 AM EST Need for hepatitis B screening test 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 URIC ACID Routine 08/20/2025 8:23 AM EST Need for hepatitis B screening test 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 HEPATITIS B SURFACE ANTIBODY Routine 08/20/2025 8:23 AM EST Need for hepatitis B screening test CBC AND DIFFERENTIAL Routine 08/20/2025 8:23 AM EST Need for hepatitis B screening test 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 COMPREHENSIVE METABOLIC PANEL (CMP) Routine 08/20/2025 8:23 AM EST Need for hepatitis B screening test 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 OUTSIDE LAB Routine 08/17/2025 11:00 AM EST PORT A CATH INSERTION (IR) Routine 08/03/2025 12:55 PM EDT Need for hepatitis B screening test 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 CBC AND DIFFERENTIAL Routine 07/31/2025 8:09 AM EDT Need for hepatitis B screening test 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 COMPREHENSIVE METABOLIC PANEL (CMP) Routine 07/31/2025 8:09 AM EDT Need for hepatitis B screening test 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 TROPONIN STAT 07/24/2025 11:53 PM EDT TROPONIN STAT 07/24/2025 10:53 PM EDT BASIC METABOLIC PANEL (BMP) STAT 07/24/2025 10:53 PM EDT CBC AND DIFFERENTIAL STAT 07/24/2025 10:53 PM EDT ECG 12-LEAD STAT 07/24/2025 10:37 PM EDT XR CHEST PA AND LATERAL 2 VIEWS Routine 07/18/2025 6:07 PM EDT TROPONIN STAT 07/18/2025 5:37 PM EDT MAGNESIUM STAT 07/18/2025 4:37 PM EDT TROPONIN STAT 07/18/2025 4:37 PM EDT BASIC METABOLIC PANEL (BMP) STAT 07/18/2025 4:37 PM EDT CBC AND DIFFERENTIAL STAT 07/18/2025 4:37 PM EDT ECG 12-LEAD STAT 07/18/2025 4:28 PM EDT CBC AND DIFFERENTIAL Routine 07/09/2025 11:59 AM EDT Need for hepatitis B screening test 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 COMPREHENSIVE METABOLIC PANEL (CMP) Routine 07/09/2025 11:59 AM EDT Need for hepatitis B screening test 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 URINE SEDIMENT STAT 07/05/2025 10:19 PM EDT TOXICOLOGY SCREEN, URINE STAT 07/05/2025 10:19 PM EDT URINALYSIS WITH REFLEX TO URINE CULTURE STAT 07/05/2025 10:19 PM EDT [...] 07/05/2025 7:40 PM EDT BASIC METABOLIC PANEL (BMP) STAT 07/05/2025 7:40 PM EDT CBC AND [...] sites of left lung COMPREHENSIVE METABOLIC PANEL (CMP) Routine 06/27/2025 1:33 PM EDT Need for [...] 06/24/2025 9:59 PM EDT BASIC METABOLIC PANEL (BMP) STAT 06/24/2025 9:59 PM EDT CBC AND DIFFERENTIAL STAT 06/24/2025 9:59 PM EDT XR CHEST PA AND LATERAL 2 VIEWS STAT 06/24/2025 9:56 PM EDT ECG 12-LEAD STAT 06/24/2025 9:38 PM EDT URIC ACID Routine 06/20/2025 6:41 AM EDT COMPREHENSIVE METABOLIC PANEL (CMP) Routine 06/20/2025 6:41 AM EDT MAGNESIUM Routine 06/20/2025 6:41 AM EDT PHOSPHORUS Routine 06/20/2025 6:41 AM EDT CBC AND DIFFERENTIAL Routine 06/20/2025 6:41 AM EDT TSH WITH REFLEX STAT 04/23/2023 6:19 PM EDT from Last 3 Months or Most Recently Relevant to Health Maintenance Results * Transfuse RBC (09/10/2025 3:23 PM EST) Only the most recent of2 resultswithin the time period is included. us Prashant Gaspar DO NURSING TREATMENT ORDERABLE S - BLOOD ADMIN Final Result [facility] * (ABNORMAL) Comprehensive Metabolic Panel (CMP) (09/10/2025 8:56 AM EST) Only the most recent of7 resultswithin the time period is included. Sodium 140 136 - 145 mmol/L 09/10/2025 9:37 AM [facility] Potassium 4.7 3.4 - 5.1 mmol/L 09/10/2025 9:37 AM [facility] Chloride 106 98 - 107 mmol/L 09/10/2025 9:37 AM [facility] CO2 26 20 - 31 mmol/L 09/10/2025 9:37 AM [facility] BUN 13 6 - 23 mg/dL 09/10/2025 9:37 AM [facility] Creatinine 0.90 0.50 - 1.00 mg/dL 09/10/2025 9:37 AM [facility] Glucose 117(H) 70 - 99 mg/dL 09/10/2025 9:37 AM [facility] Calcium 9.0 8.5 - 10.5 mg/dL 09/10/2025 9:37 AM [facility] AST 30 <33 U/L 09/10/2025 9:37 AM [facility] ALT 16 <34 U/L 09/10/2025 9:37 AM [facility] Alkaline Phosphatase 171(H) 40 - 130 U/L 09/10/2025 9:37 AM [facility] Bilirubin, Total 0.2 0.0 - 1.2 mg/dL 09/10/2025 9:37 AM [facility] Total Protein 6.9 6.4 - 8.3 g/dL 09/10/2025 9:37 AM [facility] Albumin 3.6 3.5 - 5.2 g/dL 09/10/2025 9:37 AM [facility] Globulin 3.3 1.9 - 4.1 g/dL 09/10/2025 9:37 AM [facility] eGFR 68 >59 mL/min/1.7 3m2 09/10/2025 9:37 AM [facility] Comment:Estimated glomerular filtration rate calculated using the CKD-EPI refit equation. Anion Gap 8 3 - 17 mmol/L 09/10/2025 9:37 AM [facility] Blood (Blood) Venipuncture / Unknown 09/10/2025 8:56 AM EST 09/10/2025 8:59 AM EST [facility] BLOOD BKR ORDERABLES Fi nal Result Performing Organization Address City/[facility]/ZIP Co de Phone Number [address] [phone] * Type and Screen (ABO, Rh, Antibody Screen) (09/10/2025 8:56 AM EST) Only the most recent of2 resultswithin the time period is included. ABO/RH O Positive 09/10/2025 9:56 AM [facility] Antibody Screen Negative 09/10/2025 9:56 AM [facility] Sample Expires 09/13/2025,2 359 09/10/2025 9:56 AM [facility] Blood (Blood) Venipuncture / Unknown 09/10/2025 8:56 AM EST 09/10/2025 8:59 AM EST [facility] BLOOD BANK TEST ORDERAB LES Final Result [facility], [address] [place] [id number] [address] * (ABNORMAL) CBC and Differential (09/10/2025 8:56 AM EST) Only the most recent of4 resultswithin the time period is included. WBC 4.08 4.00 - 11.00 K/uL 09/10/2025 9:07 AM [facility] RBC 2.09(L) 4.00 - 5.20 M/uL 09/10/2025 9:07 AM [facility] Hemoglobin 6.7(L) 12.0 - 16.0 g/dL 09/10/2025 9:07 AM [facility] Hematocrit 21.0(L) 36.0 - 46.0 % 09/10/2025 9:07 AM [facility] MCV 100.5(H) 80.0 - 100.0 fL 09/10/2025 9:07 AM [facility] Comment:MCV changed by more than 6, which may be due to incorrect sample, recent transfusion or drug effect. Additional causes for MCV increase include response to iron therapy, reticulocytosis, and developing megaloblastic changes. Additional causes for MCV decrease include iron deficiency, response to folate or vitamin B12 therapy, chronic inflammation, resolving reticulocytosis, or physiologic in infants. Clinical correlation is required. MCH 32.1(H) 27.0 - 31.0 pg 09/10/2025 9:07 AM [facility] MCHC 31.9(L) 32.0 - 36.0 g/dL 09/10/2025 9:07 AM [facility] MPV 10.1 8.4 - 12.0 fL 09/10/2025 9:07 AM [facility] RDW-CV 19.3(H) 11.5 - 14.5 % 09/10/2025 9:07 AM [facility] PLT 111(L) 150 - 450 K/uL 09/10/2025 9:07 AM [facility] Neutrophils 53.5 % 09/10/2025 9:07 AM [facility] Lymphocytes 26.5 % 09/10/2025 9:07 AM [facility] Monocytes 18.6 % 09/10/2025 9:07 AM [facility] Eosinophils 0.2 % 09/10/2025 9:07 AM [facility] Basophils 0.2 % 09/10/2025 9:07 AM [facility] Imm Grans 1.0 % 09/10/2025 9:07 AM [facility] NRBC 0.0 <=0.0 /100 WBCs 09/10/2025 9:07 AM [facility] Absolute Neutrophils 2.18 1.92 - 7.60 K/uL 09/10/2025 9:07 AM [facility] Absolute Lymphocytes 1.08 0.72 - 4.10 K/uL 09/10/2025 9:07 AM [facility] Absolute Monocytes 0.76 0.16 - 1.10 K/uL 09/10/2025 9:07 AM [facility] Absolute Eosinophils 0.01 0.00 - 0.50 K/uL 09/10/2025 9:07 AM [facility] Absolute Basophils 0.01 0.00 - 0.15 K/uL 09/10/2025 9:07 AM [facility] Absolute Imm Grans 0.04 0.00 - 0.09 K/uL 09/10/2025 9:07 AM [facility] Absolute NRBC 0.00 <=0.00 K cells/uL 09/10/2025 9:07 AM [facility] Absolute Neutrophils 2.18 1.92 - 7.60 K/uL 09/10/2025 9:07 AM [facility] Comment:Automated cell count . Manual ANC may differ if performed. Diff Type Auto 09/10/2025 9:07 AM [facility] Blood (Blood) Venipuncture / Unknown 09/10/2025 8:56 AM EST 09/10/2025 8:59 AM EST us Cerda W Chasity DO LAB BLOOD BKR ORDERABLES Fi nal Result [address] [address] * Prepare RBC (09/10/2025 8:56 AM EST) Unit Number [id number] 09/10/2025 10:04 AM [facility] Component Type RBC LR 09/10/2025 10:04 AM [facility] Blood Product Code [id number] 09/10/2025 10:04 AM [facility] Unit Division 00 09/10/2025 10:04 AM [facility] Product Status TRANSFUSED 09/10/2025 1:00 PM EST [facility] Resulting Agency [facility] Unit Number [id number] 09/10/2025 10:04 AM EST [facility] Component Type RBC LR 09/10/2025 10:04 AM [facility] Blood Product Code [id number] 09/10/2025 10:04 AM EST [facility] Unit Division 00 09/10/2025 10:04 AM [facility] Product Status TRANSFUSED 09/10/2025 3:23 PM EST [facility] Issue Date/Time [id number] 09/10/2025 10:30 AM [facility] ISBT Product Code [id number] 09/10/2025 10:30 AM [facility] Unit Type and Rh O POS 09/10/2025 10:30 AM [facility] ISBT Product Blood Type 5100 09/10/2025 10:30 AM [facility] Blood Product Expiration Date [id number] 09/10/2025 10:30 AM [facility] Issue Date/Time [id number] 09/10/2025 1:06 PM [facility] ISBT Product Code [id number] 09/10/2025 1:06 PM [facility] Unit Type and Rh O POS 09/10/2025 1:06 PM [facility] ISBT Product Blood Type 5100 09/10/2025 1:06 PM [facility] Blood Product Expiration Date [id number] 09/10/2025 1:06 PM [facility] 09/10/2025 8:56 AM EST us Cerda W Chasity DO BLOOD BANK PRODUCT ORDERABL ES Final Result [facility] [address] [place] [address] [facility] [address] [place] [address] * Uric Acid (09/10/2025 8:56 AM EST) Only the most recent of5 resultswithin the time period is included. Uric Acid 5.1 2.4 - 5.7 mg/dL 09/10/2025 9:37 AM [facility] Blood (Blood) Venipuncture / Unknown 09/10/2025 8:56 AM EST 09/10/2025 8:59 AM EST us Cerda W Chasity DO LAB BLOOD BKR ORDERABLES Fi nal Result [address] [address] * Differential, Manual (09/07/2025 3:46 PM EST) Only the most recent of3 resultswithin the time period is included. Neutrophils 51.0 % 09/07/2025 5:33 PM [facility] Comment:toxic granulation pr esent Bands 9.0 % 09/07/2025 5:33 PM [facility] Lymphocytes 22.0 % 09/07/2025 5:33 PM [facility] Monocytes 17.0 % 09/07/2025 5:33 PM [facility] Eosinophils 1.0 % 09/07/2025 5:33 PM [facility] Basophils 0.0 % 09/07/2025 5:33 PM [facility] Absolute Neutrophils 3.04 1.92 - 7.60 K/uL 09/07/2025 5:33 PM [facility] Absolute Lymphocytes 1.12 0.72 - 4.10 K/uL 09/07/2025 5:33 PM [facility] Absolute Monocytes 0.86 0.16 - 1.10 K/uL 09/07/2025 5:33 PM [facility] Absolute Eosinophils 0.05 0.00 - 0.50 K/uL 09/07/2025 5:33 PM [facility] Absolute Basophils 0.00 0.00 - 0.15 K/uL 09/07/2025 5:33 PM [facility] Diff Type Manual 09/07/2025 5:33 PM [facility] Blood (Blood) Catheter/Line / Unknown 09/07/2025 3:46 PM EST 09/07/2025 4:02 PM EST [facility] LAB BLOOD BKR ORDERABLES Fi nal Result Performing Organization Address City/[facility]/ZIP Co de Phone Number [address] [address] * Red Blood Cell (RBC) Morphology (09/07/2025 3:46 PM EST) Only the most recent of2 resultswithin the time period is included. RBC Morphology Reviewed 09/07/2025 5:17 PM EST [facility] Blood (Blood) Catheter/Line / Unknown 09/07/2025 3:46 PM EST 09/07/2025 4:02 PM EST [facility] LAB BLOOD BKR ORDERABLES Fi nal Result Performing Organization Address [facility] Co de Phone Number [address] [phone] * (ABNORMAL) Antinuclear Antibody (KEON) (09/07/2025 3:46 PM EST) Antinuclear Antibody (KEON) Positive(A) Negative 5 3:32 PM EST [facility] KEON Titer Positive at 1:160(A) Negative at 1:80 3:32 PM EST [facility] Pattern Speckled 3:32 PM [facility] Interpretation The indirect immunofluorescence test on Hep2 cell substrate shows that antibodies in the serum of this patient produce speckled staining of the nuclei of interphase cells, without nucleolar staining. The staining excludes the chromosomal region of cells in mitosis. This is consistent with a nuclear speckled pattern (AC-4, AC-5). This pattern of staining may be produced by one of at least twelve different antinuclear antibodies including anti-Sm, anti-PACKAGING OPERATOR, anti-Ro, and anti-La. Consider the following tests: antibody to Stauffer (Sm) antigen (if there is suspicion for SLE), antibody to U1 PACKAGING OPERATOR (if there is suspicion of mixed connective disease (MCTD, antibody to Ro (if there is suspicion of Sjogren's syndrome, SLE, or lupus associated with genetically determined C2 or C4 complement deficiency), or antibody to La (if there is suspicion of Sjogren's syndrome or SLE). 3:32 PM EST [facility] Comment: . Blood (Blood) Catheter/Line / Unknown 09/07/2025 3:46 PM EST 09/07/2025 4:02 PM EST us Prashant Gaspar DO LAB BLOOD BKR ORDERABLES Fi nal Result [facility] [address] [place] [address] * CT ABDOMEN/PELVIS WITH CONTRAST (08/25/2025 8:59 PM EST) Anatomical Region Laterality Modality Abdomen, Pelvis Computed Tomogra phy 08/25/2025 9:56 PM EST Impressions 08/25/2025 10:21 PM EST 1. No pulmonary embolism. 2. Near complete resolution of previously seen consolidative density in the left lower lobe with residual linear subsegmental atelectasis. 3. Multiple subacute/healing bilateral rib fractures, subacute/healing fracture involving the distal sternal body. 4. Compression deformities at T3 and T12, new compared to prior study with ill- defined areas of sclerosis, age indeterminate, may be pathological. Correlate with point tenderness. 5. Interval improvement in the size of multiple hypodense lesions in the liver compared to prior study. 6. Interval resolution of previously seen periportal and gastrohepatic lymph nodes. Narrative 08/25/2025 10:[address] CHEST PULMONARY ANGIOGRAM (ACUTE), CT ABDOMEN/PELVIS WITH CONTRAST Referring clinician's provided indication for this examination in Epic: * PE suspected, high prob; DDx includes pneumonia versus PE TECHNIQUE: * Multidetector-row CT pulmonary angiography was performed after administration of intravenous contrast. 3D angiographic postprocessing techniques were acquired in the form of axial maximum intensity projection images (MIPS). * Multidetector-row CT of the abdomen and pelvis was performed with intravenous contrast using tailored dose modulation techniques. Images were reconstructed in the axial, coronal, and sagittal planes. COMPARISON: 06/25/2025. FINDINGS: CHEST: Pulmonary Angiogram: The pulmonary arteries are well opacified. There is no pulmonary embolus. Devices/Tubes/Lines: Unchanged appearance of a right-sided chest port device. Lungs: The central airway is maintained. Mild diffuse bilateral bronchial wall thickening predominantly involving the left lower lobe. Mild upper lobe predominant centrilobular emphysematous changes. No focal consolidation. Linear subsegmental atelectasis in the left lower lobe. A calcified pulmonary nodule in the right lower lobe. Pleura: No pleural effusion or pneumothorax. Mediastinum: Heart size is normal. No pericardial effusion. Severe amount of coronary calcifications. No thyroid nodules meeting size criteria for follow up. The thoracic aorta is normal in caliber. The esophagus appears unremarkable. Lymph Nodes: No enlarged supraclavicular, axillary, mediastinal, or hilar lymph nodes. Interval resolution of previously seen mediastinal lymph nodes. Chest Wall: No chest wall mass. Bones: A few subacute/healing bilateral rib fractures. A subacute/healing fracture involving the distal sternal body. Ill-defined sclerosis involving T4 vertebral body with mild inferior endplate compression deformity, new compared to prior study. No retropulsion or traumatic malalignment. Ill-defined sclerotic focus along the right lateral aspect of T3 vertebral body. Ill-defined sclerosis in the T12 vertebral body with inferior endplate compression deformity, new compared to prior study, may be acute/subacute. ABDOMEN / PELVIS: Liver: Innumerable hypodensities in the liver. The size of large hypodense lesions has improved compared to prior study. Biliary: Noninflamed gallbladder. No biliary ductal dilatation. Spleen: No splenomegaly or focal lesions. Pancreas: No peripancreatic fat stranding, masses or ductal dilation. Adrenal Glands: No nodules. Kidneys/Ureters: No stones or hydronephrosis. Bowel: No bowel wall thickening or dilatation. Normal appendix. Peritoneum/Retroperitoneum: No pneumoperitoneum or free fluid. Lymph Nodes: No lymphadenopathy. Interval resolution of periportal and gastrohepatic lymph nodes compared to prior study. Pelvic Organs/Bladder: No significant abnormality. Partially distended urinary bladder. Vessels: Aortic atherosclerosis. No aortic aneurysm. Bones/Soft Tissues: Postsurgical changes at L5-S1 level. Ill-defined lytic lesion in the sacrum is less conspicuous compared to prior study., unchanged. Procedure Note Hernan Joshi, [facility] - 08/25/2025 CT CHEST PULMONARY ANGIOGRAM (ACUTE), CT ABDOMEN/PELVIS WITH CONTRAST Referring clinician's provided indication for this examination in Epic: *PE suspected, high prob; DDx includes pneumonia versus PE TECHNIQUE: * Multidetector-row CT pulmonary angiography was performed afteradministration of intravenous contrast. 3D angiographic postprocessingtechniques were acquired in the form of axial maximum intensity projectionimages (MIPS). * Multidetector-row CT of the abdomen and pelvis was performed withintravenous contrast using tailored dose modulation techniques. Imageswere reconstructed in the axial, coronal, and sagittal planes. COMPARISON: 06/25/2025. FINDINGS: CHEST: Pulmonary Angiogram: The pulmonary arteries are well opacified. There is no pulmonaryembolus. Devices/Tubes/Lines: Unchanged appearance of a right-sided chest portdevice. Lungs: The central airway is maintained. Mild diffuse bilateral bronchialwall thickening predominantly involving the left lower lobe. Mild upperlobe predominant centrilobular emphysematous changes. No focalconsolidation. Linear subsegmental atelectasis in the left lower lobe. Acalcified pulmonary nodule in the right lower lobe. Pleura: No pleural effusion or pneumothorax. Mediastinum: Heart size is normal. No pericardial effusion. Severe amountof coronary calcifications. No thyroid nodules meeting size criteria forfollow up. The thoracic aorta is normal in caliber. The esophagus appearsunremarkable. Lymph Nodes: No enlarged supraclavicular, axillary, mediastinal, or hilarlymph nodes. Interval resolution of previously seen mediastinal lymphnodes. Chest Wall: No chest wall mass. Bones: A few subacute/healing bilateral rib fractures. A subacute/healingfracture involving the distal sternal body. Ill-defined sclerosisinvolving T4 vertebral body with mild inferior endplate compressiondeformity, new compared to prior study. No retropulsion or traumaticmalalignment. Ill-defined sclerotic focus along the right lateral aspectof T3 vertebral body. Ill-defined sclerosis in the T12 vertebral body withinferior endplate compression deformity, new compared to prior study, maybe acute/subacute. ABDOMEN / PELVIS: Liver: Innumerable hypodensities in the liver. The size of large hypodenselesions has improved compared to prior study. Biliary: Noninflamed gallbladder. No biliary ductal dilatation. Spleen: No splenomegaly or focal lesions. Pancreas: No peripancreatic fat stranding, masses or ductal dilation. Adrenal Glands: No nodules. Kidneys/Ureters: No stones or hydronephrosis. Bowel: No bowel wall thickening or dilatation. Normal appendix. Peritoneum/Retroperitoneum: No pneumoperitoneum or free fluid. Lymph Nodes: No lymphadenopathy. Interval resolution of periportal andgastrohepatic lymph nodes compared to prior study. Pelvic Organs/Bladder: No significant abnormality. Partially distendedurinary bladder. Vessels: Aortic atherosclerosis. No aortic aneurysm. Bones/Soft Tissues: Postsurgical changes at L5-S1 level. Ill-defined lyticlesion in the sacrum is less conspicuous compared to prior study.,unchanged. IMPRESSION: 1. No pulmonary embolism. 2. Near complete resolution of previously seen consolidative density inthe left lower lobe with residual linear subsegmental atelectasis. 3. Multiple subacute/healing bilateral rib fractures, subacute/healingfracture involving the distal sternal body. 4. Compression deformities at T3 and T12, new compared to prior studywith ill- defined areas of sclerosis, age indeterminate, may bepathological. Correlate with point tenderness. 5. Interval improvement in the size of multiple hypodense lesions in theliver compared to prior study. 6. Interval resolution of previously seen periportal and gastrohepaticlymph nodes. us Benjamin López MD IMG CT ABD/PELVIS Final Res ult * CT CHEST PULMONARY ANGIOGRAM (ACUTE) (08/25/2025 8:59 PM EST) Anatomical Region Laterality Modality Chest, Thoracic Vasculature Comp uted Tomography 08/25/2025 9:56 PM EST Impressions 08/25/2025 10:21 PM EST 1. No pulmonary embolism. 2. Near complete resolution of previously seen consolidative density in the left lower lobe with residual linear subsegmental atelectasis. 3. Multiple subacute/healing bilateral rib fractures, subacute/healing fracture involving the distal sternal body. 4. Compression deformities at T3 and T12, new compared to prior study with ill- defined areas of sclerosis, age indeterminate, may be pathological. Correlate with point tenderness. 5. Interval improvement in the size of multiple hypodense lesions in the liver compared to prior study. 6. Interval resolution of previously seen periportal and gastrohepatic lymph nodes. Narrative 08/25/2025 10:[address] CHEST PULMONARY ANGIOGRAM (ACUTE), CT ABDOMEN/PELVIS WITH CONTRAST Referring clinician's provided indication for this examination in Epic: * PE suspected, high prob; DDx includes pneumonia versus PE TECHNIQUE: * Multidetector-row CT pulmonary angiography was performed after administration of intravenous contrast. 3D angiographic postprocessing techniques were acquired in the form of axial maximum intensity projection images (MIPS). * Multidetector-row CT of the abdomen and pelvis was performed with intravenous contrast using tailored dose modulation techniques. Images were reconstructed in the axial, coronal, and sagittal planes. COMPARISON: 06/25/2025. FINDINGS: CHEST: Pulmonary Angiogram: The pulmonary arteries are well opacified. There is no pulmonary embolus. Devices/Tubes/Lines: Unchanged appearance of a right-sided chest port device. Lungs: The central airway is maintained. Mild diffuse bilateral bronchial wall thickening predominantly involving the left lower lobe. Mild upper lobe predominant centrilobular emphysematous changes. No focal consolidation. Linear subsegmental atelectasis in the left lower lobe. A calcified pulmonary nodule in the right lower lobe. Pleura: No pleural effusion or pneumothorax. Mediastinum: Heart size is normal. No pericardial effusion. Severe amount of coronary calcifications. No thyroid nodules meeting size criteria for follow up. The thoracic aorta is normal in caliber. The esophagus appears unremarkable. Lymph Nodes: No enlarged supraclavicular, axillary, mediastinal, or hilar lymph nodes. Interval resolution of previously seen mediastinal lymph nodes. Chest Wall: No chest wall mass. Bones: A few subacute/healing bilateral rib fractures. A subacute/healing fracture involving the distal sternal body. Ill-defined sclerosis involving T4 vertebral body with mild inferior endplate compression deformity, new compared to prior study. No retropulsion or traumatic malalignment. Ill-defined sclerotic focus along the right lateral aspect of T3 vertebral body. Ill-defined sclerosis in the T12 vertebral body with inferior endplate compression deformity, new compared to prior study, may be acute/subacute. ABDOMEN / PELVIS: Liver: Innumerable hypodensities in the liver. The size of large hypodense lesions has improved compared to prior study. Biliary: Noninflamed gallbladder. No biliary ductal dilatation. Spleen: No splenomegaly or focal lesions. Pancreas: No peripancreatic fat stranding, masses or ductal dilation. Adrenal Glands: No nodules. Kidneys/Ureters: No stones or hydronephrosis. Bowel: No bowel wall thickening or dilatation. Normal appendix. Peritoneum/Retroperitoneum: No pneumoperitoneum or free fluid. Lymph Nodes: No lymphadenopathy. Interval resolution of periportal and gastrohepatic lymph nodes compared to prior study. Pelvic Organs/Bladder: No significant abnormality. Partially distended urinary bladder. Vessels: Aortic atherosclerosis. No aortic aneurysm. Bones/Soft Tissues: Postsurgical changes at L5-S1 level. Ill-defined lytic lesion in the sacrum is less conspicuous compared to prior study., unchanged. Procedure Note Hernan Joshi, TERRELL - 08/25/2025 CT CHEST PULMONARY ANGIOGRAM (ACUTE), CT ABDOMEN/PELVIS WITH CONTRAST Referring clinician's provided indication for this examination in Epic: *PE suspected, high prob; DDx includes pneumonia versus PE TECHNIQUE: * Multidetector-row CT pulmonary angiography was performed afteradministration of intravenous contrast. 3D angiographic postprocessingtechniques were acquired in the form of axial maximum intensity projectionimages (MIPS). * Multidetector-row CT of the abdomen and pelvis was performed withintravenous contrast using tailored dose modulation techniques. Imageswere reconstructed in the axial, coronal, and sagittal planes. COMPARISON: 06/25/2025. FINDINGS: CHEST: Pulmonary Angiogram: The pulmonary arteries are well opacified. There is no pulmonaryembolus. Devices/Tubes/Lines: Unchanged appearance of a right-sided chest portdevice. Lungs: The central airway is maintained. Mild diffuse bilateral bronchialwall thickening predominantly involving the left lower lobe. Mild upperlobe predominant centrilobular emphysematous changes. No focalconsolidation. Linear subsegmental atelectasis in the left lower lobe. Acalcified pulmonary nodule in the right lower lobe. Pleura: No pleural effusion or pneumothorax. Mediastinum: Heart size is normal. No pericardial effusion. Severe amountof coronary calcifications. No thyroid nodules meeting size criteria forfollow up. The thoracic aorta is normal in caliber. The esophagus appearsunremarkable. Lymph Nodes: No enlarged supraclavicular, axillary, mediastinal, or hilarlymph nodes. Interval resolution of previously seen mediastinal lymphnodes. Chest Wall: No chest wall mass. Bones: A few subacute/healing bilateral rib fractures. A subacute/healingfracture involving the distal sternal body. Ill-defined sclerosisinvolving T4 vertebral body with mild inferior endplate compressiondeformity, new compared to prior study. No retropulsion or traumaticmalalignment. Ill-defined sclerotic focus along the right lateral aspectof T3 vertebral body. Ill-defined sclerosis in the T12 vertebral body withinferior endplate compression deformity, new compared to prior study, maybe acute/subacute. ABDOMEN / PELVIS: Liver: Innumerable hypodensities in the liver. The size of large hypodenselesions has improved compared to prior study. Biliary: Noninflamed gallbladder. No biliary ductal dilatation. Spleen: No splenomegaly or focal lesions. Pancreas: No peripancreatic fat stranding, masses or ductal dilation. Adrenal Glands: No nodules. Kidneys/Ureters: No stones or hydronephrosis. Bowel: No bowel wall thickening or dilatation. Normal appendix. Peritoneum/Retroperitoneum: No pneumoperitoneum or free fluid. Lymph Nodes: No lymphadenopathy. Interval resolution of periportal andgastrohepatic lymph nodes compared to prior study. Pelvic Organs/Bladder: No significant abnormality. Partially distendedurinary bladder. Vessels: Aortic atherosclerosis. No aortic aneurysm. Bones/Soft Tissues: Postsurgical changes at L5-S1 level. Ill-defined lyticlesion in the sacrum is less conspicuous compared to prior study.,unchanged. IMPRESSION: 1. No pulmonary embolism. 2. Near complete resolution of previously seen consolidative density inthe left lower lobe with residual linear subsegmental atelectasis. 3. Multiple subacute/healing bilateral rib fractures, subacute/healingfracture involving the distal sternal body. 4. Compression deformities at T3 and T12, new compared to prior studywith ill- defined areas of sclerosis, age indeterminate, may bepathological. Correlate with point tenderness. 5. Interval improvement in the size of multiple hypodense lesions in theliver compared to prior study. 6. Interval resolution of previously seen periportal and gastrohepaticlymph nodes. us Benjamin López MD IMG CT CHEST Final Resul t * CT HEAD WITHOUT CONTRAST (08/25/2025 8:58 PM EST) Anatomical Region Laterality Modality Head Computed Tomogra phy 08/25/2025 9:53 PM EST Impressions 08/25/2025 9:56 PM EST No acute large territory infarct, parenchymal hemorrhage, mass effect or midline shift. Narrative 08/25/2025 9:[address] HEAD WITHOUT CONTRAST Referring clinician's provided indication for this examination in [facility]: * Headache, new or worsening (Age >= 50y) TECHNIQUE: CT of the head was performed without intravenous contrast using tailored dose modulation techniques. Images were reconstructed in the axial, coronal, and sagittal planes. COMPARISON: CT head 07/05/2025 FINDINGS: Brain Parenchyma: No midline shift, mass effect, parenchymal hemorrhage, or evidence of acute territorial infarct. Hypodensities in the periventricular white matter, likely a manifestation of chronic small vessel disease. Ventricular System and Extra-Axial Spaces: The ventricles and sulci are prominent. No extra-axial fluid collections. Basilar cisterns are patent. No hydrocephalus. Redemonstration of bulbous dilatation in the right MCA bifurcation, consistent with known aneurysm, better seen on prior MR angiogram Osseous and Extracranial Structures: No calvarial fracture or significant soft tissue hematoma. No significant paranasal sinus disease. No orbital abnormality. Procedure Note Hernan Joshi MBBS - 08/25/2025 CT HEAD WITHOUT CONTRAST Referring clinician's provided indication for this examination in [facility]: *Headache, new or worsening (Age >= 50y) TECHNIQUE: CT of the head was performed without intravenous contrast usingtailored dose modulation techniques. Images were reconstructed in theaxial, coronal, and sagittal planes. COMPARISON: CT head 07/05/2025 FINDINGS: Brain Parenchyma: No midline shift, mass effect, parenchymal hemorrhage,or evidence of acute territorial infarct. Hypodensities in theperiventricular white matter, likely a manifestation of chronic smallvessel disease. Ventricular System and Extra-Axial Spaces: The ventricles and sulci areprominent. No extra-axial fluid collections. Basilar cisterns are patent.No hydrocephalus. Redemonstration of bulbous dilatation in the right MCAbifurcation, consistent with known aneurysm, better seen on prior MRangiogram Osseous and Extracranial Structures: No calvarial fracture or significantsoft tissue hematoma. No significant paranasal sinus disease. No orbitalabnormality. IMPRESSION: No acute large territory infarct, parenchymal hemorrhage, mass effect ormidline shift. Omkar Torres PA-C IMG CT HEAD/NECK Final Result * Lactate, Whole Blood (08/25/2025 7:48 PM EST) Lactate, Whole Blood 1.3 0.5 - 2.0 mmol/L 08/25/2025 7:55 PM EST [facility] Blood (Blood, Venous) Venipuncture / Unknown 08/25/2025 7:48 PM EST 08/25/2025 7:53 PM EST Benjamin López MD LAB BLOOD BKR ORDERABLES Fi nal Result Performing Organization Address City/[facility]/ZIP Co de Phone Number [address] [address] * Blood Culture, Routine (08/25/2025 7:44 PM EST) Only the most recent of2 resultswithin the time period is included. Blood Culture/Test No growth at 5 days 08/30/2025 8:05 PM EST [facility] Blood (Blood) Venipuncture / Unknown 08/25/2025 7:44 PM EST 08/25/2025 7:59 PM EST Benjamin López MD LAB MICROBIOLOGY CULTURE OR DERABLES Final Result [address] [address] * SARS-CoV-2, INFLUENZA A/B, PCR (08/25/2025 6:03 PM EST) [facility] SARS-CoV-2 RNA PCR Not Detected Not Detected 08/25/2025 6:58 PM EST [facility] Influenza A PCR Not Detected Not Detected 08/25/2025 6:58 PM EST [facility] Influenza B PCR Not Detected Not Detected 08/25/2025 6:58 PM [facility] Swab (Nasopharynx, Bilateral) Non-Blood Collection / Unknown 08/25/2025 6:03 PM EST 08/25/2025 6:08 PM EST Omkar Torres PA-C LAB GENERAL ORDERABLES Final Result Performing Organization Address [facility] de Phone Number [address] [address] * Symptomatic Respiratory Virus Testing Panel (ED/IP) (08/25/2025 6:03 PM EST) [facility] SARS Comment 08/25/2025 6:41 PM [facility] Comment:This test automatica lly orders a COVID-19 PCR and may add Flu, RSV, or other viral tests based on patient clinical factors and site protocols. Results will appear below and separately in chart review when available. Swab (Nasopharynx, Bilateral) Non-Blood Collection / Unknown 08/25/2025 6:03 PM EST 08/25/2025 6:08 PM EST Omkar Torres PA-C LAB GENERAL ORDERABLES Final Result Performing Organization Address [facility] Co de Phone Number [address] [address] * Lab Add-On (08/25/2025 5:31 PM EST) Only the most recent of2 resultswithin the time period is included. [facility] Specimen Date/Time 08/25/2025 5:47 PM [facility] Test Requested BNP, CRP, LFTs 08/25/2025 5:47 PM [facility] Specimen Description 08/25/2025 5:47 PM [facility] Comments 08/25/2025 5:47 PM [facility] Was this request processed? Yes 08/25/2025 5:47 PM [facility] Other (Other) 08/25/2025 5:3 1 PM EST 08/25/2025 5:31 PM EST us Omkar Torres PA-C LAB GENERAL ORDERABLES Final Result [address] [address] * (ABNORMAL) Troponin (08/25/2025 3:22 PM EST) Only the most recent of8 resultswithin the time period is included. [facility] Troponin-T HS Gen5 10(H) 0 - 9 ng/L 08/25/2025 4:01 PM EST [facility] Blood (Blood) Venipuncture / Unknown 08/25/2025 3:22 PM EST 08/25/2025 3:26 PM EST us Jonathan Hayes MD LAB BLOOD BKR ORDERABLES Final Result [address] [address] * XR CHEST PA AND LATERAL 2 VIEWS (08/25/2025 2:07 PM EST) Anatomical Region Laterality Modality Chest Computed Radiogr aphy 08/25/2025 2:16 PM EST Impressions 08/25/2025 2:17 PM EST No acute abnormality. Narrative 08/25/2025 2:17 PM EST XR CHEST PA AND LATERAL 2 VIEWS Referring clinician's provided indication for this examination in [facility]: Dyspnea (Shortness of Breath) COMPARISON: XR CHEST PA AND LATERAL 2 VIEWS FINDINGS: Devices/Tubes/Lines: Right Mediport catheter is in place with tip in the mid SVC. Lungs: No focal consolidation or pulmonary edema. Pleura: No pleural effusion or pneumothorax. Heart/Mediastinum: The cardiac silhouette is normal in size. Mild atherosclerotic calcifications of the aorta. Bones/Soft Tissues: Degenerative changes of the shoulders and spine. No acute osseous abnormality. Procedure Note Maria Antonia Delgado MD, PhD - 08/25/2025 XR CHEST PA AND LATERAL 2 VIEWS Referring clinician's provided indication for this examination in [facility]:Dyspnea (Shortness of Breath) COMPARISON: XR CHEST PA AND LATERAL 2 VIEWS FINDINGS: Devices/Tubes/Lines: Right Mediport catheter is in place with tip in themid SVC. Lungs: No focal consolidation or pulmonary edema. Pleura: No pleural effusion or pneumothorax. Heart/Mediastinum: The cardiac silhouette is normal in size. Mildatherosclerotic calcifications of the aorta. Bones/Soft Tissues: Degenerative changes of the shoulders and spine. Noacute osseous abnormality. IMPRESSION: No acute abnormality. us Jonathan aHyes MD IMG XR CHEST Final Res ult * (ABNORMAL) NT-proBNP (08/25/2025 1:56 PM EST) Only the most recent of2 resultswithin the time period is included. NT-ProBNP 998(H) 0 - 900 pg/mL 08/25/2025 2:32 PM EST [facility] Comment: Age <50 years: 0-450 pg/ml Age 50-75 years: 0-900 pg/ml Age >75 years: 0-1800 pg/ml A NT-proBNP <300 pg/ml effectively rules out acute congestive heart failure, with 99% negative predictive value. NT-proBNP cutoffs were developed for the diagnosis of heart failure. Marked elevations in NT-proBNP levels may be observed in states other than left ventricular congestive heart failure. Falsely low NT-proBNP in congestive heart failure patients may be observed with increasing body-mass index. Blood (Blood) Venipuncture / Unknown 08/25/2025 1:56 PM EST 08/25/2025 2:01 PM EST us Jonathan Hayes MD LAB BLOOD BKR ORDERABLES Final Result [address] [address] * (ABNORMAL) Basic Metabolic Panel (BMP) (08/25/2025 1:56 PM EST) Only the most recent of5 resultswithin the time period is included. Sodium 138 136 - 145 mmol/L 08/25/2025 2:32 PM [facility] Potassium 4.7 3.4 - 5.1 mmol/L 08/25/2025 2:32 PM [facility] Chloride 104 98 - 107 mmol/L 08/25/2025 2:32 PM [facility] CO2 23 20 - 31 mmol/L 08/25/2025 2:32 PM [facility] Anion Gap 11 3 - 17 mmol/L 08/25/2025 2:32 PM [facility] BUN 11 6 - 23 mg/dL 08/25/2025 2:32 PM [facility] Creatinine 0.70 0.50 - 1.00 mg/dL 08/25/2025 2:32 PM [facility] eGFR 92 >59 mL/min/1.7 3m2 08/25/2025 2:32 PM [facility] Comment:Estimated glomerular filtration rate calculated using the CKD-EPI refit equation. Glucose 108(H) 70 - 99 mg/dL 08/25/2025 2:32 PM [facility] Calcium 9.1 8.5 - 10.5 mg/dL 08/25/2025 2:32 PM [facility] Blood (Blood) Venipuncture / Unknown 08/25/2025 1:56 PM EST 08/25/2025 2:01 PM EST us Olyn Ilda Hayes MD LAB BLOOD BKR ORDERABLES Final Result [address] [address] * (ABNORMAL) Hepatic Panel (LFTs) (08/25/2025 1:40 PM EST) Only the most recent of3 resultswithin the time period is included. AST 56(H) <33 U/L 08/25/2025 7:04 PM EST [facility] ALT 21 <34 U/L 08/25/2025 7:04 PM [facility] Alkaline Phosphatase 224(H) 40 - 130 U/L 08/25/2025 7:04 PM [facility] Bilirubin, Total 0.3 0.0 - 1.2 mg/dL 08/25/2025 7:04 PM [facility] Bilirubin, Direct 0.1 0.0 - 0.3 mg/dL 08/25/2025 7:04 PM [facility] Total Protein 6.8 6.4 - 8.3 g/dL 08/25/2025 7:04 PM [facility] Albumin 3.6 3.5 - 5.2 g/dL 08/25/2025 7:04 PM [facility] Globulin 3.2 1.9 - 4.1 g/dL 08/25/2025 7:04 PM [facility] Blood (Blood) Venipuncture / Unknown 08/25/2025 1:40 PM EST 08/25/2025 6:59 PM EST us Omkar Torres PA-C LAB BLOOD BKR ORDERABLES Marina l Result [address] [address] * (ABNORMAL) C-Reactive Protein (CRP) (08/25/2025 1:40 PM EST) C Reactive Protein 12.6(H) <10.0 mg/L 08/25/2025 7:03 PM EST [facility] Comment:NOTE: This reference range is for the evaluation of inflammation. Order CRP, High Sensitivity for cardiac risk status evaluation. Blood (Blood) Venipuncture / Unknown 08/25/2025 1:40 PM EST 08/25/2025 6:59 PM EST us Omkar Torres PA-C LAB BLOOD BKR ORDERABLES Marina l Result [address] [address] * ECG 12-LEAD (08/25/2025 1:33 PM EST) Only the most recent of5 resultswithin the time period is included. Ventricular Rate EKG/MIN 81 BPM [facility] Atrial Rate 81 BPM [facility] CO Interval 130 ms [facility] QRS Duration 86 ms [facility] QT Interval 366 ms [facility] QTC Interval 425 ms [facility] P [place] 69 degrees [facility] R Wave [place] 7 degrees [facility] T Wave [place] 22 degrees [facility] 08/25/2025 1:33 PM EST 08/26/2025 10:06 AM EST Narrative [facility] - 08/26/2025 10:06 AM EST Normal sinus rhythm Possible Left atrial enlargement Possible Inferior infarct (cited on or before 03-May-2025) Abnormal ECG When compared with ECG of 24-Jul-2025 22:37, No significant change was found Confirmed by Prabhu Meza ([id number]) on 08/26/2025 10:06:18 AM us Jonathan Hayes MD ECG ORDERABLES Final Res ult [facility] * (ABNORMAL) Iron and Total Iron Binding Capacity (Iron/TIBC) (08/20/2025 8:23 AM EST) Iron 59 28 - 170 ug/dL 08/20/2025 9:50 AM EST [facility] Total Iron-Binding Capacity (TIBC) 213(L) 220 - 460 ug/dL 08/20/2025 9:50 AM EST [facility] Transferrin Saturation 28 14 - 50 % 08/20/2025 9:50 AM [facility] Blood (Blood) Catheter/Line / Unknown 08/20/2025 8:23 AM EST 08/20/2025 8:27 AM EST Cerda Chasity DO LAB BLOOD BKR ORDERABLES Fi nal Result Performing Organization Address City/[facility] Co de Phone Number [address] [address] * (ABNORMAL) Hepatitis B Surface Antibody (08/20/2025 8:23 AM EST) Hepatitis B Surface Antibody Non-Reacti ve(A) Reactive 08/20/2025 9:52 AM [facility] Comment:Individual is consid ered not immune to HBV infection. Hepatitis B Surface Antibody, Quant <3.50 mIU/mL 08/20/2025 9:52 AM [facility] Blood (Blood) Catheter/Line / Unknown 08/20/2025 8:23 AM EST 08/20/2025 8:27 AM EST [facility] - 08/20/2025 9:52 AM EST Test performed by Ricarda electrochemiluminescent immunoassay (ECLIA). Prashant Gaspar LAB BLOOD BKR ORDERABLES Fi nal Result Performing Organization Address [facility] Co de Phone Number [address] [address] * (ABNORMAL) Ferritin (08/20/2025 8:23 AM EST) Ferritin 506(H) 30 - 150 ug/L 08/20/2025 9:39 AM [facility] Blood (Blood) Catheter/Line / Unknown 08/20/2025 8:23 AM EST 08/20/2025 8:27 AM EST Cerda [facility] DO LAB BLOOD BKR ORDERABLES Fi nal Result Performing Organization Address City/[facility] Co de Phone Number [facility] [address] [place] [address] * Outside Lab (Non-MGB) (08/17/2025 11:00 AM EST) us Historical Provider LAB BLOOD BKR ORDERABLES Final Result * PORT A CATH INSERTION (IR) (08/03/2025 12:55 PM EDT) Anatomical Region Laterality Modality X-Ray Angiograph y Narrative 08/03/2025 1:02 PM EDT Impression: 1. Ultrasound and fluoroscopic guided placement of right CT-compatible chest port via the internal jugular vein. 2. The tip of the catheter was fluoroscopically positioned in the SVC and the port is ready for use. 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 [employer] Harvest Worker: Rocio Martinez PA-C Anesthesia: Local anesthesia: lidocaine 1%. Moderate sedation: versed 1.5 mg IV and fentanyl 25 mcg IV. Moderate Sedation: Under my direct supervision intravenous moderate sedation was administered by the radiology department nurse with continous monitoring of hemodynamic parameters. Total time of moderate sedation was 18 minutes. Contrast: None Other Medications: ancef 2 gm, heparin 500 units Estimated Blood Loss: minimal Implantable Devices/Catheters/Specimens: 6 Fr x 22 cm Medcomp port. Radiation Dose: Exposure (mGy) = 0.100; 2. DAP (uGy-m2) = 5.040; Fluoro Time (min) = 0.1 Complications: none Description of Procedure & Findings: Written and oral informed consent was obtained from the patient (or applications sales representative) after explaining all risks and benefits of the procedure as well as alternatives and right to refuse. Patient was brought to the angiography suite. Patient verification and a timeout procedure were performed as per standard hospital procedure. The neck and chest were prepped and draped in sterile fashion. All elements of maximum sterile barrier were used including mask, cap, sterile gown, gloves, large sterile sheet, hand hygiene, cutaneous antisepsis with 2% chlorhexidine and sterile preparation of the ultrasound probe. The internal jugular vein was then visualized and demonstrated to be normally compressible using ultrasound. A small incision was made with a scalpel. The internal Jugular vein was punctured under direct ultrasound guidance using a 21 gauge micropuncture needle. Both real-time and static imaging was used. Hard-copy images of pertinent ultrasound findings were stored in the patient's permanent electronic medical record. An 0.018 inch guidewire was advanced through the needle into the SVC using fluoroscopic guidance to document and guide placement. The wire was then exchanged for an 0.035 guidewire which was placed into the IVC. An incision was made in the superolateral chest and blunt dissection was used to create an appropriately sized subcutaneous pocket. A subcutaneous tunnel was created and the catheter tubing was pulled through. Catheter tubing was cut to the appropriate length. A peel-away sheath was placed over the wire and the catheter was fully advanced though the peel-away sheath which was then removed. Adequate function of the port was confirmed by accessing it with a Rousseau needle and aspirating and then injecting it with saline. A heparin lock was instilled. The final catheter tip position in the SVC/Right atrial junction was stored in the medical record using a spot fluoroscopic image. There was no pneumothorax. The skin was closed in two layers using deep interrupted 3-0 Vicryl suture followed by running subcuticular 5-0 Vicryl suture. The IJ access site was also closed with 5-0 vicryl suture. The port and IJ access sites were covered with Dermabond. Disposition of Patient: Stable and awake to recovery room. Dr. Galen Contreras was the attending interventional radiologist for this encounter. us Prashant W Chasity DO IMG IR Final Resul t * (ABNORMAL) CBC and differential (07/31/2025 8:09 AM EDT) Only the most recent of8 resultswithin the time period is included. WBC 7.15 4.00 - 11.00 K/uL [facility] RBC 3.26(L) 4.00 - 5.20 M/uL [facility] HGB 9.9(L) 12.0 - 16.0 g/dL [facility] HCT 31.4(L) 36.0 - 46.0 % [facility] PLT 275 150 - 450 K/uL [facility] MCV 96.3 80.0 - 100.0 fL [facility] MCH 30.4 27.0 - 31.0 pg [facility] MCHC 31.5(L) 32.0 - 36.0 g/dL [facility] RDW 18.4(H) 11.5 - 14.5 % [facility] MPV 10.0 8.4 - 12.0 fL [facility] NRBC 0.00 0.00 /100 WBCs [facility] ABSOLUTE NRBC 0.00 0.00 K/uL [facility] DIFF METHOD Auto [facility] NEUTS 62.5 48.0 - 76.0 % [facility] LYMPHS 16.4(L) 18.0 - 41.0 % [facility] MONOS 11.7(H) 4.0 - 11.0 % [facility] EOS 7.4(H) 0.0 - 5.0 % [facility] BASOS 1.7(H) 0.0 - 1.5 % [facility] Granulocytes, immature (%) 0.3 0.0 - 0.9 % [facility] ABSOLUTE NEUTS 4.47 1.92 - 7.60 K/uL [facility] ABSOLUTE LYMPHS 1.17 0.72 - 4.10 K/uL [facility] ABSOLUTE MONOS 0.84 0.16 - 1.10 K/uL [facility] ABSOLUTE EOS 0.53(H) 0.00 - 0.50 K/uL [facility] ABSOLUTE BASOS 0.12 0.00 - 0.15 K/uL [facility] Granulocytes, immature 0.02 0.00 - 0.09 K/uL [facility] Blood 07/31/2025 8:09 AM EDT 07/31/2025 8:36 AM EDT us Prashant Meyers Chasity DO LAB BLOOD BKR ORDERABLES Fi nal Result [facility] [address] [place] [address] * XR CHEST PA AND LATERAL 2 VIEWS (07/18/2025 6:07 PM EDT) Anatomical Region Laterality Modality Chest Computed Radiogr aphy 07/18/2025 7:13 PM EDT Impressions 07/18/2025 7:18 PM EDT No acute abnormality. Narrative 07/18/2025 7:18 PM EDT XR CHEST PA AND LATERAL 2 VIEWS Referring clinician's provided indication for this examination in [facility]: Pain COMPARISON: XR CHEST PA AND LATERAL 2 VIEWS FINDINGS: Devices/Tubes/Lines: None. Lungs: No focal consolidation or pulmonary edema. In this patient with a left hilar mass seen on recent CT there is no evidence of a significant mass at or below the left hilum. There is no evidence of postobstructive pneumonia/opacification. Pleura: No pleural effusion or pneumothorax. Heart/Mediastinum: Normal heart size. Atherosclerotic aorta. No radiographic evidence of significant left hilar enlargement on the frontal image, similar interstitial thickening beneath the hilum on the lateral view. Bones/Soft Tissues: No significant abnormality. Procedure Note Donovan Berg MD - 07/18/2025 XR CHEST PA AND LATERAL 2 VIEWS Referring clinician's provided indication for this examination in [facility]:Pain COMPARISON: XR CHEST PA AND LATERAL 2 VIEWS FINDINGS: Devices/Tubes/Lines: None. Lungs: No focal consolidation or pulmonary edema. In this patient with aleft hilar mass seen on recent CT there is no evidence of a significantmass at or below the left hilum. There is no evidence of postobstructivepneumonia/opacification. Pleura: No pleural effusion or pneumothorax. Heart/Mediastinum: Normal heart size. Atherosclerotic aorta. Noradiographic evidence of significant left hilar enlargement on the frontalimage, similar interstitial thickening beneath the hilum on the lateralview. Bones/Soft Tissues: No significant abnormality. IMPRESSION: No acute abnormality. Haroldo Samson PA-C IMG XR CHEST Final Result * Magnesium (07/18/2025 4:37 PM EDT) Only the most recent of3 resultswithin the time period is included. MAGNESIUM 1.7 1.6 - 2.6 mg/dL [facility] 07/18/2025 4:37 PM EDT 07/18/2025 4:50 PM EDT us Darshan Copeland MD LAB BLOOD BKR ORDERABLES Final Result Performing Organization Address [facility] de Phone Number [address] [address] * (ABNORMAL) Urinalysis w/reflex Urine Culture (07/05/2025 10:19 PM EDT) COLOR Yellow Yellow [facility] CLARITY Clear [facility] GLUCOSE Negative Negative [facility] BILI 1+(A) Negative [facility] KETONES Trace(A) Negative [facility] SPECIFIC GRAVITY 1.025 1.005 - 1.030 [facility] BLOOD Negative Negative [facility] PH 6.0 5.0 - 8.0 [facility] Protein-UA 1+(A) Negative [facility] NITRITE Positive(A) Negative [facility] Leukocyte esterase, ur Negative Negative [facility] Urine (Urine) 07/05/2025 10: 19 PM EDT 07/05/2025 10:25 PM EDT us Jonathan Hayes MD LAB URINE ORDERABLES Marina l Result Performing Organization Address [facility] de Phone Number [address] [address] * (ABNORMAL) Urine Culture (07/05/2025 10:19 PM EDT) Special Requests None Reflexed from [id number] 07/05/2025 10:45 PM EDT [facility] Urine Culture >100,000 colony forming units per mL COAGULASE NEGATIVE STAPHYLOCOCCU S(A) 07/07/2025 12:15 PM EDT [facility] Urine 07/05/2025 10:1 9 PM EDT 07/05/2025 10:25 PM EDT Jonathan Hayes MD LAB MICROBIOLOGY CULTURE ORDERABLES Final Result Performing Organization Address [facility] Co de Phone Number [address] [address] * (ABNORMAL) Urine sediment (07/05/2025 10:19 PM EDT) WBC 11-20(A) NONE SEEN /hpf [facility] RBC 0-2(A) NONE SEEN /hpf [facility] URINE EPITHELIAL 11-20(A) NONE SEEN [facility] MUCUS 3+(A) NONE SEEN /hpf [facility] BACTERIA Trace(A) NONE SEEN /hpf [facility] CRYSTALS 1+ [facility] Comment: Calcium Oxalate 2+ AMORPHOUS CAST 3-5 [facility] Comment: GRANULAR CAST 6-10 HYALINE CAST 07/05/2025 10:1 9 PM EDT 07/05/2025 10:25 PM EDT us Jonathan Hayes MD LAB URINE ORDERABLES Marina l Result Performing Organization Address [facility] Co de Phone Number [address] [address] * (ABNORMAL) Toxicology screen, urine (07/05/2025 10:19 PM EDT) URINE CANNABINOIDS NONE DETECTED NONE DETECTED [facility] Comment:Cutoff: 50 ng/mL URINE COCAINE METAB NONE DETECTED NONE DETECTED [facility] Comment:Cutoff: 300 ng/mL URINE AMPHETAMINES NONE DETECTED NONE DETECTED [facility] Comment:Cutoff: 1000 ng/mL URINE METHADONE NONE DETECTED NONE DETECTED [facility] Comment:Cutoff: 300 ng/mL URINE OPIATES NONE DETECTED NONE DETECTED [facility] Comment:Cutoff: 300 ng/mL URINE PHENCYCLIDINE NONE DETECTED NONE DETECTED [facility] Comment:Cutoff: 25 ng/mL URINE OXYCODONE Positive(A) NONE DETECTED [facility] Comment:Cutoff: 300 ng/mL URINE BARBITURATES NONE DETECTED NONE DETECTED [facility] Comment:Cutoff: 200 ng/mL URINE BENZODIAZEPINE NONE DETECTED NONE DETECTED [facility] Comment:Cutoff: 200 ng/mL URINE BUPRENORPHINE NONE DETECTED NONE DETECTED [facility] Comment:Cutoff: 5 ng/mL Fentanyl, urine NONE DETECTED NONE DETECTED [facility] Comment: Cutoff: 5 ng/mL INTERPRETATION FOR TOXICOLOGY PANEL: These results are unconfirmed and should be used for Medical Treatment purposes only. Urine (Urine) 07/05/2025 10: 19 PM EDT 07/05/2025 10:25 PM EDT us Jonathan Hayes MD LAB URINE ORDERABLES Marina l Result [facility] [address] [place] [address] * XR CHEST PA AND LATERAL 2 [...] provided indication for this examination in Epic: Trauma; r/o sternal fracture COMPARISON: XR CHEST PA AND LATERAL 2 VIEWS FINDINGS: Devices/Tubes/Lines: None. Lungs: No focal consolidation or pulmonary edema. Pleura: No pleural effusion or pneumothorax. Heart/Mediastinum: Unchanged in appearance. Bones/Soft Tissues: No significant abnormality. Procedure Note Hieu Sykes MBBS - 07/05/2025 XR CHEST PA AND LATERAL 2 VIEWS Referring clinician's provided indication for this examination in Epic:Trauma; r/o sternal fracture COMPARISON: XR CHEST PA AND LATERAL 2 VIEWS FINDINGS: Devices/Tubes/Lines: None. Lungs: No focal consolidation or pulmonary edema. Pleura: No pleural effusion or pneumothorax. Heart/Mediastinum: Unchanged in appearance. Bones/Soft Tissues: No significant abnormality. IMPRESSION: No acute abnormality. ATTESTATION: I, Hieu Sykes as teaching physician, have reviewed theimages for this case and if necessary edited the report originally createdby Kirill Muhammad. us Jonathan Hayes MD IMG XR CHEST Final Res ult * Ethanol, blood (07/05/2025 7:40 PM EDT) ETHANOL <10 <10 mg/dL [facility] Blood 07/05/2025 7:40 PM EDT 07/05/2025 7:51 PM EDT us Jonathan Hayes MD LAB BLOOD BKR ORDERABLES Final Result [address] [address] * (ABNORMAL) Acetaminophen level (07/05/2025 7:40 PM EDT) ACETAMINOPHEN <5.0(L) 15.0 - 30.0 ug/mL [facility] Blood 07/05/2025 7:40 PM EDT 07/05/2025 7:51 PM EDT us Jonathan Hayes MD LAB BLOOD BKR ORDERABLES Final Result [address] [address] * (ABNORMAL) Salicylates (07/05/2025 7:40 PM EDT) SALICYLATES 0.5(L) 2.8 - 19.9 mg/dL [facility] Blood 07/05/2025 7:40 PM EDT 07/05/2025 7:51 PM EDT us Jonathan Hayes MD LAB BLOOD BKR ORDERABLES Final Result [address] [address] * CT LUMBAR SPINE WITHOUT CONTRAST (07/05/2025 [...] calcifications of the abdominal aorta. Procedure Note Taylor Liu MBBS - 07/05/2025 CT LUMBAR SPINE WITHOUT [...] fusion. No acute fracture. Sclerosis of the F4lnpkgssat body, which may represent healed insufficiency fractures.Similar [...] Hieu Sykes as teaching physician, have reviewed the images [...] the report originally createdby Kirill Muhammad. us Olyn Ilda Hayes MD IMG CT HEAD/NECK Final Re sult * Hepatitis B core antibody, total (06/27/2025 1:33 PM EDT) HEP B CORE AB, TOT NON-REACTI VE NON-REACTI VE [facility] Blood 06/27/2025 1:33 PM EDT 06/27/2025 1:47 PM EDT [facility] Frankly Chat DO LAB BLOOD BKR ORDERABLES Fi nal Result Performing Organization Address City/[facility]/ZIP Co de Phone Number [address] [address] * Hepatitis B surface antigen (06/27/2025 1:33 PM EDT) HBV SURFACE ANTIGEN NON-REACTI VE NON-REACTI VE [facility] Blood 06/27/2025 1:33 PM EDT 06/27/2025 1:47 PM EDT [facility] Frankly Chat LAB BLOOD BKR ORDERABLES Fi nal Result Performing Organization Address [facility] Co de Phone Number [address] [address] * CT ABDOMEN/PELVIS WITH CONTRAST (06/25/2025 2:21 [...] upper abdominal lymphadenopathyand lytic sacral lesion. ATTESTATION: Calixto Harrison as teaching physician, have reviewed theimages for this case and if necessary edited the report originally createdby Mike Britton. us uTng Dietrich DO IMG CT ABD/PELVIS Final Resul [...] abdominal lymphadenopathy and lytic sacral lesion. ATTESTATION: Calixto Harrison as teaching physician, have reviewed the [...] upper abdominal lymphadenopathyand lytic sacral lesion. ATTESTATION: Calixto Harrison as teaching physician, have reviewed theimages for this case and if necessary edited the report originally createdby Mike Britton. us Tung Dietrich DO IMG CT CHEST Final Result * XR CHEST PA AND LATERAL 2 [...] clinician's provided indication for this examination in [facility]: Dyspnea (Shortness of Breath) COMPARISON: CTA chest [...] clinician's provided indication for this examination in [facility]:Dyspnea (Shortness of Breath) COMPARISON: CTA chest [...] Result * Phosphorus (06/20/2025 6:41 AM EDT) PHOSPHORUS 3.6 2.7 - 4.5 mg/dL [facility] Blood 06/20/2025 6:41 AM EDT 06/20/2025 7:18 AM EDT Kaitlynn Whalen DO, MPH LAB BLOOD BKR O RDERABLES Final Result Performing Organization Address City/[facility]/ZIP Co de Phone Number [address] [address] * TSH with reflex (04/23/2023 6:19 PM EDT) TSH 1.09 0.27 - 4.20 uIU/mL [facility] Blood 04/23/2023 6:19 PM EDT 04/23/2023 6:23 PM EDT Benjamin López MD LAB BLOOD BKR ORDERABLES Fi nal Result Performing Organization Address City/[facility]/ZIP Co de Phone Number [address] [address] from Last 3 Months or Most Recently Relevant to Health Maintenance Insurance [employer] PPO MEDICARE REPLACEMENT A[employer] PPO MEDICARE REPLACEMENT A[employer] PPO MEDICARE REPLACEMENT A[employer] PPO MEDICARE REPLACEMENT AET[employer] PPO MEDICARE REPLACEMENT AET[employer] O MEDICARE REPLACEMENT Advance Directives For more information, please contact: [phone] (9AM - 5PM [place], Wednesday-Wednesday) Documents on File Type Date Recorded Patient Adjunct Professor Of Voice Expl anation JARRETT 06/21/2025 3:13 PM Healthcare Proxy 07/31/2025 Healthcare Proxy POLST 06/14/2025 POLST * DNR/DNI (No CPR/No [...] (specify below ) Code Discussion Comments: Presumed Healthcare Agents on File Name Relationship Healthcare Agent Relationship Communication Dashawn Orantes Life Partner .Primary Health Care Agent (Proxy form on file) Care Teams Equities Analyst Relationship Specialty Start Date End Date Hali Carlin PA [address] [place] [phone] PCP - General Physician Pathology Secretary 05/03/25 Prashant Gaspar DO [address] [place] [address] [email or web address] Primary Oncologist Hematology and Oncology 06/01/25 Sharon Hunter, EVA [address] [place] [address] Nurse Practitioner Medical Oncology 06/26/25 Marilee Kaminski FNP [address] [place] [address] [email or web address] Nurse Practitioner Medical Oncology 06/28/25 Brandy Escobar RN [address] [place] [address] [email or web address] Nurse Navigator 07/19/25 Additional Source Comments The information contained in this document represents components of the legal health record. It is not the complete legal health record.[facility]
--- OUTSIDE RECORDS SUMMARY | 2025-09-19 21:08 | XMS_ITS | Encounter Summary ---
Author Organization [facility] Address [address] [place] [address] [place] [phone] Phone Care Team Providers Care Certified Coding Specialist Name Role Phone Hali Carlin Primary Care Provider [phone] Prashant Gaspar DO Unavailable Sharon Hunter SAUSAGE GRINDER Unavailable Marilee Kaminski APPLICATION DEVELOPMENT INTERN Unavailable [phone] Brandy Escobar RN Unavailable [phone] Encounter Details Date Type Department Care Team (Late st Contact Info) Description 08/03/2025 Procedure Pass [facility] [address] [place] [address] Social History Tobacco Use Types Packs/Day Years [...] as food, clothing, or medical care? No 08/03/2025 In the past 12 months have y ou been in a relationship with a person who hurts, threatens, or tries to control you? No 08/03/2025 Are you denied basic needs s uch as food, clothing, or medical care? No 08/03/2025 In the past 12 months have y ou been in a relationship with a person who hurts, threatens, or tries to control you? No 08/03/2025 Comments Unknown Sex and Gender Information Value [...] EST Blood Draw [facility] [address] [place] [address] 10/01/2025 9:00 AM EST Office Visit [facility] [place] [facility] at [facility] [address] [place] [address] Prashant Gaspar, [address] [place] [address] [email or web address] 10/01/2025 10:00 AM EST Infusion [facility] Infusion Center [address] [place] [address] Livia Villalobos RN [address] [place] [address] 10/02/2025 2:00 PM EST Infusion [facility] Infusion Center [address] [place] [address] Jonatan Abreu RN [address] [place] [address] [email or web address] 10/02/2025 2:20 PM EST Nutrition [facility] Hematology Oncology Clinic at [address] [address] 10/03/2025 2:00 PM EST Infusion [facility] Infusion Center [address] [place] [address] Corina Mixon, RICHARDSON [address] [place] [address] 10/05/2025 4:00 PM EST Infusion [facility] Infusion Center [address] [place] [address] Celine Peralta, RICHARDSON [address] [place] [address] documented as of this encounter Visit Diagnoses Not on filedocumented in this encounter Additional Health Concerns Infection Onset Date Last Indicated Resolved Time Resp-Risk 08/25/2025 08/25/2025 09/05/2025 7:06 PM EST documented as of this encounter Care Teams Certified Coding Specialist Relationship Specialty Start Date End Date Hali Carlin PA [address] [place] [phone] PCP - General Physician [place] 05/03/25 Prashant Gaspar DO [address] [place] [address] [email or web address] Primary Oncologist Hematology and Oncology 06/01/25 Sharon Hunter NP [address] [place] [address] Nurse Practitioner Medical Oncology 06/26/25 Marilee Kaminski FNP [address] [place] [address] Nurse Practitioner Medical Oncology 06/28/25 Brandy Escobar RN [address] [place] [address] [email or web address] Nurse Navigator 07/19/25 documented as of this encounter Additional Source Comments The information contained in this document represents components of the legal health record. It is not the complete legal health record.[facility]
--- OUTSIDE RECORDS SUMMARY | 2025-09-19 21:08 | XMS_ITS | Encounter Summary ---
Author Organization [facility] Address [address] [place] [address] [place] [address] Phone Care Team Providers Care County Coroner Name Role Phone Hali Carlin Primary Care Provider [phone] Prashant Gaspar DO Unavailable [phone] Sharon Hunter CLERICAL WAREHOUSE WORKER Unavailable Marilee Kaminski PIPE [employer] BO[employer]ERS SUPERVISOR Unavailable Brandy Escobar RN Unavailable Encounter Details Date Type Department Care Team (Late st Contact Info) Description 07/05/2025 Procedure Pass [facility], Ct Scan - [address] [address] Social History Tobacco Use Types Packs/Day Years [...] 7:07 PM EDT Vangie Villa, RN * [place] Suicide Severity Rating Scale (Screener/Recent Self-Report) Question [...] EST Blood Draw [facility] Phleb [facility] [address] [place] [address] 10/01/2025 9:00 AM EST Office Visit [facility] Hematology Oncology Clinic at [address] [address] Prashant Gaspar DO [address] [place] [phone] [email or web address] 10/01/2025 10:00 AM EST Infusion [facility] Infusion Center [address] [place] [address] Livia Villalobos RN [address] [place] [address] 10/02/2025 2:00 PM EST Infusion [address] [address] Jonatan Abreu RN [address] [place] [address] [email or web address] 10/02/2025 2:20 PM EST Nutrition [facility] Hematology Oncology Clinic at [address] [address] 10/03/2025 2:00 PM EST Infusion [facility] Infusion Center [address] [place] [address] Corina Mixon RN [address] [place] [address] 10/05/2025 4:00 PM EST Infusion [facility] [place] [facility] [address] [place] [address] Celine Peralta RN [address] [place] [address] documented as of this encounter Visit Diagnoses Not on filedocumented in this encounter Additional Health Concerns Infection Onset Date Last Indicated Resolved Time Resp-Risk 08/25/2025 08/25/2025 09/05/2025 7:06 PM EST documented as of this encounter Care Teams County Coroner Relationship Specialty Start Date End Date Hali Carlin PA [address] [place] [phone] PCP - General Physician Hr Leader 05/03/25 Prashant Gapsar DO [address] [place] [address] [email or web address] Primary Oncologist Hematology and Oncology 06/01/25 Sharon Hunter NP [address] [place] [address] [email or web address] Nurse Practitioner Medical Oncology 06/26/25 Marilee Kaminski FNP [address] [place] [address] Nurse Practitioner Medical Oncology 06/28/25 Brandy Escobar RN [address] [place] [address] [email or web address] Nurse Navigator 07/19/25 documented as of this encounter Additional Source Comments The information contained in this document represents components of the legal health record. It is not the complete legal health record.[facility]
--- NOTE | 2025-09-19 21:53 | PC.NURSE ---
Assumed care of patient at 1900. sepsis alert called at 1905. when care was taken over patient did not have iv access, chest x ray was needed to see if port was power port or not as we had no imaging on file. antibiotics were delayed due to that reason.
[2025-09-19 21:59] VITALS: BP 136/72
[2025-09-19 22:05] LABS: ~Lactic Acid-LAB USE ONLY 1.0 mmol/L (0.5-2.0)
[2025-09-19 22:14] VITALS: BP 174/121
[2025-09-19 23:22] VITALS: BP 155/86; PULSE 85; RESP 20; TEMP 36.5; O2SAT 100
[2025-09-20] VITALS (8 sets, daily range): BP systolic 120–147; BP diastolic 70–87; PULSE 79–95; RESP 14–20; TEMP 36.4–36.9; O2SAT 96–99; BMI 22.4
--- NOTE | 2025-09-20 00:04 | PM.IMHP ---
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 She denied cough. In the ED she was afebrile, and tachycardia. Oxygen saturation remained normal on room air. 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 Laboratory studies: WBC 0.7, absolute neutrophil count 0.0, Hgb 10.2, Plt 19; BUN (24), creatinine within normal limits. AST (35) and alkaline phosphatase (166), with normal bilirubin and ALT. Magnesium 1.0. Lactate: Initial lactic acid elevated at 2.9, improved to 1.0 on repeat. Infectious Workup: Negative for influenza A/B, RSV, and SARS-CoV-2. Imaging: CT chest showed right upper lobe patchy infiltrate (pneumonia), no PE. CT abdomen/pelvis showed known liver metastases. [facility] Social History Patient Tobacco Use Status: Former Tobacco user Smoked in Last 30 Days: No Use of substances other than those prescribed or required for medical reasons: No Advance Directives: No Advance Directives Information Provided: Yes Meds Allergies Allergy/AdvReac Type Severity Reaction Status Date / Time Penicillins Allergy Unknown Verified 09/19/25 17:54 Sulfa (Sulfonamide Allergy Unknown Verified 09/19/25 17:54 Antibiotics) Home Medications ?Medication ?Instructions ?Recorded ?Confirmed ?Last Taken ?Type amitriptyline 50 mg tablet 100 mg PO BEDTIME 09/20/25 09/20/25 Unknown History atorvastatin 40 mg tablet 40 mg PO DAILY 09/20/25 09/20/25 Unknown History hydrochlorothiazide 12.5 mg capsule 12.5 mg PO DAILY 09/20/25 09/20/25 Unknown History hydromorphone 4 mg tablet 4 mg PO QID PRN Pain 09/20/25 09/20/25 Unknown History levothyroxine 75 mcg tablet 75 mcg PO DAILY 09/20/25 09/20/25 Unknown History oxycodone 5 mg tablet 5 mg PO QID PRN Pain 09/20/25 09/20/25 Unknown History thiamine mononitrate (vit B1) 100 100 mg PO DAILY 09/20/25 09/20/25 Unknown History mg tablet (Vitamin B-1 (mononitrate)) Physical Exam Vital Signs and Narrative: Vital Signs: Last Vital Signs Temp 97.7 F 09/19/25 23:22 Pulse 85 09/19/25 23:22 Resp 20 09/19/25 23:22 BP 155/86 H 09/19/25 23:22 Pulse Ox 100 09/19/25 23:22 O2 Del Method Room Air 09/19/25 23:22 BMI result Body Mass Index 22.7 General: Alert, oriented, in no acute distress and cooperative. Afebrile. HEENT: Head normocephalic, atraumatic. PER, EOMI. Sclerae anicteric, conjunctiva clear. Oropharynx without erythema or exudate. Mucous membranes moist. Neck: Supple, no lymphadenopathy, or JVD Heart: RRR, no murmurs Lungs: Decreased breathsounds right upper lobe; No wheezes, rales, or rhonchi. Normal respiratory effort. Abdomen: Soft, non tenderness, nondistended, normoactive bowel sounds, no guarding Extremities: No calf tenderness bilaterally, no swelling Skin: Warm/Dry. No pallor. No jaundice Results Labs 09/20/25 04:03 09/19/25 18:41 Labs: Laboratory Results - last 24 hr 09/19/25 09/19/25 18:41 21:46 MCV 92.8 MCH 30.6 MCHC 33.0 RDW 16.7 H Plt Count 19 L* D MPV 11.1 Immature Gran % (Auto) 0.0 Neut % (Auto) 4.4 L Lymph % (Auto) 91.2 H [place] % (Auto) 2.9 Eos % (Auto) 0.0 Baso % (Auto) 1.5 Lymph # (Auto) 0.6 L [place] # (Auto) 0.0 L Eos # (Auto) 0.0 Baso # (Auto) 0.0 Abs Immat Gran (auto) 0.00 Absolute Neuts (auto) 0.0 L Absolute Nucleated RBC 0.000 Nucleated RBC % (auto) 0.0 Smear Tech's Comments VERIFIED Anion Gap 15 Estim Creat Clear Calc 32.0 Estimated GFR 47 Random Glucose 116 H Lactic Acid 2.9 H* Lactic Acid F/U @ 2Hr 1.0 Calcium 9.3 D Magnesium 1.0 L* Total Bilirubin 0.7 AST 35 H ALT 24 Alkaline Phosphatase 166 H Total Protein 7.2 Albumin 3.9 Lipase 10 Influenza Type A (PCR) NEGATIVE Influenza Type B (PCR) NEGATIVE RSV RNA Qual (PCR) NEGATIVE SARS-CoV-2 RNA (RT-PCR) NEGATIVE Assessment and Plan (1) Pneumonia: Qualifiers: Laterality: right Lung location: upper lobe of lung Pneumonia type: due to unspecified organism Qualified Code(s): J18.9 - Pneumonia, unspecified organism Status: Acute (2) Severe neutropenia: Status: Acute Plan A 70-year-old female with metastatic lung cancer to the liver, on chemotherapy, presented with 5 days of progressive weakness, subjective fever, increased shortness of breath, abdominal tenderness, and nausea/vomiting. Right upper lobe pneumonia probably due to bacterial etiology in an immunocompromised individual associated with sepsis (tachycardia, leukopenia, lactic acidosis, thrombocytopenia and pneumonia) and severe neutropenia (ANC of 0.0 ? 10?/?L) Plan Continue broad-spectrum IV antibiotics vancomycin and levofloxacin Hematology/Oncology consulted Monitor for and transfuse platelets and/or red cells as indicated Blood and urine cultures pending Urine legionella and strep pneo pending Neutropenic precautions Antiemetics for nausea Hypomagnesium Magnesium 2g IV. Repeat serum levels pending New mild compression fractures inferior T3 and superior T4 endplates, seen on imaging Continue home pain medication Metastatic lung cancer Continue supportive penitentiary medications reordered Goals of care Healthcare patient relations representative: Dashawn Orantes (friend/roomate) Life sustained in treatment preferences: Do not resuscitate and Do not intubate VTE: Contraindicated due to significant thrombocytopenia Two-midnight admission is warranted for this high-risk, immunocompromised oncology patient presenting with severe neutropenia,, sepsis, and pneumonia. The patient requires ongoing broad-spectrum antibiotics, intensive supportive care, and continuous close monitoring. Quality Stroke Does the patient have a stroke diagnosis?: No VTE Prior VTE?: No VTE Risk Level:: Medical - moderate - high VTE Device Contraindication: Procedure Contraindicated VTE Drug Contraindication: Treatment Not Tolerated
--- NOTE | 2025-09-20 01:17 | MHC.EDTECH ---
assisted patient up to commode. Patient has a steady gait and able to provide her own srinivasan care. Patient eating a sandwich and callbell at bedside
[2025-09-20] MEDS: Magnesium Sulfate/H2O 2 GM/50 ML PIGGYBACK IV (01:49)
[2025-09-20 04:07] LABS: Appearance Urine Clear; Glucose Urine UA Negative (Negative); PH 5.5 (5.0-9.0); Specific Gravity - Urine >= 1.030 (1.005-1.025); UMIC TRIGGER UA YES
[2025-09-20 04:13] LABS: Other Crystals Urine Present
[2025-09-20 04:41] LABS: Hematocrit 25.8 % (37.0-47.0); Hemoglobin 8.9 g/dl (12.0-16.0); Mean Corpuscular HGB Conc 34.5 g/dl (31.0-35.0); Mean Corpuscular Hemoglobin 31.9 pg (27.0-33.0); Mean Corpuscular Volume 92.5 fL (80.0-98.0); NRBC Abs Auto 0.000 X10*3/uL (0.0-0.012); NRBC Pct Auto 0.0 /100WBC (0.0-0.2); Red Blood Count 2.79 X10*6/uL (4.20-5.50); WBC ABN SCTR FOR CBC 1
[2025-09-20 04:50] LABS: White Blood Count 0.7 X10*3/uL (4.8-10.8)
[2025-09-20 04:51] LABS: Platelet Count 13 X10*3/uL (160-400)
[2025-09-20 05:06] LABS: Alanine Aminotransferase 15 U/L (0-31); Albumin Level 3.4 g/dL (3.5-5.0); Alkaline Phosphatase 148 U/L (39-117); Anion Gap 12 (12-20); Aspartate Amino Transferase 30 U/L (5-31); Blood Urea Nitrogen 20 mg/dL (9-16); Calcium 8.5 mg/dL (8.4-10.2); Carbon Dioxide 24 mmol/L (22-29); Chloride 101 mmol/L (96-108); Creatinine Clr Calc Pharmacy 34.4; Estimated Glomerular Filt Rate 51; Potassium 3.3 mmol/L (3.3-5.1); Sodium 134 mmol/L (135-145); Total Protein 6.3 g/dL (6.5-8.0)
[2025-09-20 05:10] LABS: Eosinophils Percent Manual 2 % (0-4); Lymphocytes Absolute Manual 0.6 X10*3/uL (1.2-4.9); Lymphocytes Percent Manual 90 % (20-40); Neutrophils Percent Manual 8 % (45-73)
[2025-09-20 05:11] LABS: RBC Morphology NORMAL
[2025-09-20] MEDS: oxyCODONE HCl Immed Release 5 MG TABLET PO ×2 (05:15→22:14)
--- NOTE | 2025-09-20 05:24 | HO.NURTONUR ---
patient presented to ED for c/o fevers, sob, increased abdominal pain, n/v and weakness. patient has hx of lung CA with mets to liver and spine. received chemo therapy at [facility]. sepsis workup completed. patient found to be neutropenic and has PNA. neutropenic precautions in place. placed on IV antibiotics for treatment. mag was low, replaced. PLT count also low, no orders for transfusion at this time. patient to be seen by oncology during her stay. has her port accessed. patient requires standby assist for transfers/ambulation. patient alert and oriented.
--- NOTE | 2025-09-20 07:09 | PHA.PROG ---
Admission Date/Time: September 19, 2025 23:40 Indication: Respiratory Weight in k.8 kg Serum Creatinine - Last 168 Hours 09/19/25 09/20/25 18:41 04:03 Creatinine 1.14 1.06 Estimated CrCl and GFR - Last 168 Hours 09/19/25 09/20/25 18:41 04:03 Estim Creat Clear Calc 32.0 34.4 Estimated GFR 47 51 Vancomycin Loading Dose: 1,250mg Current Vancomycin Dosing Regimen: 1,000 mg q24h Vancomycin Monitoring using AUC goal of 400 - 600 range with trough as surrogate marker: 533, 16.1 Date and Time for next Vancomycin Level to be drawn: 09/20 @ 1900 Pharmacist Comments on Vancomycin Plan: Vancomycin dosing will take advantage of [employer] as a clinical decision support tool that uses Bayesian modeling to calculate individual patient's pharmacokinetic parameters and forecast the patient's drug concentration time course with the target goal AUC 24 range of 400 - 600 mg/L/hr.
--- NOTE | 2025-09-20 08:10 | PC.NURSE ---
pt is alert and oriented, skin pwd, respirations even and unlabored, pt is reporting having nausea and abd pain/chest pain in the middle that radiates to the right side and back pain, pt does have a power port accessed to the right chest
[2025-09-20] MEDS: cefEPime HCl/D5W 2 GM/50 ML PIGGYBACK IV ×2 (08:21→21:51)
[2025-09-20] MEDS: 0.9 % Sodium Chloride Flush 3 ML SYRINGE IVFLUSH ×3 (08:25→21:56)
[2025-09-20 09:01] LABS: Magnesium 3.0 mg/dL (1.6-2.6)
[2025-09-20 09:18] LABS: Band Neutrophils Percent 0 % (3-5); Neutrophils Absolute Manual 0.1 X10*3/uL (2.0-8.3)
--- NOTE | 2025-09-20 09:19 | PC.NURSE ---
pt put into a hospital bed for more comfort
--- NOTE | 2025-09-20 10:04 | PHA.MEDREC ---
Pharmacy Consult ? Medication Reconciliation Pharmacy has reviewed the medication reconciliation done by nursing and also spoke to patient to confirm medication list. Per patient, she has no recollection of taking famotidine 20 mg, lisinopril 10 mg has been paused and she is back to taking the lower strength of levothyroxine (75 mcg). She confirmed she is taking hydromorphone 4 mg qid prn, oxycodone 5 mg at bedtime prn, and zofran 4 mg q12h prn. Last dose of medications was yesterday 09/19/25.
--- NOTE | 2025-09-20 11:08 | MHC.CM.PN ---
IMM 09/20/25, Pt. lives with her friend / HCP: Dashawn. PCP is: Hali Carlin at [facility]. She sees Oncology at Hosp. Pt. does not use home health services or DME. Friend to transport her home at [place], DCP: home, self care. CM to follow for DC needs.
--- NOTE | 2025-09-20 11:39 | HO.PM.IMPN ---
Subjective Subjective Date of Service: 09/20/25 Interval History: no new complaints Physical Exam Exam: Exam: General: AO X 3, frail, ill appeairng Resp: CTA bilateral, no accessory muscles used CVS: S1,S2,RRR GI: soft, non tender, non distended Neuro: motor grossly intact, alert Psych: appropriate affect, appropriate insight Vital Signs: Vital Signs: Last Vital Signs Temp 97.8 F 09/20/25 11:20 Pulse 80 09/20/25 11:20 Resp 18 09/20/25 11:20 BP 120/87 09/20/25 11:20 Pulse Ox 97 09/20/25 11:20 O2 Del Method Room Air 09/20/25 11:20 BMI result Body Mass Index 22.7 Objective Data Active Medications Acetaminophen (Acetaminophen 325 Mg Tablet) 650 mg PO Q6H PRN PRN Reason: Pain, Mild 1-3,fever,headache Last Admin: 09/20/25 04:18 Dose: 650 mg Documented By: FARRAH Amitriptyline HCl (Amitriptyline Hcl 50 Mg Tablet) 100 mg PO BEDTIME KAR Atorvastatin Calcium (Atorvastatin Calcium 40 Mg Tablet) 40 mg PO DAILY [facility] Last Admin: 09/20/25 08:21 Dose: 40 mg Documented By: ODUGLAS Calcium Carbonate (Calcium Carbonate 750 Mg Tab.Chew) 750 mg PO Q4H PRN PRN Reason: Heartburn Hydromorphone HCl (Hydromorphone Hcl 2 Mg Tablet) 4 mg PO QID PRN PRN Reason: Pain, Severe (Pain Scale 7-10) Levofloxacin (Levaquin) 750 mg in 150 mls @ 100 mls/hr IV Q48H KAR Vancomycin HCl 1,000 mg/ (Sodium Chloride) 270 mls @ 270 mls/hr IV Q24H KAR Cefepime HCl (Maxipime) 2 gm in 50 mls @ 100 mls/hr IV Q12H [facility] Levothyroxine Sodium (Levothyroxine Sodium 75 Mcg Tablet) 75 mcg PO DAILY [facility] Last Admin: 09/20/25 08:21 Dose: 75 mcg Documented By: DOUGLAS Melatonin (Melatonin 3 Mg Tablet) 3 mg PO BEDTIME PRN PRN Reason: Insomnia Last Admin: 09/20/25 01:49 Dose: 3 mg Documented By: HO.COOPEB Naloxone HCl (Naloxone Hcl 0.4 Mg/Ml Vial) 0.1 mg IVPUSH Q2M PRN PRN Reason: Respiratory Rate < 10 Ondansetron HCl (Ondansetron Hcl 4 Mg/2 Ml Vial) 4 mg IVPUSH Q8H PRN PRN Reason: Nausea and Vomiting Last Admin: 09/20/25 08:21 Dose: 4 mg Documented By: DOUGLAS Oxycodone HCl (Oxycodone Hcl Immed Release 5 Mg Tablet) 5 mg PO QID PRN PRN Reason: Pain, Moderate(Pain Scale 4-6) Last Admin: 09/20/25 05:15 Dose: 5 mg Documented By: FARRAH Pharmacy Consult (Consult Rx Vancomycin Dosing) 1 each MISCELLANE DAILY PRN PRN Reason: Consult order Sodium Chloride (0.9 % Sodium Chloride Flush 3 Ml Syringe) 3 ml IVFLUSH QSHIFT [facility] Last Admin: 09/20/25 08:25 Dose: 3 ml Documented By: DOUGLAS Thiamine HCl (Thiamine Hcl 100 Mg Tablet) 100 mg PO DAILY [facility] Last Admin: 09/20/25 08:21 Dose: 100 mg Documented By: DOUGLAS Labs 09/20/25 04:03 09/20/25 04:03 Labs: Laboratory Results - last 24 hr 09/19/25 09/19/25 09/20/25 18:41 21:46 04:00 MCV 92.8 MCH 30.6 MCHC 33.0 RDW 16.7 H Plt Count 19 L* D MPV 11.1 Immature Gran % (Auto) 0.0 Neut % (Auto) 4.4 L Lymph % (Auto) 91.2 H [place] % (Auto) 2.9 Eos % (Auto) 0.0 Baso % (Auto) 1.5 Lymph # (Auto) 0.6 L [place] # (Auto) 0.0 L Eos # (Auto) 0.0 Baso # (Auto) 0.0 Abs Immat Gran (auto) 0.00 Absolute Neuts (auto) 0.0 L Absolute Nucleated RBC 0.000 Nucleated RBC % (auto) 0.0 Neutrophils % (Manual) Band Neutrophils % Lymphocytes % (Manual) Eosinophils % (Manual) Abs Neuts (Manual) Lymphocytes # (Manual) Platelet Estimate Plt Morphology Comment RBC Morphology Smear Tech's Comments VERIFIED Smear Path Review Anion Gap 15 Estim Creat Clear Calc 32.0 Estimated GFR 47 Random Glucose 116 H Lactic Acid 2.9 H* Lactic Acid F/U @ 2Hr 1.0 Calcium 9.3 D Magnesium 1.0 L* Total Bilirubin 0.7 AST 35 H ALT 24 Alkaline Phosphatase 166 H Total Protein 7.2 Albumin 3.9 Lipase 10 Urine Color Yellow Urine Appearance Clear Urine pH 5.5 Ur Specific [place] >= 1.030 H Urine Protein Trace Urine Glucose (UA) Negative Urine Ketones Negative Urine Blood Small (1+) H Urine Nitrite Negative Ur Leukocyte Esterase Negative Urine RBC 3-5 H Urine WBC 11-20 H Ur Squamous Epith Cells 0-2 Other Crystals Present Urine Bacteria 1+ Hyaline Casts 3-5 Influenza Type A (PCR) NEGATIVE Influenza Type B (PCR) NEGATIVE RSV RNA Qual (PCR) NEGATIVE SARS-CoV-2 RNA (RT-PCR) NEGATIVE 09/20/25 04:03 MCV 92.5 MCH 31.9 MCHC 34.5 RDW 16.5 H Plt Count 13 L* MPV 12.2 Immature Gran % (Auto) Cancelled Neut % (Auto) Cancelled Lymph % (Auto) Cancelled [place] % (Auto) Cancelled Eos % (Auto) Cancelled Baso % (Auto) Cancelled Lymph # (Auto) Cancelled [place] # (Auto) Cancelled Eos # (Auto) Cancelled Baso # (Auto) Cancelled Abs Immat Gran (auto) Cancelled Absolute Neuts (auto) Cancelled Absolute Nucleated RBC 0.000 Nucleated RBC % (auto) 0.0 Neutrophils % (Manual) 8 L Band Neutrophils % 0 L Lymphocytes % (Manual) 90 H Eosinophils % (Manual) 2 Abs Neuts (Manual) 0.1 L Lymphocytes # (Manual) 0.6 L Platelet Estimate DECREASED Plt Morphology Comment NORMAL RBC Morphology NORMAL Smear Tech's Comments Smear Path Review SEE NOTE Anion Gap 12 Estim Creat Clear Calc 34.4 Estimated GFR 51 Random Glucose 122 H Lactic Acid Lactic Acid F/U @ 2Hr Calcium 8.5 D Magnesium 3.0 H Total Bilirubin 0.4 AST 30 ALT 15 Alkaline Phosphatase 148 H Total Protein 6.3 L Albumin 3.4 L Lipase Urine Color Urine Appearance Urine pH Ur Specific [place] Urine Protein Urine Glucose (UA) Urine Ketones Urine Blood Urine Nitrite Ur Leukocyte Esterase Urine RBC Urine WBC Ur Squamous Epith Cells Other Crystals Urine Bacteria Hyaline Casts Influenza Type A (PCR) Influenza Type B (PCR) RSV RNA Qual (PCR) SARS-CoV-2 RNA (RT-PCR) Assessment and Plan (1) Severe neutropenia: Status: Acute Plan 70F PMH stage IV lung cancer on chemotherapy presented with weakness and subjective fevers Stage IV lung cancer with neutropenic/pancytopenic fevers due to chemotherapy Vancomycin, cefepime, follow up cultures, monitor fevers, Hematology eval Acute hypomagnesemia Replace and monitor DVT prophylaxis-mechanical due to thrombocytopenia DNR/DNI reason for continued hospitalization: Monitoring neutropenic fever Quality Stroke Does the patient have a stroke diagnosis?: No VTE Prior VTE?: No VTE Risk Level:: Medical - moderate - high VTE Device Contraindication: Procedure Contraindicated VTE Drug Contraindication: Treatment Not Tolerated
--- NOTE | 2025-09-20 14:24 | PC.NURSE ---
pt is currently sleeping, respirations even and unlabored
--- NOTE | 2025-09-20 16:31 | PC.NURSE ---
pt is reporting pat at 04/12 but is not wanting any medications at this time
--- NOTE | 2025-09-20 20:03 | HE.PHANOTE ---
KELTON Kept the same dose as patient only got load before today's trough. Predicted AUC 584, trough 17.5. Next trough to be drawn 07/22 @1900.
--- NOTE | 2025-09-20 20:35 | PM.HEMONCCN ---
Subjective - Subjective Chief complaint: Consult for: Pancytopenia. Patient: new to practice Consult date: 09/20/25 Requesting Physician: Ugo. Primary Care Provider: Unknown Physician Family Provider: Chasity. Medical Summary: DIAGNOSIS: PANCYTOPENIA. Consulting Solution Director Utilized?: No - Slovenian Speaking HPI - Consult Narrative Reason for consult: Consult for: Neutropenic Bacteremia. Narrative: Bobbi Pantoja is a 70 year old lady, admitted with Neutropenic Sepsis. She presented with 7 days of progressive weakness, fever, shortness of breath, abdominal pain, and nausea/vomiting. She denied cough. She tells me she has mostly been confined to bed at home. She has had a poor appetite. She has lost significant amount of weight. In the ED she was afebrile, and tachycardia. Oxygen saturation remained normal on room air. 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 Apparently, she received chemotherapy about 10 days ago. The patient is admitted to the hospital for Pneumonia and severe neutropenia. DATA BASE: Laboratory studies: WBC 0.7, absolute neutrophil count 0.0, Hgb 10.2, Plt 19; BUN (24), creatinine within normal limits. AST (35) and alkaline phosphatase (166), with normal bilirubin and ALT. Magnesium 1.0. Lactate: Initial lactic acid elevated at 2.9, improved to 1.0 on repeat. Infectious Workup: Negative for influenza A/B, RSV, and SARS-CoV-2. Imaging: CT chest showed: 1. No acute pulmonary embolus. 2. New small patchy opacity in the right upper lobe. Infectious etiology favored. 3. New mild compression fractures inferior T3 and superior T4 endplates. 4. Additional findings as above. CT abdomen/pelvis showed: Decreasing size and number of numerous hepatic lesions suggesting treatment response of metastatic disease. PAST MEDICAL HISTORY: 1. 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 Status post 2 cycles of carboplatin and etoposide. FAMILY HISTORY: Mom of sepsis, at 83. 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 She is not . She has a roommate. She has 1 child. She used to smoke a pack a day quit 25 years ago. She denies alcohol. R0S: She has felt extremely fatigued. She had fever and chills at home. Her appetite has been poor. She has lost weight. Denies any headache. She has been feeling dizzy. She has had chest pain and shortness of breath. She has abdominal pain, nausea and vomiting. She denies diarrhea. Denies gross blood in the stools. Denies dysuria or hematuria. She has had body aches. She feels weak all over. She feels rather depressed. No skin rashes no pruritus. No easy bruising no systemic bleeding. Review of Systems - Constitutional Reports system reviewed and no additional complaints, except as documented, Reports chills, Reports fatigue, Reports fever(s), Reports headache(s), Reports lack of energy, Reports malaise, Reports poor appetite, Reports weakness, Reports weight loss - Eyes Reports system reviewed and no additional complaints, except as documented - ENT Reports system reviewed and no additional complaints, except as documented - Cardiovascular Reports system reviewed and no additional complaints, except as documented - Respiratory Reports no additional respiratory complaints, Reports dyspnea on exertion - Gastrointestinal Reports system reviewed and no additional complaints, except as documented - Genitourinary Reports no additional female genitourinary complaints - Musculoskeletal Reports system reviewed and no additional complaints, except as documented - Integumentary/Breasts Skin/Breast: Reports no additional skin complaints - Neurologic Reports system reviewed and no additional complaints, except as documented - Psychiatric Reports system reviewed and no additional complaints, except as documented - Endocrine Reports no additional endocrine complaints - Hematologic/Lymphatic Reports system reviewed and no additional complaints, except as documented - Allergic/Immunologic Reports system reviewed and no additional complaints, except as documented Oncology Screenings - ECOG Performance Status ECOG Performance Status: 1 [facility] Social History: Social History (Last Reviewed 09/20/25 @ 23:11 by Madison Vega MD) Living Situation History: Household Members: Other Household Members Other:: roommate Housing: House Do you presently have visiting nurse or other home services: No Tobacco History: Patient Tobacco Use Status: Former Tobacco user Second Hand Smoke Exposure: No Occupation Assessmet: service: No Second hand tobacco smoke exposure: No Home Medications and Allergies Current Medications: Current Medications Acetaminophen (Acetaminophen 325 Mg Tablet) 650 mg PO Q6H PRN PRN Reason: Pain, Mild 1-3,fever,headache Last Admin: 09/20/25 04:18 Dose: 650 mg Amitriptyline HCl (Amitriptyline Hcl 50 Mg Tablet) 100 mg PO BEDTIME [facility] Atorvastatin Calcium (Atorvastatin Calcium 40 Mg Tablet) 40 mg PO DAILY KAR Last Admin: 09/20/25 08:21 Dose: 40 mg Calcium Carbonate (Calcium Carbonate 750 Mg Tab.Chew) 750 mg PO Q4H PRN PRN Reason: Heartburn Hydromorphone HCl (Hydromorphone Hcl 2 Mg Tablet) 4 mg PO QID PRN PRN Reason: Pain, Severe (Pain Scale 7-10) Levofloxacin (Levaquin) 750 mg in 150 mls @ 100 mls/hr IV Q48H [facility] Vancomycin HCl 1,000 mg/ (Sodium Chloride) 270 mls @ 270 mls/hr IV Q24H [facility] Cefepime HCl (Maxipime) 2 gm in 50 mls @ 100 mls/hr IV Q12H [facility] Levothyroxine Sodium (Levothyroxine Sodium 75 Mcg Tablet) 75 mcg PO DAILY [facility] Last Admin: 09/20/25 08:21 Dose: 75 mcg Melatonin (Melatonin 3 Mg Tablet) 3 mg PO BEDTIME PRN PRN Reason: Insomnia Last Admin: 09/20/25 01:49 Dose: 3 mg Naloxone HCl (Naloxone Hcl 0.4 Mg/Ml Vial) 0.1 mg IVPUSH Q2M PRN PRN Reason: Respiratory Rate < 10 Ondansetron HCl (Ondansetron Hcl 4 Mg/2 Ml Vial) 4 mg IVPUSH Q8H PRN PRN Reason: Nausea and Vomiting Last Admin: 09/20/25 08:21 Dose: 4 mg Oxycodone HCl (Oxycodone Hcl Immed Release 5 Mg Tablet) 5 mg PO QID PRN PRN Reason: Pain, Moderate(Pain Scale 4-6) Last Admin: 09/20/25 05:15 Dose: 5 mg Pharmacy Consult (Consult Rx Vancomycin Dosing) 1 each MISCELLANE DAILY PRN PRN Reason: Consult order Sodium Chloride (0.9 % Sodium Chloride Flush 3 Ml Syringe) 3 ml IVFLUSH QSHIFT [facility] Last Admin: 09/20/25 17:04 Dose: 3 ml Thiamine HCl (Thiamine Hcl 100 Mg Tablet) 100 mg PO DAILY [facility] Last Admin: 09/20/25 08:21 Dose: 100 mg Home Medications ?Medication ?Instructions ?Recorded ?Confirmed ?Type amitriptyline 50 mg tablet 100 mg PO BEDTIME 09/20/25 09/20/25 History atorvastatin 40 mg tablet 40 mg PO DAILY 09/20/25 09/20/25 History hydrochlorothiazide 12.5 mg capsule 12.5 mg PO DAILY 09/20/25 09/20/25 History hydromorphone 4 mg tablet 4 mg PO QID PRN Pain 09/20/25 09/20/25 History levothyroxine 75 mcg tablet 75 mcg PO DAILY 09/20/25 09/20/25 History ondansetron 4 mg disintegrating 4 mg PO Q12H PRN nausea/vomiting 09/20/25 09/20/25 History tablet oxycodone 5 mg tablet 5 mg PO BEDTIME PRN Pain 09/20/25 09/20/25 History vit no.95-ferrous 1 tab PO DAILY 09/20/25 09/20/25 History fumarate 28 mg-folic acid 800 mcg tablet () thiamine mononitrate (vit B1) 100 100 mg PO DAILY 09/20/25 09/20/25 History mg tablet (Vitamin B-1 (mononitrate)) Allergies Allergy/AdvReac Type Severity Reaction Status Date / Time Penicillins Allergy Unknown Verified 09/19/25 17:54 Sulfa (Sulfonamide Allergy Unknown Verified 09/19/25 17:54 Antibiotics) Physical Exam Vital signs: Vital Signs Temp 98.4 F 09/20/25 18:28 Pulse 88 09/20/25 18:28 Resp 18 09/20/25 18:28 BP 134/78 09/20/25 18:28 Pulse Ox 97 09/20/25 11:20 O2 Del Method Room Air 09/20/25 18:28 Intake & Output 09/20/25 09/20/25 09/21/25 06:59 18:59 06:59 Intake Total 2133 50 / 50 Balance 2133 50 / 50 Intake: Intake, IV Amount 2133 50 / 50 Lactated Ringers 1,584 ml @ 1584 / 1584 1584 mls/hr IV .Q1H ONE Rx#: [id number] Magnesium Sulfate/H2O 2 gm In 150 / 150 50 ml @ 25 mls/hr IV ONCE ONE Rx#:[id number] cefEPime HCl/D5W 2 gm In 50 ml 50 / 50 @ 100 mls/hr IV Q8H [facility] Rx#: [id number] levoFLOXacin/D5W 750 mg In 150 150 / 150 ml @ 100 mls/hr IV ONCE ONE Rx# :[id number] vancomycin HCL 1,250 mg In 0.9 250 / 250 % Sodium Chloride 250 ml @ 166. 667 mls/hr IV ONCE ONE Rx#: [id number] Weight 52.8 kg - Constitutional Present: moderate distress - Routine HEENT Exam Head: Present: normal inspection, normocephalic - Routine Neck Exam Present: supple - Routine Respiratory Exam Present: decreased breath sounds - Routine Cardiovascular Exam Cardiovascular: Present: RRR, S1, S2 - Routine Abdominal Exam Present: tenderness. Absent: nontender - Routine Extremities Exam Present: nontender - Routine Skin Exam Present: intact - Routine Neurological Exam Present: alert, oriented X3 - Detailed Neurological Exam: Coma Scale Eye Opening: Spontaneous (4) Verbal Response: Oriented (5) - Routine Psychiatric Exam Present: normal affect. Absent: tactile hallucinations Hem/Onc Consult Result - Labs CBC & Chem 7: 09/24/25 05:27 09/24/25 05:59 Labs: Short CBC 09/20/25 Range/Units 04:03 WBC 0.7 L* (4.8-10.8) X10*3/uL Hgb 8.9 L (12.0-16.0) g/dl Hct 25.8 L (37.0-47.0) % Plt Count 13 L* (160-400) X10*3/uL BMP 09/20/25 04:03 Sodium 134 L Potassium 3.3 D Chloride 101 Carbon Dioxide 24 BUN 20 H Creatinine 1.06 Calcium 8.5 D Liver Function 09/20/25 Range/Units 04:03 Total Bilirubin 0.4 (0.0-1.0) mg/dL AST 30 (5-31) U/L ALT 15 (0-31) U/L Alkaline Phosphatase 148 H (39-117) U/L Albumin 3.4 L (3.5-5.0) g/dL Urine 09/20/25 Range/Units 04:00 Urine Color Yellow Urine Appearance Clear Urine pH 5.5 (5.0-9.0) Ur Specific [place] >= 1.030 H (1.005-1.025) Urine Protein Trace (Neg-Trace) mg/dL Urine Glucose (UA) Negative (Negative) mg/dL Assessment and Plan Patient Active problem list reviewed?: Yes (1) Pancytopenia Status: Acute Assessment and plan: 70 year old lady, with a known H/O metastatic lung cancer( small cell) to the liver and spine. Apparently, she received chemotherapy about 10 days ago, at [facility] under the care of Dr. Gaspar. She did get the Neulasta shot. She has now been admitted to the hospital for pancytopenia, and pneumonia. DATA BASE: Laboratory studies: WBC 0.7, absolute neutrophil count 0.0, Hgb 10.2, Plt 19; BUN (24), creatinine within normal limits. AST (35) and alkaline phosphatase (166), with normal bilirubin and ALT. Magnesium 1.0. Lactate: Initial lactic acid elevated at 2.9, improved to 1.0 on repeat. Infectious Workup: Negative for influenza A/B, RSV, and SARS-CoV-2. Imaging: CT chest showed: 1. No acute pulmonary embolus. 2. New small patchy opacity in the right upper lobe. Infectious etiology favored. 3. New mild compression fractures inferior T3 and superior T4 endplates. 4. Additional findings as above. CT abdomen/pelvis showed: Decreasing size and number of numerous hepatic lesions suggesting treatment response of metastatic disease. The patient is admitted to the hospital for Pneumonia and severe neutropenia. She has been pancultured and started on broad-spectrum antibiotics to cover for gram-negative enteric bacteria, as well as Gram-positive, in the setting of neutropenic bacteremia. She is starting to feel better. PLAN: I will get the records from Dr. Gaspar's office to get details of her treatment. Will monitor blood count carefully. Transfuse platelets if they fall to 10 or below or in case of bleeding. Transfuse back RBCs if hemoglobin drops to 8 or below. Meanwhile will continue IV antibiotics. Adjust in light of the culture and sensitivity results. The magnesium is being replaced. Thank you for the consult, I will follow along with you, CC: Dr. Gaspar. [facility]. Addendum: 09/24. WBC: 0.9. Platelet: 30. Patient is feeling well. No fever nor chills. She can go home. She will follow-up with Dr. Gaspar at [facility], for further management. Thank you, - Time Spent With Patient Time Spent with Patient (in minutes): 30
--- NOTE | 2025-09-20 22:55 | PM.IDPN ---
Objective Data Labs 09/20/25 04:03 09/20/25 04:03 Labs: Laboratory Results - last 24 hr 09/20/25 09/20/25 09/20/25 04:00 04:03 19:13 WBC 0.7 L* RBC 2.79 L Hgb 8.9 L Hct 25.8 L MCV 92.5 MCH 31.9 MCHC 34.5 RDW 16.5 H Plt Count 13 L* MPV 12.2 Immature Gran % (Auto) Cancelled Neut % (Auto) Cancelled Lymph % (Auto) Cancelled [place] % (Auto) Cancelled Eos % (Auto) Cancelled Baso % (Auto) Cancelled Lymph # (Auto) Cancelled [place] # (Auto) Cancelled Eos # (Auto) Cancelled Baso # (Auto) Cancelled Abs Immat Gran (auto) Cancelled Absolute Neuts (auto) Cancelled Absolute Nucleated RBC 0.000 Nucleated RBC % (auto) 0.0 Neutrophils % (Manual) 8 L Band Neutrophils % 0 L Lymphocytes % (Manual) 90 H Eosinophils % (Manual) 2 Abs Neuts (Manual) 0.1 L Lymphocytes # (Manual) 0.6 L Platelet Estimate DECREASED Plt Morphology Comment NORMAL RBC Morphology NORMAL Smear Path Review SEE NOTE Sodium 134 L Potassium 3.3 D Chloride 101 Carbon Dioxide 24 Anion Gap 12 BUN 20 H Creatinine 1.06 Estim Creat Clear Calc 34.4 Estimated GFR 51 Random Glucose 122 H Calcium 8.5 D Magnesium 3.0 H Total Bilirubin 0.4 AST 30 ALT 15 Alkaline Phosphatase 148 H Total Protein 6.3 L Albumin 3.4 L Urine Color Yellow Urine Appearance Clear Urine pH 5.5 Ur Specific [place] >= 1.030 H Urine Protein Trace Urine Glucose (UA) Negative Urine Ketones Negative Urine Blood Small (1+) H Urine Nitrite Negative Ur Leukocyte Esterase Negative Urine RBC 3-5 H Urine WBC 11-20 H Ur Squamous Epith Cells 0-2 Other Crystals Present Urine Bacteria 1+ Hyaline Casts 3-5 Random Vancomycin 10.6 L Microbiology Microbiology Results: Microbiology 09/19/25 18:46 Blood - Venous Blood Culture - Preliminary No growth after 24 hours. 09/19/25 18:41 Blood - Venous Blood Culture - Preliminary No growth after 24 hours. Physical Exam Vital Signs: Vital Signs: Last Vital Signs Temp 98.5 F 09/20/25 20:00 Pulse 88 09/20/25 20:00 Resp 20 09/20/25 20:00 BP 141/73 H 09/20/25 20:00 Pulse Ox 99 09/20/25 20:00 O2 Del Method Room Air 09/20/25 20:00 BMI result Body Mass Index 22.4 Const: General: cooperative HEENT: Head: Yes normal to inspection Face and sinus: Yes normal facial exam Mouth: Normal oral and palatal mucosa present Teeth and gingiva: dentition normal Eyes: General: appearance normal, both eyes and all related structures Pupils: Equal, round and reactive pupils present Resp: Effort & Inspection: normal respiratory effort Cardio: Rate: regular rate Rhythm: regular rhythm GI: Palpation (GI): Soft to palpation and nontender : General: Yes no CVA tenderness Back/Spine/Pelvis: Back: no CVA tenderness Skin: General skin exam: no rashes or lesions noted Neuro: General: moves all extremities Cranial nerves: Yes Equal, round and reactive pupils present Extrem: General: Yes normal to inspection Psych: Appearance: grossly normal Assessment and Plan Assessment and plan (1) Pancytopenia: Status: Acute Assessment and Plan: Possible neutropenia from medication,sepsi No fed (2) Severe neutropenia: Status: Acute (3) Pneumonia: Status: Acute Time Spent With Patient Time: Total time managing care of this patient today ____ minutes.
--- NOTE | 2025-09-20 23:09 | P.CNID_ITS ---
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 2 days ago she has chills and felt feverish, She has nausea and vomiting She feels better laying down Review of Systems 2 Review of Systems: Yes all other systems are reviewed and are negative PMFSH Family History Family history: reviewed and not pertinent Social History Social History Household Members: Other Household Members Other:: roommate Housing: House Do you presently have visiting nurse or other home services: No Patient Tobacco Use Status: Former Tobacco user Second Hand Smoke Exposure: No service: No Meds Allergies Allergy/AdvReac Type Severity Reaction Status Date / Time Penicillins Allergy Unknown Verified 09/19/25 17:54 Sulfa (Sulfonamide Allergy Unknown Verified 09/19/25 17:54 Antibiotics) Active Medications: Current Medications Acetaminophen (Acetaminophen 325 Mg Tablet) 650 mg PO Q6H PRN PRN Reason: Pain, Mild 1-3,fever,headache Last Admin: 09/20/25 04:18 Dose: 650 mg Amitriptyline HCl (Amitriptyline Hcl 50 Mg Tablet) 100 mg PO BEDTIME [facility] Last Admin: 09/20/25 21:51 Dose: 100 mg Atorvastatin Calcium (Atorvastatin Calcium 40 Mg Tablet) 40 mg PO DAILY [facility] Last Admin: 09/20/25 08:21 Dose: 40 mg Calcium Carbonate (Calcium Carbonate 750 Mg Tab.Chew) 750 mg PO Q4H PRN PRN Reason: Heartburn Hydromorphone HCl (Hydromorphone Hcl 2 Mg Tablet) 4 mg PO QID PRN PRN Reason: Pain, Severe (Pain Scale 7-10) Levofloxacin (Levaquin) 750 mg in 150 mls @ 100 mls/hr IV Q48H [facility] Vancomycin HCl 1,000 mg/ (Sodium Chloride) 270 mls @ 270 mls/hr IV Q24H [facility] Last Infusion: 09/20/25 23:03 Dose: Infused Cefepime HCl (Maxipime) 2 gm in 50 mls @ 100 mls/hr IV Q12H [facility] Last Infusion: 09/20/25 22:49 Dose: Infused Levothyroxine Sodium (Levothyroxine Sodium 75 Mcg Tablet) 75 mcg PO DAILY [facility] Last Admin: 09/20/25 08:21 Dose: 75 mcg Melatonin (Melatonin 3 Mg Tablet) 3 mg PO BEDTIME PRN PRN Reason: Insomnia Last Admin: 09/20/25 01:49 Dose: 3 mg Naloxone HCl (Naloxone Hcl 0.4 Mg/Ml Vial) 0.1 mg IVPUSH Q2M PRN PRN Reason: Respiratory Rate < 10 Ondansetron HCl (Ondansetron Hcl 4 Mg/2 Ml Vial) 4 mg IVPUSH Q8H PRN PRN Reason: Nausea and Vomiting Last Admin: 09/20/25 08:21 Dose: 4 mg Oxycodone HCl (Oxycodone Hcl Immed Release 5 Mg Tablet) 5 mg PO QID PRN PRN Reason: Pain, Moderate(Pain Scale 4-6) Last Admin: 09/20/25 22:14 Dose: 5 mg Pharmacy Consult (Consult Rx Vancomycin Dosing) 1 each MISCELLANE DAILY PRN PRN Reason: Consult order Sodium Chloride (0.9 % Sodium Chloride Flush 3 Ml Syringe) 3 ml IVFLUSH QSOHFT [facility] Last Admin: 09/20/25 21:56 Dose: 3 ml Thiamine HCl (Thiamine Hcl 100 Mg Tablet) 100 mg PO DAILY [facility] Last Admin: 09/20/25 08:21 Dose: 100 mg Home Medications ?Medication ?Instructions ?Recorded ?Confirmed ?Last Taken ?Type amitriptyline 50 mg tablet 100 mg PO BEDTIME 09/20/25 09/20/25 Unknown History atorvastatin 40 mg tablet 40 mg PO DAILY 09/20/2509/03 Unknown History hydrochlorothiazide 12.5 mg capsule 12.5 mg PO DAILY 1 11/21/24 09/20/25 Unknown History hydromorphone 4 mg tablet 4 mg PO QID PRN Pain 5 09/20/25 Unknown History levothyroxine 75 mcg tablet 75 mcg PO DAILY 09/20/25 1 11/21/24 Unknown History ondansetron 4 mg disintegrating 4 mg PO Q12H PRN nause a/vomiting 09/20/25 09/20/25 Unknown History tablet oxycodone 5 mg tablet 5 mg PO BEDTIME PRN Pain 09/20/25 Unknown History vit no.95-ferrous 1 tab PO DAILY 09/20/2509/19/25 History fumarate 28 mg-folic acid 800 mcg tablet () thiamine mononitrate (vit B1) 100 100 mg PO DAILY 09/0309/20/25 Unknown History mg tablet (Vitamin B-1 (mononitrate)) Physical Exam 2 Vital Signs: Vital Signs: Last Vital Signs Temp 98.5 F 09/20/25 20:00 Pulse 88 09/20/25 20:00 Resp 20 09/20/25 20:00 BP 141/73 H 09/20/25 20:00 Pulse Ox 99 09/20/25 20:00 O2 Del Method Room Air 09/20/25 20:00 BMI result Body Mass Index 22.4 Const: General: cooperative HEENT: Head: Yes normal to inspection Face and sinus: Yes normal facial exam Mouth: Normal oral and palatal mucosa present Teeth and gingiva: d entition normal Eyes: General: appearance normal, both eyes and all related structures P upils: Equal, round and reactive pupils present Chest: Other: port clear Resp: Effort & Inspection: normal respiratory effort Cardio: Rate: regular rate Rhythm: regular rhythm GI: Palpation (GI): Soft to palpation and nontender : General: Yes no CVA tenderness Back/Spine/Pelvis: Back: no CVA tenderness Skin: General skin exam: no rashes or lesions noted Neuro: General: moves all extremities Cranial nerves: Yes Equal, round and reactive pupils present Extrem: General: Yes normal to inspection Psych: Appearance: grossly normal Results Labs 09/20/25 04:03 09/20/25 04:03 Labs: Short CBC 09/20/25 Range/Units 04:03 WBC 0.7 L* (4.8-10.8) X10*3/uL Hgb 8.9 L (12.0-16.0) g/dl Hct 25.8 L (37.0-47.0) % Plt Count 13 L* (160-400) X10*3/uL BMP 09/20/25 04:03 Sodium 134 L Potassium 3.3 D Chloride 101 Carbon Dioxide 24 BUN 20 H Creatinine 1.06 Calcium 8.5 D Liver Function 09/20/25 Range/Units 04:03 Total Bilirubin 0.4 (0.0-1.0) mg/dL AST 30 (5-31) U/L ALT 15 (0-31) U/L Alkaline Phosphatase 148 H (39-117) U/L Albumin 3.4 L (3.5-5.0) g/dL Urine 09/20/25 Range/Units 04:00 Urine Color Yellow Urine Appearance Clear Urine pH 5.5 (5.0-9.0) Ur Specific [place] >= 1.030 H (1.005-1.025) Urine Protein Trace (Neg-Trace) mg/dL Urine Glucose (UA) Negative (Negative) mg/dL Microbiology Microbiology Results: Microbiology 09/19/25 18:46 Blood - Venous Blood Culture - Preliminary No growth after 24 hours. 09/19/25 18:41 Blood - Venous Blood Culture - Preliminary No growth after 24 hours. Assessment and Plan (1) Severe neutropenia: Status: Acute (2) Pancytopenia: Status: Acute (3) Pneumonia: Qualifiers: Laterality: right Lung location: upper lobe of lung Pneumonia type: d ue to unspecified organism Qualified Code(s): J18.9 - Pneumonia, unspecified organism Status: Acute Plan She feels chills. She has neutropenia. This is possible viral syndrome or reaction to chemotherapy or bacterial sepsis Can continue Vancomycin and Cefepime while awaiting culture from blood Possible levaquin outpatient 7 d on discharge
[2025-09-21] VITALS (12 sets, daily range): BP systolic 98–139; BP diastolic 63–79; PULSE 76–105; RESP 14–20; TEMP 36.2–37.7; O2SAT 98–100; BMI 22.4
[2025-09-21] MEDS: 0.9 % Sodium Chloride Flush 3 ML SYRINGE IVFLUSH (08:36)
[2025-09-21] MEDS: cefEPime HCl/D5W 2 GM/50 ML PIGGYBACK IV ×2 (08:36→19:44)
[2025-09-21 08:54] LABS: Hematocrit 22.6 % (37.0-47.0); Hemoglobin 7.6 g/dl (12.0-16.0); Mean Corpuscular HGB Conc 33.6 g/dl (31.0-35.0); Mean Corpuscular Hemoglobin 30.9 pg (27.0-33.0); Mean Corpuscular Volume 91.9 fL (80.0-98.0); NRBC Abs Auto 0.000 X10*3/uL (0.0-0.012); NRBC Pct Auto 0.0 /100WBC (0.0-0.2); Red Blood Count 2.46 X10*6/uL (4.20-5.50)
[2025-09-21 09:03] LABS: Platelet Count 4 X10*3/uL (160-400); White Blood Count 0.6 X10*3/uL (4.8-10.8)
[2025-09-21 09:20] LABS: Anion Gap 11 (12-20); Blood Urea Nitrogen 21 mg/dL (9-16); Calcium 8.7 mg/dL (8.4-10.2); Carbon Dioxide 25 mmol/L (22-29); Chloride 103 mmol/L (96-108); Creatinine Clr Calc Pharmacy 40.1; Estimated Glomerular Filt Rate > 60; Magnesium 1.5 mg/dL (1.6-2.6); Potassium 3.1 mmol/L (3.3-5.1); Sodium 136 mmol/L (135-145)
--- NOTE | 2025-09-21 09:26 | P.PNIM_ITS ---
Subjective Subjective Date of Service: 09/21/25 Interval History: no new complaints Physical Exam 2 Vital Signs: Vital Signs: Last Vital Signs Temp 98.0 F 09/21/25 07:23 Pulse 78 09/21/25 07:23 Resp 20 09/21/25 07:23 BP 119/71 09/21/25 07:23 Pulse Ox 99 09/21/25 07:23 O2 Del Method Room Air 09/21/25 07:23 BMI result Body Mass Index 22.4 Const: General: cooperative HEENT: Head: Yes normal to inspection Face and sinus: Yes normal facial exam Mouth: Normal oral and palatal mucosa present Teeth and gingiva: d entition normal Eyes: General: appearance normal, both eyes and all related structures P upils: Equal, round and reactive pupils present Chest: Other: port clear Resp: Effort & Inspection: normal respiratory effort Cardio: Rate: regular rate Rhythm: regular rhythm GI: Palpation (GI): Soft to palpation and nontender : General: Yes no CVA tenderness Back/Spine/Pelvis: Back: no CVA tenderness Skin: General skin exam: no rashes or lesions noted Neuro: General: moves all extremities Cranial nerves: Yes Equal, round and reactive pupils present Extrem: General: Yes normal to inspection Psych: Appearance: grossly normal Objective Data Active Medications Acetaminophen (Acetaminophen 325 Mg Tablet) 650 mg PO Q6H PRN PRN Reason: Pain, Mild 1-3,fever,headache Last Admin: 09/20/25 04:18 Dose: 650 mg Documented By: FARRAH Amitriptyline HCl (Amitriptyline Hcl 50 Mg Tablet) 100 mg PO BEDTIME [facility] Last Admin: 09/20/25 21:51 Dose: 100 mg Documented By: RADHAMES Atorvastatin Calcium (Atorvastatin Calcium 40 Mg Tablet) 40 mg PO DAILY [facility] Last Admin: 09/21/25 08:36 Dose: 40 mg Documented By: VIKKI Calcium Carbonate (Calcium Carbonate 750 Mg Tab.Chew) 750 mg PO Q4H PRN PRN Reason: Heartburn Hydromorphone HCl (Hydromorphone Hcl 2 Mg Tablet) 4 mg PO QID PRN PRN Reason: Pain, Severe (Pain Scale 7-10) Levofloxacin (Levaquin) 750 mg in 150 mls @ 100 mls/hr IV Q48H [facility] Vancomycin HCl 1,000 mg/ (Sodium Chloride) 270 mls @ 270 mls/hr IV Q24H [facility] Last Infusion: 09/20/25 23:03 Dose: Infused Documented By: RADHAMES Cefepime HCl (Maxipime) 2 gm in 50 mls @ 100 mls/hr IV Q12H [facility] Last Admin: 09/21/25 08:36 Dose: 100 mls/hr Documented By: VIKKI Levothyroxine Sodium (Levothyroxine Sodium 75 Mcg Tablet) 75 mcg PO DAILY [facility] Last Admin: 09/21/25 08:36 Dose: 75 mcg Documented By: VIKKI Melatonin (Melatonin 3 Mg Tablet) 3 mg PO BEDTIME PRN PRN Reason: Insomnia Last Admin: 09/20/25 01:49 Dose: 3 mg Documented By: FARRAH Naloxone HCl (Naloxone Hcl 0.4 Mg/Ml Vial) 0.1 mg IVPUSH Q2M PRN PRN Reason: Respiratory Rate < 10 Ondansetron HCl (Ondansetron Hcl 4 Mg/2 Ml Vial) 4 mg IVPUSH Q8H PRN PRN Reason: Nausea and Vomiting Last Admin: 09/20/25 08:21 Dose: 4 mg Documented By: DOUGLAS Oxycodone HCl (Oxycodone Hcl Immed Release 5 Mg Tablet) 5 mg PO QID PRN PRN Reason: Pain, Moderate(Pain Scale 4-6) Last Admin: 09/20/25 22:14 Dose: 5 mg Documented By: RADHAMES Pharmacy Consult (Consult Rx Vancomycin Dosing) 1 each MISCELLANE DAILY PRN PRN Reason: Consult order Sodium Chloride (0.9 % Sodium Chloride Flush 3 Ml Syringe) 3 ml IVFLUSH QSHIFT [facility] Last Admin: 09/21/25 08:36 Dose: 3 ml Documented By: VIKKI Thiamine HCl (Thiamine Hcl 100 Mg Tablet) 100 mg PO DAILY [facility] Last Admin: 09/21/25 08:36 Dose: 100 mg Documented By: VIKKI Labs 09/21/25 08:36 09/21/25 08:36 Labs: Laboratory Results - last 24 hr 09/20/25 09/20/25 09/21/25 04:03 19:13 08:36 MCV 91.9 MCH 30.9 MCHC 33.6 RDW 16.3 H Plt Count 4 L* D MPV Not Reportable Absolute Nucleated RBC 0.000 Nucleated RBC % (auto) 0.0 Smear Path Review SEE NOTE Anion Gap 11 L Estim Creat Clear Calc 40.1 Estimated GFR > 60 Random Glucose 101 Calcium 8.7 Magnesium 1.5 L Random Vancomycin 10.6 L Microbiology Microbiology Results: Microbiology 09/19/25 18:46 Blood Culture - Preliminary Blood - Venous No growth after 24 hours. 09/19/25 18:41 Blood Culture - Preliminary Blood - Venous No growth after 24 hours. Assessment and Plan (1) Severe neutropenia: Status: Acute Plan 70F PMH stage IV lung cancer on chemotherapy presented with weakness and subjective fevers Stage IV lung cancer with neutropenic/pancytopenic fevers due to chemotherapy Vancomycin, cefepime, follow up cultures - no growht to date, monitor fevers - none in hospital so far, Hematology appreciated panctyopenia due to chemotherapy platelets <10K will transfused 1unit Acute hypomagnesemia Replace and monitor acute hypokalemia replace and monitor DVT prophylaxis-mechanical due to thrombocytopenia DNR/DNI reason for continued hospitalization: Monitoring neutropenic fever, transfusing platelets Quality Stroke Does the patient have a stroke diagnosis?: No VTE Prior VTE?: No VTE Risk Level:: Medical - moderate - high VTE Device Contraindication: Procedure Contraindicated VTE Drug Contraindication: Treatment Not Tolerated
[2025-09-21] MEDS: Potassium Chloride ER 20 MEQ TAB.ER.PRT 40 MEQ PO (09:36)
--- NOTE | 2025-09-21 12:14 | PM.HEMONCPN ---
Medical Summary - Medical Summary Date of Service: 09/21/25 Chief complaint: Weakness Primary Care Provider: MAKEDA Shea Medical Summary: DIAGNOSIS: PANCYTOPENIA. 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 She presented with 7 days of progressive weakness, fever, shortness of breath, abdominal pain, and nausea/vomiting. She denied cough. She tells me she has mostly been confined to bed at home. She has had a poor appetite. She has lost significant amount of weight. In the ED she was afebrile, and tachycardia. Oxygen saturation remained normal on room air. 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 Apparently, she received chemotherapy about 10 days ago. The patient is admitted to the hospital for Pneumonia and severe neutropenia. DATA BASE: Laboratory studies: WBC 0.7, absolute neutrophil count 0.0, Hgb 10.2, Plt 19; BUN (24), creatinine within normal limits. AST (35) and alkaline phosphatase (166), with normal bilirubin and ALT. Magnesium 1.0. Lactate: Initial lactic acid elevated at 2.9, improved to 1.0 on repeat. Infectious Workup: Negative for influenza A/B, RSV, and SARS-CoV-2. Imaging: CT chest showed: 1. No acute pulmonary embolus. 2. New small patchy opacity in the right upper lobe. Infectious etiology favored. 3. New mild compression fractures inferior T3 and superior T4 endplates. 4. Additional findings as above. CT abdomen/pelvis showed: Decreasing size and number of numerous hepatic lesions suggesting treatment response of metastatic disease. PAST MEDICAL HISTORY: 1. 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 Status post 2 cycles of carboplatin and etoposide. FAMILY HISTORY: Mom of sepsis, at 83. 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 She is not . She has a roommate. She has 1 child. She used to smoke a pack a day quit 25 years ago. She denies alcohol. R0S: She has felt extremely fatigued. She had fever and chills at home. Her appetite has been poor. She has lost weight. Denies any headache. She has been feeling dizzy. She has had chest pain and shortness of breath. She has abdominal pain, nausea and vomiting. She denies diarrhea. Denies gross blood in the stools. Denies dysuria or hematuria. She has had body aches. She feels weak all over. She feels rather depressed. No skin rashes no pruritus. No easy bruising no systemic bleeding. Review of Systems - Neurologic Reports no additional neurologic complaints, Reports headache(s), Reports weakness PMFSH Family history: reviewed and not pertinent Social History: Social History (Last Reviewed 09/20/25 @ 23:11 by Madison Vega MD) Living Situation History: Household Members: Other Household Members Other:: roommate Housing: House Do you presently have visiting nurse or other home services: No Tobacco History: Patient Tobacco Use Status: Former Tobacco user Second Hand Smoke Exposure: No Occupation Assessmet: service: No Home Medications and Allergies Current Medications: Current Medications Acetaminophen (Acetaminophen 325 Mg Tablet) 650 mg PO Q6H PRN PRN Reason: Pain, Mild 1-3,fever,headache Last Admin: 09/20/25 04:18 Dose: 650 mg Amitriptyline HCl (Amitriptyline Hcl 50 Mg Tablet) 100 mg PO BEDTIME [facility] Last Admin: 09/20/25 21:51 Dose: 100 mg Atorvastatin Calcium (Atorvastatin Calcium 40 Mg Tablet) 40 mg PO DAILY [facility] Last Admin: 09/21/25 08:36 Dose: 40 mg Calcium Carbonate (Calcium Carbonate 750 Mg Tab.Chew) 750 mg PO Q4H PRN PRN Reason: Heartburn Hydromorphone HCl (Hydromorphone Hcl 2 Mg Tablet) 4 mg PO QID PRN PRN Reason: Pain, Severe (Pain Scale 7-10) Levofloxacin (Levaquin) 750 mg in 150 mls @ 100 mls/hr IV Q48H [facility] Vancomycin HCl 1,000 mg/ (Sodium Chloride) 270 mls @ 270 mls/hr IV Q24H [facility] Last Infusion: 09/20/25 23:03 Dose: Infused Cefepime HCl (Maxipime) 2 gm in 50 mls @ 100 mls/hr IV Q12H [facility] Last Infusion: 09/21/25 09:06 Dose: Infused Levothyroxine Sodium (Levothyroxine Sodium 75 Mcg Tablet) 75 mcg PO DAILY [facility] Last Admin: 09/21/25 08:36 Dose: 75 mcg Magnesium Oxide (Magnesium Oxide 400 Mg Tablet) 400 mg PO BIDPC [facility] Melatonin (Melatonin 3 Mg Tablet) 3 mg PO BEDTIME PRN PRN Reason: Insomnia Last Admin: 09/20/25 01:49 Dose: 3 mg Naloxone HCl (Naloxone Hcl 0.4 Mg/Ml Vial) 0.1 mg IVPUSH Q2M PRN PRN Reason: Respiratory Rate < 10 Ondansetron HCl (Ondansetron Hcl 4 Mg/2 Ml Vial) 4 mg IVPUSH Q8H PRN PRN Reason: Nausea and Vomiting Last Admin: 09/20/25 08:21 Dose: 4 mg Oxycodone HCl (Oxycodone Hcl Immed Release 5 Mg Tablet) 5 mg PO QID PRN PRN Reason: Pain, Moderate(Pain Scale 4-6) Last Admin: 09/20/25 22:14 Dose: 5 mg Pharmacy Consult (Consult Rx Vancomycin Dosing) 1 each MISCELLANE DAILY PRN PRN Reason: Consult order Sodium Chloride (0.9 % Sodium Chloride Flush 3 Ml Syringe) 3 ml IVFLUSH QSHIFT [facility] Last Admin: 09/21/25 08:36 Dose: 3 ml Thiamine HCl (Thiamine Hcl 100 Mg Tablet) 100 mg PO DAILY [facility] Last Admin: 09/21/25 08:36 Dose: 100 mg Home Medications ?Medication ?Instructions ?Recorded ?Confirmed ?Type amitriptyline 50 mg tablet 100 mg PO BEDTIME 09/20/25 09/20/25 History atorvastatin 40 mg tablet 40 mg PO DAILY 09/20/25 09/20/25 History hydrochlorothiazide 12.5 mg capsule 12.5 mg PO DAILY 09/20/25 09/20/25 History hydromorphone 4 mg tablet 4 mg PO QID PRN Pain 09/20/25 09/20/25 History levothyroxine 75 mcg tablet 75 mcg PO DAILY 09/20/25 09/20/25 History ondansetron 4 mg disintegrating 4 mg PO Q12H PRN nausea/vomiting 09/20/25 09/20/25 History tablet oxycodone 5 mg tablet 5 mg PO BEDTIME PRN Pain 09/20/25 09/20/25 History vit no.95-ferrous 1 tab PO DAILY 09/20/25 09/20/25 History fumarate 28 mg-folic acid 800 mcg tablet () thiamine mononitrate (vit B1) 100 100 mg PO DAILY 09/20/25 09/20/25 History mg tablet (Vitamin B-1 (mononitrate)) Allergies Allergy/AdvReac Type Severity Reaction Status Date / Time Penicillins Allergy Unknown Verified 09/19/25 17:54 Sulfa (Sulfonamide Allergy Unknown Verified 09/19/25 17:54 Antibiotics) Exam Vital signs: Vital Signs Temp 98.0 F 09/21/25 11:54 Pulse 94 09/21/25 11:54 Resp 18 09/21/25 11:54 BP 124/78 09/21/25 11:54 Pulse Ox 99 09/21/25 11:54 O2 Del Method Room Air 09/21/25 11:54 Intake & Output 09/20/25 09/21/25 09/21/25 18:59 06:59 18:59 Intake Total 50 / 370 320 / 370 50 / 50 Output Total 0 / 0 Balance 50 / 370 320 / 370 50 / 50 Urine Output (Average ml/kg/hr) 0.00 0.00 Intake: Intake, IV Amount 50 / 370 320 / 370 50 / 50 cefEPime HCl/D5W 2 gm In 50 ml 50 / 100 50 / 100 50 / 50 @ 100 mls/hr IV Q12H [facility] Rx#: [id number] vancomycin HCL 1,000 mg In 0.9 270 / 270 % Sodium Chloride 250 ml @ 270 mls/hr IV Q24H [facility] Rx#: [id number] Output: Output, Urine Amount 0 / 0 Other: Number of Unmeasured Voids 1 Urine Bathroom Last Bowel Movement 09/19/25 Weight 52 kg Weight 52 kg BMI result Body Mass Index 22.4 - Constitutional Present: moderate distress - Routine HEENT Exam Head: Present: normal inspection, normocephalic - Routine Respiratory Exam Present: decreased breath sounds - Routine Cardiovascular Exam Cardiovascular: Present: RRR, S1, S2 - Routine Abdominal Exam Present: tenderness. Absent: nontender - Routine Extremities Exam Present: nontender - Routine Skin Exam Present: intact - Routine Neurological Exam Present: alert, oriented X3 - Detailed Neurological Exam: Coma Scale Eye Opening: Spontaneous (4) Data - Labs CBC & Chem 7: 09/21/25 08:36 09/21/25 08:36 Labs: Laboratory Last Values WBC 0.6 X10*3/uL (4.8-10.8) L* 09/21/25 08:36 RBC 2.46 X10*6/uL (4.20-5.50) L 09/21/25 08:36 Hgb 7.6 g/dl (12.0-16.0) L 09/21/25 08:36 Hct 22.6 % (37.0-47.0) L 09/21/25 08:36 MCV 91.9 fL (80.0-98.0) 09/21/25 08:36 MCH 30.9 pg (27.0-33.0) 09/21/25 08:36 MCHC 33.6 g/dl (31.0-35.0) 09/21/25 08:36 RDW 16.3 % (11.0-16.0) H 09/21/25 08:36 Plt Count 4 X10*3/uL (160-400) L* D 09/21/25 08:36 MPV Not Reportable 09/21/25 08:36 Immature Gran % (Auto) Cancelled 09/20/25 04:03 Neut % (Auto) Cancelled 09/20/25 04:03 Lymph % (Auto) Cancelled 09/20/25 04:03 [place] % (Auto) Cancelled 09/20/25 04:03 Eos % (Auto) Cancelled 09/20/25 04:03 Baso % (Auto) Cancelled 09/20/25 04:03 Lymph # (Auto) Cancelled 09/20/25 04:03 [place] # (Auto) Cancelled 09/20/25 04:03 Eos # (Auto) Cancelled 09/20/25 04:03 Baso # (Auto) Cancelled 09/20/25 04:03 Abs Immat Gran (auto) Cancelled 09/20/25 04:03 Absolute Neuts (auto) Cancelled 09/20/25 04:03 Absolute Nucleated RBC 0.000 X10*3/uL (0.0-0.012) 09/21/25 08:36 Nucleated RBC % (auto) 0.0 /100WBC (0.0-0.2) 09/21/25 08:36 Neutrophils % (Manual) 8 % (45-73) L 09/20/25 04:03 Band Neutrophils % 0 % (3-5) L 09/20/25 04:03 Lymphocytes % (Manual) 90 % (20-40) H 09/20/25 04:03 Eosinophils % (Manual) 2 % (0-4) 09/20/25 04:03 Abs Neuts (Manual) 0.1 X10*3/uL (2.0-8.3) L 09/20/25 04:03 Lymphocytes # (Manual) 0.6 X10*3/uL (1.2-4.9) L 09/20/25 04:03 Platelet Estimate DECREASED (NORMAL) 09/20/25 04:03 Plt Morphology Comment NORMAL 09/20/25 04:03 RBC Morphology NORMAL 09/20/25 04:03 Smear Tech's Comments VERIFIED 09/19/25 18:41 Smear Path Review SEE NOTE 09/20/25 04:03 Sodium 136 mmol/L (135-145) 09/21/25 08:36 Potassium 3.1 mmol/L (3.3-5.1) L 09/21/25 08:36 Chloride 103 mmol/L (96-108) 09/21/25 08:36 Carbon Dioxide 25 mmol/L (22-29) 09/21/25 08:36 Anion Gap 11 (12-20) L 09/21/25 08:36 BUN 21 mg/dL (9-16) H 09/21/25 08:36 Creatinine 0.91 mg/dL (0.5-1.4) 09/21/25 08:36 Estim Creat Clear Calc 40.1 09/21/25 08:36 Estimated GFR > 60 09/21/25 08:36 Random Glucose 101 mg/dL (60-115) 09/21/25 08:36 Lactic Acid 2.9 mmol/L (0.5-2.0) H* 09/19/25 18:41 Lactic Acid F/U @ 2Hr 1.0 mmol/L (0.5-2.0) 09/19/25 21:46 Calcium 8.7 mg/dL (8.4-10.2) 09/21/25 08:36 Magnesium 1.5 mg/dL (1.6-2.6) L 09/21/25 08:36 Total Bilirubin 0.4 mg/dL (0.0-1.0) 09/20/25 04:03 AST 30 U/L (5-31) 09/20/25 04:03 ALT 15 U/L (0-31) 09/20/25 04:03 Alkaline Phosphatase 148 U/L (39-117) H 09/20/25 04:03 Total Protein 6.3 g/dL (6.5-8.0) L 09/20/25 04:03 Albumin 3.4 g/dL (3.5-5.0) L 09/20/25 04:03 Lipase 10 U/L (8-78) 09/19/25 18:41 Urine Color Yellow 09/20/25 04:00 Urine Appearance Clear 09/20/25 04:00 Urine pH 5.5 (5.0-9.0) 09/20/25 04:00 Ur Specific [place] >= 1.030 (1.005-1.025) H 09/20/25 04:00 Urine Protein Trace mg/dL (Neg-Trace) 09/20/25 04:00 Urine Glucose (UA) Negative mg/dL (Negative) 09/20/25 04:00 Urine Ketones Negative mg/dL (Negative) 09/20/25 04:00 Urine Blood Small (1+) (Negative) H 09/20/25 04:00 Urine Nitrite Negative (Negative) 09/20/25 04:00 Ur Leukocyte Esterase Negative (Negative) 09/20/25 04:00 Urine RBC 3-5 /HPF (0-2) H 09/20/25 04:00 Urine WBC 11-20 /HPF (0-5) H 09/20/25 04:00 Ur Squamous Epith Cells 0-2 /HPF (0-2) 09/20/25 04:00 Other Crystals Present 09/20/25 04:00 Urine Bacteria 1+ (None Seen) 09/20/25 04:00 Hyaline Casts 3-5 /LPF (0-2) 09/20/25 04:00 Random Vancomycin 10.6 mcg/mL (15-20) L 09/20/25 19:13 Influenza Type A (PCR) NEGATIVE (Negative) 09/19/25 18:41 Influenza Type B (PCR) NEGATIVE (Negative) 09/19/25 18:41 RSV RNA Qual (PCR) NEGATIVE (Negative) 09/19/25 18:41 SARS-CoV-2 RNA (RT-PCR) NEGATIVE (Negative) 09/19/25 18:41 Blood Type O Positive 09/21/25 09:29 Antibody Screen NEGATIVE 09/21/25 09:29 Assessment and Plan Patient Active problem list reviewed?: Yes (1) Pancytopenia Status: Acute Assessment and plan: 70 year old lady, with a known H/O metastatic lung cancer( small cell) to the liver and spine. Apparently, she received chemotherapy about 10 days ago, at [facility] under the care of Dr. Gaspar. She did get the Neulasta shot. She has now been admitted to the hospital for pancytopenia, and pneumonia. DATA BASE: Laboratory studies: WBC 0.7, absolute neutrophil count 0.0, Hgb 10.2, Plt 19; BUN (24), creatinine within normal limits. AST (35) and alkaline phosphatase (166), with normal bilirubin and ALT. Magnesium 1.0. Lactate: Initial lactic acid elevated at 2.9, improved to 1.0 on repeat. Infectious Workup: Negative for influenza A/B, RSV, and SARS-CoV-2. Imaging: CT chest showed: 1. No acute pulmonary embolus. 2. New small patchy opacity in the right upper lobe. Infectious etiology favored. 3. New mild compression fractures inferior T3 and superior T4 endplates. 4. Additional findings as above. CT abdomen/pelvis showed: Decreasing size and number of numerous hepatic lesions suggesting treatment response of metastatic disease. The patient is admitted to the hospital for Pneumonia and severe neutropenia. She has been pancultured and started on broad-spectrum antibiotics to cover for gram-negative enteric bacteria, as well as Gram-positive, in the setting of neutropenic bacteremia. She is starting to feel better. Transfuse 1 unit blood in 2 unit platelet today. CC: Dr. Gaspar. [facility]. - Time Spent With Patient Time Spent with Patient (in minutes): 15 Additional Coding: - Additional E/M codes Complex E/M visit Add On: CPT G2211
--- NOTE | 2025-09-21 13:08 | MHC.CLN ---
PT IS MODERATELY MALNOURISHED-QUALIFIES FOR NON-SEVERE MALNUTRITION IN THE CONTEXT OF ACUTE ILLNESS PT WITH 11% SIGNIFICANT WT LOSS X 2 MONTHS WITH POOR PO INTAKE R/T ACUTE ILLNESS AND CHEMO TX DIET REGULAR NEUTROPENIC RECOMMEND ADDING ENSURE BID TO INCREASE KCALS SUPP TO PROVIDE 700KCALS, 40G PROTEIN MONITOR PO INTAKE AND ENCOURAGE SUPPLEMENTS SEE FULL ASSESSMENT
--- NOTE | 2025-09-21 16:29 | P.PNID_ITS ---
Subjective Subjective Date of Service: 09/21/25 Critical Care Time (minutes): 15 Comment: no further complaints,sleepy Objective Data Labs 09/21/25 08:36 09/21/25 08:36 Labs: Laboratory Results - last 24 hr 09/20/25 09/21/25 09/21/25 19:13 08:36 09:29 WBC 0.6 L* RBC 2.46 L Hgb 7.6 L Hct 22.6 L MCV 91.9 MCH 30.9 MCHC 33.6 RDW 16.3 H Plt Count 4 L* D MPV Not Reportable Absolute Nucleated RBC 0.000 Nucleated RBC % (auto) 0.0 Sodium 136 Potassium 3.1 L Chloride 103 Carbon Dioxide 25 Anion Gap 11 L BUN 21 H Creatinine 0.91 Estim Creat Clear Calc 40.1 Estimated GFR > 60 Random Glucose 101 Calcium 8.7 Magnesium 1.5 L Random Vancomycin 10.6 L Blood Type O Positive Antibody Screen NEGATIVE Crossmatch See Detail Microbiology Microbiology Results: Microbiology 09/20/25 Unknown Urine clean catch - Clean Catch Midstream Urine Culture - Final No growth. 09/19/25 18:46 Blood - Venous Blood Culture - Preliminary No growth after 24 hours. 09/19/25 18:41 Blood - Venous Blood Culture - Preliminary No growth after 24 hours. Physical Exam 2 Vital Signs: Vital Signs: Last Vital Signs Temp 97.9 F 09/21/25 16:17 Pulse 88 09/21/25 16:17 Resp 18 09/21/25 16:17 BP 130/64 09/21/25 16:17 Pulse Ox 98 09/21/25 15:44 O2 Del Method Room Air 09/21/25 15:44 BMI result Body Mass Index 22.4 Const: General: cooperative HEENT: Head: Yes normal to inspection Face and sinus: Yes normal facial exam Mouth: Normal oral and palatal mucosa present Teeth and gingiva: d entition normal Eyes: General: appearance normal, both eyes and all related structures P upils: Equal, round and reactive pupils present Resp: Effort & Inspection: normal respiratory effort Cardio: Rate: regular rate Rhythm: regular rhythm GI: Palpation (GI): Soft to palpation and nontender : General: Yes no CVA tenderness Back/Spine/Pelvis: Back: no CVA tenderness Skin: General skin exam: no rashes or lesions noted Neuro: General: moves all extremities Cranial nerves: Yes Equal, round and reactive pupils present Extrem: General: Yes normal to inspection Psych: Appearance: grossly normal Assessment and Plan Assessment and plan (1) Severe neutropenia: Problem details: on Levaquin,Vancomycin and Cefepime Status: Acute (2) Pneumonia: Problem details: She is on room air Check nares MRSA and stop Vancomycin if negative. Would stop Cefepime also if doing well and not requiring oxygen and then give po Levaquin for a week on discharge Status: Acute Time Spent With Patient Time: Total time managing care of this patient today ____ minutes.
[2025-09-21] MEDS: oxyCODONE HCl Immed Release 5 MG TABLET PO (17:10)
[2025-09-22] VITALS (7 sets, daily range): BP systolic 132–147; BP diastolic 64–87; PULSE 77–90; RESP 16–18; TEMP 36.2–36.8; O2SAT 97–99
[2025-09-22 06:31] LABS: Hemoglobin 8.4 g/dl (12.0-16.0); NRBC Abs Auto 0.000 X10*3/uL (0.0-0.012); NRBC Pct Auto 0.0 /100WBC (0.0-0.2)
[2025-09-22 06:33] LABS: Hematocrit 24.8 % (37.0-47.0); Mean Corpuscular HGB Conc 33.9 g/dl (31.0-35.0); Mean Corpuscular Hemoglobin 30.5 pg (27.0-33.0); Mean Corpuscular Volume 90.2 fL (80.0-98.0); Red Blood Count 2.75 X10*6/uL (4.20-5.50)
[2025-09-22 06:47] LABS: PLT ABN DIST 1; Platelet Count 2 X10*3/uL (160-400); White Blood Count 0.6 X10*3/uL (4.8-10.8)
[2025-09-22 06:57] LABS: Anion Gap 12 (12-20); Blood Urea Nitrogen 20 mg/dL (9-16); Calcium 8.7 mg/dL (8.4-10.2); Carbon Dioxide 24 mmol/L (22-29); Chloride 107 mmol/L (96-108); Creatinine Clr Calc Pharmacy 43.9; Estimated Glomerular Filt Rate > 60; Potassium 3.5 mmol/L (3.3-5.1); Sodium 139 mmol/L (135-145)
[2025-09-22 07:27] LABS: Magnesium 1.3 mg/dL (1.6-2.6)
[2025-09-22] MEDS: cefEPime HCl/D5W 2 GM/50 ML PIGGYBACK IV ×2 (07:39→19:40)
[2025-09-22] MEDS: 0.9 % Sodium Chloride Flush 3 ML SYRINGE IVFLUSH ×3 (07:45→20:26)
[2025-09-22] MEDS: Magnesium Sulfate/H2O 2 GM/50 ML PIGGYBACK IV (08:20)
--- NOTE | 2025-09-22 09:01 | HO.PM.IMPN ---
Subjective Subjective Date of Service: 09/22/25 Interval History: no new complaints Physical Exam Vital Signs: Vital Signs: Last Vital Signs Temp 98.3 F 09/22/25 07:57 Pulse 77 09/22/25 07:57 Resp 16 09/22/25 07:57 BP 139/65 09/22/25 07:57 Pulse Ox 99 09/22/25 07:57 O2 Del Method Room Air 09/22/25 07:57 BMI result Body Mass Index 22.4 Const: General: cooperative HEENT: Head: Yes normal to inspection Face and sinus: Yes normal facial exam Mouth: Normal oral and palatal mucosa present Teeth and gingiva: dentition normal Eyes: General: appearance normal, both eyes and all related structures Pupils: Equal, round and reactive pupils present Resp: Effort & Inspection: normal respiratory effort Cardio: Rate: regular rate Rhythm: regular rhythm GI: Palpation (GI): Soft to palpation and nontender : General: Yes no CVA tenderness Back/Spine/Pelvis: Back: no CVA tenderness Skin: General skin exam: no rashes or lesions noted Neuro: General: moves all extremities Cranial nerves: Yes Equal, round and reactive pupils present Extrem: General: Yes normal to inspection Psych: Appearance: grossly normal Objective Data Active Medications Acetaminophen (Acetaminophen 325 Mg Tablet) 650 mg PO Q6H PRN PRN Reason: Pain, Mild 1-3,fever,headache Last Admin: 09/20/25 04:18 Dose: 650 mg Documented By: FARRAH Amitriptyline HCl (Amitriptyline Hcl 50 Mg Tablet) 100 mg PO BEDTIME [facility] Last Admin: 09/21/25 21:01 Dose: 100 mg Documented By: ARABELLA Atorvastatin Calcium (Atorvastatin Calcium 40 Mg Tablet) 40 mg PO DAILY [facility] Last Admin: 09/22/25 08:20 Dose: 40 mg Documented By: YULIA Calcium Carbonate (Calcium Carbonate 750 Mg Tab.Chew) 750 mg PO Q4H PRN PRN Reason: Heartburn Hydromorphone HCl (Hydromorphone Hcl 2 Mg Tablet) 4 mg PO QID PRN PRN Reason: Pain, Severe (Pain Scale 7-10) Levofloxacin (Levaquin) 750 mg in 150 mls @ 100 mls/hr IV Q48H [facility] Last Infusion: 09/21/25 22:15 Dose: Infused Documented By: ARABELLA Vancomycin HCl 1,000 mg/ (Sodium Chloride) 270 mls @ 270 mls/hr IV Q24H [facility] Last Infusion: 09/21/25 23:13 Dose: Infused Documented By: ARABELLA Cefepime HCl (Maxipime) 2 gm in 50 mls @ 100 mls/hr IV Q12H [facility] Last Infusion: 09/22/25 08:26 Dose: Infused Documented By: YULIA Magnesium Sulfate (Magnesium Sulfate/H2o) 2 gm in 50 mls @ 25 mls/hr IV ONCE ONE Stop: 09/22/25 09:28 Last Admin: 09/22/25 08:20 Dose: 25 mls/hr Documented By: YULIA Levothyroxine Sodium (Levothyroxine Sodium 75 Mcg Tablet) 75 mcg PO DAILY [facility] Last Admin: 09/22/25 08:20 Dose: 75 mcg Documented By: YULIA Magnesium Oxide (Magnesium Oxide 400 Mg Tablet) 400 mg PO BIDPC [facility] Last Admin: 09/22/25 08:20 Dose: 400 mg Documented By: YULIA Melatonin (Melatonin 3 Mg Tablet) 3 mg PO BEDTIME PRN PRN Reason: Insomnia Last Admin: 09/20/25 01:49 Dose: 3 mg Documented By: FARRAH Naloxone HCl (Naloxone Hcl 0.4 Mg/Ml Vial) 0.1 mg IVPUSH Q2M PRN PRN Reason: Respiratory Rate < 10 Ondansetron HCl (Ondansetron Hcl 4 Mg/2 Ml Vial) 4 mg IVPUSH Q8H PRN PRN Reason: Nausea and Vomiting Last Admin: 09/20/25 08:21 Dose: 4 mg Documented By: DOUGLAS Oxycodone HCl (Oxycodone Hcl Immed Release 5 Mg Tablet) 5 mg PO QID PRN PRN Reason: Pain, Moderate(Pain Scale 4-6) Last Admin: 09/21/25 17:10 Dose: 5 mg Documented By: VIKKI Pharmacy Consult (Consult Rx Vancomycin Dosing) 1 each MISCELLANE DAILY PRN PRN Reason: Consult order Sodium Chloride (0.9 % Sodium Chloride Flush 3 Ml Syringe) 3 ml IVFLUSH QSHIFT [facility] Last Admin: 09/22/25 07:45 Dose: 3 ml Documented By: YULIA Thiamine HCl (Thiamine Hcl 100 Mg Tablet) 100 mg PO DAILY [facility] Last Admin: 09/22/25 08:20 Dose: 100 mg Documented By: YULIA Labs 09/22/25 05:50 09/22/25 05:50 Labs: Laboratory Results - last 24 hr 09/21/25 09/21/25 09/21/25 08:36 09:29 19:14 MCV 91.9 MCH 30.9 MCHC 33.6 RDW 16.3 H Plt Count 4 L* D MPV Not Reportable Absolute Nucleated RBC 0.000 Nucleated RBC % (auto) 0.0 Anion Gap 11 L Estim Creat Clear Calc 40.1 Estimated GFR > 60 Random Glucose 101 Calcium 8.7 Magnesium 1.5 L Random Vancomycin 12.6 L Blood Type O Positive Antibody Screen NEGATIVE Crossmatch See Detail 09/22/25 05:50 MCV 90.2 MCH 30.5 MCHC 33.9 RDW 15.6 Plt Count 2 L* MPV Not Reportable Absolute Nucleated RBC 0.000 Nucleated RBC % (auto) 0.0 Anion Gap 12 Estim Creat Clear Calc 43.9 Estimated GFR > 60 Random Glucose 95 Calcium 8.7 Magnesium 1.3 L* Random Vancomycin Blood Type Antibody Screen Crossmatch Microbiology Microbiology Results: Microbiology 09/19/25 18:46 Blood Culture - Preliminary Blood - Venous No growth after 48 hours. 09/19/25 18:41 Blood Culture - Preliminary Blood - Venous No growth after 48 hours. 09/20/25 Unknown Urine Culture - Final Urine clean catch - Clean Catch Midstream No growth. Assessment and Plan (1) Severe neutropenia: Status: Acute Plan 70F PMH stage IV lung cancer on chemotherapy presented with weakness and subjective fevers Stage IV lung cancer with neutropenic/pancytopenic fevers due to chemotherapy Vancomycin, cefepime, follow up cultures - no growht to date, monitor fevers - none in hospital so far, Hematology appreciated po levaquin for 1 week on dc panctyopenia due to chemotherapy transfused 1 unit prbc platelets <10K will transfused 1unit Acute hypomagnesemia Replace and monitor acute hypokalemia replaced DVT prophylaxis-mechanical due to thrombocytopenia DNR/DNI reason for continued hospitalization: Monitoring neutropenic fever, transfusing platelets Quality Stroke Does the patient have a stroke diagnosis?: No VTE Prior VTE?: No VTE Risk Level:: Medical - moderate - high VTE Device Contraindication: Procedure Contraindicated VTE Drug Contraindication: Treatment Not Tolerated
[2025-09-22] MEDS: Throat Lozenge, Medicated LOZENGE 1 LOZENGE MUCOUS MEM (17:17)
--- NOTE | 2025-09-22 19:52 | HE.PHANOTE ---
KELTON Garciaged dose to 500mg Q12H as wilmer has come back on lower end for all 3 troughs. New predicted trough 15.5, AUC 472. Next trough 09/23 @1900.
[2025-09-23] VITALS (11 sets, daily range): BP systolic 116–144; BP diastolic 56–79; PULSE 78–93; RESP 14–18; TEMP 36–37.1; O2SAT 95–100
[2025-09-23 07:19] LABS: Hemoglobin 8.9 g/dl (12.0-16.0); Mean Corpuscular Volume 90.6 fL (80.0-98.0); NRBC Abs Auto 0.000 X10*3/uL (0.0-0.012); NRBC Pct Auto 0.0 /100WBC (0.0-0.2)
[2025-09-23 07:21] LABS: Hematocrit 26.1 % (37.0-47.0); Mean Corpuscular HGB Conc 34.1 g/dl (31.0-35.0); Mean Corpuscular Hemoglobin 30.9 pg (27.0-33.0); Red Blood Count 2.88 X10*6/uL (4.20-5.50)
[2025-09-23 07:39] LABS: PLT ABN DIST 1
[2025-09-23 07:40] LABS: Platelet Count < 2 X10*3/uL (160-400); White Blood Count 0.7 X10*3/uL (4.8-10.8)
[2025-09-23 07:42] LABS: Anion Gap 11 (12-20); Blood Urea Nitrogen 19 mg/dL (9-16); Calcium 8.7 mg/dL (8.4-10.2); Carbon Dioxide 24 mmol/L (22-29); Chloride 107 mmol/L (96-108); Creatinine Clr Calc Pharmacy 47.4; Estimated Glomerular Filt Rate > 60; Potassium 3.5 mmol/L (3.3-5.1); Sodium 138 mmol/L (135-145)
[2025-09-23 07:43] LABS: Magnesium 1.3 mg/dL (1.6-2.6)
[2025-09-23] MEDS: cefEPime HCl/D5W 2 GM/50 ML PIGGYBACK IV (07:53)
[2025-09-23] MEDS: 0.9 % Sodium Chloride Flush 3 ML SYRINGE IVFLUSH ×3 (07:53→20:11)
--- NOTE | 2025-09-23 09:14 | P.PNIM_ITS ---
Subjective Subjective Date of Service: 09/23/25 Interval History: no bleeding Physical Exam 2 Vital Signs: Vital Signs: Last Vital Signs Temp 97.5 F 09/23/25 07:54 Pulse 79 09/23/25 07:54 Resp 14 09/23/25 07:54 BP 143/79 H 09/23/25 07:54 Pulse Ox 97 09/23/25 07:54 O2 Del Method Room Air 09/23/25 07:54 BMI result Body Mass Index 22.4 Const: General: cooperative HEENT: Head: Yes normal to inspection Face and sinus: Yes normal facial exam Mouth: Normal oral and palatal mucosa present Teeth and gingiva: d entition normal Eyes: General: appearance normal, both eyes and all related structures P upils: Equal, round and reactive pupils present Resp: Effort & Inspection: normal respiratory effort Cardio: Rate: regular rate Rhythm: regular rhythm GI: Palpation (GI): Soft to palpation and nontender : General: Yes no CVA tenderness Back/Spine/Pelvis: Back: no CVA tenderness Skin: General skin exam: no rashes or lesions noted Neuro: General: moves all extremities Cranial nerves: Yes Equal, round and reactive pupils present Extrem: General: Yes normal to inspection Psych: Appearance: grossly normal Objective Data Active Medications Acetaminophen (Acetaminophen 325 Mg Tablet) 650 mg PO Q6H PRN PRN Reason: Pain, Mild 1-3,fever,headache Last Admin: 09/20/25 04:18 Dose: 650 mg Documented By: LUISOPEMatias Amitriptyline HCl (Amitriptyline Hcl 50 Mg Tablet) 100 mg PO BEDTIME [facility] Last Admin: 09/22/25 20:21 Dose: 100 mg Documented By: ARABELLA Atorvastatin Calcium (Atorvastatin Calcium 40 Mg Tablet) 40 mg PO DAILY [facility] Last Admin: 09/22/25 08:20 Dose: 40 mg Documented By: YULIA Benzocaine (Throat Lozenge, Medicated Lozenge) 1 lozenge MUCOUS MEM Q2H PRN PRN Reason: Sore Throat Last Admin: 09/22/25 17:17 Dose: 1 lozenge Documented By: YULIA Calcium Carbonate (Calcium Carbonate 750 Mg Tab.Chew) 750 mg PO Q4H PRN PRN Reason: Heartburn Hydromorphone HCl (Hydromorphone Hcl 2 Mg Tablet) 4 mg PO QID PRN PRN Reason: Pain, Severe (Pain Scale 7-10) Levofloxacin (Levaquin) 750 mg in 150 mls @ 100 mls/hr IV Q48H [facility] Last Infusion: 09/21/25 22:15 Dose: Infused Documented By: ARABELLA Cefepime HCl (Maxipime) 2 gm in 50 mls @ 100 mls/hr IV Q12H [facility] Last Admin: 09/23/25 07:53 Dose: 100 mls/hr Documented By: YULIA Vancomycin HCl 500 mg/ Sodium (Chloride) 110 mls @ 110 mls/hr IV Q12H [facility] Last Infusion: 09/22/25 21:36 Dose: Infused Documented By: ARABELLA Magnesium Sulfate (Magnesium Sulfate/H2o) 2 gm in 50 mls @ 25 mls/hr IV ONCE ONE Stop: 09/23/25 09:41 Levothyroxine Sodium (Levothyroxine Sodium 75 Mcg Tablet) 75 mcg PO DAILY [facility] Last Admin: 09/22/25 08:20 Dose: 75 mcg Documented By: YULIA Lidocaine/Diphenhydr/Alum/Mg/Simeth (Mag&Al/Sim/Diphenhyd/Lidocaine 10 Ml Oral.Susp) 10 ml PO Q4H PRN; Protocol PRN Reason: sore throat breakthrough Magnesium Oxide (Magnesium Oxide 400 Mg Tablet) 400 mg PO BIDPC [facility] Last Admin: 09/23/25 07:53 Dose: 400 mg Documented By: YULIA Melatonin (Melatonin 3 Mg Tablet) 3 mg PO BEDTIME PRN PRN Reason: Insomnia Last Admin: 09/20/25 01:49 Dose: 3 mg Documented By: FARRAH Naloxone HCl (Naloxone Hcl 0.4 Mg/Ml Vial) 0.1 mg IVPUSH Q2M PRN PRN Reason: Respiratory Rate < 10 Ondansetron HCl (Ondansetron Hcl 4 Mg/2 Ml Vial) 4 mg IVPUSH Q8H PRN PRN Reason: Nausea and Vomiting Last Admin: 09/20/25 08:21 Dose: 4 mg Documented By: DOUGLAS Oxycodone HCl (Oxycodone Hcl Immed Release 5 Mg Tablet) 5 mg PO QID PRN PRN Reason: Pain, Moderate(Pain Scale 4-6) Last Admin: 09/21/25 17:10 Dose: 5 mg Documented By: VIKKI Pharmacy Consult (Consult Rx Vancomycin Dosing) 1 each MISCELLANE DAILY PRN PRN Reason: Consult order Sodium Chloride (0.9 % Sodium Chloride Flush 3 Ml Syringe) 3 ml IVFLUSH QSHIFT [facility] Last Admin: 09/23/25 07:53 Dose: 3 ml Documented By: YULIA Thiamine HCl (Thiamine Hcl 100 Mg Tablet) 100 mg PO DAILY [facility] Last Admin: 09/22/25 08:20 Dose: 100 mg Documented By: YULIA Labs 09/23/25 07:01 09/23/25 07:01 Labs: Laboratory Results - last 24 hr 09/21/25 09/22/25 09/23/25 09:29 18:48 07:01 MCV 90.6 MCH 30.9 MCHC 34.1 RDW 15.3 Plt Count < 2 L* MPV Not Reportable Absolute Nucleated RBC 0.000 Nucleated RBC % (auto) 0.0 Anion Gap 11 L Estim Creat Clear Calc 47.4 Estimated GFR > 60 Random Glucose 97 Calcium 8.7 Magnesium 1.3 L* Random Vancomycin 13.3 L Blood Type O Positive Antibody Screen NEGATIVE Crossmatch See Detail Assessment and Plan (1) Severe neutropenia: Status: Acute Plan 70F PMH stage IV lung cancer on chemotherapy presented with weakness and subjective fevers Stage IV lung cancer with neutropenic/pancytopenic fevers due to chemotherapy will dc Vancomycin, cefepime, cultures - no growth to date, no further fevers, will change to po levaquin po levaquin for 1 week on dc panctyopenia due to chemotherapy transfused 1 unit prbc platelets <10K will transfuse 1unit (3rd) Acute hypomagnesemia Replace and monitor acute hypokalemia replaced DVT prophylaxis-mechanical due to thrombocytopenia DNR/DNI reason for continued hospitalization: transfusing platelets Quality Stroke Does the patient have a stroke diagnosis?: No VTE Prior VTE?: No VTE Risk Level:: Medical - moderate - high VTE Device Contraindication: Procedure Contraindicated VTE Drug Contraindication: Treatment Not Tolerated
[2025-09-23] MEDS: Magnesium Sulfate/H2O 2 GM/50 ML PIGGYBACK IV (09:24)
[2025-09-24 04:00] VITALS: BP 123/74; PULSE 80; RESP 18; TEMP 36.9; O2SAT 98
[2025-09-24 06:04] LABS: Hematocrit 25.9 % (37.0-47.0); Hemoglobin 8.7 g/dl (12.0-16.0); Mean Corpuscular HGB Conc 33.6 g/dl (31.0-35.0); Mean Corpuscular Hemoglobin 31.0 pg (27.0-33.0); Mean Corpuscular Volume 92.2 fL (80.0-98.0); NRBC Abs Auto 0.000 X10*3/uL (0.0-0.012); NRBC Pct Auto 0.0 /100WBC (0.0-0.2); Red Blood Count 2.81 X10*6/uL (4.20-5.50)
[2025-09-24 06:08] LABS: Platelet Count 30 X10*3/uL (160-400)
[2025-09-24 06:15] LABS: White Blood Count 0.9 X10*3/uL (4.8-10.8)
[2025-09-24 06:20] LABS: Anion Gap 10 (12-20); Blood Urea Nitrogen 20 mg/dL (9-16); Calcium 8.7 mg/dL (8.4-10.2); Carbon Dioxide 25 mmol/L (22-29); Chloride 107 mmol/L (96-108); Creatinine Clr Calc Pharmacy 41.0; Estimated Glomerular Filt Rate > 60; Potassium 3.4 mmol/L (3.3-5.1); Sodium 139 mmol/L (135-145)
[2025-09-24 06:20] LABS: Fibrinogen 563 MG/DL (259-690); INTERNATIONAL NORM RATIO 1.0 (0.9-1.1); Prothrombin Time 12.8 SEC (11.2-13.5)
[2025-09-24 06:23] LABS: Partial Thromboplastin Time 30.7 SEC (26.7-34.1)
[2025-09-24 07:24] VITALS: BP 136/67; PULSE 86; RESP 16; TEMP 36.4; O2SAT 98
[2025-09-24 07:48] LABS: Magnesium 1.5 mg/dL (1.6-2.6)
--- NOTE | 2025-09-24 08:11 | P.PNIM_ITS ---
Subjective Subjective Date of Service: 09/24/25 Interval History: no bleeding Physical Exam 2 Vital Signs: Vital Signs: Last Vital Signs Temp 97.5 F 09/24/25 07:24 Pulse 86 09/24/25 07:24 Resp 16 09/24/25 07:24 BP 136/67 09/24/25 07:24 Pulse Ox 98 09/24/25 07:24 O2 Del Method Room Air 09/24/25 07:24 BMI result Body Mass Index 22.4 Const: General: cooperative HEENT: Head: Yes normal to inspection Face and sinus: Yes normal facial exam Mouth: Normal oral and palatal mucosa present Teeth and gingiva: d entition normal Eyes: General: appearance normal, both eyes and all related structures P upils: Equal, round and reactive pupils present Resp: Effort & Inspection: normal respiratory effort Cardio: Rate: regular rate Rhythm: regular rhythm GI: Palpation (GI): Soft to palpation and nontender : General: Yes no CVA tenderness Back/Spine/Pelvis: Back: no CVA tenderness Skin: General skin exam: no rashes or lesions noted Neuro: General: moves all extremities Cranial nerves: Yes Equal, round and reactive pupils present Extrem: General: Yes normal to inspection Psych: Appearance: grossly normal Objective Data Active Medications Acetaminophen (Acetaminophen 325 Mg Tablet) 650 mg PO Q6H PRN PRN Reason: Pain, Mild 1-3,fever,headache Last Admin: 09/20/25 04:18 Dose: 650 mg Documented By: FARRAH Amitriptyline HCl (Amitriptyline Hcl 50 Mg Tablet) 100 mg PO BEDTIME [facility] Last Admin: 09/23/25 20:11 Dose: 100 mg Documented By: SENIA Atorvastatin Calcium (Atorvastatin Calcium 40 Mg Tablet) 40 mg PO DAILY [facility] Last Admin: 09/23/25 09:12 Dose: 40 mg Documented By: YULIA Benzocaine (Throat Lozenge, Medicated Lozenge) 1 lozenge MUCOUS MEM Q2H PRN PRN Reason: Sore Throat Last Admin: 09/22/25 17:17 Dose: 1 lozenge Documented By: YULIA Calcium Carbonate (Calcium Carbonate 750 Mg Tab.Chew) 750 mg PO Q4H PRN PRN Reason: Heartburn Hydromorphone HCl (Hydromorphone Hcl 2 Mg Tablet) 4 mg PO QID PRN PRN Reason: Pain, Severe (Pain Scale 7-10) Magnesium Sulfate (Magnesium Sulfate/H2o) 2 gm in 50 mls @ 25 mls/hr IV ONCE ONE Stop: 09/24/25 10:08 Levofloxacin (Levofloxacin 750 Mg Tablet) 750 mg PO Q24H [facility] Levothyroxine Sodium (Levothyroxine Sodium 75 Mcg Tablet) 75 mcg PO DAILY [facility] Last Admin: 09/23/25 09:12 Dose: 75 mcg Documented By: YULIA Lidocaine/Diphenhydr/Alum/Mg/Simeth (Mag&Al/Sim/Diphenhyd/Lidocaine 10 Ml Oral.Susp) 10 ml PO Q4H PRN; Protocol PRN Reason: sore throat breakthrough Magnesium Oxide (Magnesium Oxide 400 Mg Tablet) 400 mg PO BIDPC [facility] Last Admin: 09/23/25 17:27 Dose: 400 mg Documented By: YULIA Melatonin (Melatonin 3 Mg Tablet) 3 mg PO BEDTIME PRN PRN Reason: Insomnia Last Admin: 09/20/25 01:49 Dose: 3 mg Documented By: FARRAH Naloxone HCl (Naloxone Hcl 0.4 Mg/Ml Vial) 0.1 mg IVPUSH Q2M PRN PRN Reason: Respiratory Rate < 10 Ondansetron HCl (Ondansetron Hcl 4 Mg/2 Ml Vial) 4 mg IVPUSH Q8H PRN PRN Reason: Nausea and Vomiting Last Admin: 09/20/25 08:21 Dose: 4 mg Documented By: DOUGLAS Oxycodone HCl (Oxycodone Hcl Immed Release 5 Mg Tablet) 5 mg PO QID PRN PRN Reason: Pain, Moderate(Pain Scale 4-6) Last Admin: 09/21/25 17:10 Dose: 5 mg Documented By: VIKKI Sodium Chloride (0.9 % Sodium Chloride Flush 3 Ml Syringe) 3 ml IVFLUSH QSHIFT [facility] Last Admin: 09/23/25 20:11 Dose: 3 ml Documented By: SENIA Thiamine HCl (Thiamine Hcl 100 Mg Tablet) 100 mg PO DAILY [facility] Last Admin: 09/23/25 09:12 Dose: 100 mg Documented By: YULIA Labs 09/24/25 05:27 09/24/25 05:59 Labs: Laboratory Results - last 24 hr 12/09/24/25 09/24/25 09:29 05:27 05:59 MCV 92.2 MCH 31.0 MCHC 33.6 RDW 15.2 Plt Count 30 L D MPV 10.7 Absolute Nucleated RBC 0.000 Nucleated RBC % (auto) 0.0 PT 12.8 INR 1.0 APTT 30.7 Fibrinogen 563 Anion Gap 10 L Estim Creat Clear Calc 41.0 Estimated GFR > 60 Random Glucose 97 Calcium 8.7 Magnesium 1.5 L Blood Type O Positive Antibody Screen NEGATIVE Crossmatch See Detail Assessment and Plan (1) Severe neutropenia: Status: Acute Plan 70F PMH stage IV lung cancer on chemotherapy presented with weakness and subjective fevers Stage IV lung cancer with neutropenic/pancytopenic fevers due to chemotherapy will dc Vancomycin, cefepime, cultures - no growth to date, no further fevers, changed to po levaquin po levaquin for 1 week on dc panctyopenia due to chemotherapy transfused 1 unit prbc 4 units total platelet platelets improved to 30K today, DIC panel negative Acute hypomagnesemia Replaced acute hypokalemia replaced DVT prophylaxis-mechanical due to thrombocytopenia DNR/DNI reason for continued hospitalization: dispo planning Quality Stroke Does the patient have a stroke diagnosis?: No VTE Prior VTE?: No VTE Risk Level:: Medical - moderate - high VTE Device Contraindication: Procedure Contraindicated VTE Drug Contraindication: Treatment Not Tolerated
--- NOTE | 2025-09-24 08:25 | P.DS_ITS ---
DS: Providers Provider Date of admission: 09/19/25 23:40 Date of discharge: 09/24/25 Primary care physician: MAKEDA Shea Consults: 09/20/25 04:35 Consult to Hematology / Oncology Routine Consulting Provider: [facility] [place] [facility] [place] Reason for consultation: severe neutropenia 09/20/25 11:42 Consult to Infectious Diseases Routine Consulting Provider: [facility] [place] [place] [facility] Reason for consultation: neutropneic fever DS: Diagnosis Discharge Diagnosis (1) Severe neutropenia: Status: Acute DS: Summary Hospital Course Hospital Course: from initial hpi: 70-year-old female with metastatic lung cancer to the liver, who received chemotherapy over 10 days ago, presented with 5 days of progressive weakness, subjective fever, increased shortness of breath, abdominal tenderness, and joe sea/vomiting. She denied cough. In the ED she was afebrile, and tachycardia. Oxygen saturation remained normal on room air. 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 Laboratory studies: WBC 0.7, absolute neutrophil count 0.0, Hgb 10.2, Plt 19; BUN (24), creatinine within normal limits. AST (35) and alkaline phosphatase (166), with normal bilirubin and ALT. Magnesium 1.0. Lactate: Initial lactic acid elevated at 2.9, improved to 1.0 on repeat. Infectious Workup: Negative for influenza A/B, RSV, and SARS-CoV-2. Imaging: CT chest showed right upper lobe patchy infiltrate (pneumonia), no PE. CT abdomen/pelvis showed known liver metastases. hospital course: Patient was admitted for neutropenic sepsis due to right upper lobe pneumonia. Was treated with broad-spectrum antibiotics vancomycin cefepime had no further fever, cultures were negative. Was seen by infectious disease who recommended levofloxacin on discharge. Patient will be discharged on 3 more days of levofloxacin. For chemotherapy-induced pancytopenia was transfused 1 unit PRBC and hemoglobin improved appropriately. Platelets were significantly decreased and required total of 4 units. Platelets are 30,000 at time of discharge. For acute hypomagnesemia received replacement. She will continue on p.o. supplement on discharge. For metastatic lung cancer she will continue to follow up with Hematology Oncology at [facility]. Time Attestation Discharge Coordination Time (in mins): 34 Quality: Safe Use of Opioids Does Pt have an Active Cancer Diagnosis on the Problem List?: Yes Opioid Measure Date for CMS Report: 08/25/25 Opioid Measure Time for [facility] Report: 08:27 Quality: Stroke Does the patient have a stroke diagnosis?: No Physical Exam Vital Signs: Vital Signs: Last Vital Signs Temp 97.5 F 09/24/25 07:24 Pulse 86 09/24/25 07:24 Resp 16 09/24/25 07:24 BP 136/67 09/24/25 07:24 Pulse Ox 98 09/24/25 07:24 O2 Del Method Room Air 09/24/25 07:24 BMI result Body Mass Index 22.4 Const: General: cooperative HEENT: Head: Yes normal to inspection Face and sinus: Yes normal facial exam Mouth: Normal oral and palatal mucosa present Teeth and gingiva: dentition normal Eyes: General: appearance normal, both eyes and all related structures Pupils: Equal, round and reactive pupils present Resp: Effort & Inspection: normal respiratory effort Cardio: Rate: regular rate Rhythm: regular rhythm GI: Palpation (GI): Soft to palpation and nontender : General: Yes no CVA tenderness Back/Spine/Pelvis: Back: no CVA tenderness Skin: General skin exam: no rashes or lesions noted Neuro: General: moves all extremities Cranial nerves: Yes Equal, round and reactive pupils present Extrem: General: Yes normal to inspection Psych: Appearance: grossly normal DS: Data Data Completed and Pending Labs on day of discharge: Laboratory Results - last 24 hr 09/21/25 09/24/25 09/24/25 09:29 05:27 05:59 WBC 0.9 L* RBC 2.81 L Hgb 8.7 L Hct 25.9 L MCV 92.2 MCH 31.0 MCHC 33.6 RDW 15.2 Plt Count 30 L D MPV 10.7 Absolute Nucleated RBC 0.000 Nucleated RBC % (auto) 0.0 PT 12.8 INR 1.0 APTT 30.7 Fibrinogen 563 Sodium 139 Potassium 3.4 Chloride 107 Carbon Dioxide 25 Anion Gap 10 L BUN 20 H Creatinine 0.89 Estim Creat Clear Calc 41.0 Estimated GFR > 60 Random Glucose 97 Calcium 8.7 Magnesium 1.5 L Blood Type O Positive Antibody Screen NEGATIVE Crossmatch See Detail Preliminary micro results at discharge 09/19/25 18:46 Blood Culture - Preliminary Blood - Venous No growth after 48 hours. 09/19/25 18:41 Blood Culture - Preliminary Blood - Venous No growth after 48 hours. Discharge Plan Discharge Anticipated Discharge Date/Time: 09/24/25 08:20 Patient Disposition: Home, Self-Care Discharge Diagnosis: pancytopenia Referrals: Hali Carlin PA [Primary Care Provider, [facility]] - 1 Week Discharge Medications: New magnesium oxide 400 mg (241.3 mg magnesium) Tablet 400 mg PO BIDPC 90 Days Qty: 180 0RF levofloxacin 750 mg Tablet 750 mg PO Q24H 3 Days Qty: 3 0RF Continued atorvastatin 40 mg tablet 40 mg PO DAILY amitriptyline 50 mg tablet 100 mg PO BEDTIME levothyroxine 75 mcg tablet 75 mcg PO DAILY Patient Comments: states she is prescribed 112mch but has not been taking. states that dose makes her feel sick. hydrochlorothiazide 12.5 mg capsule 12.5 mg PO DAILY hydromorphone 4 mg tablet 4 mg PO QID PRN (Reason: Pain) oxycodone 5 mg tablet 5 mg PO BEDTIME PRN (Reason: Pain) thiamine mononitrate (vit B1) [Vitamin B-1 (mononitrate)] 100 mg tablet 100 mg PO DAILY ondansetron 4 mg tablet,disintegrating 4 mg PO Q12H PRN (Reason: nausea/vomiting) PNV no.95-ferrous fumarate-FA [] 28 mg iron- 800 mcg tablet 1 tab PO DAILY Discharge Orders: Discharge Order (Routine); Ordered 09/24/25 Ordered By: Pieter Arizmendi Diet: Advance to usual diet Activity on Discharge: As tolerated Stand Alone Forms: Patient Portal Discharge page Print Language: Latvian Care Plan Goals: recovery Health Concerns: panctyopenia from chemo Plan of Treatment: 3 more days shira, follow up with hem/onc, start magnesium supplement Assessment: see above
[2025-09-24] MEDS: 0.9 % Sodium Chloride Flush 3 ML SYRINGE IVFLUSH (08:34)
[2025-09-24] MEDS: Magnesium Sulfate/H2O 2 GM/50 ML PIGGYBACK IV (08:37)
--- NOTE | 2025-09-24 08:52 | MHC.CM.PN ---
pt dcd home self care
[2025-09-24] MEDS: 0.9 % Sodium Chloride Flush 10 ML SYRINGE IVFLUSH (12:42)
[2025-09-26 17:48] LABS: Strep Pneumo Ag urine Not Detected (Not Detected)
--- NOTE | 2025-10-08 08:11 | P.CDIM_ITS ---
PROVIDER RESPONSE TEXT: To clarify, the appropriate diagnosis supported by the clinical indicators: Other (explain): unspecified QUERY TEXT: PHYSICIAN'S DOCUMENTATION REQUEST Date of Query: 10/08/2025 07:53 AM EST Patient Name: Bobbi Pantoja Admit Date: 09/20/2025 Dear Pieter Arizmendi MD, A review of the medical record indicates additional documentation may be needed. Please review below and update the documentation accordingly. Clinical Indicators: patient with metastatic lung cancer with metastasis to the liver and spine Per CT Chest: There are new mild compression fractures at the inferior endplate T3 and superior endplate T4. Old inferior sternal fracture. Bones are osteopenic. Based on the above, could you clarify the appropriate diagnosis, if significant, that supports the above abnormalities and additional evaluation, monitoring, and/or treatment rendered: Pathological fracture spine fracture spine due to neoplastic disease Condition 3 (please specify) Labs indicate a diagnosis of (please specify) Other (explain) Clinically unable to determine (explain) Thank you, Carolina Roe RN Use of terms such as suspected, likely, concern for, or probable (associated with a specific diagnosis that is being evaluated, monitored, or treated as if it exists) are acceptable and can be coded in the inpatient setting, when documented at the time of discharge. Please use your independent medical judgment in providing your response. THIS QUERY IS PART OF THE PERMANENT MEDICAL RECORD
== END 2025-09-24 13:25 | disposition home or self-care (01) | DRG 193 ==
LOC: HO.ED 18:41 → HO.EDOVER 23:45 → HO.IMC 09-20 19:14 → HO.S3 09-21 17:11
PROVIDERS: Registered Nurse Emergency; Admitting Provider Family Medicine; Emergency Provider Student in an Organized Health Care Education/Training Program; PCP Physician Assistant; Visit Provider Internal Medicine
DX: J15.9 Unspecified bacterial pneumonia (principal); D61.810 Antineoplastic chemotherapy induced pancytopenia; C34.90 Malignant neoplasm of unspecified part of unspecified bronchus or lung; C78.7 Secondary malignant neoplasm of liver and intrahepatic bile duct; C79.51 Secondary malignant neoplasm of bone; M48.54XA Collapsed vertebra, not elsewhere classified, thoracic region, initial encounter for fracture; R50.81 Fever presenting with conditions classified elsewhere; E87.6 Hypokalemia; E03.9 Hypothyroidism, unspecified; T45.1X5A Adverse effect of antineoplastic and immunosuppressive drugs, initial encounter; I10 Essential (primary) hypertension; E83.42 Hypomagnesemia; Z66 Do not resuscitate; Z20.822 Contact with and (suspected) exposure to COVID-19; Z79.890 Hormone replacement therapy; Z79.899 Other long term (current) drug therapy
CPT/HCPCS: 36415; 71045; 71275; 74177; 80048; 80053; 80202; 81001; 83605; 83690; 83735; 85007; 85025; 85027; 85384; 85610; 85730; 86850; 86900; 86901; 86923; 87040; 87086; 87449; 87637; 87899; 93005; 99285; J0692; J1171; J1956; J2405; J3374; J3475; J7120; P9016; P9073; Q9967

== ENCOUNTER → 2025-09-19 19:03 | Outpatient (BNV) | payer MEDICARE, SELFPAY | PROVIDERS: Admitting Provider Family Medicine; Emergency Provider Student in an Organized Health Care Education/Training Program; Visit Provider Internal Medicine Cardiovascular Disease | DX: R94.31 Abnormal electrocardiogram [ECG] [EKG] (principal); R53.1 Weakness | CPT/HCPCS: 93010 ==

== ENCOUNTER → 2025-09-19 19:05 | Outpatient (BNV) | payer MEDICARE, SELFPAY | PROVIDERS: Emergency Provider Student in an Organized Health Care Education/Training Program; Visit Provider Radiology Diagnostic Radiology | DX: K76.9 Liver disease, unspecified (principal); C34.90 Malignant neoplasm of unspecified part of unspecified bronchus or lung; R91.8 Other nonspecific abnormal finding of lung field; S22.030A Wedge compression fracture of third thoracic vertebra, initial encounter for closed fracture; S22.040A Wedge compression fracture of fourth thoracic vertebra, initial encounter for closed fracture; R06.02 Shortness of breath | CPT/HCPCS: 71045; 71275; 74177 ==

== ENCOUNTER → 2025-09-19 23:40 | Outpatient (BNV) | payer MEDICARE, SELFPAY | PROVIDERS: Admitting Provider Family Medicine; Emergency Provider Student in an Organized Health Care Education/Training Program; Visit Provider Family Medicine | DX: J18.9 Pneumonia, unspecified organism (principal); C34.90 Malignant neoplasm of unspecified part of unspecified bronchus or lung; C78.7 Secondary malignant neoplasm of liver and intrahepatic bile duct; D70.9 Neutropenia, unspecified; E83.42 Hypomagnesemia | CPT/HCPCS: 99222; 99233; 99499 ==

== ENCOUNTER → 2025-09-19 23:40 | Outpatient (BNV) | payer MEDICARE, SELFPAY | PROVIDERS: Admitting Provider Family Medicine; Emergency Provider Student in an Organized Health Care Education/Training Program; PCP Physician Assistant; Visit Provider Internal Medicine | DX: D61.818 Other pancytopenia (principal); J18.9 Pneumonia, unspecified organism; C34.90 Malignant neoplasm of unspecified part of unspecified bronchus or lung; C78.7 Secondary malignant neoplasm of liver and intrahepatic bile duct; C79.51 Secondary malignant neoplasm of bone | CPT/HCPCS: 99232 ==

== ENCOUNTER → 2025-09-19 23:40 | Outpatient (BNV) | payer MEDICARE, SELFPAY | PROVIDERS: Admitting Provider Family Medicine; Emergency Provider Student in an Organized Health Care Education/Training Program; Visit Provider Internal Medicine | DX: D70.9 Neutropenia, unspecified (principal); J18.9 Pneumonia, unspecified organism | CPT/HCPCS: 99232 ==